=== PATIENT | male | born 1940 | race Caucasian/White ===

== ENCOUNTER 2018-02-05 08:20 | Day surgery (SDC) | payer MEDICARE, OTHER ==
[~2018-02-05] VITALS: Ht 175.3 cm; Wt 84.8 kg
--- NOTE | 2018-02-05 11:35 | OR ---
[facility] [address] [place], [place] [address] Signed DATE OF OPERATION: 02/05/2018 SURGEON: Yasmin Guerra MD PREOPERATIVE DIAGNOSIS: Personal history of colonic polyps in 2004 and in 2013. POSTOPERATIVE DIAGNOSES: 1. 4 mm polyps x2 in proximal right colon. 2. 7 mm polyps x2 in proximal transverse colon. 3. 4 mm polyp in mid transverse colon. 4. Internal anal skin tags x2. PROCEDURE: Colonoscopy with hot biopsy. ESTIMATED BLOOD LOSS: None. INDICATIONS: Malachi is a 77-year-old gentleman, who has been through at least two previous colonoscopies and had polyps removed. He has been asked by his primary care provider to come and see me for followup colonoscopy. He said he has no lower GI complaints. There is no family history of colon cancer or polyps. In the office, I gave him a pamphlet on colonoscopy and we looked at that together along with the risks including, but not limited to gas bloating, crampy abdominal pain, bleeding, perforation, requiring surgery, and missed diagnosis. He also understands the need for IV conscious sedation. We discussed that at length and he was insistent that no sedation was used for his last colonoscopy and he was awake during his entire colonoscopy. He said if we needed to give him IV sedation during the procedure will be fine and we could just call his to pick him up. He had expressed understanding and wished to proceed as above. PROCEDURE NOTE: Malachi was taken into the endoscopy suite and placed in the left lateral decubitus position. We gave him no sedation for the entire procedure. A digital rectal exam was performed and he has some induration to his prostate, but no dominant nodules. The adult colonoscope was introduced and advanced all around into this cecum under direct visualization of the camera. It took a few minutes to get through the hepatic flexure and we had to rotate Malachi into the supine position and then back into the left lateral decubitus position. Fortunately, his prep was quite good. The scope was then slowly Electronically Signed By: YASMIN GUERRA MD 02/05/18 1135 PATIENT NAME: KASIE BROCK OPERATIVE REPORT DATE OF : 36 REPORT #: [id number] PHYSICIAN: YASMIN GUERRA MD PCP: JOCELYN COTA REPORT IS CONFIDENTIAL AND NOT TO BE RELEASED WITHOUT AUTHORIZATION [facility] [address] [place] [id number] Signed withdrawn. The above-mentioned polyps were easily removed with the help of hot biopsy forceps. No diverticulosis was seen. The rectum was unremarkable. We saw previous polypectomy scars. Once in the rectum, the scope was retroflexed and he has 2 tiny internal anal skin tags. After this, the gas was suctioned out and colonoscope removed. Malachi tolerated the procedure quite well. RECOMMENDATIONS: I will see Malachi back in my office in 7 to 14 days to review his results. MD ANTONIO Ramirez/LUIS ANGELL /[id number] cc: MD Nahid Ramirez MD Copies: YASMIN GUERRA MD, DELWYN MD ~ Electronically Signed By: YASMIN GUERRA MD 02/05/18 1135 PATIENT NAME: KASIE BROCK OPERATIVE REPORT DATE OF : 36 REPORT #: [id number] PHYSICIAN: YASMIN GUERRA MD PCP: JOCELYN COTA REPORT IS CONFIDENTIAL AND NOT TO BE RELEASED WITHOUT AUTHORIZATION
--- NOTE | 2018-02-05 11:36 | NUR ---
LE 1000: PT RETURNS TO DAY SURGERY FROM ENDOSCOPY SUITE DUE TO NO MEDICATION GIVEN FOR COLONOSCOPY PROCEDURE. DR. GUERRA VERBALIZES TO WATCH THE PATIENT AND CHECK VITAL SIGNS FOR 30 MINUTES PRIOR TO DISCHARGE. COFFEE GIVEN. CALL LIGHT W/IN REACH. PT DENIES ADD'L NEEDS. LE 1040: PATIENT DENIES PAIN AND REPORTS HE HAS BEEN "PASSING GAS". DC INSTRUCTIONS ARE GIVEN AND HE VERBALIZES UNDERSTANDING OF THOSE. PT THEN DRESSES SELF AND IS DC HOME AMBULATORY TO DRIVE HIMSELF.
== END 2018-02-05 10:45 | disposition home or self-care (01) ==
LOC: OPS 08:20 → DS 08:20 → OPS 09:45 → DS 09:45 → OPS 10:45
PROVIDERS: Colon & Rectal Surgery
PROC: 0DBL8ZZ Excision of Transverse Colon, Via Natural or Artificial Opening Endoscopic (ICD-10-PCS; 2018-02-05)
PROC: 0DBF8ZZ Excision of Right Large Intestine, Via Natural or Artificial Opening Endoscopic (ICD-10-PCS; principal; 2018-02-05 09:45)
DX: Z12.11 Encounter for screening for malignant neoplasm of colon (principal); K63.5 Polyp of colon; K64.4 Residual hemorrhoidal skin tags; F17.210 Nicotine dependence, cigarettes, uncomplicated; Z86.010 Personal history of colon polyps
CPT/HCPCS: 88305; J2250; J3010; J7120

== ENCOUNTER 2019-10-08 08:01 | Emergency (ER) | payer MEDICARE, OTHER ==
[~2019-10-08] VITALS: Ht 175.3 cm; Wt 84.8 kg
--- OUTSIDE RECORDS SUMMARY | ~2019-10-08 | XMS | Encounter Summary ---
Demographics + + + | Address | [address] | | | [place] [address] | + + + | Home Phone | | + + + | Preferred Language | Unknown | + + + | Marital Status | | + + + | Orthodoxy Affiliation | NON | + + + | Race | White | + + + | Ethnic Group | Not or | + + + Author + + + | Author | [facility] | + + + | Organization | [facility] | + + + | Address | Unknown | + + + | Phone | Unavailable | + + + Support + + + + + | Name | Relationship | Address | Phone | + + + + + | Silvia Loera | FARZANA | [place] | | + + + + + Care Team Providers + +------+ + | Care Electronics Warfare Technician Name | Role | Phone | + +------+ + PCP | Unavailable | + +------+ + Encounter Details +--------+ + + + + | Date | Type | Department | Care Team | Description | +--------+ + + + + | 12/30/ | Results | Health Promotion | Judit Booth MD | | | 2001 | Only | and Sports Medicine | [address] | | | | | [address] | [place] | | | | | [place] Mailcode: | [place] [address] | | | | | OP03 Outpatient | [phone] | | | | | [place] [address] | | | | | | [place], [place] | | | | | | [address] | | | | | | [phone] | | | +--------+ + + + + Social History + +-------+ +--------+------+ | Tobacco Use | Types | Packs/Day | Years | Date | | | | | Used | | + +-------+ +--------+------+ | Never Assessed | | | | | + +-------+ +--------+------+ + + + | Sex Assigned at | Date Recorded | | | | + + + | Not on file | | + + + + + + + | Job Start Date | Occupation | Industry | + + + + | Not on file | Not on file | Not on file | + + + + + + + + | Travel History | Travel Start | Travel End | + + + + + + | No recent travel history available. | + + documented as of this encounter Plan of Treatment Not on filedocumented as of this encounter Procedures + +--------+ + + + | Procedure Name | Priori | Date/Time | Associated Diagnosis | Comments | | | ty | | | | + +--------+ + + + | MRI SPINE LUMBAR WO | Routin | 12/30/2001 | | Results for this | | CONT | e | 1:30 PM | | procedure are in the | | | | PST | | results section. | + +--------+ + + + documented in this encounter Results MRI SPINE LUMBAR WO CONT (12/30/2001 1:30 PM PST) + + + + + + | Component | Value | Ref Range | Performed | Pathologist | | | | | At | Signature | + + + + + + | MR LUMBAR | Radiologist 1: LAIAL, | | | | | SPINE WO | VICKI Randall, | | | | | CONT | Miguel Ángel-Radiologist 2: AVERY | | | | | | TODD LUMBAR SPINE: | | | | | | 12/30/2001 Dictated | | | | | | 12/30/2001 COMPARISON: | | | | | | Outside lumbar spine | | | | | | 08/1993. HISTORY: Back | | | | | | pain. TECHNIQUE: | | | | | | Following the sequences | | | | | | were obtained: | | | | | | Sagittal T1 and | | | | | | T2,axial T1 and T2 with | | | | | | fat saturation. 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 | | | | | | The disc spaces at | | | | | | these levels are | | | | | | maintained, and | | | | | | thelumbar vertebrae | | | | | | bodies are normal in | | | | | | signal, height and | | | | | | alignment. At L4-5, | | | | | | there is a left | | | | | | paracentral focal disc | | | | | | protrusion extending | | | | | | afew mm below the | | | | | | inferior endplate of L4. | | | | | | Disc protrusion | | | | | | effaces theleft anterior | | | | | | part of the thecal sac | | | | | | and causes displacement | | | | | | andprobable compression | | | | | | of the left L5 nerve | | | | | | root. At L5-S1, there is | | | | | | degenerative disc | | | | | | disease with mild facet | | | | | | disease,resulting in | | | | | | moderate right neural | | | | | | foraminal stenosis. The | | | | | | L5 and S1 vertebral | | | | | | bodies are normal in | | | | | | signal, height, | | | | | | andalignment. No | | | | | | abnormal paraspinal | | | | | | masses are seen. | | | | | | IMPRESSION: 1. Left | | | | | | paracentral focal disc | | | | | | protrusion at L4-5, | | | | | | causingdisplacement and | | | | | | probable compression of | | | | | | the left L5 nerve root. | | | | | | 2. Degenerative change | | | | | | at L5-S1, resulting in | | | | | | moderate right | | | | | | neuralforamina stenosis. | | | | | | END OF IMPRESSION: | | | | + + + + + + + + | Specimen | + + | | + + + +---------+ + + | Performing | Address | City/State/Zipcode | Phone Number | | Organization | | | | + +---------+ + + | [facility] DEPARTMENT OF | | | | | RADIOLOGY | | | | + +---------+ + + documented in this encounter Visit Diagnoses Not on filedocumented in this encounter"
--- OUTSIDE RECORDS SUMMARY | ~2019-10-08 | XMS | Encounter Summary ---
Demographics + + + | Address | [address] | | | [place] [address] | + + + | Home Phone | | + + + | Preferred Language | Unknown | + + + | Marital Status | | + + + | Latter Day Affiliation | NON | + + + | Race | White | + + + | Ethnic Group | Not or | + + + Author + + + | Author | [facility] | + + + | Organization | [facility] | + + + | Address [...] Team Providers + +------+ + | Care State Director Name | Role | Phone | + +------+ + PCP | Unavailable | + +------+ + Encounter Details +--------+ + + + + | Date | Type | Department | Care Team | Description | +--------+ + + + + | 05/18/ | Results | Orthopaedics at | Dave Schwartz MD | | | 2001 | Only | [facility] [address] | [address] [place] | | | | | [address] | [address] [place], [place] | | | | | Mailcode: PV430 | [address] | | | | | Phys[facility] | | | | | | [place], [place] | | | | | | [address] | | | | | | [phone] | | | +--------+ + + + [...] | + +--------+ + + + | X-RAY SPINE | Routin | 05/18/2002 | | Results for this | | LUMBOSACRAL 3 VIEWS | e | 3:05 PM | | procedure are in the | | | | PDT | | results section. | + +--------+ + + + documented in this encounter Results SPINE LUMBOSACRAL 3 VIEWS (05/18/2002 3:05 PM PDT) + + + + + + | Component | Value | Ref Range | Performed | Pathologist | | | | | At | Signature | + + + + + + | SPINE | Radiologist 1: AARON | | | | | LUMBOSACRAL | Miguel Ángel EMERY-Radiologist | | | | | 3 VIEWS | 2: YULY WALKER | | | | | | Miguel ÁngelTHREE VIEWS OF | | | | | | LUMBOSACRAL SPINE: | | | | | | 05/18/2002 at 1505 | | | | | | Dictated 05/19/2002 | | | | | | HISTORY: 61-year-old | | | | | | male. COMPARISON: | | | | | | 02/23/02. FINDINGS: | | | | | | Since the previous exam, | | | | | | the patient has had a | | | | | | partiallaminectomy of L4 | | | | | | and a total laminectomy | | | | | | of L5. Facet sclerosis | | | | | | isnoted in the lower | | | | | | lumbar spine. Spurring | | | | | | is present on the | | | | | | L1-R1jybewxkgn bodies | | | | | | with loss of disc space | | | | | | between L5 and S1. | | | | | | IMPRESSION: 1. Partial | | | | | | laminectomy of L4 and | | | | | | total laminectomy of L5. | | | | | | 2. 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 | | | | | | 3. Degenerative disc | | | | | | disease between L1 and | | | | | | S1. 4. No evidence of | | | | | | instability in flexion | | | | | | or extension. END OF | | | | | | IMPRESSION: | | | | + + + + + + + + | Specimen | + + | | + + + +---------+ + + | Performing | Address | City/State/Zipcode | Phone Number | | Organization | | | | + +---------+ + + | [facility] DEPARTMENT OF | | | | | RADIOLOGY | | | | + +---------+ + + documented in this encounter Visit Diagnoses Not on filedocumented in this encounter"
--- OUTSIDE RECORDS SUMMARY | ~2019-10-08 | XMS | Encounter Summary ---
Demographics + + + | Address | [address] | | | [place] [address] | + + + | Home Phone | | + + + | Preferred Language | Unknown | + + + | Marital Status | | + + + | Yazidism Affiliation | NON | + + + | Race | White | + + + | Ethnic Group | Not or | + + + Author + + + | Author | [facility] | + + + | Organization | [facility] | + + + | Address | Unknown | + + + | Phone | Unavailable | + + + Support + + + + + | Name | Relationship | Address | Phone | + + + + + | Silvia Brock | FARZANA | [place] | | + + + + + Care Team Providers + +------+ + | Care Issue Clerk Name | Role | Phone | + +------+ + | Judit Booth MD | PCP | | + +------+ + Reason for Visit + + + | Reason | Comments | + + + | Medicare | | | Certification | | + + + Encounter Details +--------+---------+ + + + | Date | Type | Department | Care Team | Description | +--------+---------+ + + + | 09/26/ | Office | [facility] | George, Ge, PT | Right hip pain | | 2015 | Visit | Therapy Services at | [facility], [place] | (Primary Dx) | | | | [facility] | [address] | | | | | [address] | | | | | | Mailcode: CH3P | | | | | | [facility] | | | | | | and Healing, | | | | | | [address] | | | | | | Floor [place], [place] | | | | | | [address] | | | | | | [phone] | | | +--------+---------+ + + + Social History + +-------+ +--------+------+ | Tobacco Use | Types | Packs/Day | Years | Date | | | | | Used | | + +-------+ +--------+------+ | Never Smoker | | | | | + +-------+ +--------+------+ + +------+---+---+ | Smokeless Tobacco: | Chew | | | | Current User | | | | + +------+---+---+ + + | Comments: 1 can a every 2 weeks | + + + + +---------+ + | Alcohol Use | Drinks/Week | oz/Week | Comments | + + +---------+ + | Not Asked | 0 Standard drinks | 0.0 | | | | or equivalent | | | + + +---------+ + + + + | Sex Assigned at [...] + + documented as of this encounter Progress Notes Ge Vazquez, PT - 09/26/2015 7:52 AM PST [id number] KASIE BROCK Date of : 1940 Start of care: 09/26/2015 Date of onset: 09/08/2015 Referring/Attending Practitioner: Jacky Borjas MD . Primary/Referral Diagnosis/ICD-9: M25.551 Right hip pain Insurance: Payor: MEDICARE / Plan: MEDICARE A & B / Product Type: Medicare / Service period from: 09/26/2015 to: 10/26/2015 Number visits used/authorized: 11/12 PRE-OP TOTAL HIP ARTHROPLASTY SUBJECTIVE: History of Presenting Problem: Kasie Brock is a 75 y.o. male who is pre-op for p lanned R JALIL on 10/02/[address] Borjas. Prior/concurrent treatment: none. Discharge planning Return to home after discharge?: Yes, [place] Living situation: Single level home Stairs into home: 2 Help after surgery: yes Assistive devices: FWW owned, none used Return to work: Retired Precaution/special problems: 2002 back surgery Pain level (0-10): Patient reports a pain level of 6/10 today. Kasie's Goals: Learn precautions, learn post-op exercises, walk without pain. Med Hx: Kasie has no past medical history on file. Surgical Hx: Kasie has past surgical history that includes back surgery (2001); shoulder surgery (Right, 2005); hernia surgery; and mouth surgery. Meds: No current outpatient prescriptions on file. OBJECTIVE: Posture/alignment/observation: Seated comfortably in NAD, pronounced antalgic transfers and gait Gait: forward flexed antalgic gait pattern on R Hip ROM R/L 09/26/2015 Right 09/26/2015 Left Comments Seated IR 12 20 Seated ER 22 30 Single leg stance: R 0 seconds L 10 seconds Neuro Screen: Negative Special tests: Wesley: NT Patient Specific Functional Scale: (0=unable to perform; 10= no difficulty) Activity Score 09/26/2015 Interpretation Walking 9 Minimum detectable change for single activity score = 3 points Bending 9 Sleep 6 Total: 24/01 = 8 Minimum detectable change for average score = 2 points PSFS developed by: Bernice Griffin, José Mercado, Tonia Morris, & Kristal Wynn (1995). TREATMENT TODAY: PT: Brief Evaluation, Therapeutic Exercise x 20 minutes Education of post-op precautions: posterior approach precautions Do not bend your hip past 90 degrees Do not cross your legs (adduction) Do not turn your leg inward (IR) Education of post-op objectives: Control Swelling Normalize Gait Strengthen glutes Treatment consisted of teaching Kasie a home exercise program, written instruction was gi senthil: Post-op Exercises (1x10 reps 3x/day): Walking program Supine glute sets, x10 sec hold Long sitting quad sets Supine heel slides Supine ankle pumps Supine hip abduction Mini squat, holding onto back of chair or counter at 2 weeks Education on FWW for gait and stair training ASSESSMENT: Kasie is pre-op for R Total Hip Arthroplasty. He is receptive to pre-op education and pr ecautions. Kasie demonstrated proper form of all exercises, as well as proper gait and sta ir training with assistive device. Kasie Cruz requires services that can be safely and effect ively performed only by a qualified therapist to achieve the following goals: [id number] VA MOBILITY CURRENT STATUS Impairment 60-79 % G8979 PQRI MOBILITY GOAL STATUS Impairment 1-19 % Rehab Potential: Good . SHORT-TERM GOALS, discussed with patient, due upon completion of this treatment: Patient will be able to demonstrate and verbalize movement precautions Patient will be able to walk for 5 minutes without needing to stop due to pain Patient will demonstrate good technique with post op exercises PLAN: Per Protocol Follow up 2 weeks after surgery if not progressing well Review precautions Frequency/Duration: Follow up at 2 or 6 weeks after surgery, if not meeting goals independ ently Treatment began: 829 Treatment ended: 899 This note is to serve as the discharge summary if Kasie fails to attend further Physical Therapy appointments or contact the therapist regarding any change in their status. documented in this enco unter Plan of Treatment + + +--------+ + + | Name | Type | Priori | Associated Diagnoses | Order Schedule | | | | ty | | | + + +--------+ + + | VA MOBILITY CURRENT | Procedures | Routin | Right hip pain | Ordered: 09/26/2015 | | STATUS | | e | | | + + +--------+ + + | PQRI MOBILITY GOAL | Procedures | Routin | Right hip pain | Ordered: 09/26/2015 | | STATUS | | e | | | + + +--------+ + + | REHABILITATION | Procedures | Routin | Right hip pain | Ordered: 09/26/2015 | | MEDICARE | | e | | | | CERTIFICATION | | | | | + + +--------+ + + documented as of this encounter Procedures + +--------+ + + + | Procedure Name | Priori | Date/Time | Associated Diagnosis | Comments | | | ty | | | | + +--------+ + + + | VA THERAPEUTIC | Routin | 09/26/2015 | Right hip pain | | | EXERCISES | e | 1:41 PM | | | | | | PST | | | + +--------+ + + + | [facility] PHYS THERAPY | Routin | 09/26/2015 | Right hip pain | | | EVALUATION | e | 1:41 PM | | | | | | PST | | | + +--------+ + + + documented in this encounter Visit Diagnoses + + | Diagnosis | + + | Right hip pain - Primary Pain in joint, pelvic region and thigh | + + documented in this encounter"
--- OUTSIDE RECORDS SUMMARY | ~2019-10-08 | XMS | Encounter Summary ---
Demographics + + + | Address | [address] | | | [place] [address] | + + + | Home Phone | | + + + | Preferred Language | Unknown | + + + | Marital Status | | + + + | Congregation Affiliation | Unknown | + + + | Race | Unknown | + + + | Ethnic Group | Unknown | + + + Author + + + | Author | [facility] | | | and [place] | + + + | Organization | [facility] | | | and [place] | + + + | Address | Unknown | + + + | Phone | Unavailable | + + + Support + + + + + | Name | Relationship | Address | Phone | + + + + + | Silvia Baumann | ECON | [address] | | | | | [place] | | | | | [address] | | + + + + + Care Team Providers + +------+ + | Care Automatic Silk Screen Printer Name | Role | Phone | + +------+ + | Luis M Baptiste | PCP | | | MD | | | + +------+ + Reason for Visit + + + | Reason | Comments | + + + | Appointment | | + + + Encounter Details +--------+ + + + + | Date | Type | Department | Care Team | Description | +--------+ + + + + | 03/13/ | Telephone | [facility] | Rex Manley, | Appointment | | 2017 | | MEDICINE [address] | MD [address] [facility] | | | | | [address] | [place], [place] | | | | | [place] [address] | [address] | | | | | [phone] | | | +--------+ + + + [...] | + +------+---+---+ + + | Comments: chew tobacco | + + + + +---------+ + | Alcohol Use | Drinks/Week | oz/Week | Comments | + + +---------+ + | Yes | | | "a shot everyother | | | | | day with occasional | | | | | wine and beer" | + + +---------+ + + + [...] as of this encounter Plan of Treatment +--------+---------+ + + + | Date | Type | Specialty | Care Team | Description | +--------+---------+ + + + | 10/08/ | Office | Neurosurgery | Luis M Muir | | | 2019 | Visit | | MD Nancy [address] | | | | | | [address] [place] | | | | | | [place] [address] | | | | | | [phone] | | | | | | | | +--------+---------+ + + + documented as of this encounter Visit Diagnoses Not on filedocumented in this encounter
--- OUTSIDE RECORDS SUMMARY | ~2019-10-08 | XMS | Encounter Summary ---
Demographics + + + | Address | [address] | | | [place] [address] | + + + | Home Phone | | + + + | Preferred Language | Unknown | + + + | Marital Status | | + + + | Nondenominational Affiliation | NON | + + + | Race | White | + + + | Ethnic Group | Not or | + + + Author + + + | Author | [facility] | + + + | Organization | [facility] | + + + | Address | Unknown | + + + | Phone | Unavailable | + + + Support + + + + + | Name | Relationship | Address | Phone | + + + + + | Silvia Loera | [place] | [place] | | + + + + + Care Team Providers + +------+ + | Care Rehab Consultant Name | Role | Phone | + +------+ + | Judit Booth MD | PCP | | + +------+ + Encounter Details +--------+ + + + + | Date | Type | Department | Care Team | Description | +--------+ + + + + | 03/05/ | Office | [facility] | Note, Outpatient | Progress Note | | 2001 | Visit-Trans | MEDICINE | Clinic | | | | cribed | | | | +--------+ + + + [...] documented as of this encounter 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 Dave Schwartz. Mr. Loera presented today for preop evaluation. He has a diagnosis of lumbar stenosis and a herniated nucleus pulposus at L4-L5. He is scheduled for an L4-L5 laminectomy, partial facetectomy, foraminotomy, and possible removal of disk. This is scheduled for March 08, 2002, with Dr. Dave Schwartz. His history and physical were performed and recorded in the preop packet. Risks of the surgery were discussed and all questions answered. Risks of surgery including dural repair, nerve injury, bleeding, infection, instability, and footdrop were all discussed. The patient understands these risks, and consent for surgery was freely signed. ALLERGIES: CODEINE. CURRENT MEDICATIONS: He is on no current medications. The patient was also seen and evaluated by Dr. Dave Schwartz. Coty Mendez. ZARA / WAN [id number] / [id number] / [id number] / Tdocumented in this encounter Plan of Treatment Not on filedocumented as of this encounter Visit Diagnoses Not on filedocumented in this encounter"
--- OUTSIDE RECORDS SUMMARY | ~2019-10-08 | XMS | Encounter Summary ---
Demographics + + + | Address | [address] | | | [place] [address] | + + + | Home Phone | | + + + | Preferred Language | Unknown | + + + | Marital Status | | + + + | Nondenominational Affiliation | NON | + + + | Race | White | + + + | Ethnic Group | Not or | + + + Author + + + | Author | [facility] | + + + | Organization | [facility] | + + + | Address [...] Team Providers + +------+ + | Care Cordwood Cutter Helper Name | Role | Phone | + +------+ + | Judit Booth MD | PCP | | + +------+ + Reason for Visit AUTH/CERT +--------+--------+ + + + + | Status | Reason | Specialty | Diagnoses / | Referred By | Referred To | | | | | Procedures | Contact | Contact | +--------+--------+ + + + + | Closed | | | | | | +--------+--------+ + + + + Encounter Details +--------+ + + + + | Date | Type | Department | Care Team | Description | +--------+ + + + + | 10/02/ | Hospital | [facility] [address] | Jacky Borjas MD | | | 2015 - | Encounter | [address] | [address] [employer] [address] | | | | | [address] | [address] | | | 10/05/ | | [place], [place] | [place], [place] | | | 2014 | | [id number] | [address] | | | | | [phone] | [phone] | | | | | | | | +--------+ + + [...] + + documented as of this encounter Last Filed Vital Signs + + + + + | Vital Sign | Reading | Time Taken | Comments | + + + + + | Blood Pressure | 138/74 | 10/05/2015 7:36 AM | | | | | PST | | + + + + + | Pulse | 91 | 10/05/2015 7:36 AM | | | | | PST | | + + + + + | Temperature | 37.2 C (99 F) | 10/05/2015 7:36 AM | | | | | PST | | + + + + + | Respiratory Rate | 18 | 10/05/2015 7:36 AM | | | | | PST | | + + + + + | Oxygen Saturation | 92% | 10/05/2015 7:36 AM | | | | | PST | | + + + + + | Inhaled Oxygen | - | - | | | Concentration | | | | + + + + + | Weight | 86.2 kg (190 lb 0.6 | 10/02/2015 10:00 AM | | | | oz) | PST | | + + + + + | Height | 177.8 cm (5' 10") | 10/02/2015 10:00 AM | | | | | PST | | + + + + + | Body Mass Index | 27.27 | 10/02/2015 10:00 AM | | | | | PST | | + + + + + documented in this encounter Discharge Summaries Claribel Mary NP - 10/16/2015 10:53 AM PST [facility] DEPARTMENT OF ORTHOPAEDICS & REHABILITATION INPATIENT HOSPITAL DISCHARGE SUMMARY & INTERDISCIPLINARY INSTRUCTIONS Patient: Kobi Baumann CSN: [id number] Admission Date: 10/02/2015 Discharge Date: 10/05/2015 Attending Physician: Jacky Borjas MD PCP: Judit Booth MD Service: [facility] Orthopaedics & Rehabilitation Diagnoses Principal Final Diagnosis: Right hip osteoarthritis Procedures 10/02/15 Right total hip arthroplasty Implants: 1. [employer] R3 acetabular shell; sz 58mm with sz 36 highly cross-linked poly insert 2. [employer] Polarstem sz 9; std offset 3. [employer] Oxinium head; sz. 36/0 Brief Hospital Course Kobi Baumann admitted electively for the procedure(s) described above. The inpatie nt stay related to this procedure(s) took an uncomplicated perioperative course except for s ubluxation of the hip noticed on post-operative xray and treated with immediate closed reduc tion via gentle traction while in the post-operative care area. The patient was followed cl osely by the attending providers, resident providers, and medical/nursing staff. Post opera tively, the patient was admitted to the hospital for convalescent care. Pain control was ma naged with iv/po pain medication as needed. The Patient was given 24hrs of IV antibiotics p ost-operatively. For DVT prophylaxis the patient was started on Aspirin and SCDs and MIKA hos e were also used. The patient made appropriate gains toward activity and functional goals while an inpatient, working daily with physical therapy. While on the hospital floor, the p atient tolerated oral intake sufficient to maintain nutrition and hydration. The surgical wo und remained clean, dry, and intact without signs concerning for infection. The patient was felt appropriate for discharge to home, and the patient and/or family members agree with th is course of action. Diet Regular Regular diet- There are no restrictions to your diet. You may eat or drink whatever you pr efer, though healthy food choices are recommended. Wound Care Please continue wound care with Negative Pressure Incision Management System - Prevena shawn ce 1. The Prevena duration period is about 7 days 2. Do not remove the dressing or turn th e device off unless instructed by the treating physician until the end of the duration perio d.3. Patient may shower with Prevena but protect unit and dressing from direct shower spray and pat dry4. At the end of the Prevena duration period remove dressing and replace with a r egular dry dressing which should be changed daily or more often if it becomes soiled. No megan ssing is required if the site is no longer draining. 5. Call Orthopaedic Surgery [phone] for any signs of infection: increase in drainage, foul odor, increased swelling, pain or r edness around the wound, chills or fever 101.5 or greater. - If you have Steri-Strips (paper tape) over your incision, keep the incision covered until there is no discharge on bandage. Do not remove Steri-Strips, they will fall off on their own. Trim edges of the Steri-Strips if they start to peel up. Do not get your wound wet for 5-7 days after your operation.- Onc e wound is closed (no drainage), you may shower. Let water run over wound. Pat dry. Do not s crub or soak wound in water.- Avoid using lotions, powders, oils, or ointments on your incis ion.- DO NOT let anyone start you on antibiotics if they suspect your wound is infected. Juan Luis li [facility] Orthopedics first at [phone]. Activity Weight bear as tolerated on both lower extremities. Restrictions: Posterior hip precautions on operative side (no hip flexion >90 degrees, no c rossing your legs, no turning your foot towards the middle of the body (internal rotation). Condition on Discharge Stable Follow-Up Appointments ORTHOPEDICS OUTPATIENT CLINIC: Future Appointments Provider Department Dept Phone Center 10/16/2015 12:00 PM Michael Velazco Rehabilitation Services at [facility] 1st Floor [phone] Rehabilita 10/19/2015 11:20 AM Dave May Orthopaedics at [facility] [phone] Orthopedics Follow up in 2 weeks (or as previously scheduled). Call [phone] to confirm or schedule this appointment. PCP: As needed for any medical concerns not related to your surgery. Destination: Destination: Home Discharge Medication List as of 10/05/2015 2:18 PM START taking these medications Details acetaminophen 325 mg oral tablet Take 1-2 tablets by mouth every four hours as needed for m oderate pain. Indications: Pain, Disp-100 tablet, R-0, OTC aspirin EC 325 mg oral tablet,delayed release (DR/EC) Take 1 tablet by mouth two times mike y for 42 days., Disp-84 tablet, R-0, Print Prescription oxyCODONE, immediate release, 5 mg oral tablet Take 1 to 3 tablets by mouth every three sydney rs as needed for moderate pain. WEAN OFF YOUR PAIN MEDICATION. Take the smallest amount of p ain medication to control pain. As soon as possible decrease daily intake of this medication and continue to wean unti l you are able to discontinue it., Disp-120 tablet, R-0, Print Pr escription polyethylene glycol 17 gram/dose oral powder Take 17 g by mouth two times daily. Indication s: CONSTIPATION, Disp-119 g, R-0, OTC senna-docusate 8.6-50 mg oral tablet Take 2 tablets by mouth two times daily for 30 days. I ndications: CONSTIPATION, Disp-120 tablet, R-0, OTC [facility] Orthopaedic Service Pain Policy At the 6-week post-operative job, pain management will be reassessed and pain management r ecommendations may be modified by the discretion of the Provider. At the 3-month post-operative job, the patient will be referred to pain management for joy oing pain of poly-trauma, referred to PCP, or transitioned to Tylenol. All refills must be requested through a pharmacy. The pharmacy may then either call the o ffice with a request or fax the request to clinic. Patients must give the Outpatient Clinic a minimum of 72 hours to refill or deny narcotic p rescription from the time that they receive request from pharmacy. Requests received after 3pm will not be processed until the following business day. Prescriptions will not be available through our office after-hours, weekends, and holidays. NO EXCEPTIONS. Deep Vein Thrombosis (Leg Blood Clot) Prevention DVT prophylaxis: You are at increased risk of forming a blood clot following your joint replacement. - We have recommended that you take Aspirin for 6 weeks following your surgery to decrease this risk. - See discharge prescriptions for administration instructions. - Call Orthopedic Clinic at [phone] if any persistent, localized swelling that does no t improve with time or elevation or if you have any persistent calf pain, shortness of breat h or chest pain. Contact Your Physician When to Call: 1. Difficulty breathing, chest pain or unusual shortness of breath; 2. Excessive bleeding, drainage, redness, swelling at the operative site (if the wound appe ars to be worse instead of better each day); 3. Fevers, chills, increased pain that is not relieved by pain medications; 4. Persistent nausea or vomiting; 5. Other specific concerns; Please call: - during business hours (8:00am - 4:30pm); - if after hours and ask for the orthopaedic surgery resident contract negotiation specialist. Additional Post-Op Instructions / What to Expect To prevent constipation you have been provided with medications which will help you have a bowel movement. These medications include senna and miralax. You can start with one medicati on then add another until you've returned to your normal bowel movement schedule. Each medic ation may take a day or two to be effective. Once you reach your goal, you can reduce or sto p taking one or both medications. If you have loose or excessive stools stop taking the medi cation. Also keep in mind that eating a well balanced diet with plenty of fruits and vegetab les; proper hydration; and walking can also help encourage bowel movements. -Apply ice over the surgical site for 20 minutes at a time as needed for pain. -Avoid alcohol and smoking during the healing process. -You may experience numbness that is usually temporary. -There will be bruising and swelling that should improve in the first 2 weeks. -To reduce likelihood of falling at home, remove throw rugs, loose wires or other objects f rom floor and leave some lights on at night. - Elevate your extremity whenever possible to improve pain and swelling. Pain Management - You are advised to not drive, operate heavy equipment, or consume alcohol while on prescr iption narcotic pain medication. - Take a stool softener while taking narcotic pain medication in order to prevent constipat ion. - If you are running out of pain medication and feel that you will need more, call during business hours in order to get a new prescription. Please allow 48 hours for ref ills to be processed. - Schedule II narcotics can NOT be called in to a pharmacy. Please arrange for someone to p ick up your prescription or allow additional time for our clinic to mail you requested filomenail l. - On-call (after hours) MDs are not permitted to prescribe narcotic pain medications. - Prescriptions will not be available through our office on weekends or holidays. - Don't take Non-steroidal anti-inflammatory drugs (for example: Ibuprofen/Advil/Aleve) unt il approved by your orthopedic provider. Vital Signs on Discharge: Ht 1.778 m (5' 10"), Wt 86.2 kg (190 lb 0.6 oz), BP 138/74, Pulse 91, Temperature 37.2 C (99 F), RR 18, SpO2 92%, BMI 27.27 kg/(m^2). Condition on Discharge: Improved Discharging Patient To: Home Date and Time of Discharge Summary Completion: 10/16/2015, 10:53 AM Discharging Provider: Claribel Mary NP Discharging Attending: Jacky Borjas MD Thank you for the opportunity to take care of Kobi Cruz Austin Treviñozeina during this inpatient stay, it has been our pleasure. Claribel Mary NP [facility] [place] Department of Orthopaedics & Rehabilitation [address] [place] [address] Mail Code: OP31 [facility] [phone] documented in this enc ounter Medications at Time of Discharge + + + +---------+ + + | Medication | Sig | Dispensed | Refills | Start | End Date | | | | | | Date | | + + + +---------+ + + | senna-docusate | Take 2 tablets by | 120 | 0 | 10/04/20 | | | 8.6-50 mg oral | mouth two times | tablet | | 15 | 6 | | tabletIndications: | daily for 30 days. | | | | | | constipation | Indications: | | | | | | | CONSTIPATION | | | | | + + + +---------+ + + documented as of this encounter Progress Notes Jacky Borjas MD - 10/05/2015 7:31 AM PST [facility] DEPARTMENT OF ORTHOPAEDICS & REHABILITATION Adult Reconstruction / Joint Replacement Surgery PROGRESS NOTE Patient: Kobi Baumann Encounter Date: 10/03/2015 Admitted: 10/02/2015 Attending Physician: Jacky Borjas MD HD# 3 POD# 3 s/p R JALIL Subjective: Interval Hx: - Doing well - Up with PT yesterday - No acute events overnight. Denies CP, SOB, F/C/Nt sweats BM?: YES -- Tolerating Diet?: YES -- Pain Well Controlled?: YES -- Progressing with PT?: YES -- SCDs? YES -- Objective: Last Vitals: Ht 1.778 m (5' 10"), Wt 86.2 kg (190 lb 0.6 oz), BP 141/74, Pulse 100, Tempera ture 37.5 C (99.5 F), RR 16, SpO2 91%, BMI 27.27 kg/(m^2). 24 Hour Vital Min/Max: Pulse Av.8 Min: 91 Max: 100 Systolic (24hrs), Av mmHg, Min:128 mmHg, Max:141 m mHg Temp Av.3 C (99.2 F) Min: 36.7 C (98 F) Max: 37.7 C (99.8 F) Diastolic (24hrs), Av mmHg, Min:69 mmHg, Max:78 mmHg Resp Av Min: 16 Max: 16 SpO2 Av.2 % Min: 91 % Max: 93 % Intake/Output Summary (Last 24 hours) at 10/05/15 0731 Last data filed at 10/05/15 0600 Gross per 24 hour Intake 1106 ml Output 950 ml Net 156 ml Recent Laboratory Data: Lab Results Component Value Date WBC 8.19 10/03/2015 HCT 32.9 10/03/2015 CR 1.14 10/03/2015 No Data Recorded Exam: General: Well appearing, NAD CV/Resp: Breathing comfortably, regular pulse by palpation wrist Neurologic: A+O x3, face grossly symmetric MSK: HEENA dressing CDI; Mild ecchymosis and swelling surrounding the operative site Sensory intact to light touch in the SP/DP/Tib/Jason/Saph nerve distributions. Motor intact to GSC / TA / EHL / PL with 5/5 strength. 2+ DP / PT pulses; Toes are pink, warm, well perfused with <2s capillary refill. A/P: Kobi Baumann is a 75 y.o. male POD# 3 s/p the above procedure(s) - Immobility due to injury/illness: PT/OT ordered. - WBAT - Posterior hip precuations; Otherwise ROM as tolerated. - Pain: Maintain adequate analgesia; Oxycodone, IV Dilaudid for breakthrough pain. - Wound Care: Routine daily dressing changes starting POD#2. - Figueroa: Removed - ID: - Ancef, for 24 hours perioperatively - Status of antibiotic course: Complete - Radiology: Reviewed - Labs: Reviewed; Stable - Diet: Regular - DVT prophylaxis (High risk) - SCD(s) while in bed - Early ambulation - ASA 325 BID x 6 weeks - Dispo: - Targeted discharge date: Today vs tmrw - Discharge needs: Transportation may be needed - Orthopaedic Follow-up: The patient should call to schedule/confirm a follo w up appointment with Sina May PA-C, in approximately 2 weeks. KIM RAWLS MD 10/05/2015, 7:31 AM I performed a history and physical examination of the patient and discussed his management with the resident. I reviewed the resident s note and agree with the documented findings and plan of care. Jacky Borjas MD [facility] [address] [place], [place] [id number] Jacky Vigil MD - 1 12/05/2014 7:01 AM PST [facility] DEPARTMENT OF ORTHOPAEDICS & REHABILITATION Adult Reconstruction / Joint Replacement Surgery PROGRESS NOTE Patient: Kobi Baumann Encounter Date: 10/03/2015 Admitted: 10/02/2015 Attending Physician: Jacky Borjas MD HD# 2 POD# 2 s/p R JALIL Subjective: Interval Hx: - Doing well - Up with PT yesterday - No acute events overnight. Denies CP, SOB, F/C/Nt sweats BM?: NO -- Tolerating Diet?: YES -- Pain Well Controlled?: YES -- Progressing with PT?: YES -- SCDs? YES -- Objective: Last Vitals: Ht 1.778 m (5' 10"), Wt 86.2 kg (190 lb 0.6 oz), BP 122/77, Pulse 99, Temperat ure 37.3 C (99.1 F), RR 16, SpO2 90%, BMI 27.27 kg/(m^2). 24 Hour Vital Min/Max: Pulse Av.8 Min: 91 Max: 100 Systolic (24hrs), Av mmHg, Min:115 mmHg, Max:142 m mHg Temp Av.3 C (99.1 F) Min: 36.6 C (97.9 F) Max: 37.9 C (100.3 F) Diastol ic (24hrs), Av mmHg, Min:60 mmHg, Max:77 mmHg Resp Av Min: 16 Max: 16 SpO2 Av.6 % Min: 90 % Max: 94 % Intake/Output Summary (Last 24 hours) at 10/04/15 0701 Last data filed at 10/04/15 0300 Gross per 24 hour Intake 260 ml Output 1595 ml Net -1335 ml Recent Laboratory Data: Lab Results Component Value Date WBC 8. 10/03/2015 HCT 32.9 10/03/2015 CR 1.14 10/03/2015 No Data Recorded Exam: General: Well appearing, NAD CV/Resp: Breathing comfortably, regular pulse by palpation wrist Neurologic: A+O x3, face grossly symmetric MSK: HEENA dressing CDI; Mild ecchymosis and swelling surrounding the operative site Sensory intact to light touch in the SP/DP/Tib/Jason/Saph nerve distributions. Motor intact to GSC / TA / EHL / PL with 5/5 strength. 2+ DP / PT pulses; Toes are pink, warm, well perfused with <2s capillary refill. A/P: Kobi Baumann is a 75 y.o. male POD# 2 s/p the above procedure(s) - Immobility due to injury/illness: PT/OT ordered. - WBAT - Posterior hip precuations; Otherwise ROM as tolerated. - Pain: Maintain adequate analgesia; Oxycodone, IV Dilaudid for breakthrough pain. - Wound Care: Routine daily dressing changes starting POD#2. - Figueroa: Removed - ID: - [id number], for 24 hours perioperatively - Status of antibiotic course: Complete - Radiology: Reviewed - Labs: Hct 32.9 - asymptomatic - Diet: Advance diet as tolerated - DVT prophylaxis (High risk) - SCD(s) while in bed - Early ambulation - ASA 325 BID x 6 weeks - Dispo: - Targeted discharge date: Anticipate discharge home with family tomorrow - Discharge needs: FWW - Orthopaedic Follow-up: The patient should call to schedule/confirm a follo w up appointment with Sian May PA-C, in approximately 2 weeks. KIM RAWLS MD 10/04/2015, 7:02 AM I performed a history and physical examination of the patient and discussed his management with the resident. I reviewed the resident s note and agree with the documented findings and plan of care. Jacky Borjas MD [facility] [address] [facility] [address] [facility] [place], [place] [id number] Jacky Vigil MD - 1 12/04/2014 1:03 PM PST [facility] DEPARTMENT OF ORTHOPAEDICS & REHABILITATION Adult Reconstruction / Joint Replacement Surgery PROGRESS NOTE Patient: Kobi Baumann Encounter Date: 10/03/2015 Admitted: 10/02/2015 Attending Physician: Jacky Borjas MD HD# 1 POD# 1 s/p R JALIL Subjective: Interval Hx: - Doing well - Figueroa remains in place Denies CP, SOB, F/C/Nt sweats BM?: NO -- Tolerating Diet?: YES -- Pain Well Controlled?: YES -- Progressing with PT?: YES -- SCDs? YES -- Objective: Last Vitals: Ht 1.778 m (5' 10"), Wt 86.2 kg (190 lb 0.6 oz), BP 117/60, Pulse 92, Temperat ure 36.6 C (97.9 F), RR 16, SpO2 93%, BMI 27.27 kg/(m^2). 24 Hour Vital Min/Max: Pulse Av.5 Min: 60 Max: 98 Systolic (24hrs), Av mmHg, Min:101 mmHg, Max:134 mm Hg Temp Av.9 C (98.4 F) Min: 36.4 C (97.5 F) Max: 37.6 C (99.7 F) Diastoli c (24hrs), Av mmHg, Min:60 mmHg, Max:75 mmHg Resp Av.3 Min: 8 Max: 20 SpO2 Av.8 % Min: 93 % Max: 100 % Intake/Output Summary (Last 24 hours) at 10/03/15 1305 Last data filed at 10/03/15 0920 Gross per 24 hour Intake 3383.33 ml Output 1185 ml Net 2198.33 ml Recent Laboratory Data: Lab Results Component Value Date WBC 8.19 10/03/2015 HCT 32.9 10/03/2015 CR 1.14 10/03/2015 No Data Recorded Exam: General: Well appearing, NAD CV/Resp: Breathing comfortably, regular pulse by palpation wrist Neurologic: A+O x3, face grossly symmetric MSK: HEENA dressing CDI; Mild ecchymosis and swelling surrounding the operative site Sensory intact to light touch in the SP/DP/Tib/Jason/Saph nerve distributions. Motor intact to GSC / TA / EHL / PL with 5/5 strength. 2+ DP / PT pulses; Toes are pink, warm, well perfused with <2s capillary refill. A/P: Kobi Baumann is a 75 y.o. male POD# 1 s/p the above procedure(s) - Immobility due to injury/illness: PT/OT ordered. - WBAT - Posterior hip precuations; Otherwise ROM as tolerated. - Pain: Maintain adequate analgesia; Oxycodone, IV Dilaudid for breakthrough pain. - Wound Care: Routine daily dressing changes starting POD#2. - Figueroa: Discontinue figueroa catheter - ID: - ceFAZolin, for 24 hours perioperatively - Status of antibiotic course: Pending - Radiology: Reviewed; Initial AP Pelvis demonstrated femoral head subluxation - Reduced in PACU - Thought to be pseudo-subluxation due to dense spinal. Repeat films demonstrate wel l positioned arthroplasty. - Labs: Hct 32.9 - asymptomatic - Diet: Advance diet as tolerated - DVT prophylaxis (High risk) - SCD(s) while in bed - Early ambulation - ASA 325 BID x 6 weeks - Dispo: - Targeted discharge date: Anticipate 1-2 day inpatient stay - Discharge needs: Pending hospital course - Orthopaedic Follow-up: The patient should call to schedule/confirm a follo w up appointment with Sina May PA-C, in approximately 2 weeks. KIM RAWLS MD 10/03/2015 I performed a history and physical examination of the patient and discussed his management with the resident. I reviewed the resident s note and agree with the documented findings and plan of care. Jacky Borjas MD [facility] [address] [facility] [place] [address] da, Steven Villarreal MD - 1 12/02/2014 2:42 PM PST [facility] DEPARTMENT OF ORTHOPAEDICS & REHABILITATION Adult Reconstruction / Joint Replacement Surgery POST-OPERATIVE CHECK Patient: Kobi Baumann Date: 10/02/2015 Admitted: 10/02/2015 Hospital Day: 0 Attending Physician: Jacky Borjas MD Diagnosis(es): 1. R hip OA Orthopaedic Procedure(s): 1. R JALIL Subjective: Kobi Baumann is a 75 y.o. male, POD#0 from the above procedure(s). Doing well. - Denies complaints Objective: Last Vitals: Pulse: 74 BP: 106/65 mmHg Temp: 36.3 C (97.3 F) SpO2: 95 % Resp: 1 5 Focused Exam: General: Appropriate, Oriented x3 CV/Respiratory: RRR, unlabored breathing, appropriate effort, not auscultated MSK: HEENA dressing CDI; Mild ecchymosis and swelling surrounding the operative site Sensory intact to light touch in the SP/DP/Tib/Jason/Saph nerve distributions. Motor intact to GSC / TA / EHL / PL with 5/5 strength. 2+ DP / PT pulses; Toes are pink, warm, well perfused with <2s capillary refill. IMAGING: Pseudo-subluxation in setting of dense spinal. Reduced in PACU. Repeat imaging pending Assessment & Plan: Kobi Baumann is a 75 y.o.M with the diagnoses/procedures listed above, experienci beau doyle(an) At Expected Level postoperative course. POSTOPERATIVE PLAN: - Please refer to brief operative note for complete details of the post-operative plan. KIM RAWLS MD 10/02/2015, 2:43 PM [facility] [place] Department of Orthopaedics & Rehabilitation [address] [place] [address] Mail Code: OP31 [facility] [email or web address] Pager: [phone] documented in this enc ounter Plan of Treatment Not on filedocumented as of this encounter Procedures + +--------+ + + + | Procedure Name | Priori | Date/Time | Associated Diagnosis | Comments | | | ty | | | | + +--------+ + + + | PROCEDURE NOTE | Routin | 12/07/2015 | | Results for this | | | e | 11:16 AM | | procedure are in the | | | | PST | | results section. | + +--------+ + + + | PROCEDURE NOTE | Routin | 12/07/2015 | | Results for this | | | e | 11:12 AM | | procedure are in the | | | | PST | | results section. | + +--------+ + + + | OPERATION RECORD | | 10/05/2015 | | Results for this | | | | 10:28 AM | | procedure are in the | | | | PST | | results section. | + +--------+ + + + | CBC (HEMOGRAM) ONLY | Routin | 10/03/2015 | | Results for this | | | e | 6:39 AM | | procedure are in the | | | | PST | | results section. | + +--------+ + + + | BASIC METABOLIC SET | Routin | 10/03/2015 | | Results for this | | (NA, K, CL, TCO2, | e | 6:39 AM | | procedure are in the | | BUN, CR, GLU, CA) | | PST | | results section. | + +--------+ + + + | CBC ONLY | Routin | 10/03/2015 | | Results for this | | | e | 6:39 AM | | procedure are in the | | | | PST | | results section. | + +--------+ + + + | X-RAY PELVIS 1 VIEW | Urgent | 10/02/2015 | | Results for this | | | | 5:21 PM | | procedure are in the | | | | PST | | results section. | + +--------+ + + + | X-RAY PORTABLE | Urgent | 10/02/2015 | | Results for this | | PELVIS 1 VIEW | | 3:30 PM | | procedure are in the | | | | PST | | results section. | + +--------+ + + + | TOTAL HIP | Electi | 10/02/2015 | RIGHT HIP | | | ARTHROPLASTY | ve | 12:07 PM | OSTEOARTHRITIS | | | | Surgic | PST | | | | | al | | | | + +--------+ + + + documented in this encounter Results PROCEDURE NOTE (12/07/2015 11:16 AM PST)PROCEDURE NOTE (12/07/2015 11:12 AM PST)OPERATION R ECORD (10/05/2015 10:28 AM PST) + + | Transcriptions | + + | Jacky Borjas MD - 10/04/2015 11:28 AM PST Date of Service: 10/02/2015 Attending | | Surgeon:Jacky Borjas MD It Desktop Support Technician(s):Steven Rawls MD. | | Preoperative Diagnosis: Right hip osteoarthritis.Postoperative | | Diagnosis: Right hip osteoarthritis.Procedures: 1.Right total hip | | arthroplasty.2.Incisional wound VAC dressing placement.Components: 1.Ash and Nephew | | R3 acetabular shell, size 58 mm outer diameter with a 36 mm inner diameter neutral | | cross-linked polyethylene liner.2.Ash and Nephew polar stem size #9 with standard | | offset and a 36, +0 Oxinium femoral head.Anesthesia: Spinal.Specimens: | | None.Complications: None appreciated.Description Of Procedure: The patient was | | identified in the preoperative holding area and the incision site marked. The patient | | was transferred to the operating room. Spinal anesthesia was administered. Cefazolin | | was given as antibiotic prophylaxis. The right hind quadrant and lower extremity were | | prepped and draped in a sterile and free fashion. A surgical pause was performed. | | Surface landmarks were identified. An incision was made for a posterior approach to the | | hip. The fascia was incised in line with the skin. The piriformis and conjoined | | tendons were released and tagged with Tycron suture for later repair. A broad | | trapezoidal capsulotomy was made and the corners tagged. The hip was dislocated. The | | neck was cut in accordance with templating and the head removed. Good retraction was | | obtained on the acetabulum. Remnants of the labrum were excised sharply. The floor of | | the cotyloid fossa was identified. Reaming was begun and carried sequentially up to a | | 58 mm reamer. This was in agreement with templating and there was hemispherical | | bleeding bone. We then press-fit the definitive cup into place in appropriate position. | | There was excellent press-fit. The definitive liner was placed. The periarticular | | soft tissues were injected with 0.25% Marcaine mixed with epinephrine and 30 mg of | | Toradol for hemostasis and postoperative pain control. Attention was returned to the | | femur. The femoral canal was entered with a box osteotome and canal finder. We then | | sequentially broached up to accept a size 9 polar stem. This was in agreement with | | templating. There was felt to be excellent press-fit. We settled on the above-listed | | head and neck combination. The hip was extremely stable with this construct. The | | definitive components were placed. The wound was copiously irrigated. The posterior | | soft tissue structures were repaired through drill holes in the greater trochanter. The | | remainder of the wound was closed in layers in a subcuticular fashion. An incisional | | wound VAC dressing was placed. The patient recovered uneventfully from his anesthetic | | and transferred stable to the PACU. No intraoperative complications were | | appreciated.GELACIO Cutler/LUIS ANGELLDD: 10/04/2015 10:43:25DT: 10/04/2015 11:28:11Job | | #: [id number] | |structures were repaired through drill holes in the greater trochanter. The remainder of t he wound was closed in layers in a subcuticular fashion. An incisional wound VAC dressing w as placed. The patient recovered | |uneventfully from his anesthetic and transferred stable to the PACU. No intraoperative com plications were appreciated. | | | | | | | |Jacky Borjas MD | |TWH/MODL | | | | | | /[id number] | + + CBC (HEMOGRAM) ONLY (10/03/2015 6:39 AM PST) + + + + + + | Component | Value | Ref Range | Performed | Pathologist | | | | | At | Signature | + + + + + + | WHITE CELL | 8.19 | 4.40 - 11.00 | [facility] | | | COUNT | | K/cu mm | LABORATORY | | | | | | SERVICES, | | | | | | CORE | | + + + + + + | RED CELL | 3.93 (L) | 4.50 - 6.00 | [facility] | | | COUNT | | M/cu mm | LABORATORY | | | | | | SERVICES, | | | | | | CORE | | + + + + + + | HEMOGLOBIN | 11.2 (L) | 13.5 - 17.5 | [facility] | | | | | g/dL | LABORATORY | | | | | | SERVICES, | | | | | | CORE | | + + + + + + | HEMATOCRIT | 32.9 (L) | 41.0 - 53.0 % | [facility] | | | | | | LABORATORY | | | | | | SERVICES, | | | | | | CORE | | + + + + + + | MCV | 83.7 | 80.0 - 96.0 fL | [facility] | | | | | | LABORATORY | | | | | | SERVICES, | | | | | | CORE | | + + + + + + | MCHC | 34.0 | 33.0 - 35.5 | [facility] | | | | | g/dL | LABORATORY | | | | | | SERVICES, | | | | | | CORE | | + + + + + + | RDW SD | 39.4 | 35.1 - 46.3 fL | [facility] | | | | | | LABORATORY | | | | | | SERVICES, | | | | | | CORE | | + + + + + + | PLATELET | 191 | 150 - 400 K/cu | [facility] | | | COUNT | | mm | LABORATORY | | | | | | SERVICES, | | | | | | CORE | | + + + + + + | MPV | 10.5 | 9.7 - 12.3 fL | [facility] | | | | | | LABORATORY | | | | | | SERVICES, | | | | | | CORE | | + + + + + + | NRBC% | 0.0 | 0.0 - 0.3 % | [facility] | | | | | | LABORATORY | | | | | | SERVICES, | | | | | | CORE | | + + + + + + | NRBC# | 0.00 | 0.00 - 0.02 | [facility] | | | | | K/cu mm | LABORATORY | | | | | | SERVICES, | | | | | | CORE | | + + + + + + + + | Specimen | + + | Blood | + + + + + + + | Performing | Address | City/State/Zipcode | Phone Number | | Organization | | | | + + + + + | [facility] | [address] | [place] [address] | | | SERVICES, CORE | [address] | | | + + + + + BASIC METABOLIC SET (NA, K, CL, TCO2, BUN, CR, GLU, CA) (10/03/2015 6:39 AM PST) + +---------+ + + + | Component | Value | Ref Range | Performed | Pathologist | | | | | At | Signature | + +---------+ + + + | GLUCOSE, | 119 (H) | 60 - 99 mg/dL | [facility] | | | PLASMA | | | LABORATORY | | | (LAB) | | | SERVICES, | | | | | | CORE | | + +---------+ + + + | BUN, PLASMA | 12 | 6 - 20 mg/dL | [facility] | | | (LAB) | | | LABORATORY | | | | | | SERVICES, | | | | | | CORE | | + +---------+ + + + | CREATININE | 1.14 | 0.70 - 1.30 | [facility] | | | PLASMA | | mg/dL | LABORATORY | | | (LAB) | | | SERVICES, | | | | | | CORE | | + +---------+ + + + | EGFR | >60 | >60 mL/min | [facility] | | | - | | | LABORATORY | | | [facility] | | | SERVICES, | | | | | | CORE | | + +---------+ + + + | EGFR NON | >60 | >60 mL/min | [facility] | | | -[facility] | | | LABORATORY | | | [facility] | | | SERVICES, | | | | | | CORE | | + +---------+ + + + | SODIUM, | 137 | 136 - 145 | [facility] | | | PLASMA | | mmol/L | LABORATORY | | | (LAB) | | | SERVICES, | | | | | | CORE | | + +---------+ + + + | POTASSIUM, | 4.2 | 3.4 - 5.0 | [facility] | | | PLASMA | | mmol/L | LABORATORY | | | (LAB) | | | SERVICES, | | | | | | CORE | | + +---------+ + + + | CHLORIDE, | 104 | 97 - 108 mmol/L | [facility] | | | PLASMA | | | LABORATORY | | | (LAB) | | | SERVICES, | | | | | | CORE | | + +---------+ + + + | TOTAL CO2, | 27 | 21 - 32 mmol/L | [facility] | | | PLASMA | | | LABORATORY | | | (LAB) | | | SERVICES, | | | | | | CORE | | + +---------+ + + + | CALCIUM, | 7.7 (L) | 8.6 - 10.2 | [facility] | | | PLASMA | | mg/dL | LABORATORY | | | (LAB) | | | SERVICES, | | | | | | CORE | | + +---------+ + + + | ANION GAP | 6 | mmol/L | [facility] | | | | | | LABORATORY | | | | | | SERVICES, | | | | | | CORE | | + +---------+ + + + | POTASSIUM | No Hemo | | [facility] | | | CMNT | | | LABORATORY | | | | | | SERVICES, | | | | | | CORE | | + +---------+ + + + + + | Specimen | + + | Blood | + + + + + | Narrative | Performed At | + + + | GFR is estimated using the MDRD equation recommended by the | [facility] | | National Kidney Disease Education Program. Estimated GFR | LABORATORY | | Interpretive Information: <60 mL/min/1.73 sq m | SERVICES, CORE | | Chronic Kidney Disease <15 mL/min/1.73 sq m | | | Kidney Failure Estimated GFR greater that 60 mL/min/1.73 sq m is of | | | limited clinical value. The MDRD equation is not valid in the | | | following situations: - Patients under 18 years of age - Severe | | | malnutrition or obesity - Vegetarian diet - Rapidly changing kidney | | | function | | + + + + + + + + | Performing | Address | City/State/Zipcode | Phone Number | | Organization | | | | + + + + + | [facility] | [address] | [place] [address] | | | SERVICES, CORE | [address] | | | + + + + + X-RAY PELVIS 1 VIEW (10/02/2015 5:21 PM PST) + + + + + + | Component | Value | Ref Range | Performed | Pathologist | | | | | At | Signature | + + + + + + | PELVIS 1 | STUDY: PELVIS 1 VIEW | | | | | VIEW | 10/02/15 17:21:00 | | | | | | HISTORY: JALIL COMPARISON: | | | | | | 12/02/14 FINDINGS:The | | | | | | right hip arthroplasty | | | | | | dislocation has been | | | | | | successfully reduced. | | | | | | Softtissue gas is | | | | | | presumably postsurgical. | | | | | | There is no fracture or | | | | | | focal | | | | | | osseousdestruction. No | | | | | | other complication is | | | | | | evident. Mild left hip | | | | | | degenerative | | | | | | jointdisease unchanged | | | | | | in There is no soft | | | | | | tissue abnormality. | | | | | | IMPRESSION: Successfully | | | | | | reduced right total hip | | | | | | arthroplasty | | | | | | dislocation. No | | | | | | fracture. Attending | | | | | | Radiologists: DURAN PALMA, | | | | | | MDAuthor: SHERLY ARCE MD | | | | | | I personally reviewed | | | | | | the images and, if | | | | | | necessary, edited the | | | | | | report. I agreewith the | | | | | | report as now presented. | | | | | | | | | | | | Final/Electronically | | | | | | signed / DURAN PALMA | | | | | | 10/03/2015 9:23 AM | | | | + + + + + + + + | Specimen | + + | | + + + +---------+ + + | Performing | Address | City/State/Zipcode | Phone Number | | Organization | | | | + +---------+ + + | [facility] | | | | | [facility] | | | | + +---------+ + + X-RAY PORTABLE PELVIS 1 VIEW (10/02/2015 3:30 PM PST) + + + + + + | Component | Value | Ref Range | Performed | Pathologist | | | | | At | Signature | + + + + + + | X-RAY | STUDY: CA PELVIS 1 VIEW | | | | | PORTABLE | 10/02/15 14:35:00 | | | | | PELVIS 1 | COMPARISON: 06/21/15 | | | | | VIEW | HISTORY: Right hip | | | | | | osteoarthritis. Right | | | | | | JALIL. FINDINGS: Single AP | | | | | | view of the pelvis | | | | | | demonstrates interval | | | | | | placement of a | | | | | | cementlessright JALIL. | | | | | | The femoral head is | | | | | | dislocated from the | | | | | | acetabular | | | | | | component.There is no | | | | | | hardware fracture. | | | | | | Vascular | | | | | | calcifications are | | | | | | noted. The leftfemoral | | | | | | head appears | | | | | | appropriately | | | | | | positioned. IMPRESSION: | | | | | | Interval placement of | | | | | | right JALIL which | | | | | | demonstrates | | | | | | dislocation. The | | | | | | findings were discussed | | | | | | by phone with the | | | | | | [place] the nurse in | | | | | | [facility] [place] | [facility] | [facility] [place], at 4 PM on | | | | | | 10/02/15. Attending | | | | | | Radiologists: MARGARET | | | | | | WES JOYCEuthor: MARGARET | | | | | | MD MARIA DEL CARMEN I personally | | | | | | reviewed the images and, | | | | | | if necessary, edited | | | | | | the report. I agreewith | | | | | | the report as now | | | | | | presented. | | | | | | Final/Electronically | | | | | | signed / VAZUL MARIA DEL CARMEN | | | | | | 10/02/2015 16:04 PM | | | | + + + + + + + + | Specimen | + + | | + + + +---------+ + + | Performing | Address | City/State/Zipcode | Phone Number | | Organization | | | | + +---------+ + + | [facility] | | | | [facility] | | | | + +---------+ + + documented in this encounter Visit Diagnoses + + | Diagnosis | + + | Primary osteoarthritis of one hip - Primary Primary localized osteoarthrosis, pelvic | | region and thigh | + + documented in this encounter Administered Medications + +--------+ +--------+------+------+ | Medication Order | MAR | Action | Dose | Rate | Site | | | Action | Date | | | | + +--------+ +--------+------+------+ | acetaminophen (TYLENOL) tablet | Given | 10/05/20 | 650 mg | | | | 325-650 mg 325-650 mg, oral, | | 15 1:42 | | | | | EVERY 4 HOURS NEEDED, Starting | | PM PST | | | | | 10/02/15 at 1756, Until Estrellita | | | | | | | 10/05/15 at 2315, mild pain | | | | | | + +--------+ +--------+------+------+ +-------+ +--------+---+---+ | Given | 10/05/20 | 650 mg | | | | | 15 7:51 | | | | | | AM PST | | | | +-------+ +--------+---+---+ | Given | 10/04/20 | 650 mg | | | | | 15 7:01 | | | | | | PM PST | | | | +-------+ +--------+---+---+ +---+---+ | | | +---+---+ + +-------+ +--------+---+---+ | aspirin EC tablet 325 mg 325 | Given | 10/05/20 | 325 mg | | | | mg, oral, TWICE DAILY, First dose | | 15 7:48 | | | | | on Fri10/03/15 at 0900, Until | | AM PST | | | | | Discontinued | | | | | | + +-------+ +--------+---+---+ +-------+ +--------+---+---+ | Given | 10/04/20 | 325 mg | | | | | 15 9:42 | | | | | | PM PST | | | | +-------+ +--------+---+---+ | Given | 10/04/20 | 325 mg | | | | | 15 10:32 | | | | | | AM PST | | | | +-------+ +--------+---+---+ +---+---+ | | | +---+---+ + +---------+ +-----+---+---+ | ceFAZolin (ANCEF) 2 g in NaCl | New Bag | 10/03/20 | 2 g | | | | 0.9 % IV 2 g, intravenous, EVERY | | 15 1:23 | | | | | 8 HOURS, 3 doses, First dose on | | PM PST | | | | | 10/02/15 at 2030, Last dose | | | | | | | on Fri10/03/15 at 1230 | | | | | | + +---------+ +-----+---+---+ +---------+ +-----+---+---+ | New Bag | 10/03/20 | 2 g | | | | | 15 4:53 | | | | | | AM PST | | | | +---------+ +-----+---+---+ | New Bag | 10/02/20 | 2 g | | | | | 15 8:23 | | | | | | PM PST | | | | +---------+ +-----+---+---+ +---+---+ | | | +---+---+ + +-------+ +-------+---+---+ | famotidine (PEPCID) tablet 20 | Given | 10/05/20 | 20 mg | | | | mg 20 mg, oral, TWICE DAILY, | | 15 7:48 | | | | | First dose on 10/02/15 at | | AM PST | | | | | 2100, Until Discontinued | | | | | | + +-------+ +-------+---+---+ +-------+ +-------+---+---+ | Given | 10/04/20 | 20 mg | | | | | 15 9:42 | | | | | | PM PST | | | | +-------+ +-------+---+---+ | Given | 10/04/20 | 20 mg | | | | | 15 10:32 | | | | | | AM PST | | | | +-------+ +-------+---+---+ +---+---+ | | | +---+---+ + +---------+ +---+---+---+ | lactated ringers IV 10 mL/hr, | New Bag | 10/02/20 | | | | | intravenous, PROCEDURE | | 15 11:39 | | | | | CONTINUOUS, Starting Fri10/02/15 | | AM PST | | | | | at 1000, Until Fri10/02/15 at | | | | | | | 1749 | | | | | | + +---------+ +---+---+---+ +---------+ + + + + | New Bag | 10/02/20 | 10 mL/hr | 10 mL/hr | Left Arm | | | 15 10:30 | | | | | | AM PST | | | | +---------+ + + + + +---+---+ | | | +---+---+ + +---------+ +-------+-------+---+ | lactated ringers IV 100 mL/hr, | New Bag | 10/02/20 | 100 | 100 | | | intravenous, CONTINUOUS, | | 15 4:55 | mL/hr | mL/hr | | | Starting Fri10/02/15 at 1445, | | PM PST | | | | | Until Estrellita 10/05/15 at 2315 | | | | | | + +---------+ +-------+-------+---+ +---+---+ | | | +---+---+ + +---------+ +--------+---+---+ | lactated ringers IV 500 mL, | New Bag | 10/02/20 | 500 mL | | | | intravenous, POSTPROCEDURE PRN, 1 | | 15 4:09 | | | | | dose, Starting Fri10/02/15 at | | PM PST | | | | | 1322, Until Fri10/02/15 at 1609, | | | | | | | nausea/vomiting due to | | | | | | | dehydration | | | | | | + +---------+ +--------+---+---+ +---+---+ | | | +---+---+ + +-------+ +-------+---+---+ | oxyCODONE (immediate release) | Given | 10/04/20 | 15 mg | | | | (ROXICODONE) tablet 5-15 mg 5-15 | | 15 3:47 | | | | | mg, oral, EVERY 3 HOURS | | AM PST | | | | | NEEDED, Starting 10/02/15 at | | | | | | | 1756, Until Estrellita 10/05/15 at 2315, | | | | | | | moderate pain | | | | | | + +-------+ +-------+---+---+ + + +-------+---+---+ | See OB TraceVue | 10/04/20 | 10 mg | | | | | 15 12:40 | | | | | | AM PST | | | | + + +-------+---+---+ | Given | 10/03/20 | 5 mg | | | | | 15 7:50 | | | | | | PM PST | | | | + + +-------+---+---+ +---+---+ | | | +---+---+ + +-------+ +------+---+---+ | polyethylene glycol (MIRALAX) | Given | 10/04/20 | 17 g | | | | powder 17 g 17 g, oral, TWICE | | 15 9:42 | | | | | DAILY, First dose on Fri10/02/15 | | PM PST | | | | | at 2100, Until Discontinued | | | | | | + +-------+ +------+---+---+ +-------+ +------+---+---+ | Given | 10/04/20 | 17 g | | | | | 15 10:36 | | | | | | AM PST | | | | +-------+ +------+---+---+ | Given | 10/03/20 | 17 g | | | | | 15 7:49 | | | | | | PM PST | | | | +-------+ +------+---+---+ +---+---+ | | | +---+---+ + +-------+ +---------+---+---+ | senna-docusate (SENOKOT S) | Given | 10/04/20 | 2 | | | | 8.6-50 mg 2 tablet 2 tablet, | | 15 9:42 | tablets | | | | oral, TWICE DAILY, First dose on | | PM PST | | | | | 10/02/15 at 2100, Until | | | | | | | Discontinued | | | | | | + +-------+ +---------+---+---+ +-------+ +---------+---+---+ | Given | 10/04/20 | 2 | | | | | 15 10:32 | tablets | | | | | AM PST | | | | +-------+ +---------+---+---+ | Given | 10/03/20 | 2 | | | | | 15 7:50 | tablets | | | | | PM PST | | | | +-------+ +---------+---+---+ +---+---+ | | | +---+---+ documented in this encounter
--- OUTSIDE RECORDS SUMMARY | ~2019-10-08 | XMS | Encounter Summary ---
Demographics + + + | Address | [address] | | | [place] [address] | + + + | Home Phone | | + + + | Preferred Language | Unknown | + + + | Marital Status | | + + + | Gnosticism Affiliation | Unknown | + + + | Race | Unknown | + + + | Ethnic Group | Unknown | + + + Author + + + | Author | [facility] | | | and [place] | + + + | Organization | [facility] | | | and [place] | + + + | Address | Unknown | + + + | Phone | Unavailable | + + + Support + + + + + | Name | Relationship | Address | Phone | + + + + + | Silvia Baumann | ECON | [address] | | | | | [place] | | | | | [address] | | + + + + + Care Team Providers + +------+ + | Care Dietary Clerk Name | Role | Phone | + +------+ + | Luis M Baptiste | PCP | | | MD | | | + +------+ + Reason for Visit +--------+ + | Reason | Comments | +--------+ + | Other | Urinary tract infection | +--------+ + | Other | Epidiymo-orchitis | +--------+ + Evaluate & Treat (Routine) +--------+--------+ + + + + | Status | Reason | Specialty | Diagnoses / | Referred By | Referred To | | | | | Procedures | Contact | Contact | +--------+--------+ + + + + | Closed | | Urology | Diagnoses | Frandy, | Ortega, | | | | | Acute | Danna | Marshall Barrett MD | | | | | cystitis | MD Shane | [address] [place] [address] | | | | | without | [address] [place] [address] | [place], | | | | | hematuria | [place] | [place] [address] | | | | | Urinary | [place], [place] | Phone: | | | | | tract | [address] | [phone] | | | | | infection, | Phone: | Fax: | | | | | site not | [phone] | [phone] | | | | | specified | Fax: | | | | | | Calculus of | [phone] | | | | | | kidney | | | | | | | Epididymitis | | | | | | | | | | | | | | NEW/HOSPITAL | | | | | | | FOLLOW UP | | | | | | | Procedures | | | | | | | NEW - OFFICE | | | | | | | VISIT | | | +--------+--------+ + + + + Encounter Details +--------+---------+ + + + | Date | Type | Department | Care Team | Description | +--------+---------+ + + + | 11/02/ | Office | [facility] | Marshall Vivas, | Epididymitis, left | | 2015 | Visit | [address] | MD [address] | (Primary Dx); Left | | | | [place], [place] | [place], [place] | inguinal hernia; | | | | [id number] | [id number] | Nephrolithiasis | | | | [phone] | | | +--------+---------+ + + + [...] + + + | Blood Pressure | 115/76 | 11/02/2015 11:11 AM | | | | | PST | | + + + + + | Pulse | 84 | 11/02/2015 11:11 AM | | | | | PST | | + + + + + | Temperature | - | - | | + + + + + | Respiratory Rate | 16 | 11/02/2015 11:11 AM | | | | | PST | | + + + + + | Oxygen Saturation | - | - | | + + + + + | Inhaled Oxygen | - | - | | | Concentration | | | | + + + + + | Weight | 83.1 kg (183 lb 4.8 | 11/02/2015 11:11 AM | | | | oz) | PST | | + + + + + | Height | 177.8 cm (5' 10") | 11/02/2015 11:11 AM | | | | | PST | | + + + + + | Body Mass Index | 26.3 | 11/02/2015 11:11 AM | | | | | PST | | + + + + + documented in this encounter Progress Notes Marshall Vivas MD - 11/02/2015 11:29 AM PSTFormatting of this note might be different fro m the original. Kobi is a 75 y.o. male patient of Luis M Baptiste MD being seen today for a ho spital follow up for epididymo-orchitis. Kobi underwent a right total hip arthroplasty procedure in [place], [place], approximate ly 10/02/2015. Shortly following his discharge home, he began noticing irritative voiding symptoms with dy suria and urinary urgency and frequency. He then began having left testicular swelling and pain, and he was admitted on 10/14/2015 with cystitis and left epididymoorchitis. He was initially started on IV Rocephin, but was switched to ertapenem after his urine cult ure grew [id number] ESBL e.coli. He just completed a nearly 3 week course of IV a ntibiotic therapy with ertapenem, and his PICC line was removed today at infusion services. He followed up with his urologist, Dr. Wise on approximately 10/17/2015. He states he feels much better. He still notes scrotal swelling, but is not having any gonzález ticular pain. He denies any difficulty with voiding. He denies any dysuria or hematuria or increased uri nary frequency. He denies any urinary incontinence. He does note occasional right groin pain, but denies any left groin pain. He wonders of hi s groin pain might be related to his hip replacement surgery. He denies any fever or chills or nausea or vomiting. He does have fatigue, and tells me th at he doesn't have as much energy as he used to. He denies any dizziness or lightheadedness . He denies any cough or chest pain or shortness of breath or hemoptysis. Over 25 minute encounter with Kobi today, over 50% this time spent counseling regarding his fatigue, anemia, and epididymoorchitis. 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 Past Surgical History He has past surgical history that includes hip joint replacement; joint replacement; should er surgery; Colonoscopy; Umbilical hernia repair (1999); and back surgery. Family History: His family history includes Cancer in his father; Heart failure in his father and mother. T here is no history of Prostate cancer. Social History: He reports that he has never smoked. His smokeless tobacco use includes Chew. He reports th at he drinks alcohol. He reports that he does not use illicit drugs. Allergies Allergen Reactions Oxybutynin Chloride Unknown Codeine Sensitivity Nausea and changed vision Medications: Outpatient Encounter Prescriptions as of 11/02/2015 Medication Sig Dispense Refill acetaminophen (TYLENOL) 325 mg tablet Take 650 mg by mouth every 4 hours as needed for Pain. ertapenem (INVanz) 1 g in sodium chloride 0.9% 50 mL IVPB Inject 1 g into the vein ever y 24 hours. 17 each 0 No facility-administered encounter medications on file as of 11/02/2015. REVIEW OF SYSTEMS: [] All Negative Constitutional Symptoms: []Fever []Chills []Headache []Change in appetite, weight, energy []Other: Neurological: []Tremors []Dizzy Spells []Numbness/Tingling []Seizures []Other: Endocrine: []Excessive thirst []Too hot/cold [x]Tired/Sluggish Gastrointestinal: []Abdominal pain []Nausea/vomiting []Indigestion/heartburn []Change in stool size or shape or color []Pain with swallowing []Other: Cardiovascular: []Chest Pain []Rapid heart rate []High blood pressure []Other: Integumentary: []Skin rash []Boils []Persistent itch []Other: Musculoskeletal: []Neck Pain []Joint swelling/pain []Back pain []Bone pain []Other: Respiratory: []Wheezing []Frequent cough []Shortness of breath []Other: Hematologic/Lymphatic: []Swollen glands []Blood clotting problems []Prior blood transfusions []Other: Psychologic: Are you generally satisfied with your life? yes Do you feel severely depressed? no Have you considered suicide? no Other: Habits: Do you smoke? no [x] Yes [] No Patient advised to follow up with PCP regarding positive review of syste ms. SERRANO BPH SYMPTOM SCORE Not at all Less than 1 times in 5 Less than half the time About half the time More than half the time Almost always INCOMPLETE EMPTYING Over the past month, how often have you had the sensation of not empty ing your bladder completely after you finished urinating? [x] 0 [] 1 [] 2 [] 3 [] 4 [] 5 FREQUENCY Over the past month, how often have you had to urinate again less than 2 hours a fter you finished urinating? [x] 0 [] 1 [] 2 [] 3 [] 4 [] 5 INTERMITTENCY Over the past month, how often have you found you stopped and started again several times when you urinated? [] 0 [x] 1 [] 2 [] 3 [] 4 [] 5 URGE TO URINATE Over the past month, how often have you found it difficult to postpone uri nation? [] 0 [x] 1 [] 2 [] 3 [] 4 [] 5 WEAK STREAM Over the past month, how often have you had a weak urinary stream? [] 0 [] 1 [] 2 [x] 3 [] 4 [] 5 STRAINING Over the past month, how often have you had to push or strain to begin urination ? [] 0 [x] 1 [] 2 [] 3 [] 4 [] 5 None 1 time 2 times 3 times 4 times 5 or more times URINATING AT NIGHT Over the past month, how many times did you most typically get up to ur inated from the time you went to bed at night until the time you got up in the morning? [] 0 [] 1 [x] 2 [] 3 [] 4 [] 5 Symptom Score: Mild 1-7, Moderate 8-19, Severe 20-35 TOTAL: 8 BOTHER SCORE DUE TO URINARY SYMPTOMS Delighted Pleased Mostly Satisfied Mixed Mostly dissatisfied Unhappy Terrible BOTHERSOMENESS OF URINARY SYMPTOMS How would you feel if you had to live with your urinary condition the way it is now, no better, no worse, for the rest of your life? [] 0 [] 1 [x] 2 [] 3 [] 4 [] 5 [] 6 PHYSICAL EXAM Vitals: BP 115/76 mmHg | Pulse 84 | Resp 16 | Ht 1.778 m (5' 10") | Wt 83.144 kg (183 lb 4. 8 oz) | BMI 26.30 kg/m2 General: Awake, alert, in no acute distress. Speech is fluent. Appears to be stated age. Neck: Supple; no lymphadenopathy. Lungs: Normal respiratory effort, no wheezing, no stridor, no tachypnea. Chest: No rib or bony tenderness. Back: No CVA tenderness. Abdomen: Soft, nontender, no hepatosplenomegaly. No masses. No guarding; benign. Bladder nondistended. No flank mass. No flank tenderness. Extremities: Non-edematous. Hips and long bones nontender to fist percussion. His hip inc ision right posterior appears to be well-healed and is nontender without erythema or purulen ce. Neuro: Awake, alert, oriented x3. Normal station and slow gait. Psychiatric: Mood and affect are normal. Normal judgment. Skin: Warm and dry, no erythematous rash. Groin: No lymphadenopathy. I cannot palpate a left inguinal hernia, despite known finding s on CT imaging. Genitalia: No visible lesion. Normal in appearance. Urethral meatus is normal in caliber. No penile drainage or discharge or bleeding Scrotum is supple and nonerythematous. No scr otal wall thickening or edema. Right testis and epididymis are normal to palpation without any mass or swelling or nodule or tenderness. The left testis has a normal orientation and lie, but is still swollen, but minimally tender. Left epididymis is likewise still swollen, but minimally tender. There appears to be a modest amount of hydrocele fluid present. DIAGNOSTIC DATA: AUA symptom score today is 8. PVR today is 20 cc. Lab Results Component Value Date COLORUA Yellow 10/14/2015 CLARITYUA Hazy* 10/14/2015 PHUR 5.0 10/14/2015 SPECIFICGRAV >=1.030 10/14/2015 PROTUA Negative 10/14/2015 BLOODU Trace* 10/14/2015 GLUCOSEU Negative 10/14/2015 KETONES Negative 10/14/2015 BILIRUBINUA Negative 10/14/2015 NITRITEUA Positive* 10/14/2015 LEUKOESTUA Trace* 10/14/2015 UROBILIUA 1.0 E.U./dL 10/14/2015 WBCUA 15-25* 10/14/2015 RBCUA 5-10* 10/14/2015 SQUAMEPIUA 10-15* 10/14/2015 BACTERIAUA 3+* 10/14/2015 Lab Results Component Value Date COLORPOC Yellow 11/02/2015 CLARITYU Clear 11/02/2015 GLUCOSEPOC Negative 11/02/2015 BILIPOC Negative 11/02/2015 SG 1.030 11/02/2015 RBCUR Negative 11/02/2015 PHUAPOC 5.0 11/02/2015 PROTEINPOC Negative 11/02/2015 UROBILINOGEN 0.2 mg/dL 11/02/2015 NITRITEPOC Negative 11/02/2015 LEUKOCYTESUR Negative 11/02/2015 Urine culture 10/14/2015: 10/16/2015 9:43 - Dick Sherman, DIRECT CARE PROFESSIONAL Culture >100,000 CFU/ml Escherichia coli *INFECTION PREVENTION ALERT - ESBL* ESBLs are enzymes that mediate resistance to exte nded-spectrum (third generation) cephalosporins (e.g.,ceftazidime, cefotaxime, (aztreonam) but do not affect cephamycins(cefoxitin and cefotetan) orcarbapenems (e.g.,meropenem or imip enem). Patients who are identified with these organisms should be placed into CONTACT PRECAU TIONS. Susceptibility Escherichia coli Not Specified Amikacin 4 Sensitive Ampicillin =32 ">>=32 Resistant Ampicillin + Sulbactam =32 ">>=32 Resistant Cefazolin =64 ">>=64 Resistant Cefoxitin <=4 Sensitive Ceftazidime Resistant Ceftriaxone =64 ">>=64 Resistant Ciprofloxacin =4 ">>=4 Resistant Ertapenem <=0.5 Sensitive Gentamicin =16 ">>=16 Resistant Meropenem <=0.25 Sensitive Nitrofurantoin <=16 Sensitive Piperacillin + Tazobactam 8 Sensitive Tobramycin 8 Intermediate Trimethoprim + Sulfamethoxazole =320 ">>=320 Resistant Lab Results Component Value Date CREA 1.22 10/17/2015 BUN 13 10/17/2015 NA 139 10/17/2015 K 4.1 10/17/2015 CL 108 10/17/2015 CO2 25 10/17/2015 Lab Results Component Value Date WBC 6.6 10/17/2015 HGB 9.9* 10/17/2015 HCT 30.0* 10/17/2015 MCV 84.9 10/17/2015 PLT 514* 10/17/[address] ABDOMEN AND PELVIS 10/14/2015 9:20 AM CLINICAL HISTORY: Left groin pain, elevated WBC COMPARISON: Preceding scrotal ultrasound TECHNIQUE: Axial images are performed through the abdomen and pelvis following the uneventful intravenous administration of 90 mL Omnipaque 350 contrast. Coronal and sagittal reformations are also performed. ABDOMEN FINDINGS: 3 mm left lower lobe lung nodule is present on image 3, and adjacent nodules measuring approximately 3 mm are present laterally in the left lower lobe on image 24. Few tiny nodules are present in the imaged right lung base as well, some of which appear decidedly calcified and consistent with granulomata. There is mild elevation of the right hemidiaphragm. The imaged mediastinum is unremarkable. The liver, spleen, pancreas, and adrenal glands are unremarkable. There are two adjacent 2 mm calculi centrally in the mid right kidney, without visible ureteral calculus or hydronephrosis. Small, low-attenuation parapelvic cysts are suspected inferiorly in the left kidney. No renal parenchymal abnormality is evident. There is mild bilateral perinephric stranding. The stomach, bowel and appendix are unremarkable. No free air or ascites is evident. There are tiny fat-containing periumbilical hernia. Mildly prominent para-aortic nodes are present in the infrarenal region, measuring up to 9 mm short axis on image 53. No overtly pathologic lymph node enlargement is visible on the basis of size criteria. There is scattered aortoiliac calcification. Abdominal vasculature is otherwise unremarkable. There is leftward lumbar curvature with changes of decompressive laminectomy at the lumbosacral junction and multilevel degenerative disc disease, spondylosis and variable stenosis. PELVIS FINDINGS: Evaluation of the pelvic contents is somewhat compromised by artifact arising from right total hip arthroplasty hardware. The bladder, prostate and seminal vesicles are grossly unremarkable. Rounded calcifications in the right pelvic cavity are consistent with phleboliths. No free air, ascites or pathologic lymph node enlargement is evident. There is a moderate sized fat containing left inguinal hernia extending toward the imaged scrotum, without visible inflammation. Tiny sclerotic foci in the lower bony pelvis and imaged proximal left femur are consistent with bone islands. IMPRESSION - 1. MODERATE SIZED FAT-CONTAINING LEFT INGUINAL HERNIA EXTENDING TOWARD THE SCROTUM AND CORRESPONDING WITH THAT SUSPECTED ON PRECEDING ULTRASOUND, WITHOUT VISIBLE INFLAMMATION IN THIS REGION. 2. SMALL RIGHT RENAL CALCULI WITHOUT VISIBLE URETERAL CALCULUS OR HYDRONEPHROSIS. 3. MILDLY PROMINENT PARA-AORTIC LYMPH NODES WITHOUT OVERTLY PATHOLOGIC LYMPH NODE ENLARGEMENT ON THE BASIS OF SIZE CRITERIA. 4. FEW TINY, NON-SPECIFIC NODULES IN THE IMAGED LUNG BASES. CONSIDER FOLLOW-UP DEDICATED CHEST CT IN 3-6 MONTHS. 5. ATHEROSCLEROSIS, SCOLIOSIS AND MULTILEVEL DEGENERATIVE DISC DISEASE AND SPONDYLOSIS. Images were provided for interpretation on October 14, 2015 at 0935 hours. Results were finalized at 1005 hours. Dictated and Signed by: Andres Ewing MD Electronically signed: 10/14/2015 SCROTAL ULTRASOUND 10/14/2015 8:00 AM CLINICAL HISTORY: LEFT GROIN SWELLING COMPARISON: None available FINDINGS: The right testicle measures 4.8 x 2.4 x 3.2 cm and the left testicle measures 4.5 x 3.0 x 3.8 cm. Testicular echotexture and vascularity is symmetric and homogeneous. Normal stromal waveforms are present in the testes on duplex interrogation. A 9 mm ovoid anechoic cyst is present in the right epididymal head. The right epididymis is otherwise unremarkable. There is a small anechoic to minimally echogenic right hydrocele. A 3.5 mm ovoid hyperechoic structure along the inferior, lateral margin of the left testicle favors a scrotal cyrus. A small to moderate sized left hydrocele is present, containing anechoic fluid and thin, echogenic septations with minimal vascularity on Doppler interrogation. Along the medial aspect of the left testicle, there is a 6 mm rounded, homogeneous, solid-appearing nodule with echotexture similar to the adjacent testis but no internal vascularity on Doppler interrogation. The left epididymis is asymmetrically enlarged and diffusely hyperemic. Along the lateral margin of the left testis, there is a heterogeneous collection of echogenic material and serpiginous internal vessels which extend superiorly toward the inguinal canal, consistent with a hernia most likely containing fat. IMPRESSION - 1. PROBABLE LEFT INGUINAL HERNIA. CONSIDER FOLLOW-UP CT IF FURTHER CHARACTERIZATION IS DESIRED. 2. ENLARGED, HYPEREMIC LEFT EPIDIDYMIS, FAVORING EPIDIDYMITIS. 3. SMALL, SOLID-APPEARING NODULE ALONG THE MEDIAL ASPECT OF THE LEFT TESTIS, POTENTIALLY REFLECTING AN APPENDIX TESTIS. 4. SMALL TO MODERATE SIZED LEFT HYDROCELE DEMONSTRATING THIN, ECHOGENIC INTERNAL SEPTATIONS. 5. SMALL RIGHT HYDROCELE AND A 9 MM RIGHT EPIDIDYMAL HEAD CYST. Results of this study were discussed with Dr. Campbell following the exam on October 14, 2015 at 0800 hours. Dictated and Signed by: Andres Ewing MD Electronically signed: 10/14/2015 IMPRESSION: 1. Left epididymoorchitis. Markedly improved. He appears to have had a good response to IV antibiotic therapy. He has just completed a nearly 3 week course of antibiotic therapy w ith ertapenem, for ESBL e.coli. 2. Status post right total hip arthroplasty [place] 10/02/2015. 3. Left inguinal hernia. 4. Anemia. 5. Fatigue. Possibly related to anemia. 6. Two adjacent 2 mm right midrenal stones. Asymptomatic. 7. Pulmonary nodules. Followed by Dr. Baptiste. 8. Peripelvic left renal cysts. 9. Peyronie's disease. 10. Erectile dysfunction. PLAN: Kobi is instructed to follow-up with his PCP regarding his left inguinal hernia and fati parul and anemia and pulmonary nodules. Kobi is instructed to continue to use a scrotal support (which he is not currently weari ng), as well as anti-inflammatories and an ice pack frequently. He has just completed a nearly 3 week course of therapy with intravenous antibiotics, to wh ich he appears to have responded well. He will follow-up in 3-4 weeks for reexamination. He is advised to avoid heavy lifting and strenuous exertion. He'll follow up sooner if he should notice recurrence of scrotal pain or persistence or worsening of scrotal swelling. I told him that it may take several more weeks for his testicular swelling to subside. We discussed his tiny renal stones. They do not require any therapy. We discussed his parapelvic renal cysts. They do not require any treatment or follow-up. Kobi is instructed to resume his usual and customary care with his primary care provider . I asked Kobi to notify me if there were any difficulties voiding, or UTI symptoms, or fl ank pain, or for any questions or concerns whatsoever. This document was generated in part using voice recognition software. Although I have atte mpted to edit the content, I have not thoroughly proofread this note, and university internship erro rs may occur. CC: Dr Baptiste documented in this en counter Plan of Treatment +--------+---------+ + + + | Date | Type | Specialty | Care Team | Description | +--------+---------+ + + + | 10/08/ | Office | Neurosurgery | Luis M Muir | | | 2019 | Visit | | MD Nancy [address] | | | | | | [address] [place] | | | | | | [place] [address] | | | | | | [phone] | | | | | | | | +--------+---------+ + + + documented as of this encounter Procedures + +--------+ + + + | Procedure Name | Priori | Date/Time | Associated Diagnosis | Comments | | | ty | | | | + +--------+ + + + | POCT URINALYSIS, | Routin | 11/02/2015 | Epididymitis, left | Results for this | | AUTO WITH CONF | e | 11:07 AM | | procedure are in the | | | | PST | | results section. | + +--------+ + + + | IMAGING REPORT - | | 11/02/2015 | | Results for this | | EXTERNAL SCAN | | 12:00 AM | | procedure are in the | | | | PST | | results section. | + +--------+ + + + documented in this encounter Results POCT Urinalysis Dipstick Automated (11/02/2015 11:07 AM PST) + + + + + + | Component | Value | Ref Range | Performed | Pathologist | | | | | At | Signature | + + + + + + | Color, UA, | Yellow | Yellow, Light | | | | POC | | Yellow | | | + + + + + + | Clarity, | Clear | | | | | UA, POC | | | | | + + + + + + | Glucose, | Negative | Negative | | | | UA, POC | | | | | + + + + + + | Bilirubin, | Negative | Negative | | | | UA, POC | | | | | + + + + + + | Ketones, | Negative | Negative, 100 | | | | UA, POC | | mg/dL | | | + + + + + + | Specific | 1.030 | 1.001 - 1.030 | | | | [place], | | | | | | UA, POC | | | | | + + + + + + | Blood, UA, | Negative | Negative | | | | POC | | | | | + + + + + + | pH, UA, POC | 5.0 | 5.0, 6.0, 7.0, | | | | | | 8.0, 5.5, 6.5, | | | | | | 7.5 | | | + + + + + + | Protein, | Negative | Negative | | | | UA, POC | | | | | + + + + + + | Urobilinoge | 0.2 mg/dL | 0.2, Negative, | | | | n, UA, POC | | Normal, < 0.2 | | | | | | mg/dL, 1 mg/dL, | | | | | | < 0.2 E.U./dl, | | | | | | 1.0 E.U./dL, | | | | | | 0.2 mg/dL | | | + + + + + + | Nitrite, | Negative | | | | | UA, POC | | | | | + + + + + + | Leukocyte | Negative | Negative | | | | Esterase, | | | | | | UA, POC | | | | | + + + + + + | Reducing | | | | | | Substances, | | | | | | Urine | | | | | + + + + + + | Ictotest | | Negative | | | + + + + + + | Remark | | | | | + + + + + + + + | Specimen | + + | Urine specimen | | (specimen) | + + IMAGING REPORT - EXTERNAL SCAN (11/02/2015 12:00 AM PST) + + + | Narrative | Performed At | + + + | Ordered by an | | | unspecified provider. | | + + + documented in this encounter Visit Diagnoses + + | Diagnosis | + + | Epididymitis, left - Primary Orchitis and epididymitis, unspecified | + + | Left inguinal hernia Inguinal hernia without mention of obstruction or gangrene, | | unilateral or unspecified, (not specified as recurrent) | + + | Nephrolithiasis Calculus of kidney | + + documented in this encounter
--- OUTSIDE RECORDS SUMMARY | ~2019-10-08 | XMS | Clinical Summary ---
Demographics + + + | Address | [address] | | | [place] [address] | + + + | Home Phone | | + + + | Preferred Language | Unknown | + + + | Marital Status | | + + + | Oriental Orthodox Affiliation | NON | + + + | Race | White | + + + | Ethnic Group | Not or | + + + Author + + + | Author | [facility] | + + + | Organization | [facility] | + + + | Address | Unknown | + + + | Phone | Unavailable | + + + Support + + + + + | Name | Relationship | Address | Phone | + + + + + | Silvia Loera | ECON | [place] | | + + + + + Care Team Providers + +------+ + | Care Production Tool Engineer Name | Role | Phone | + +------+ + PCP | Unavailable | + +------+ + Source Comments MIR is fully live on both [facility] Amb[facility] and [facility] InPatient.[facility] Allergies + + + + + + | Active Allergy | Reactions | Severity | Noted | Comments | | | | | Date | | + + + + + + | Codeine | | | 12/29/19 | | | | | | 02 | | + + + + + + Medications No known medications Active Problems + + + | Problem | Noted Date | + + + | Personal history of skin cancer | 04/30/2012 | + + + | Skin exam for malignant neoplasm | 04/30/2012 | + + + Social History + +-------+ [...] recent travel history available. | + + Last Filed Vital Signs + + + [...] + + + + | Weight | 86.6 kg (191 lb) | 11/14/2015 11:05 AM | | | | | PST | | + + + + + | Height | 177.8 cm (5' 10") | 11/14/2015 11:05 AM | | | | | PST | | + + + + + | Body Mass Index | 27.41 | 11/14/2015 11:05 AM | | | | | PST | | + + + + + Plan of Treatment + + + + + | Health Maintenance | Due Date | Last Done | Comments | + + + + + | Pneumococcal | | | | | vaccination (1 of 2 | 3 | | | | - PCV13) | | | | + + + + + | Influenza (Flu) | | | | | vaccination (#1) | 9 | | | + + + + + Implants + +------+--------+ +--------+--------+--------+ | Implanted | Type | Area | Manufacture | Device | Shelf | Model | | | | | r | | Expira | / | | | | | | Identi | tion | Serial | | | | | | fier | Date | / Lot | + +------+--------+ +--------+--------+--------+ | Acetabular LinerImplanted: | | Right: | VALERIA & | | 07/24/ | [id number] | | Qty: 1 on 10/02/2015 by Suad | | Ulysses | FRENCH | | 2024 | 58 / | | Jacky Valencia MD at [facility] | | | | | | /[id number] | | INPATIENT REV LOC | | | | | | 7274 | + +------+--------+ +--------+--------+--------+ | 58mm ShellImplanted: Qty: 1 | | Right: | VALERIA & | | 05/03/ | [id number] | | on 10/02/2015 by Jacky Borjas | | Hip | NEPHEW | | 2024 | 58 / | | MD Annie at [facility] INPATIENT REV | | | | | | /15 | | LOC | | | | | | 2327 | + +------+--------+ +--------+--------+--------+ | StemImplanted: Qty: 1 on | | Right: | VALERIA & | | 06/02/ | [id number] | | 10/02/2015 by Jacky Borjas, | | Hip | NEPHEW | | 2020 | 70 / | | at [facility] INPATIENT REV LOC | | | | | | /[id number] | | | | | | | | 723 | + +------+--------+ +--------+--------+--------+ + + | Description:Size 9 | + + + +---+--------+ +---+--------+--------+ | Femoral HeadImplanted: Qty: 1 | | Right: | VALERIA & | | 05/28/ | [id number] | | on 10/02/2015 by Suad | | Ulysses | NEPHSTANLEY | | 2024 | 00 / | | Jacky Valencia MD at [facility] | | | | | | /[id number] | | INPATIENT REV LOC | | | | | | 0136 | + +---+--------+ +---+--------+--------+ + + | Description:36mm | + + Results Not on filefrom Last 3 Months Insurance + +--------+ +--------+ + +--------+ | Payer | Benefi | Subscriber | Effect | Phone | Address | Type | | | t Plan | ID | jose | | | | | | / | | Dates | | | | | | Group | | | | | | + +--------+ +--------+ + +--------+ | MEDICARE | MEDICA | xxxxxxxxxx | 06/03/20 | [phone] | [address] | Medica | | | RE A & | | 03-Pre | 1 | [id number] | [address] | | | B | | sent | | [place] | | | | | | | | [phone] | | + +--------+ +--------+ + +--------+ | MODA MEDICARE | MODA | xxxxxxxxx | 10/23/ | [phone] | [address] | POS | | SUPPLEMENT | MEDICA | | 2015-P | 4 | [id number] | | | | RE | | resent | | [place], | | | | [place]PP[place] | | | | [place] [address] | | | | MENT | | | | | | + +--------+ +--------+ + +--------+ + +--------+ +--------+ + + | Guarantor Name | Accoun | Relation to | Date | Phone | Billing Address | | | t Type | Patient | of | | | | | | | | | | + +--------+ +--------+ + + | Kobi Baumann | Person | Self | [birth year] | [address] | | J | al/Fam | | 1940 | [phone] | [address] [place] | | | [place] | | | [address] (Home) | [phone] | + +--------+ +--------+ + + Advance Directives + + + + + | Code Status | Date | Date | Comments | | | Activated | Inactivated | | + + + + + | Full Code | 10/02/2015 | 10/05/2015 | | | | 5:56 PM | 11:15 PM | | + + + + +
--- OUTSIDE RECORDS SUMMARY | ~2019-10-08 | XMS | Encounter Summary ---
Demographics + + + | Address | [address] | | | [place] [address] | + + + | Home Phone | | + + + | Preferred Language | Unknown | + + + | Marital Status | | + + + | Alevism Affiliation | Unknown | + + + | Race | Unknown | + + + | Ethnic Group | Unknown | + + + Author + + + | Author | [facility] | | | and [place] | + + + | Organization | [facility] | | | and [place] | + + + | Address | Unknown | + + + | Phone | Unavailable | + + + Support + + + + + | Name | Relationship | Address | Phone | + + + + + | Silvia Baumann | ECON | [address] | | | | | [place] | | | | | [address] | | + + + + + Care Team Providers + +------+ + | Care Field Handyman Name | Role | Phone | + +------+ + | Luis M Baptiste | PCP | | | MD | | | + +------+ + Encounter Details +--------+ + + + + | Date | Type | Department | Care Team | Description | +--------+ + + + + | 10/17/ | Documentati | [facility] | Marshall Vivas, | | | 2014 | on | [address] | MD [address] [facility] | | | | | [place] | [place], [place] | | | | | [address] | [address] | | | | | [phone] | | | +--------+ + + + [...] + documented as of this encounter Progress Brianna Duval - 10/17/2015 4:43 PM PSTCHECKED WITH DYLAN AT AUTHORIZATION FOR VERIFICA TION OF ODS AND MODA. SHE SAID TO CHOOSE THE MODA SUPPLEMENT documented in this encounter Plan of Treatment +--------+---------+ + + + | Date | Type | Specialty | Care Team | Description | +--------+---------+ + + + | 10/08/ | Office | Neurosurgery | Luis M Muir | | | 2019 | Visit | | MD Nancy [address] | | | | | | [place] | | | | | | [place] [address] | | | | | | [phone] | | | | | | | | +--------+---------+ + + + documented as of this encounter Visit Diagnoses Not on filedocumented in this encounter
--- OUTSIDE RECORDS SUMMARY | ~2019-10-08 | XMS | Encounter Summary ---
Demographics + + + | Address | [address] | | | [place] [address] | + + + | Home Phone | | + + + | Preferred Language | Unknown | + + + | Marital Status | | + + + | Sikh Affiliation | Unknown | + + + | Race | Unknown | + + + | Ethnic Group | Unknown | + + + Author + + + | Author | [facility] | | | and [place] | + + + | Organization | [facility] | | | and [place] | + + + | Address | Unknown | + + + | Phone | Unavailable | + + + Support + + + + + | Name | Relationship | Address | Phone | + + + + + | Silvia Baumann | ECON | [address] | | | | | [place] | | | | | [address] | | + + + + + Care Team Providers + +------+ + | Care Military Education Coordinator Name | Role | Phone | + +------+ + | Luis M Baptiste | PCP | | | MD | | | + +------+ + Encounter Details +--------+ + + + + | Date | Type | Department | Care Team | Description | +--------+ + + + + | 01/26/ | Abstract | [facility] | Marshall Vivas, | | | 2015 | | [address] | MD [address] | | | | | [place] | [place] | | | | | [address] | [address] | | | | | [phone] | | | +--------+ + + + [...] [place] | | | | | | [place] [address] | | | | | | [phone] | | | | | | | | +--------+---------+ + + + documented as of this encounter Procedures + +--------+ + + + | Procedure Name | Priori | Date/Time | Associated Diagnosis | Comments | | | ty | | | | + +--------+ + + + | EXTERNAL LAB: CBC | Routin | 11/27/2015 | | Results for this | | | e | | | procedure are in the | | | | | | results section. | + +--------+ + + + | CBC WITH | Routin | 11/27/2015 | | Results for this | | DIFFERENTIAL | e | | | procedure are in the | | | | | | results section. | + +--------+ + + + | C-REACTIVE PROTEIN | Routin | 11/27/2015 | | Results for this | | | e | | | procedure are in the | | | | | | results section. | + +--------+ + + + documented in this encounter Results C-Reactive Protein (11/27/2015) + +---------+ + + + | Component | Value | Ref Range | Performed | Pathologist | | | | | At | Signature | + +---------+ + + + | CRP | 6.5 (A) | 0 - 5 mg/L | [facility] | | | | | | [facility] | | | | | | [facility] | | | | | | [facility] - | | | | | | LABORATORY | | + +---------+ + + + + + | Specimen | + + | Blood specimen | | (specimen) | + + + + + + + | Performing | Address | City/State/Zipcode | Phone Number | | Organization | | | | + + + + + | [facility] | [address] | [place], [place] | [phone] | | [facility] | | [address] | | | - LABORATORY | | | | + + + + + CBC with Differential (11/27/2015) + + + + + + | Component | Value | Ref Range | Performed | Pathologist | | | | | At | Signature | + + + + + + | [facility] | 26.0 (A) | 27.0 - 33.0 pg | | | + + + + + + | MCH[facility] | 32.0 | 31.0 - 37.0 % | | | + + + + + + | % Basophils | 1.0 | 1.0 % | | | + + + + + + | ESR | 38 (A) | 0 - 15 mm/hr | | | + + + + + + + + | Specimen | + + | Blood specimen | | (specimen) | + + External Lab: CBC (11/27/2015) + + + + + + | Component | Value | Ref Range | Performed | Pathologist | | | | | At | Signature | + + + + + + | WBC, | 6.7 | 4.5 - 11 | EXTERNAL | | | External | | | LAB | | + + + + + + | HGB, | 12.9 (A) | 13.5 - 18 | EXTERNAL | | | External | | | LAB | | + + + + + + | HCT, | 40.5 (A) | 41 - 50 | EXTERNAL | | | External | | | LAB | | + + + + + + | PLT, | 376 | 140 - 440 | EXTERNAL | | | External | | | LAB | | + + + + + + | Neutrophils | 46.7 | 39 - 80 | EXTERNAL | | | %, | | | LAB | | | External | | | | | + + + + + + | Lymphocytes | 36.3 | 24 - 44 | EXTERNAL | | | %, | | | LAB | | | External | | | | | + + + + + + | Monocytes | 9.9 | 0 - 12 | EXTERNAL | | | %, External | | | LAB | | + + + + + + | Eosinophils | 6.1 (A) | 0 - 6 | EXTERNAL | | | %, | | | LAB | | | External | | | | | + + + + + + | RBC, | 4.92 | 4.3 - 5.7 | EXTERNAL | | | External | | | LAB | | + + + + + + | MCV, | 82 | 81 - 99 | EXTERNAL | | | External | | | LAB | | + + + + + + | RDW, | 15.1 (A) | 10.5 - 15 | EXTERNAL | | | External | | | LAB | | + + + + + + + + | Resulting Agency Comment | + + | [facility] | + + + +---------+ + + | Performing | Address | City/State/Zipcode | Phone Number | | Organization | | | | + +---------+ + + | EXTERNAL LAB | | | | + +---------+ + + documented in this encounter Visit Diagnoses Not on filedocumented in this encounter
--- OUTSIDE RECORDS SUMMARY | ~2019-10-08 | XMS | Encounter Summary ---
Demographics + + + | Address | [address] | | | [place] [address] | + + + | Home Phone | | + + + | Preferred Language | Unknown | + + + | Marital Status | | + + + | Lutheran Affiliation | NON | + + + | Race | White | + + + | Ethnic Group | Not or | + + + Author + + + | Author | [facility] | + + + | Organization | [facility] | + + + | Address [...] Team Providers + +------+ + | Care Engraver Pantograph Name | Role | Phone | + +------+ + | Judit Booth MD | PCP | | + +------+ + Encounter Details +--------+ + + + + | Date | Type | Department | Care Team | Description | +--------+ + + + + | 06/29/ | Pharmacy | Outpatient Retail | | | | 2012 | Visit | [facility] | | | | | | [address] | | | | | | [place], | | | | | | [place] [address] | | | | | | [phone] | | | +--------+ + + + [...] + + | Comments: 1 can a week | + + + + +---------+ + | Alcohol Use | Drinks/Week | oz/Week | Comments | + + +---------+ + | Not Asked | | | | + + +---------+ + [...]
--- OUTSIDE RECORDS SUMMARY | ~2019-10-08 | XMS | Encounter Summary ---
Demographics + + + | Address | [address] | | | [place] [address] | + + + | Home Phone | | + + + | Preferred Language | Unknown | + + + | Marital Status | | + + + | Sabianism Affiliation | Unknown | + + + | Race | Unknown | + + + | Ethnic Group | Unknown | + + + Author + + + | Author | [facility] | | | and [place] | + + + | Organization | [facility] | | | and [place] | + + + | Address | Unknown | + + + | Phone | Unavailable | + + + Support + + + + + | Name | Relationship | Address | Phone | + + + + + | Silvia Baumann | ECON | [address] | | | | | [place] | | | | | [address] | | + + + + + Care Team Providers + +------+ + | Care Affirmative Action Specialist Name | Role | Phone | + [...] | | cystitis | MD Shane | [address] [place] [address] | | | | | without | [address] [place] [address] | [place], | | | | | hematuria | [place] | [place] [address] | | | | | Urinary | [place], [place] | Phone: | | | | | tract | [address] | [phone] | | | | | infection, | Phone: | Fax: | | | | | site not | [phone] | [phone] | | | | | specified | Fax: | | | | | | Calculus of | [phone] | | | | | | kidney [...] + + | 11/02/ | Office | [facility] | Marshall Vivas, | Epididymitis, left | | 2015 | Visit | [address] | MD [address] | (Primary Dx); Left | | | | [place], [place] | [place], [place] | inguinal hernia; | | | | [address] | [id number] | Nephrolithiasis | | | | [phone] | | | +--------+---------+ + + + [...] a right total hip arthroplasty procedure in [place], [place], approximate ly 10/02/2015. Shortly following his discharge home, he began noticing irritative voiding symptoms with dy suria and urinary urgency and frequency. He then began having left testicular swelling and pain, and he was admitted on 10/14/2015 with cystitis and left epididymoorchitis. He was initially started on IV Rocephin, but was switched to ertapenem after his urine cult ure grew ufirz-ymcn-voxmbbksh ESBL e.coli. 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 Status post right total hip arthroplasty [place], [place] 10/02/2015. 3. Left inguinal hernia. 4. [...] have not thoroughly proofread this note, and piano case maker erro rs may occur. CC: Dr Baptiste [...] | | | | | | [place] [address] | | | | | | [phone] | | | | | | | [...] 1.001 - 1.030 | | | | [place], | | | | | | UA, [...]
--- OUTSIDE RECORDS SUMMARY | ~2019-10-08 | XMS | Encounter Summary ---
Demographics + + + | Address | [address] | | | [place] [address] | + + + | Home Phone | | + + + | Preferred Language | Unknown | + + + | Marital Status | | + + + | Yazdanism Affiliation | Unknown | + + + | Race | Unknown | + + + | Ethnic Group | Unknown | + + + Author + + + | Author | [facility] | | | and [place] | + + + | Organization | [facility] | | | and [place] | + + + | Address | Unknown | + + + | Phone | Unavailable | + + + Support + + + + + | Name | Relationship | Address | Phone | + + + + + | Silvia Baumann | ECON | [address] | | | | | [place] | | | | | [address] | | + + + + + Care Team Providers + +------+ + | Care Wire Bound Box Machine Operator Name | Role | Phone | + +------+ + | Luis M Baptiste | PCP | | | MD | | | + +------+ + Reason for Visit +--------+ + | Reason | Comments | +--------+ + | Other | Remove PICC line | +--------+ + Encounter Details +--------+---------+ + + + | Date | Type | Department | Care Team | Description | +--------+---------+ + + + | 01/14/ | Office | [facility] | Marshall Vivas, | Epididymitis, left | | 2015 | Visit | [address] | MD [address] | (Primary Dx) | | | | [place] | [place] | | | | | [address] | [address] | | | | | [phone] | | | +--------+---------+ + + + [...] + + + | Blood Pressure | 123/82 | 01/15/2016 3:28 PM | | | | | PDT | | + + + + + | Pulse | 84 | 01/15/2016 3:28 PM | | | | | PDT | | + + + + + | Temperature | - | - | | + + + + + | Respiratory Rate | 16 | 01/15/2016 3:28 PM | | | | | PDT | | + + + + + | Oxygen Saturation | - | - | | + + + + + | Inhaled Oxygen | - | - | | | Concentration | | | | + + + + + | Weight | 88.7 kg (195 lb 9.6 | 01/15/2016 3:28 PM | | | | oz) | PDT | | + + + + + | Height | 177.8 cm (5' 10") | 01/15/2016 3:28 PM | | | | | PDT | | + + + + + | Body Mass Index | 28.07 | 01/15/2016 3:28 PM | | | | | PDT | | + + + + + documented in this encounter Progress Notes Marshall Vivas MD - 01/15/2016 3:40 PM PDTFormatting of this note might be different fro m the original. Kobi is a 75 y.o. male patient of Luis M Baptiste MD being seen today for PICC line removal. Kobi underwent a right total hip arthroplasty procedure in [place], [place], on approxim ately 10/02/2015. He was readmitted on 10/14/2015 with cystitis and left epididymoorchitis. He was initially started on IV Rocephin, but was switched to ertapenem after his urine cult ure grew qwsvm-sycm-bmshsivbh ESBL e.coli. He completed a nearly 3 week course of IV antibi otic therapy with ertapenem, on 11/02/2015. A follow-up scrotal ultrasound on 11/29/2015 demonstrated persistent hyperemia, and the reac tive hydrocele, so he underwent additional treatment with IV Invanz 1 g IV once daily, for a pproximately 3 weeks. He drove to my office today without an appointment to see if his PICC line can be removed. He states that he is "not getting any answers" from his PCP regarding his PICC line. He tells me that he is no longer having any scrotal swelling or pain. He denies any diffic ulties with voiding. He denies any fever or chills or nausea or vomiting. He is having no scrotal swelling. He denies any perineal or testicular pain. He denies any difficulty with voiding. He denies any dysuria or hematuria or increased uri nary frequency. He denies any urinary incontinence. He reports that his hip is feeling well, but he is still weak. He denies any fever or chills or nausea or vomiting. He denies any dizziness or lightheade dness. He denies any cough or chest pain or shortness of breath or hemoptysis. Over 15 minute encounter with Kobi today, over 50% this time spent counseling regarding his scrotal swelling and epididymoorchitis and discussion regarding his PICC line. 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 Past Surgical History He has past surgical history that includes hip joint replacement (09/01/15); joint replacem ent; shoulder surgery; Colonoscopy; Umbilical hernia repair (1999); and [...] vision Medications: Outpatient Encounter Prescriptions as of 01/15/2016 Medication Sig Dispense Refill acetaminophen (TYLENOL) 325 mg tablet Take 650 mg by mouth every 4 hours as needed for Pain. ertapenem (INVanz) 1 g in sodium chloride 0.9% 50 mL IVPB Inject 1 g into the vein ever y 24 hours. 17 each 0 No facility-administered encounter medications on file as of 01/15/2016. PHYSICAL EXAM Vitals: BP 123/82 mmHg | Pulse 84 | Resp 16 | Ht 1.778 m (5' 10") | Wt 88.724 kg (195 lb 9. 6 oz) | BMI 28.07 kg/m2 General: Awake, alert, in no acute distress. Speech is fluent. Appears to be stated age. Does not appear ill or toxic. Neck: Supple; no lymphadenopathy. Lungs: Normal respiratory effort, no wheezing, no stridor, no tachypnea. Abdomen: Soft, nontender, no hepatosplenomegaly. No masses. No guarding; benign. Bladder nondistended. No flank mass. No flank tenderness. Neuro: Awake, alert, oriented x3. Normal station and slow gait. Psychiatric: Mood and affect are normal. Normal judgment. Skin: Warm and dry, no erythematous rash. Groin: No lymphadenopathy. Genitalia: No testicular or epididymal mass or nodule or lesion or swelling or tenderness. No scrotal wall erythema. No penile lesion. Exam appears to have returned to normal once again, with trace hydrocele fluid bilaterally. Extremities: Warm and dry. PICC line site in left arm is clean and nonerythematous and wit hout purulence. DIAGNOSTIC DATA: US SCROTUM AND TESTICLES 11/29/2015 1:58 PM HISTORY: Left scrotal swelling, evaluate for persistent epididymoorchitis. COMPARISON: Scrotal ultrasound 10/14/2015. PROTOCOL: Rojas scale and Doppler images of the scrotum. FINDINGS: Right testicle: The parenchyma is normal with normal color flow. The testicle measures 4.4 x 2.1 x 3.0 cm. A 9 mm cyst is in the head of the epididymis. There is no hydrocele or varicocele. Left testicle: The parenchyma is hyperemic and is concerning for orchitis. The testicle measures 4.7 x 2.8 x 3.2 cm. The left epididymis is normal with normal color flow. A large fluid collection with multiple septations is observed primarily involving the medial aspect of the scrotum. The size of this collection is 5.3 x 3.6 x 5.2 cm. This has the appearance of a multiseptated cyst rather than a hydrocele. IMPRESSION - Left-sided orchitis. Large multiseptated cyst involving medial aspect of left scrotum. Small cyst of right epididymal head. This report was called to the office of Dr. Marshall Vivas. Dictated and Signed by: Michele Barba MD Electronically signed: 11/29/2015 2:56 Lab Results Component Value Date COLORPOC Yellow 11/27/2015 CLARITYU Clear 11/27/2015 GLUCOSEPOC Negative 11/27/2015 BILIPOC Negative 11/27/2015 SG 1.020 11/27/2015 RBCUR Negative 11/27/2015 PHUAPOC 5.0 11/27/2015 PROTEINPOC Negative 11/27/2015 UROBILINOGEN 0.2 mg/dL 11/27/2015 NITRITEPOC Negative 11/27/2015 LEUKOCYTESUR Negative 11/27/2015 IMPRESSION: 1. Left epididymoorchitis. Resolved. He has no pain, and no swelling. 2. Status post right total hip arthroplasty [place], [place] 10/02/2015. 3. Left inguinal hernia. 4. Two adjacent 2 mm right midrenal stones. Asymptomatic. 5. Pulmonary nodules. Followed by Dr. Baptiste. 6. Peripelvic left renal cysts. 7. Peyronie's disease. 8. Erectile dysfunction. PLAN: Kobi's PICC line is removed intact today without difficulty. The tip is confirmed to be intact. Compression of the PICC insertion site was sterile gauze dressing was performed fo r 60 seconds. A gauze and Coban dressing were then applied to the wound. Kobi is instructed to continue his follow-up with his PCP. He'll follow-up here on a prn basis if he has any questions or concerns or any problems. I asked him to notify me if he expresses any testicular pain or scrotal swelling or fever or difficulties voiding, or for any difficulties whatsoever. Kobi is instructed to resume his usual and customary care with his primary care provider . This document was generated in part using voice recognition software. Although I have atte mpted to edit the content, I have not thoroughly proofread this note, and semiconductor packages sealer erro rs may occur. CC: Dr Baptiste [...] | | | | | | [place] [address] | | | | | | [phone] | | | | | | | | +--------+---------+ + + + documented as of this encounter Visit Diagnoses + + | Diagnosis | + + | Epididymitis, left - Primary Orchitis and epididymitis, unspecified | + + documented in this encounter
--- OUTSIDE RECORDS SUMMARY | ~2019-10-08 | XMS | Encounter Summary ---
Demographics + + + | Address | [address] | | | [place] [address] | + + + | Home Phone | | + + + | Preferred Language | Unknown | + + + | Marital Status | | + + + | Taoism Affiliation | NON | + + + | Race | White | + + + | Ethnic Group | Not or | + + + Author + + + | Author | [facility] | + + + | Organization | [facility] | + + + | Address [...] Team Providers + +------+ + | Care Funding Specialist Name | Role | Phone | + +------+ + | Judit Booth MD | PCP | | + +------+ + Reason for Referral PROC - Inpatient Surgery (Routine) +--------+--------+ + + + + | Status | Reason | Specialty | Diagnoses / | Referred By | Referred To | | | | | Procedures | Contact | Contact | +--------+--------+ + + + + | Closed | | Orthopedics | Diagnoses | Borjas, | Suad, | | | | | Primary | Jacky Valencia MD | Jacky Valencia MD | | | | | osteoarthrit | [address] | [address] | | | | | is of right | [address] | Richard Sky | | | | | hip | [place] | [place], | | | | | Procedures | [place], [place] | [place] | | | | | REQUEST TO | [address] | [address] | | | | | SURGERY | Phone: | Phone: | | | | | [employer] | [phone] | [phone] | | | | | CT TOTAL HIP | Fax: | Fax: | | | | | | [phone] | [phone] | | | | | ARTHROPLASTY | | | +--------+--------+ + + + + Reason for Visit + + + | Reason | Comments | + + + | Return Patient | RIGHT HIP | + + + Consultation (Routine) +--------+--------+ + + + + | Status | Reason | Specialty | Diagnoses / | Referred By | Referred To | | | | | Procedures | Contact | Contact | +--------+--------+ + + + + | Closed | | Orthopedics | Diagnoses | No | Suad, | | | | | R hip pain | Referring | Jacky Valencia MD | | | | | | Provider Per | [address] | | | | | | Patient NO | [address] | | | | | | REFERRING | [address] [place], | | | | | | PROVIDER PER | [place] | | | | | | [place] | [address] | | | | | | | Phone: | | | | | | | [phone] | | | | | | | Fax: | | | | | | | [phone] | +--------+--------+ + + + + Encounter Details +--------+---------+ + + + | Date | Type | Department | Care Team | Description | +--------+---------+ + + + | 09/05/ | Office | Orthopaedics at | Jacky Borjas MD | Primary | | 2015 | Visit | [facility] [address] | [address] [facility] | osteoarthritis of | | | | Ave Mailcode: [address] | [address] | right hip (Primary | | | | [place] [facility] | [place], [place] | Dx) | | | | and Healing, | [address] | | | | | | [phone] | | | | | Floor [place], [place] | | | | | | [address] | | | | | | [phone] | | | +--------+---------+ + + + [...] encounter Progress Notes Jacky Borjas MD - 09/08/2015 10:28 AM PSTI performed a history and physical examination of the patient and discussed his management with the resident. I reviewed the resident s note and agree with the documented findings and plan of care. Jacky Borjas MD ORTHOPAEDICS AT [facility] [address] Mailcode: [address] [place] [id number] Meir Rojo MD - 01/2015 12:01 PM PST Orthopaedic Follow-Up Note Kobi Loera is a 75 y.o. male who follows up for progressive R hip pain. Mono Felix referred for PT 3 months ago. Symptoms have progressed despite this. Previous treatments and their efficacy or reason treatment was not attempted: Medications: Patient has tried taking a few OTC analgesics, but does not want to take me dication for this problem Weight loss: Patient has maintained a healthy body weight, weight loss not indicated. Physical therapy: symptomatic progression despite PT Injections: Contra-indicated due to short-term efficacy in severe hip degeneration. Braces, orthotics and/or assistive devices: No appropriate hip bracing of hip degenerati on. Symptoms are progressing in spite of cane use. Limitations of activities of daily living from hip degeneration include severe limitation i n ability to walk, climb stairs, shop. Filed Vitals: 09/05/2015 11:47 AM PainSc: 09 - Very Severe to Worst Possible Pain PainLoc: Hip (Right) PE: Well-appearing, NAD Lower extremity exam: Gait: Antalgic Right: Hip: Moderate tenderness over trochanteric bursa. Moderate pain with hip rotation: IR > ER Forward flexion Internal Rotation External Rotation Adduction Abduction ROM 80 5 30 30 30 Examination of the remainder of the right lower extremity reveals full pain-free motion wit hout tenderness, swelling, or crepitus of the knee and ankle. Left: Hip: No tenderness over trochanteric bursa. No pain with hip rotation Forward flexion Internal Rotation External Rotation Adduction Abduction ROM 100 10 40 30 30 Examination of the remainder of the left lower extremity reveals full pain-free motion with out tenderness, swelling, or crepitus of the knee and ankle. Neurologic: Motor: Bilateral Hip flexion Bilateral Knee Extension Bilateral Ankle Plantarflexion Bilateral EHL Bilateral Ankle Dorsiflexion 5 5 5 5 5 Sensory: Sensation intact to light touch in deep peroneal, superficial peroneal and tibial nerve distributions of foot and grossly in all distributions of leg. Reflexes: Patella and Achilles equal Vascular: Palpable dorsalis pedis and posterior tibial pulses. Capillary refill <2 sec.abse nt pedal edema. XR: Joint space narrowing with subchondral sclerosis and osteophyte formation. A: R hip pain with radiographic evidence of severe OA Previous treatments and their efficacy or reason treatment was not attempted: Medications: Patient has tried taking a few OTC analgesics, but does not want to take me dication for this problem Weight loss: Patient has maintained a healthy body weight, weight loss not indicated. Physical therapy: symptomatic progression despite PT Injections: Contra-indicated due to short-term efficacy in severe hip degeneration. Braces, orthotics and/or assistive devices: No appropriate hip bracing of hip degenerati on. Symptoms are progressing in spite of cane use. Limitations of activities of daily living from hip degeneration include severe limitation i n ability to walk, climb stairs, shop. Plan: Hip replacement surgery is indicated because this patient has failed thorough trials of conservative management. Given the severity of the patient's condition and debilitating p ain, continued nonsurgical management will not result in meaningful pain relief and will onl y serve increase the risk of falls, deconditioning, and severely limit the patient's daily a ctivities. Patient is a good candidate for total hip arthroplasty. VTE risk stratification: Thromboembolic risk stratification: Kobi Loera is at a verage orthopaedic risk for venous thrombo-embolism after joint replacement, having no addit ional risk factors. I have described our multimodal VTE prophylaxis approach and emphasized the importance of compliance. Post op discharge plan: home. No orders of the defined types were placed in this encounter. Meir Hyman MD Orthopaedic Resident do cumented in this encounter Plan of Treatment Not on filedocumented as of this encounter Visit Diagnoses + + | Diagnosis | + + | Primary osteoarthritis of right hip - Primary Primary localized osteoarthrosis, | | pelvic region and thigh | + + documented in this encounter"
--- OUTSIDE RECORDS SUMMARY | ~2019-10-08 | XMS | Encounter Summary ---
Demographics + + + | Address | [address] | | | [place] [address] | + + + | Home Phone | | + + + | Preferred Language | Unknown | + + + | Marital Status | | + + + | Amish Affiliation | NON | + + + | Race | White | + + + | Ethnic Group | Not or | + + + Author + + + | Author | [facility] | + + + | Organization | [facility] | + + + | Address | Unknown | + + + | Phone | Unavailable | + + + Support + + + + + | Name | Relationship | Address | Phone | + + + + + | Silvia Loera | FARZANA | [place] | | + + + + + Care Team Providers + +------+ + | Care Mat Tester Name | Role | Phone | + +------+ + | Judit Booth MD | PCP | | + +------+ + Encounter Details +--------+ + + + + | Date | Type | Department | Care Team | Description | +--------+ + + + + | 10/05/ | Pharmacy | Outpatient Retail | | | | 2014 | Visit | [facility] | | | | | | [address] | | | | | | [place], | | | | | | [place] [address] | | | | | | [phone] | | | +--------+ + + + [...]
--- OUTSIDE RECORDS SUMMARY | ~2019-10-08 | XMS | Encounter Summary ---
Demographics + + + | Address | [address] | | | [place] [address] | + + + | Home Phone | | + + + | Preferred Language | Unknown | + + + | Marital Status | | + + + | Roman Catholic Affiliation | NON | + + + | Race | White | + + + | Ethnic Group | Not or | + + + Author + + + | Author | [facility] | + + + | Organization | [facility] | + + + | [...] Team Providers + +------+ + | Care Door Fitter Name | Role | Phone | + +------+ + PCP | Unavailable | + +------+ + Encounter Details +--------+ + + + + | Date | Type | Department | Care Team | Description | +--------+ + + + + | 02/09/ | Results | Health Promotion | Judit Booth MD | | | 2000 | Only | and Sports Medicine | [address] | | | | | [address] | [place] [address] | | | | | [place] Mailcode: | [place] [address] | | | | | [facility] Outpatient | [phone] | | | | | [place] [address] | | | | | | [place], [place] | | | | | | [address] | | | | | | [phone] | | | +--------+ + + + [...] | + +--------+ + + + | US ABDOMEN LIMITED | Routin | 02/09/2001 | | Results for this | | | e | 8:21 AM | | procedure are in the | | | | PDT | | results section. | + +--------+ + + + documented in this encounter Results US ABDOMEN LIMITED (02/09/2001 8:21 AM PDT) + + + + + + | Component | Value | Ref Range | Performed | Pathologist | | | | | At | Signature | + + + + + + | US ABDOMEN | Radiologist 1: | | | | | LIMITED | ARANA, | | | | | | ARNAUD-Radiologist 2: | | | | | | ARANA, | | | | | | BARBARALIMITED ABDOMINAL | | | | | | ULTRASOUND: | | | | | | 02/09/2001 Dictated | | | | | | 02/09/2001 COMPARISON: | | | | | | None. HISTORY: This is a | | | | | | 60-year-old male with | | | | | | small palpable | | | | | | anteriorabdominal mass. | | | | | | This study is requested | | | | | | to rule out ventral | | | | | | hernia. FINDINGS: There | | | | | | is a small 1.8 x 1.5 cm | | | | | | ventral hernia | | | | | | immediatelysuperior to | | | | | | the umbilicus. The | | | | | | hernia does not enlarge | | | | | | with Valsalva.No | | | | | | definite peristalsing | | | | | | bowel is identified | | | | | | within the hernia sac. | | | | | | IMPRESSION: 1.8 x 1.5 cm | | | | | | ventral hernia exists | | | | | | immediately superior to | | | | | | theumbilicus. No | | | | | | peristalsing bowel was | | | | | | visualized in the hernia | | | | | | sac. END OF | | | | | [...]
--- OUTSIDE RECORDS SUMMARY | ~2019-10-08 | XMS | Encounter Summary ---
Demographics + + + | Address | [address] | | | [place] [address] | + + + | Home Phone | | + + + | Preferred Language | Unknown | + + + | Marital Status | | + + + | Amish Affiliation | NON | + + + | Race | White | + + + | Ethnic Group | Not or | + + + Author + + + | Author | [facility] | + + + | Organization | [facility] | + + + | Address [...] Team Providers + +------+ + | Care Copyist Name | Role | Phone | + +------+ + | Judit Booth MD | PCP | | + +------+ + Reason for Referral Physical Therapy (Routine) + +--------+ + + + + | Status | Reason | Specialty | Diagnoses / | Referred By | Referred To | | | | | Procedures | Contact | Contact | + +--------+ + + + + | Canceled | | Physical | Diagnoses | Isidro, | | | | | Therapy | Right hip | René Davis, | | | | | | pain | PA-C | | | | | | Procedures | [facility] | | | | | | PHYSICAL | Health | | | | | | THERAPY | [place] | | | | | | REFERRAL | Surgery | | | | | | | [address] | | | | | | [address] | | | | | | | [place], [place] | | | | | | | [address] | | | | | | | Phone: | | | | | | | [phone] | | | | | | | Fax: | | | | | | | [phone] | | + +--------+ + + + + Reason for Visit + + + | Reason | Comments | + + + | Hip pain | new visit | + + + Consultation (Routine) +--------+--------+ [...] | | | Patient NO | [address] Sky | | | | | | REFERRING | [address] | | | | | | PROVIDER PER | [place] | | | | | | [place] | [address] | | | | | | | Phone: | | | | | | | [phone] | | | | | | | Fax: | | | | | | | [phone] | +--------+--------+ + + + + Encounter Details +--------+---------+ + + + | Date | Type | Department | Care Team | Description | +--------+---------+ + + + | 06/21/ | Office | Orthopaedics at | René Toth | Right hip pain | | 2015 | Visit | [facility] [address] | SYL [address] | (Primary Dx); | | | | [address] | [facility] | Primary | | | | [address] | Surgery [address] | osteoarthritis of | | | | [place], [place] | [place], [place] | right hip | | | | [address] | [id number] | | | | | [phone] | | | +--------+---------+ + + + [...] + + + | Blood Pressure | 128/71 | 06/21/2015 10:11 AM | | | | | PDT | | + + + + + | Pulse | 75 | 06/21/2015 10:11 AM | | | | | PDT | | + + + + + | Temperature | - | - | | + + + + + | Respiratory Rate | - | - | | + + + + + | Oxygen Saturation | - | - | | + + + + + | Inhaled Oxygen | - | - | | | Concentration | | | | + + + + + | Weight | 81.6 kg (180 lb) | 06/21/2015 10:11 AM | | | | | PDT | | + + + + + | Height | 177.8 cm (5' 10") | 06/21/2015 10:11 AM | | | | | PDT | | + + + + + | Body Mass Index | 25.83 | 06/21/2015 10:11 AM | | | | | PDT | | + + + + + documented in this encounter Progress Notes René Toth PA-C - 06/22/2015 7:40 AM PDTFormatting of this note might be differ ent from the original. [facility] Department of Orthopaedics and Rehabilitation Division of Adult Reconstruction Reason for Consult: right hip pain Referring Provider: No Referring Provider Per Patient NO REFERRING PROVIDER PER PT Decision for Hip Surgery HISTORY AND PHYSICAL History of Present Illness: Mr. Loera is a 75 year old pleasant man with right hip pain for about 1 years. The p ain is located in the deep groin crease . The patient describes the pain as constant, achy a nd limits his function daily. Radiation of the pain is negative. The patient denies pain a t night. Additional details include: Deep groin pain, sometimes lateral hip pain affecting daily act ivities. Patient likes to walk and ride a bike. If he is on his feet for extended periods th e hip becomes very sore and requires rest. He can only walk a block or two without the pain becoming an issue. At first it would resolve, now the pain is essentially constantly 3/10. Lida waldrop has seen a chiropractor, which was no help, and told him he should see an orthopedist. History of mechanical symptoms is negative. History of neurological symptoms is negative. History of constitutional symptoms such as fever, chills, and sweats is negative. History of trauma/previous surgery to the affected extremity is negative History of inflammatory disease is negative. History of other painful conditions is negative. Previous treatments and their efficacy or reason treatment was not attempted: ? Medications: Patient has tried taking a few OTC analgesics, but does not want to take med ication for this problem ? Weight loss: Patient has maintained a healthy body weight, weight loss not indicated. ? Physical therapy: Patient has not had prior physical therapy ? Injections: Contra-indicated due to short-term efficacy in severe hip degeneration. ? Braces, orthotics and/or assistive devices: No appropriate hip bracing of hip degeneratio n. Symptoms are progressing in spite of cane use. Limitations of activities of daily living from hip degeneration include severe limitation i n ability to walk, climb stairs, shop. Past Medical History: No past medical history on file. Patient denies history of DVT/PE, DM, CAD or other significant cardiopulmonary disease. Past Surgical History: Past Surgical History Procedure Laterality Date Back surgery 2002 Shoulder surgery Right 2005 Hernia surgery Mouth surgery Medications: No current outpatient prescriptions on file. No current facility-administered medications for this visit. Patient denies anticoagulation, immunosuppressants, hormone therapy with the following exce ptions: Allergies: Allergies Allergen Reactions Codeine Review of systems: Patient denies fevers, chills, chest pain, shortness of breath, chest pain, leg swelling or recent infection The review is otherwise negative except as noted in HPI. Family History: Family history is non-contributory Patient denies family history of coagulopathies or problems with anesthesia. Social History: Smoking/tobacco products: Smokeless tobacco x 40 years Alcohol: Denies Illicit drugs: none Occupation: He is retired. The pt's medical history, medications, allergies, surgical history, family history, social history, and a complete review of systems are also included on today's patient questionnaire (see Scanned Documents/Media section). This was reviewed and signed by us both today. EXAM: Last Vitals: BP 128/71 | Pulse 75 | Ht 1.778 m (5' 10") | Wt 81.647 kg (180 lb) | BMI 25.8 3 kg/(m^2) BMI: Body mass index is 25.83 kg/(m^2). General: NAD, alert, affect appropriate. Well-nourished adult. Neck: Supple. Normal motion and strength. No cervical/axillary lymphadenopathy. Spine: Normal gross alignment with no obvious coronal or sagittal plane deformity. Normal motion and strength. CV: Regular rate Chest: Breathing non-labored, no signs of respiratory distress. Abd: Soft, ND/NT Pelvis: Level. Leg lengths clinically equal Skin: No lesions noted on bilateral lower extremities. No pedal edema Lower extremity exam: Gait: Antalgic Right: Hip: Moderate tenderness over trochanteric bursa. Moderate pain with hip rotation: IR > E R Forward flexion Internal Rotation External Rotation Adduction [...] and posterior tibial pulses. Capillary refill <2 sec.abs ent pedal edema. Imaging: Kristopher-posterior pelvis with kristopher-posterior & lateral views of the right hip show: Right hip: No fracture or acute process. Moderate hip joint space degeneration and narrowin g with femoral head spurring. Mild left hip joint space degeneration. Impression: 1. Right hip moderate osteoarthritis Plan: Patient has moderate right hip osteoarthritis that has become progressively more painful in the past 6 months. I advised this condition tends to worsen in pain over time. He does not like taking pain medication and feels his quality of life is diminishing due to hip pain. He is interested in total hip replacement. We had a lengthy discussion about JALIL Preop, posto p, intraop courses. He is familiar with this as his had JALIL by Dr. Borjas and has done we ll. I think he is close to needing a hip replacement. He is going to try physical therapy to see if he can get any improvement. We discussed injection, I do not think this would give h im any correction improvement. Referral given, he can do PT in [place] where he lives. He w ill return in 6-8 weeks if no improvement to further discuss hip replacement. RENÉ TOTH PA-C Orthopedics and Rehabilitation [facility] [phone] Orders Placed This Encounter X-RAY HIP 2 VIEWS RIGHT W/ PELVIS 1 VIEW CONSULT TO REHABILITATION PHYSICAL THERAPY OUTSIDE [facility] documented in this encounter Plan of Treatment Not on filedocumented as of this encounter Results X-RAY HIP 2 VIEWS RIGHT W/ PELVIS 1 VIEW (06/21/2015 9:55 AM PDT) + + + + + + | Component | Value | Ref Range | Performed | Pathologist | | | | | At | Signature | + + + + + + | X-RAY HIP 2 | EXAM: HIP 2 VIEWS RIGHT | | | | | VIEWS | W/ PELVIS 1 VIEW | | | | | RIGHT W/ | 06/21/15 09:55:00 | | | | | PELVIS 1 | HISTORY: Pain. | | | | | VIEW | COMPARISON: None. | | | | | | FINDINGS:The bones are | | | | | | intact with no acute | | | | | | fracture or focal | | | | | | osseous | | | | | | destruction.Alignment is | | | | | | normal. There is | | | | | | moderate right and mild | | | | | | left hip joint | | | | | | spacenarrowing, with | | | | | | mild right femoral head | | | | | | spurring. The pubic | | | | | | symphysis andvisualized | | | | | | portions of the | | | | | | sacroiliac joints are | | | | | | maintained. There are | | | | | | vascularcalcifications. | | | | | | The soft tissues are | | | | | | otherwise unremarkable. | | | | | | IMPRESSION: Moderate | | | | | | right and mild left hip | | | | | | degenerative joint | | | | | | disease. Attending | | | | | | Radiologists: DURAN PALMA, | | | | | | MDAuthor: GAGE | | | | | | MD LAURY I have | | | | | | personally viewed this | | | | | | procedure/exam, reviewed | | | | | | this report, and | | | | | | madechanges to it where | | | | | | appropriate. | | | | | | Final/Electronically | | | | | | signed / DURAN PALMA | | | | | | 06/21/2015 11:12 AM | | | | + + + + + + + + | Specimen | + + | | + + + +---------+ + + | Performing | Address | City/State/Zipcode | Phone Number | | Organization | | | | + +---------+ + + | [facility] DEPARTMENT OF | | | | | RADIOLOGY | | | | + +---------+ + + documented in this encounter Visit Diagnoses + + | Diagnosis | + + | Right hip pain - Primary Pain in joint, pelvic region and thigh | + + | Primary osteoarthritis of right hip Primary localized osteoarthrosis, pelvic region | | and thigh | + + documented in this encounter
--- OUTSIDE RECORDS SUMMARY | ~2019-10-08 | XMS | Clinical Summary ---
Demographics + + + | Address | [address] | | | [place] [address] | + + + | Home Phone | | + + + | Preferred Language | Unknown | + + + | Marital Status | | + + + | Uatsdin Affiliation | Unknown | + + + | Race | Unknown | + + + | Ethnic Group | Unknown | + + + Author + + + | Author | [facility] | | | and [place] | + + + | Organization | [facility] | | | and [place] | + + + | Address | Unknown | + + + | Phone | Unavailable | + + + Support + + + + + | Name | Relationship | Address | Phone | + + + + + | Silvia Baumann | ECON | [address] | | | | | [place] | | | | | [address] | | + + + + + Care Team Providers + +------+ + | Care Blade Boner Name | Role | Phone | + +------+ + | Nahid Medeiros MD | PCP | | + +------+ + Allergies + + + + + + | Active Allergy | Reactions | Severity | Noted | Comments | | | | | Date | | + + + + + + | Codeine | Sensitivity | | 10/14/20 | Nausea and changed | | | | | 15 | vision | + + + + + + | Doxycycline | Other (See Comments) | | 09/12/20 | Possibly cause of | | | | | 19 | foot pain and foot | | | | | | rash see [facility] note | | | | | | 09-12-2019 | + + + + + + | Oxybutynin Chloride | | High | 10/14/20 | Unknown | | | | | 15 | | + + + + + + Medications + + + +---------+------+------+-------+ | Medication | Sig | Dispensed | Refills | Star | End | Statu | | | | | | t | Date | s | | | | | | Date | | | + + + +---------+------+------+-------+ | albuterol 90 | Inhale 2 puffs into | 1 | 0 | 11/0 | | Activ | | mcg/puff inhaler | the lungs every 4 | Inhaler | | 5/20 | | e | | | hours as needed for | | | 19 | | | | | Wheezing or | | | | | | | | Shortness of Breath. | | | | | | | | Use with spacer | | | | | | | | device. | | | | | | + + + +---------+------+------+-------+ | benzonatate | Take 1 capsule by | 30 | 0 | 11/0 | | Activ | | (TESSALON) 100 mg | mouth 3 times daily | capsule | | 5/20 | | e | | capsule | as needed for Cough. | | | 19 | | | + + + +---------+------+------+-------+ | lidocaine | Apply up to 3 | 30 | 0 | 11/1 | | Activ | | (LIDODERM) 5% patch | patches at once in a | patch | | 2/20 | | e | | | 12 hour period to | | | 19 | | | | | affected area; | | | | | | | | remove after 12 | | | | | | | | hours | | | | | | + + + +---------+------+------+-------+ | acetaminophen | Take 1-2 tablets by | 60 | 0 | 11/1 | | Activ | | (TYLENOL) 500 mg | mouth every 6 hours | tablet | | 2/20 | | e | | tablet | as needed for Pain. | | | 19 | | | + + + +---------+------+------+-------+ | doxycycline | Take 1 capsule by | 14 | 0 | 11/0 | 11/0 | Disco | | (MONODOX) 100 mg | mouth 2 times daily | capsule | | 5/20 | 7/20 | ntinu | | capsule | for 7 days. | | | 19 | 19 | ed | | | | | | | | (Mauricio | | | | | | | | rgic | | | | | | | | respo | | | | | | | | nse) | + + + +---------+------+------+-------+ | azithromycin | Take 1 tablet by | 4 | 0 | 11/0 | 09/03 | Disco | | (ZITHROMAX Z-SARIKA) | mouth Daily for 4 | tablet | | 7/20 | 2/20 | ntinu | | 250 mg tablet | days. | | | 19 | 19 | ed | + + + +---------+------+------+-------+ | azithromycin | Take 1 tablet by | 2 | 0 | 09/03 | 09/03 | Expir | | (ZITHROMAX) 500 MG | mouth Daily for 2 | tablet | | 3/ | 520 | ed | | tablet | days. | | | 19 | 19 | | + + + +---------+------+------+-------+ | cefdinir (OMNICEF) | Take 1 capsule by | 14 | 0 | 09/03 | 2 | Expir | | 300 mg capsule | mouth 2 times daily | capsule | | 3/20 | 0/20 | ed | | | for 7 days. | | | 19 | 19 | | + + + +---------+------+------+-------+ Active Problems + + + | Problem | Noted Date | + + + | Pneumonia | 09/12/2019 | + + + | Cervical spinal stenosis | 09/12/2019 | + + + | Preventative health care | 11/02/2015 | + + + + + | Overview: CT Abd/Pelvis w/o 10/14/15 [facility] | + + + + + | UTI due to ESBL-producing Escherichia coli | 10/14/2015 | + + + | Epididymitis, left | 10/14/2015 | + + + | Leukocytosis, unspecified elevated WBC count | 10/14/2015 | + + + + + | Overview: Problem list [employer] utility | + + + + + | Tobacco user | 10/14/2015 | + + + | Status post hip replacement, right | 10/14/2015 | + + + + + | Overview: Had surgery at [facility] on 10/02/15 | + + + + + | Dehydration, mild | 10/14/2015 | + + + | Nephrolithiasis | 10/14/2015 | + + + | Peyronie's disease | 10/14/2015 | + + + | Left inguinal hernia | 10/14/2015 | + + + Encounters +--------+ + + + + | Date | Type | Specialty | Care Team | Description | +--------+ + + + + | 09/11/ | Hospital | | Marshall Dickinson, | Pneumonia of right | | 2018 - | Encounter | | Bartolo Molina, | middle lobe due to | | | | | MD | infectious organism | | 09/14/ | | | | ([facility]) (Primary Dx); | | 2019 | | | | Shortness of breath; | | | | | | Acute respiratory | | | | | | failure with hypoxia | | | | | | ([facility]); Weakness of | | | | | | right hand; Right | | | | | | leg weakness; | | | | | | Cervical spinal cord | | | | | | compression ([facility]); | | | | | | Cervical spinal | | | | | | stenosis; Pneumonia | | | | | | of right lung due to | | | | | | infectious | | | | | | organism, | | | | | | unspecified part of | | | | | | lung; Abnormal gait | +--------+ + + + + | 09/09/ | Emergency | Emergency Medicine | [facility] | [id number]-wdjrxac | | 2018 | | | Dave Barrett MD | adverse reaction to | | | | | | medication, initial | | | | | | encounter (Primary | | | | | | Dx) | +--------+ + + + + | 09/07/ | Emergency | Emergency Medicine | Fuad Campbell MD | Respiratory | | 2018 | | | | infection (Primary | | | | | | Dx); Pneumonia of | | | | | | right lung due to | | | | | | infectious organism, | | | | | | unspecified part of | | | | | | lung | +--------+ + + + + from Last 3 Months Immunizations + + + + | Name | Administration Dates | Next Due | + + + + | PNEUMOCOCCAL | 08/07/2017 | | | CONJUGATE 13-VALENT | | | | (PCV13) | | | + + + + | PNEUMOCOCCAL | 09/17/2018, 01/03/2004 | | | POLYSACCHARIDE | | | | 23-VALENT (PPSV23) | | | + + + + | TD, UNSPECIFIED | 01/03/2004 | | | FORMULATION | | | + + + + | TDAP, (ADOL/ADULT) | 09/17/2018 | | + + + + Family History + + +------+ + | Medical History | Relation | Name | Comments | + + +------+ + | Cancer | Father | | Stomach cancer | + + +------+ + | Heart failure | Father | | | + + +------+ + | Heart failure | Mother | | | + + +------+ + | Prostate cancer | Neg Hx | | | + + +------+ + + +------+ + + | Relation | Name | Status | Comments | + +------+ + + | Father | | | | + +------+ + + | Mother | | | | + +------+ + + Social History + +-------+ +--------+------+ [...] + + + | Blood Pressure | 113/78 | 09/14/2019 3:20 PM | | | | | PST | | + + + + + | Pulse | 79 | 09/14/2019 3:20 PM | | | | | PST | | + + + + + | Temperature | 35.9 C (96.6 F) | 09/14/2019 3:20 PM | | | | | PST | | + + + + + | Respiratory Rate | 18 | 09/14/2019 3:20 PM | | | | | PST | | + + + + + | Oxygen Saturation | 96% | 09/14/2019 3:20 PM | | | | | PST | | + + + + + | Inhaled Oxygen | - | - | | | Concentration | | | | + + + + + | Weight | 77.8 kg (171 lb 8.3 | 09/14/2019 2:00 AM | | | | oz) | PST | | + + + + + | Height | 175.3 cm (5' 9") | 09/11/2019 8:58 AM | | | | | PST | | + + + + + | Body Mass Index | 25.33 | 09/11/2019 8:58 AM | | | | | PST | | + + + + + Plan of Treatment +--------+---------+ + + + | Date | Type | Specialty | Care Team | Description | +--------+---------+ + + + | 10/08/ | Office | Neurosurgery | Luis M Muir | | | 2019 | Visit | | MD Nancy [address] | | | | | | [place] | | | | | | [place] [address] | | | | | | [phone] | | | | | | | | +--------+---------+ + + + + + + + + | Health Maintenance | Due Date | Last Done | Comments | + + + + + | Vaccine: Zoster (1 | | | | | of 2) | 8 | | | + + + + + | Adult Annual | | | | | Wellness Visit | 5 | | | + + + + + | Vaccine: Influenza | | | | | (#1) | 9 | | | + + + + + | Vaccine: | | 09/17/2018, 01/03/2004 | | | Dtap/Tdap/Td (2 - | 8 | | | | Td) | | | | + + + + + | Vaccine: | Completed | 09/17/2018, 08/07/2017, | | | Pneumococcal 65+ | | 01/03/2004 | | + + + + + Procedures + +--------+ + + + | Procedure Name | Priori | Date/Time | Associated Diagnosis | Comments | | | ty | | | | + +--------+ + + + | BASIC METABOLIC | Routin | 09/14/2019 | | Results for this | | PANEL | e | 4:30 AM | | procedure are in the | | | | PST | | results section. | + +--------+ + + + | CBC NO DIFFERENTIAL | Routin | 09/14/2019 | | Results for this | | | e | 4:30 AM | | procedure are in the | | | | PST | | results section. | + +--------+ + + + | BASIC METABOLIC | Routin | 09/13/2019 | | Results for this | | PANEL | e | 4:53 AM | | procedure are in the | | | | PST | | results section. | + +--------+ + + + | CBC NO DIFFERENTIAL | Routin | 09/13/2019 | | Results for this | | | e | 4:53 AM | | procedure are in the | | | | PST | | results section. | + +--------+ + + + | PROTIME INR | Routin | 09/12/2019 | | Results for this | | | e | 4:37 AM | | procedure are in the | | | | PST | | results section. | + +--------+ + + + | MAGNESIUM | Routin | 09/12/2019 | | Results for this | | | e | 4:37 AM | | procedure are in the | | | | PST | | results section. | + +--------+ + + + | COMPREHENSIVE | Routin | 09/12/2019 | | Results for this | | METABOLIC PANEL | e | 4:37 AM | | procedure are in the | | | | PST | | results section. | + +--------+ + + + | CBC WITH | Routin | 09/12/2019 | | Results for this | | DIFFERENTIAL | e | 4:37 AM | | procedure are in the | | | | PST | | results section. | + +--------+ + + + | CULTURE, | STAT | 09/11/2019 | | Results for this | | RESPIRATORY, LOWER, | | 5:47 PM | | procedure are in the | | SMEAR | | PST | | results section. | + +--------+ + + + | LEGIONELLA AG, EIA, | Routin | 09/11/2019 | | Results for this | | QUAL, URINE | e | 5:42 PM | | procedure are in the | | | | PST | | results section. | + +--------+ + + + | STREPTOCOCCUS | Routin | 09/11/2019 | | Results for this | | PNEUMONIAE AG, URINE | e | 5:40 PM | | procedure are in the | | | | PST | | results section. | + +--------+ + + + | MRI CERVICAL SPINE | STAT | 09/11/2019 | | Results for this | | WO CONTRAST | | 1:41 PM | | procedure are in the | | | | PST | | results section. | + +--------+ + + + | MRI BRAIN WO | STAT | 09/11/2019 | | Results for this | | CONTRAST | | 1:22 PM | | procedure are in the | | | | PST | | results section. | + +--------+ + + + | CT CHEST WO CONTRAST | STAT | 09/11/2019 | | Results for this | | | | 10:37 AM | | procedure are in the | | | | PST | | results section. | + +--------+ + + + | CT CERVICAL SPINE WO | STAT | 09/11/2019 | | Results for this | | CONTRAST | | 10:37 AM | | procedure are in the | | | | PST | | results section. | + +--------+ + + + | CT HEAD WO CONTRAST | STAT | 09/11/2019 | | Results for this | | | | 10:37 AM | | procedure are in the | | | | PST | | results section. | + +--------+ + + + | CULTURE, BLOOD | STAT | 09/11/2019 | | Results for this | | | | 10:24 AM | | procedure are in the | | | | PST | | results section. | + +--------+ + + + | CK TOTAL | STAT | 09/11/2019 | | Results for this | | | | 10:01 AM | | procedure are in the | | | | PST | | results section. | + +--------+ + + + | TROPONIN I | STAT | 09/11/2019 | | Results for this | | | | 10:01 AM | | procedure are in the | | | | PST | | results section. | + +--------+ + + + | PHOSPHORUS | STAT | 09/11/2019 | | Results for this | | | | 10:01 AM | | procedure are in the | | | | PST | | results section. | + +--------+ + + + | MAGNESIUM | STAT | 09/11/2019 | | Results for this | | | | 10:01 AM | | procedure are in the | | | | PST | | results section. | + +--------+ + + + | PROCALCITONIN, SERUM | STAT | 09/11/2019 | | Results for this | | | | 10:01 AM | | procedure are in the | | | | PST | | results section. | + +--------+ + + + | LACTIC ACID | STAT | 09/11/2019 | | Results for this | | | | 10:01 AM | | procedure are in the | | | | PST | | results section. | + +--------+ + + + | PROTIME INR | STAT | 09/11/2019 | | Results for this | | | | 10:01 AM | | procedure are in the | | | | PST | | results section. | + +--------+ + + + | COMPREHENSIVE | STAT | 09/11/2019 | | Results for this | | METABOLIC PANEL | | 10:01 AM | | procedure are in the | | | | PST | | results section. | + +--------+ + + + | CBC WITH | STAT | 09/11/2019 | | Results for this | | DIFFERENTIAL | | 10:01 AM | | procedure are in the | | | | PST | | results section. | + +--------+ + + + | CULTURE, BLOOD | STAT | 09/11/2019 | | Results for this | | | | 10:01 AM | | procedure are in the | | | | PST | | results section. | + +--------+ + + + | RT PEAK FLOW | Routin | 09/07/2019 | | | | | e | 10:47 AM | | | | | | PST | | | + +--------+ + + + | XR CHEST PA AND | STAT | 09/07/2019 | | Results for this | | LATERAL | | 9:56 AM | | procedure are in the | | | | PST | | results section. | + +--------+ + + + | EXTRA GOLD TOP TUBE | Routin | 09/07/2019 | | Results for this | | | e | 9:36 AM | | procedure are in the | | | | PST | | results section. | + +--------+ + + + | EXTRA GREEN TOP TUBE | Routin | 09/07/2019 | | Results for this | | | e | 9:36 AM | | procedure are in the | | | | PST | | results section. | + +--------+ + + + | EXTRA BLUE TOP TUBE | Routin | 09/07/2019 | | Results for this | | | e | 9:36 AM | | procedure are in the | | | | PST | | results section. | + +--------+ + + + | EXTRA ROJAS TOP TUBE | Routin | 09/07/2019 | | Results for this | | | e | 9:36 AM | | procedure are in the | | | | PST | | results section. | + +--------+ + + + | EXTRA LAVENDER TOP | Routin | 09/07/2019 | | Results for this | | TUBE | e | 9:36 AM | | procedure are in the | | | | PST | | results section. | + +--------+ + + + | COMPREHENSIVE | STAT | 09/07/2019 | | Results for this | | METABOLIC PANEL | | 9:35 AM | | procedure are in the | | | | PST | | results section. | + +--------+ + + + | CBC W/AUTO | STAT | 09/07/2019 | | Results for this | | DIFFERENTIAL | | 9:35 AM | | procedure are in the | | | | PST | | results section. | + +--------+ + + + from Last 3 Months Results CBC no Differential (09/14/2019 4:30 AM PST)Only the most recent of 2 results within the period is included. + + + + + + | Component | Value | Ref Range | Performed | Pathologist | | | | | At | Signature | + + + + + + | WBC | 6.5 | 4.0 - 11.0 K/uL | [facility] | | | | | [facility] | | | | | | [facility] | | | | [facility] - | | | | | | LABORATORY | | + + + + + + | RBC | 4.68 | 4.30 - 5.70 | [facility] | | | | | M/uL | [facility] | | | | | | [facility] | | | | | | [facility] - | | | | | | LABORATORY | | + + + + + + | Hemoglobin | 13.3 (L) | 13.5 - 18.0 | [facility] | | | | | g/dL | [facility] | | | | | | [facility] | | | | | | C[facility] - | | | | | | LABORATORY | | + + + + + + | Hematocrit | 39.1 (L) | 40.0 - 51.0 % | [facility] | | | | | | [facility] | | | | | | [facility] | | | | | | [facility] - | | | | | | LABORATORY | | + + + + + + | MCV | 83.5 | 83.0 - 101.0 fL | [facility] | | | | | | [facility] | | | | | | [facility] | | | | | | [facility] - | | | | | | LABORATORY | | + + + + + + | MCH | 28.4 | 28.0 - 35.0 pg | [facility] | | | | | | [facility] | | | | | | [facility] | | | | | | [facility] - | | | | | | LABORATORY | | + + + + + + | MCHC | 34.0 | 32.0 - 36.0 | [facility] | | | | | g/dL | [facility] | | | | | | [facility] | | | | | | [facility] - | | | | | | LABORATORY | | + + + + + + | RDW-CV | 12.7 | <15.0 % | [facility] | | | | | | [facility] | | | [facility] | | [facility] | | | | | | [facility] - | | | | | | LABORATORY | | + + + + + + | RDW-SD | 38.6 | 35.1 - 46.3 fL | [facility] | | | | | | [facility] | | | | | | [facility] | | | | | | [facility] - | | | | | | LABORATORY | | + + + + + + | Platelet | 387 | 140 - 440 K/uL | [facility] | | | Count | | | [facility] | | | | | | [facility] | | | | | | [facility] - | | | | | | LAB[facility]ATORY | | + + + + + + | MPV | 9.3 | 6.5 - 12.4 fL | [facility] | | | | | | [facility] | | | | | | [facility] | | | | | | [facility] - | | | | | | LABORATORY | | + + + + + + | % nRBC | 0 | 0 - 2 per 100 | [facility] | | | | | WBCs | [facility] | | | | | | [facility] | | | | | | [facility] - | | | | | | LABORATORY | | + + + + + + | Absolute | 0.00 | 0.00 - 0.01 | [facility] | | | nRBC | | K/uL | [facility] | | | | | | [facility] | | | | | | CENTER - | | | | | | LABORATORY | | + + + + + + + + | Specimen | + + | Blood | + + + + + + + | Performing | Address | City/State/Zipcode | Phone Number | | Organization | | | | + + + + + | [facility] | [address] | [place] | [phone] | | [facility] | | [address] | | | - LABORATORY | | | | + + + + + Basic Metabolic Panel (09/14/2019 4:30 AM PST)Only the most recent of 2 results within the time period is included. + + + + + + | Component | Value | Ref Range | Performed | Pathologist | | | | | At | Signature | + + + + + + | Na | 138 | 136 - 145 | [facility] | | | | | mmol/L | [facility] | | | | | | [facility] | | | | | | [facility] - | | | | | | LABORATORY | | + + + + + + | K | 4.0 | 3.4 - 5.1 | [facility] | | | | | mmol/L | [facility] | | | | | | [facility] | | | | | | CENTER - | | | | | | LABORATORY | | + + + + + + | Cl | 104 | 98 - 107 mmol/L | [facility] | | | | | | [facility] | | | | | | [facility] | | | | | | CENTER - | | | | | | LABORATORY | | + + + + + + | CO2 | 26 | 20 - 31 mmol/L | [facility] | | | | | | [facility] | | | | | | [facility] | | | | | | [facility] - | | | | | | LABORATORY | | + + + + + + | Anion Gap | 8 | 3 - 16 mmol/L | [facility] | | | | | | [facility] | | | | | | [facility] | | | | | | [facility] - | | | | | | LABORATORY | | + + + + + + | Glucose | 111 (H) | 60 - 106 mg/dL | [facility] | | | | | | [facility] | | | | | | [facility] | | | | | | [facility] - | | | | | | LABORATORY | | + + + + + + | BUN | 17 | 9 - 23 mg/dL | [facility] | | | | | | [facility] | | | | | | [facility] | | | | | | [facility] - | | | | | | LABORATORY | | + + + + + + | Creatinine | 0.90 | 0.70 - 1.30 | [facility] | | | | | mg/dL | [facility] | | | | | | [facility] | | | | | | [facility] - | | | | | | LABORATORY | | + + + + + + | eGFR if not | >60Comment: GLOMERULAR | >=60 | [facility] | | | | FILTRATION | mL/min/1.73m2 | [facility] | | | [place] | RATE,ESTIMATED | | MEDICAL | | | | mL/min/1.66w2Mkuq than | | CENTER - | | | | 60 Chronic kidney | | LABORATORY | | | | disease,if found over a | | | | | | 3-month period.Less than | | | | | | 15 Kidney failureFor | | | | | | | | | | | | Americans,multiply the | | | | | | calculated GFR by 1.21. | | | | | | | | | | + + + + + + | Calcium | 9.2 | 8.7 - 10.4 | [facility] | | | | | mg/dL | [facility] | | | | | | MEDICAL | | | | | | CENTER - | | | | | | LABORATORY | | + + + + + + | BUN/Creatin | 18.9 | | [facility] | | | ine Ratio | | | [facility] | | | | | | [facility] | | | | | | CENTER - | | | | | | LABORATORY | | + + + + + + + + | Specimen | + + | Blood | + + + + + + + | Performing | Address | City/State/Zipcode | Phone Number | | Organization | | | | + + + + + | [facility] | [address] | [place] | [phone] | | [facility] | | [address] | | | - LABORATORY | | | | + + + + + Protime INR (09/12/2019 4:37 AM PST)Only the most recent of 2 results within the time jessie od is included. + + + + + + | Component | Value | Ref Range | Performed | Pathologist | | | | | At | Signature | + + + + + + | Prothrombin | 15.6 (H) | 11.3 - 13.9 | [facility] | | | Time | | seconds | [facility] | | | | | | MEDICAL | | | | | | CENTER - | | | | | | LABORATORY | | + + + + + + | INR | 1.2 (H)Comment: Usual | 0.9 - 1.1 | [facility] | | | | Oral Anticoagulation | | [facility] | | | | Range: 2.0 - | | MEDICAL | | | | 3.0High Level Oral | | CENTER - | | | | Anticoagulation Range: | | LABORATORY | | | | 2.5 - 3.5 | | | | + + + + + + + + | Specimen | + + | Blood | + + + + + + + | Performing | Address | City/State/Zipcode | Phone Number | | Organization | | | | + + + + + | [facility] | [address] | [place], [place] | [phone] | | [facility] | | [address] | | | - LABORATORY | | | | + + + + + CBC with Differential (09/12/2019 4:37 AM PST)Only the most recent of 2 results within the time period is included. + + + + + + | Component | Value | Ref Range | Performed | Pathologist | | | | | At | Signature | + + + + + + | WBC | 8.9 | 4.0 - 11.0 K/uL | [facility] | | | | | | [facility] | | | | | | MEDICAL | | | | | | CENTER - | | | | | | LABORATORY | | + + + + + + | RBC | 4.82 | 4.30 - 5.70 | [facility] | | | | | M/uL | [facility] | | | | | | MEDICAL | | | | | | CENTER - | | | | | | LABORATORY | | + + + + + + | Hemoglobin | 13.7 | 13.5 - 18.0 | [facility] | | | | | g/dL | [facility] | | | | | | MEDICAL | | | | | | CENTER - | | | | | | LABORATORY | | + + + + + + | Hematocrit | 40.4 | 40.0 - 51.0 % | [facility] | | | | | | [facility] | | | | | | [facility] | | | | | | CENTER - | | | | | | LABORATORY | | + + + + + + | MCV | 83.8 | 83.0 - 101.0 fL | [facility] | | | | | | [facility] | | | | | | [facility] | | | | | | CENTER - | | | | | | LABORATORY | | + + + + + + | MCH | 28.4 | 28.0 - 35.0 pg | [facility] | | | | | | [facility] | | | | | | [facility] | | | | | | CENTER - | | | | | | LABORATORY | | + + + + + + | MCHC | 33.9 | 32.0 - 36.0 | [facility] | | | | | g/dL | [facility] | | | | | | MEDICAL | | | | | | CENTER - | | | | | | LABORATORY | | + + + + + + | RDW-CV | 12.7 | <15.0 % | [facility] | | | | | | [facility] | | | | | | [facility] | | | | | | CENTER - | | | | | | LABORATORY | | + + + + + + | RDW-SD | 38.9 | 35.1 - 46.3 fL | [facility] | | | | | | [facility] | | | | | | [facility] | | | | | | CENTER - | | | | | | LABORATORY | | + + + + + + | Platelet | 340 | 140 - 440 K/uL | [facility] | | | Count | | | [facility] | | | | | | [facility] | | | | | | CENTER - | | | | | | LABORATORY | | + + + + + + | MPV | 9.2 | 6.5 - 12.4 fL | [facility] | | | | | | [facility] | | | | | | [facility] | | | | | | [facility]ENTER - | | | | | | LABORATORY | | + + + + + + | % | 59.3 | 45.0 - 82.0 % | [facility] | | | Neutrophils | | | [facility] | | | | | | MEDICAL | | | | | | CENTER - | | | | | | LABORATORY | | + + + + + + | % | 21.7 | 20.0 - 45.0 % | [facility] | | | Lymphocytes | | | [facility] | | | | | | MEDICAL | | | | | | CENTER - | | | | | | LABORATORY | | + + + + + + | % Monocytes | 17.5 (H) | 4.0 - 12.0 % | [facility] | | | | | | [facility] | | | | | | [facility] | | | | | | CENTER - | | | | | | LABORATORY | | + + + + + + | % | 0.8 | 0.0 - 5.0 % | [facility] | | | Eosinophils | | | [facility] | | | | | | [facility]ICAL | | | | | | CENTER - | | | | | | LABORATORY | | + + + + + + | % Basophils | 0.3 | 0.0 - 1.0 % | [facility] | | | | | | [facility] | | | | | | [facility] | | | | | | CENTER - | | | | | | LABORATORY | | + + + + + + | % Immature | 0.4 | 0.0 - 0.4 % | [facility] | | | Granulocyte | | | [facility] | | | s | | | MEDICAL | | | | | | CENTER - | | | | | | LABORATORY | | + + + + + + | Absolute | 5.28 | 1.80 - 8.50 | [facility] | | | Neutrophils | | K/uL | [facility] | | | | | | [facility] | | | | | | CENTER - | | | | | | LABORATORY | | + + + + + + | Absolute | 1.94 | 0.60 - 3.20 | [facility] | | | Lymphocytes | | K/uL | [facility] | | | | | | [facility] | | | | | | CENTER - | | | | | | LABORATORY | | + + + + + + | Absolute | 1.56 (H) | 0.00 - 1.00 | [facility] | | | Monocytes | | K/uL | [facility] | | | | | | [facility] | | | | | | CENTER - | | | | | | LABORATORY | | + + + + + + | Absolute | 0.07 | 0.00 - 0.40 | [facility] | | | Eosinophils | | K/uL | [facility] | | | | | | [facility]ICAL | | | | | | CENTER - | | | | | | LABORATORY | | + + + + + + | Absolute | 0.03 | 0.00 - 0.10 | [facility] | | | Basophils | | K/uL | [facility] | | | | | | [facility] | | | | | | CENTER - | | | | | | LABORATORY | | + + + + + + | Absolute | 0.04 (H) | 0.00 - 0.03 | [facility] | | | Immature | | K/uL | [facility] | | | Granulocyte | | | MEDICAL | | | s | | | CENTER - | | | | | | LABORATORY | | + + + + + + | % nRBC | 0 | 0 - 2 per 100 | [facility] | | | | | WBCs | [facility] | | | | | | MEDICAL | | | | | | CENTER - | | | | | | LABORATORY | | + + + + + + | Absolute | 0.00 | 0.00 - 0.01 | [facility] | | | nRBC | | K/uL | [facility] | | | | | | [facility]ICAL | | | | | | CENTER - | | | | | | LABORATORY | | + + + + + + + + | Specimen | + + | Blood | + + + + + + + | Performing | Address | City/State/Zipcode | Phone Number | | Organization | | | | + + + + + | [facility] | [address] | [place] | [phone] | | [facility] | | [address] | | | - LABORATORY | | | | + + + + + Magnesium (09/12/2019 4:37 AM [facility])Only the most recent of 2 results within the time period is included. + +-------+ + + + | Component | Value | Ref Range | Performed | Pathologist | | | | | At | Signature | + +-------+ + + + | Magnesium | 1.9 | 1.6 - 2.6 mg/dL | [facility] | [facility] | [facility] | | | | [facility] - | | | | | | LABORATORY | | + +-------+ + + + + + | Specimen | + + | Blood | + + + + + + + | Performing | Address | City/State/Zipcode | Phone Number | | Organization | | | | + + + + + | [facility] | [address] | [place] | [phone] | | [facility] | | [address] | | | - LABORATORY | | | | + + + + + Comprehensive Metabolic Panel (09/12/2019 4:37 AM PST)Only the most recent of 3 results wi thin the time period is included. + + + + + + | Component | Value | Ref Range | Performed | Pathologist | | | | | At | Signature | + + + + + + | Na | 134 (L) | 136 - 145 | [facility] | | | | | mmol/L | [facility] | | | | | | [facility] | | | | | | CENTER - | | | | | | LABORATORY | | + + + + + + | K | 3.9 | 3.4 - 5.1 | [facility] | | | | | mmol/L | [facility] | | | | | | [facility] | | | | | | [facility] - | | | | | | LABORATORY | | + + + + + + | Cl | 101 | 98 - 107 mmol/L | [facility] | | | | | | [facility] | | | | | | [facility] | | | | | | CENTER - | | | | | | LABORATORY | | + + + + + + | CO2 | 24 | 20 - 31 mmol/L | [facility] | | | | | | [facility] | | | | | | [facility] | | | | | | CENTER - | | | | | | LABORATORY | | + + + + + + | Anion Gap | 9 | 3 - 16 mmol/L | [facility] | | | | | | [facility] | | | | | | [facility] | | | | | | CENTER - | | | | | | LABORATORY | | + + + + + + | Glucose | 112 (H) | 60 - 106 mg/dL | [facility] | | | | | | [facility] | | | | | | [facility] | | | | | | CENTER - | | | | | | LABORATORY | | + + + + + + | BUN | 20 | 9 - 23 mg/dL | [facility] | | | | | | [facility] | | | | | | MEDICAL | | | | | | CENTER - | | | | | | LABORATORY | | + + + + + + | Creatinine | 0.91 | 0.70 - 1.30 | [facility] | | | | | mg/dL | [facility] | | | | | | MEDICAL | | | | | | CENTER - | | | | | | LABORATORY | | + + + + + + | eGFR if not | >60Comment: GLOMERULAR | >=60 | [facility] | | | | FILTRATION | mL/min/1.73m2 | [facility] | | | [place] | RATE,ESTIMATED | | MEDICAL | | | | mL/min/1.33p6Wsyc than | | CENTER - | | | | 60 Chronic kidney | | LABORATORY | | | | disease,if found over a | | | | | | 3-month period.Less than | | | | | | 15 Kidney failureFor | | | | | | | | | | | | Americans,multiply the | | | | | | calculated GFR by 1.21. | | | | | | | | | | + + + + + + | Calcium | 9.2 | 8.7 - 10.4 | [facility] | | | | | mg/dL | [facility] | | | | | | [facility]ICAL | | | | | | CENTER - | | | | | | LABORATORY | | + + + + + + | Albumin | 4.0 | 3.2 - 4.8 g/dL | [facility] | | | | | | [facility] | | | | | | [facility] | | | | | | CENTER - | | | | | | LABORATORY | | + + + + + + | Bilirubin | 1.5 (H) | 0.3 - 1.2 mg/dL | [facility] | | | Total | | | [facility] | | | | | | [facility] | | | | | | CENTER - | | | | | | LABORATORY | | + + + + + + | Total | 6.6 | 5.7 - 8.2 g/dL | [facility] | | | Protein | | | [facility] | | | | | | [facility]ICAL | | | | | | CENTER - | | | | | | LABORATORY | | + + + + + + | AST | 12 | 0 - 34 U/L | [facility] | | | | | | [facility] | | | | | | [facility] | | | | | | CENTER - | | | | | | LABORATORY | | + + + + + + | ALT | 8 (L) | 10 - 49 U/L | [facility] | | | | | | [facility] | | | | | | [facility] | | | | | | CENTER - | | | | | | LABORATORY | | + + + + + + | Alkaline | 57 | 46 - 116 U/L | [facility] | | | Phosphatase | | | [facility] | | | | | | [facility] | | | | | | CENTER - | | | | | | LABORATORY | | + + + + + + | Globulin | 2.6 | 2.1 - 3.8 g/dL | [facility] | | | | | | [facility] | | | | | | [facility] | | | | | | CENTER - | | | | | | LABORATORY | | + + + + + + | Albumin/Rosie | 1.5 | 0.8 - 1.9 | [facility] | | | bulin Ratio | | | [facility] | | | | | | [facility] | | | | | | CENTER - | | | | | | LABORATORY | | + + + + + + | BUN/Creatin | 22.0 | | [facility] | | | ine Ratio | | | [facility] | | | | | | [facility] | | | | | | CENTER - | | | | | | LABORATORY | | + + + + + + + + | Specimen | + + | Blood | + + + + + + + | Performing | Address | City/State/Zipcode | Phone Number | | Organization | | | | + + + + + | [facility] | [address] | [place], [place] | [phone] | | [facility] | | [address] | | | - LABORATORY | | | | + + + + + Culture, Respiratory, Lower, Smear (09/11/2019 5:47 PM PST) + + + + + + | Component | Value | Ref Range | Performed | Pathologist | | | | | At | Signature | + + + + + + | Culture | No pathogens isolated | | [facility] | | | | | | [facility] | | | | | | [facility] | | | | | | CENTER - | | | | | | LABORATORY | | + + + + + + | Culture | 4+ Usual Respiratory | | [facility] | | | | Mary | | [facility] | | | | | | [facility] | [facility] | | | | CENTER - | | | | | | LABORATORY | | + + + + + + | Gram Stain | 3+ White Blood Cells | | [facility] | | | Result | | | [facility] | | | | | | [facility] | | | | | | [facility]ENTER - | | | | | | LABORATORY | | + + + + + + | Gram Stain | 2+ Epithelial cells | | [facility] | | | Result | | | [facility] | | | | | | [facility] | | | | | | CENTER - | | | | | | LABORATORY | | + + + + + + | Gram Stain | 4+ Gram positive cocci | | [facility] | | | Result | | | [facility] | | | | | | [facility] | | | | | | CENTER - | | | | | | LABORATORY | | + + + + + + | Gram Stain | 2+ Gram positive bacilli | | [facility] | | | Result | | | [facility] | | | | | | [facility] | | | | | | CENTER - | | | | | | LABORATORY | | + + + + + + | Gram Stain | 1+ Gram negative rods | | [facility] | | | Result | | | [facility] | | | | | | [facility] | | | | | | CENTER - | | | | | | LABORATORY | | + + + + + + + + | Specimen | + + | Body Fluid - Coughed | | sputum specimen | | (specimen) | + + + + + + + | Performing | Address | City/State/Zipcode | Phone Number | | Organization | | | | + + + + + | [facility] | [address] | [place] | [phone] | | [facility] | | [address] | | | - LABORATORY | | | | + + + + + Legionella, Ag, EIA, Qual, Urine (09/11/2019 5:42 PM PST) + + + + + + | Component | Value | Ref Range | Performed | Pathologist | | | | | At | Signature | + + + + + + | L. | NegativeComment: | Negative | REFERENCE | | | pneumophila | Presumptive negative for | | LAB [facility] | | | Serogp 1 | L. pneumophila | | - [facility] | | | Ur Ag | serogroup 1 antigen in | | | | | | urine,suggesting no | | | | | | recent or current | | | | | | infection. Legionnaires' | | | | | | diseasecannot be ruled | | | | | | out since other | | | | | | serogroups and species | | | | | | may also causedisease. | | | | + + + + + + + + | Specimen | + + | Urine - Urine | | specimen obtained by | | clean catch | | procedure (specimen) | + + + + + | Narrative | Performed At | + + + | Performed at: [address] [facility] [id number], | REFERENCE LAB | | [place], [place] [id number] [employer] Consultant: Nelson Mehta MD, Phone: | [facility] | | [phone] | | + + + + + + + + | Performing | Address | City/State/Zipcode | Phone Number | | Organization | | | | + + + + + | REFERENCE LAB | [address] | [place] [address] | [phone] | | [facility] | [address] | | | + + + + + Streptococcus Pneumoniae Ag, Urine (09/11/2019 5:40 PM PST) + + + + + + | Component | Value | Ref Range | Performed | Pathologist | | | | | At | Signature | + + + + + + | Specimen | Urine | | REFERENCE | | | Source | | | [facility] | | | | | | - [facility] | | + + + + + + | Streptococc | Negative | Negative | REFERENCE | | | us | | | [facility] | | | pneumoniae | | | - [facility] | | + + + + + + | Body Fluid | Not Indicated | | REFERENCE | | | Culture, | | | [facility] | | | Sterile | | | - [facility] | | + + + + + + | Organism ID | Not indicated. | | REFERENCE | | | | | | LAB [facility] | | | | | | - [facility] | | + + + + + + | Please note | CommentComment: [facility] | | REFERENCE | | | | of [facility] | | [facility] | | | | standards require a | | - [facility] | | | | culture to beperformed | | | | | | on CSF specimens | | | | | | submitted for bacterial | | | | | | antigen testing.(CAP | | | | | | [id number]) Urine | | | | | | specimens will not be | | | | | | cultured. | | | | + + + + + + + + | Specimen | + + | Urine - Urine | | specimen obtained by | | clean catch | | procedure (specimen) | + + + + + | Narrative | Performed At | + + + | Performed at: 01 - [facility] [address], | REFERENCE LAB | | [place], [place] [id number] [employer] Consultant: Marli Fortune MD, Phone: | [facility] | | [phone] | | + + + + + + + + | Performing | Address | City/State/Zipcode | Phone Number | | Organization | | | | + + + + + | REFERENCE LAB | [address] | [place] [address] | [phone] | | [facility] | [facility] | | | + + + + + MRI Cervical Spine wo Contrast (09/11/2019 1:41 PM PST) + + | Specimen | + + | | + + + + + | Impressions | Performed At | + + + | No evidence for an acute soft tissue or ligamentous injury. | [facility] | | There is multilevel cervical spondylosis and spondylolisthesis. | | | Central spinal canal narrowing most significantly affects C2-C3. | | | This is secondary to disc disease and both anterior and posterior | | | ligamentous hypertrophy. There is cord contouring that appears to | | | be associated with a small amount of cord signal alteration. | | | There is multilevel neural foraminal narrowing. This most | | | significantly affects the left side at C3-C4 and the right side at | | | C5-C6 where the narrowing is moderate to severe. Additional | | | spondylosis, as above. Dictated and Signed by: Burton Pascal MD | | | Electronically signed: 09/11/2019 2:10 PM | | + + + + + + | Narrative | Performed At | + + + | EXAM: MRI CERVICAL SPINE WO CONTRAST dated 09/11/2019 8:52 AM. | [facility] | | HISTORY: Neck trauma, focal neuro deficit or paresthesia (Age < 62y) | | | COMPARISON: CT dated 09/11/2019. TECHNIQUE: Multiplanar | | | multisequence MR imaging of the cervical spine without contrast. | | | This is performed on a 3 Adore magnet. FINDINGS: There is | | | motion degradation. There is diffuse heterogeneity throughout the | | | marrow. This is likely age-related. There is a hemangioma in T4. | | | There is fusion at the C4-C5 disc level and probably the facets. | | | There is diffuse disc desiccation and disc space narrowing. There | | | are Modic type I endplate changes at C2-C3, C3-C4, and probably | | | C6-C7. No compression deformities. The cord has normal size | | | throughout its visible course. Limited evaluation of the posterior | | | fossa contents is unremarkable. No precervical soft tissue | | | thickening. The following levels are evaluated in the axial plane: | | | C2-C3: There is retrolisthesis. There is posterior disc | | | protrusion. There is anterior and posterior ligamentous | | | hypertrophy. This results in narrowing of the central spinal canal | | | with contouring of the cord and some questionable cord signal | | | alteration. There are facet and uncinate degenerative changes. | | | Mild neural foraminal narrowing bilaterally. C3-C4: | | | Retrolisthesis. Posterior disc and osteophyte. Posterior | | | ligamentous hypertrophy. There is narrowing of the central spinal | | | canal without cord contouring. Facet and uncinate degenerative | | | changes bilaterally. Moderate to severe left and moderate right | | | neural foraminal narrowing. C4-C5: Posterior osteophytes. Mild | | | narrowing of the central spinal canal. Facet and uncinate | | | degenerative changes. Mild to moderate left and mild right neural | | | foraminal narrowing. C5-C6: Posterior disc osteophyte. Mild | | | posterior ligament hypertrophy. Mild contouring of the cord. No | | | cord signal alteration. Facet and uncinate degenerative changes | | | bilaterally. Moderate to severe right and vztx-cv-aepkland left | | | neural foraminal narrowing. C6-C7: Posterior disc and osteophyte. | | | Facet and uncinate degenerative changes bilaterally. Mild to | | | moderate bilateral neural foraminal narrowing. C7-T1: No | | | significant spinal canal stenosis or neural foraminal narrowing. | | | Small posterior disc protrusion at T1-T2. No significant compromise | | | of the central spinal canal. Bilateral neural foraminal narrowing. | | | | | + + + + + | Procedure Note | + + | Bob, Rad Results In - 09/11/2019 2:13 PM PST EXAM: MRI CERVICAL SPINE WO CONTRAST | | dated 09/11/2019 8:52 AM.HISTORY: Neck trauma, focal neuro deficit or paresthesia (Age < | | 62y)COMPARISON: CT dated 09/11/2019.TECHNIQUE: Multiplanar multisequence MR imaging of | | the cervical spine withoutcontrast. This is performed on a 3 Adore magnet. FINDINGS: | | There is motion degradation.There is diffuse heterogeneity throughout the marrow. This | | is likelyage-related. There is a hemangioma in T4. There is fusion at the C4-C5 | | disclevel and probably the facets. There is diffuse disc desiccation and disc | | spacenarrowing. There are Modic type I endplate changes at C2-C3, C3-C4, andprobably | | C6-C7. No compression deformities. The cord has normal sizethroughout its visible | | course. Limited evaluation of the posterior fossacontents is unremarkable. No | | precervical soft tissue thickening.The following levels are evaluated in the axial | | plane:C2-C3: There is retrolisthesis. There is posterior disc protrusion. There | | isanterior and posterior ligamentous hypertrophy. This results in narrowing ofthe | | central spinal canal with contouring of the cord and some questionable cordsignal | | alteration. There are facet and uncinate degenerative changes. Mildneural foraminal | | narrowing bilaterally.C3-C4: Retrolisthesis. Posterior disc and osteophyte. Posterior | | ligamentoushypertrophy. There is narrowing of the central spinal canal without | | cordcontouring. Facet and uncinate degenerative changes bilaterally. Moderate tosevere | | left and moderate right neural foraminal narrowing.C4-C5: Posterior osteophytes. Mild | | narrowing of the central spinal canal. Facet and uncinate degenerative changes. Mild to | | moderate left and mild rightneural foraminal narrowing.C5-C6: Posterior disc | | osteophyte. Mild posterior ligament hypertrophy. Mildcontouring of the cord. No cord | | signal alteration. Facet and uncinatedegenerative changes bilaterally. Moderate to | | severe right and qbqu-vi-gpsjponsfemm neural foraminal narrowing.C6-C7: Posterior disc | | and osteophyte. Facet and uncinate degenerative changesbilaterally. Mild to moderate | | bilateral neural foraminal narrowing.C7-T1: No significant spinal canal stenosis or | | neural foraminal narrowing. Small posterior disc protrusion at T1-T2. No significant | | compromise of thecentral spinal canal. Bilateral neural foraminal narrowing.IMPRESSION: | | No evidence for an acute soft tissue or ligamentous injury.There is multilevel cervical | | spondylosis and spondylolisthesis.Central spinal canal narrowing most significantly | | affects C2-C3. This issecondary to disc disease and both anterior and posterior | | ligamentoushypertrophy. There is cord contouring that appears to be associated with | | asmall amount of cord signal alteration.There is multilevel neural foraminal narrowing. | | This most significantly affectsthe left side at C3-C4 and the right side at C5-C6 where | | the narrowing ismoderate to severe.Additional spondylosis, as above.Dictated and Signed | | by: Burton Pascal MD Electronically signed: 09/11/2019 2:10 PM | |C5-C6: Posterior disc osteophyte. Mild posterior ligament hypertrophy. Mild | |contouring of the cord. No cord signal alteration. Facet and uncinate | |degenerative changes bilaterally. Moderate to severe right and lpmg-ak-ytgtioud | |left neural foraminal narrowing. | | | |C6-C7: Posterior disc and osteophyte. Facet and uncinate degenerative changes | |bilaterally. Mild to moderate bilateral neural foraminal narrowing. | | | |C7-T1: No significant spinal canal stenosis or neural foraminal narrowing. | | | |Small posterior disc protrusion at T1-T2. No significant compromise of the | |central spinal canal. Bilateral neural foraminal narrowing. | | | |IMPRESSION: | | | |No evidence for an acute soft tissue or ligamentous injury. | | | |There is multilevel cervical spondylosis and spondylolisthesis. | | | |Central spinal canal narrowing most significantly affects C2-C3. This is | |secondary to disc disease and both anterior and posterior ligamentous | |hypertrophy. There is cord contouring that appears to be associated with a | |small amount of cord signal alteration. | | | |There is multilevel neural foraminal narrowing. This most significantly affects | |the left side at C3-C4 and the right side at C5-C6 where the narrowing is | |moderate to severe. | | | |Additional spondylosis, as above. | | | |Dictated and Signed by: Burton Pascal MD | | Electronically signed: 09/11/2019 2:10 PM | + + + +---------+ + + | Performing | Address | City/State/Zipcode | Phone Number | | Organization | | | | + +---------+ + + | [facility] | | | | + +---------+ + + MRI Brain wo Contrast (09/11/2019 1:22 PM PST) + + | Specimen | + + | | + + + + + | Impressions | Performed At | + + + | No evidence for acute or subacute ischemia. Mild white matter | [facility] | | disease which is typically chronic microvascular ischemic change in | | | this age group. Dictated and Signed by: Burton Pascal MD | | | Electronically signed: 09/11/2019 2:31 PM | | + + + + + + | Narrative | Performed At | + + + | EXAM: MRI BRAIN WO CONTRAST dated 09/11/2019 8:52 AM HISTORY: | [facility] | | Neuro deficit, acute, persistent or progressing COMPARISON: CT | | | dated 09/11/2019. TECHNIQUE: Multiplanar, multisequence imaging of | | | the brain was performed in the 3 T MR scanner without contrast. | | | FINDINGS: There are no areas of susceptibility weighted | | | artifact to suggest abnormal hemosiderin deposition or | | | mineralization. No areas of restricted diffusion to suggest acute | | | or subacute ischemia. There is mild bilateral white matter | | | disease. There is no mass, mass effect, or midline shift. There are | | | no abnormal extra-axial fluid collections. The ventricles are | | | appropriate in size and configuration. The major intracranial flow | | | voids are visualized. The mastoid air cells are clear. Small | | | amount of mucosal thickening is present in the right maxillary sinus | | | and a few ethmoid air cells. The globes and retroconal contents are | | | intact and are unremarkable. The posterior nasopharyngeal and | | | oropharyngeal soft tissues are unremarkable. The scalp and skull | | | are intact and are unremarkable. | | + + + + + | Procedure Note | + + | Bob, Rad Results In - 09/11/2019 2:34 PM PST EXAM: MRI BRAIN WO CONTRAST dated | | 09/11/2019 8:52 AMHISTORY: Neuro deficit, acute, persistent or progressingCOMPARISON: CT | | dated 09/11/2019.TECHNIQUE: Multiplanar, multisequence imaging of the brain was performed | | in the3 T MR scanner without contrast. FINDINGS: There are no areas of susceptibility | | weighted artifact to suggest abnormalhemosiderin deposition or mineralization. No areas | | of restricted diffusion tosuggest acute or subacute ischemia. There is mild bilateral | | white matter disease. There is no mass, mass effect, ormidline shift. There are no | | abnormal extra-axial fluid collections. Theventricles are appropriate in size and | | configuration. The major intracranialflow voids are visualized. The mastoid air cells | | are clear. Small amount of mucosal thickening is presentin the right maxillary sinus | | and a few ethmoid air cells. The globes andretroconal contents are intact and are | | unremarkable. The posteriornasopharyngeal and oropharyngeal soft tissues are | | unremarkable. The scalp andskull are intact and are unremarkable. IMPRESSION: No | | evidence for acute or subacute ischemia.Mild white matter disease which is typically | | chronic microvascular ischemicchange in this age group.Dictated and Signed by: Burton Jain | | MD Naida Electronically signed: 09/11/2019 2:31 PM | |midline shift. There are no abnormal extra-axial fluid collections. The | |ventricles are appropriate in size and configuration. The major intracranial | |flow voids are visualized. | | | |The mastoid air cells are clear. Small amount of mucosal thickening is present | |in the right maxillary sinus and a few ethmoid air cells. The globes and | |retroconal contents are intact and are unremarkable. The posterior | |nasopharyngeal and oropharyngeal soft tissues are unremarkable. The scalp and | |skull are intact and are unremarkable. | | | |IMPRESSION: | | | |No evidence for acute or subacute ischemia. | | | |Mild white matter disease which is typically chronic microvascular ischemic | |change in this age group. | | | |Dictated and Signed by: Burton Pascal MD | | Electronically signed: 09/11/2019 2:31 PM | + + + +---------+ + + | Performing | Address | City/State/Zipcode | Phone Number | | Organization | | | | + +---------+ + + | [facility] | | | | + +---------+ + + CT Cervical Spine wo Contrast (09/11/2019 10:37 AM PST) + + | Specimen | + + | | + + + + + | Impressions | Performed At | + + + | No CT evidence for an acute intracranial process. Focal | [facility] | | hypodensity at the superior margin of the left insula. This could be | | | subacute ischemia or focal white matter disease. No CT evidence | | | for an acute cervical spine fracture or traumatic malalignment. | | | There is diffuse cervical spondylosis that is not significantly | | | changed compared to December 2018. Dictated and Signed by: Burton | | | Susy Pascal MD Electronically signed: 09/11/2019 10:47 AM | | + + + + + + | Narrative | Performed At | + + + | EXAM: CT CERVICAL SPINE WO CONTRAST, CT HEAD WO CONTRAST dated | [facility] | | 09/11/2019 10:14 AM HISTORY: Cervical radiculopathy | | | Comparison: CT cervical spine 12/04/2018 TECHNIQUE: Noncontrast CT | | | is performed from the top of calvarium through the skull base. | | | Coronal and sagittal reformats are performed. Noncontrast imaging | | | is performed from the skull base through the cervicothoracic | | | junction. DOSE: DLP 734.46 mGy-cm FINDINGS: HEAD: | | | BRAIN: Ventricles, sulci and cisterns are unremarkable for age No | | | areas of increased attenuation to suggest intracranial hemorrhage. | | | There is no mass, mass effect, or midline shift. There are no | | | abnormal extra-axial fluid or air collections. There is | | | preservation of the rojas-white differentiation at this time. There | | | are mild scattered regions of periventricular and subcortical white | | | matter low density. Hypodensity deep to the left insula and in the | | | left periventricular white matter of the frontal lobe. SCALP/ | | | CALVARIUM: The scalp and skull are intact and unremarkable. | | | SINUSES / ORBITS/ MASTOIDS: The mastoid air cells are clear. There | | | is mild to moderate mucosal thickening. The ethmoid air cells and | | | mild thickening in the sphenoid sinuses. The globes and retrobulbar | | | structures are symmetric and unremarkable. CERVICAL SPINE: | | | There is acceptable alignment from the craniocervical junction through | | | the cervicothoracic junction. There is no widening of the disc | | | spaces. There is no widening of the facets. No precervical soft | | | tissue thickening. No acute fractures. There is diffuse cervical | | | spondylosis. This includes central spinal canal and neural | | | foraminal narrowing at multiple levels. This does not appear | | | significantly changed compared to December 2018. The visible lung | | | apices are clear. | | + + + + + | Procedure Note | + + | Bob, Rad Results In - 09/11/2019 10:51 AM PST EXAM: CT CERVICAL SPINE WO CONTRAST, CT | | HEAD WO CONTRAST dated 09/11/2019 10:14AMHISTORY: Cervical radiculopathyComparison: CT | | cervical spine 12/04/2018TECHNIQUE: Noncontrast CT is performed from the top of calvarium | | through theskull base. Coronal and sagittal reformats are performed. Noncontrast | | imagingis performed from the skull base through the cervicothoracic junction.DOSE: DLP | | 734.46 mGy-cmFINDINGS: HEAD:BRAIN: Ventricles, sulci and cisterns are unremarkable for | | age No areas ofincreased attenuation to suggest intracranial hemorrhage. There is no | | mass,mass effect, or midline shift. There are no abnormal extra-axial fluid or | | aircollections. There is preservation of the rojas-white differentiation at thistime. | | There are mild scattered regions of periventricular and subcortical whitematter low | | density. Hypodensity deep to the left insula and in the leftperiventricular white | | matter of the frontal lobe.SCALP/ CALVARIUM: The scalp and skull are intact and | | unremarkable.SINUSES / ORBITS/ MASTOIDS: The mastoid air cells are clear. There is mild | | tomoderate mucosal thickening. The ethmoid air cells and mild thickening in | | thesphenoid sinuses. The globes and retrobulbar structures are symmetric | | andunremarkable.CERVICAL SPINE:There is acceptable alignment from the craniocervical | | junction through thecervicothoracic junction. There is no widening of the disc spaces. | | There is nowidening of the facets. No precervical soft tissue thickening. No | | acutefractures. There is diffuse cervical spondylosis. This includes central | | spinalcanal and neural foraminal narrowing at multiple levels. This does not | | appearsignificantly changed compared to December 2018. The visible lung apices | | areclear.IMPRESSION: No CT evidence for an acute intracranial process.Focal hypodensity | | at the superior margin of the left insula. This could besubacute ischemia or focal | | white matter disease.No CT evidence for an acute cervical spine fracture or traumatic | | malalignment. There is diffuse cervical spondylosis that is not significantly changed | | comparedto December 2018.Dictated and Signed by: Burton Pascal MD Electronically | | signed: 09/11/2019 10:47 AM | |SINUSES / ORBITS/ MASTOIDS: The mastoid air cells are clear. There is mild to | |moderate mucosal thickening. The ethmoid air cells and mild thickening in the | |sphenoid sinuses. The globes and retrobulbar structures are symmetric and | |unremarkable. | | | |CERVICAL SPINE: | | | |There is acceptable alignment from the craniocervical junction through the | |cervicothoracic junction. There is no widening of the disc spaces. There is no | |widening of the facets. No precervical soft tissue thickening. No acute | |fractures. There is diffuse cervical spondylosis. This includes central spinal | |canal and neural foraminal narrowing at multiple levels. This does not appear | |significantly changed compared to December 2018. The visible lung apices are | |clear. | | | |IMPRESSION: | | | |No CT evidence for an acute intracranial process. | | | |Focal hypodensity at the superior margin of the left insula. This could be | |subacute ischemia or focal white matter disease. | | | |No CT evidence for an acute cervical spine fracture or traumatic malalignment. | | | |There is diffuse cervical spondylosis that is not significantly changed compared | |to December 2018. | | | |Dictated and Signed by: Burton Pascal MD | | Electronically signed: 09/11/2019 10:47 AM | + + + +---------+ + + | Performing | Address | City/State/Zipcode | Phone Number | | Organization | | | | + +---------+ + + | [facility] | | | | + +---------+ + + CT Chest wo Contrast (09/11/2019 10:37 AM PST) + + | Specimen | + + | | + + + + + | Impressions | Performed At | + + + | Findings are most consistent with diffuse bronchial inflammation | [facility] | | more focal involving the right lower lobe and middle lobe with | | | peribronchial vascular opacities in the right lower lobe most | | | consistent with a pneumonia. Mild aneurysmal dilatation of the | | | thoracic aorta measuring 4.3 cm. Dictated and Signed by: Burton Jain | | | MD Naida Electronically signed: 09/11/2019 10:57 AM | | + + + + + + | Narrative | Performed At | + + + | EXAM: CT CHEST WITHOUT CONTRAST:09/11/2019 8:52 AM HISTORY: Lung | [facility] | | nodule, >= 1cm. Recent diagnosis of pneumonia. Concern for a post | | | obstructive process. COMPARISON: Chest x-ray performed 09/07/2019 | | | TECHNIQUE: Axial images are obtained from thoracic inlet to upper | | | abdomen without intravenous contrast. DOSE: DLP 229.37 mGy-cm | | | FINDINGS: Lungs: There is diffuse central bronchial wall | | | thickening. This is more significant disease in the right lower | | | lobe and right middle lobe. There is atelectasis in the right | | | middle lobe. There are patchy peribronchial vascular opacities in | | | the right lower lobe. There is no dense consolidation. There are | | | no pleural effusions. There are calcified granulomas. There are no | | | significant noncalcified pulmonary nodules. There is a 4 mm | | | noncalcified nodule in the left upper lobe on image 38. There is a | | | 3 mm noncalcified nodule in the lateral left upper lobe on image 59 | | | and another one on image 64. Heart and mediastinum: There is | | | mild aneurysmal dilatation of the thoracic aorta. The mid ascending | | | aorta measures 4.3 centimeters. No significant cardiac chamber | | | enlargement. No pericardial thickening. No mediastinal or hilar | | | lymphadenopathy. Chest wall: No axillary or visible | | | supraclavicular lymphadenopathy. Upper abdomen: No visible free | | | air or free fluid in the upper abdomen. No visible gastrointestinal | | | tract obstruction. No calcified gallstones. Bones: There are no | | | suspicious lytic or blastic bone lesions. No significant | | | compression deformities. Scattered marginal osteophytes. There is | | | a bone island in the right seventh rib. | | + + + + + | Procedure Note | + + | Bob, Rad Results In - 09/11/2019 11:00 AM PST EXAM: CT CHEST WITHOUT | | CONTRAST:09/11/2019 8:52 AMHISTORY: Lung nodule, >= 1cm. Recent diagnosis of pneumonia. | | Concern for apost obstructive process.COMPARISON: Chest x-ray performed | | 09/07/2019TECHNIQUE: Axial images are obtained from thoracic inlet to upper | | abdomenwithout intravenous contrast.DOSE: DLP 229.37 mGy-cm FINDINGS:Lungs: There is | | diffuse central bronchial wall thickening. This is moresignificant disease in the right | | lower lobe and right middle lobe. There isatelectasis in the right middle lobe. There | | are patchy peribronchial vascularopacities in the right lower lobe. There is no dense | | consolidation. There areno pleural effusions. There are calcified granulomas. There | | are no significantnoncalcified pulmonary nodules. There is a 4 mm noncalcified nodule | | in the leftupper lobe on image 38. There is a 3 mm noncalcified nodule in the lateral | | leftupper lobe on image 59 and another one on image 64.Heart and mediastinum: There is | | mild aneurysmal dilatation of the thoracicaorta. The mid ascending aorta measures 4.3 | | centimeters. No significantcardiac chamber enlargement. No pericardial thickening. No | | mediastinal orhilar lymphadenopathy.Chest wall: No axillary or visible supraclavicular | | lymphadenopathy.Upper abdomen: No visible free air or free fluid in the upper abdomen. | | Novisible gastrointestinal tract obstruction. No calcified gallstones.Bones: There | | are no suspicious lytic or blastic bone lesions. No significantcompression deformities. | | Scattered marginal osteophytes. There is a boneisland in the right seventh | | rib.IMPRESSION: Findings are most consistent with diffuse bronchial inflammation more | | focalinvolving the right lower lobe and middle lobe with peribronchial vascularopacities | | in the right lower lobe most consistent with a pneumonia.Mild aneurysmal dilatation of | | the thoracic aorta measuring 4.3 cm.Dictated and Signed by: Burton Pascal MD | | Electronically signed: 09/11/2019 10:57 AM | |aorta. The mid ascending aorta measures 4.3 centimeters. No significant | |cardiac chamber enlargement. No pericardial thickening. No mediastinal or | |hilar lymphadenopathy. | | | |Chest wall: No axillary or visible supraclavicular lymphadenopathy. | | | |Upper abdomen: No visible free air or free fluid in the upper abdomen. No | |visible gastrointestinal tract obstruction. No calcified gallstones. | | | |Bones: There are no suspicious lytic or blastic bone lesions. No significant | |compression deformities. Scattered marginal osteophytes. There is a bone | |island in the right seventh rib. | | | |IMPRESSION: | | | |Findings are most consistent with diffuse bronchial inflammation more focal | |involving the right lower lobe and middle lobe with peribronchial vascular | |opacities in the right lower lobe most consistent with a pneumonia. | | | |Mild aneurysmal dilatation of the thoracic aorta measuring 4.3 cm. | | | |Dictated and Signed by: Burton Pascal MD | | Electronically signed: 09/11/2019 10:57 AM | + + + +---------+ + + | Performing | Address | City/State/Zipcode | Phone Number | | Organization | | | | + +---------+ + + | [facility] | | | | + +---------+ + + CT Head wo Contrast (09/11/2019 10:37 AM PST) + + | Specimen | + + | | + + + + + | Impressions | Performed At | + + + | No CT evidence for an acute intracranial process. Focal | [facility] | | hypodensity at the superior margin of the left insula. This could be | | | subacute ischemia or focal white matter disease. No CT evidence | | | for an acute cervical spine fracture or traumatic malalignment. | | | There is diffuse cervical spondylosis that is not significantly | | | changed compared to December 2018. Dictated and Signed by: Burton Yu | | Susy Pascal MD Electronically signed: 09/11/2019 10:47 AM | | + + + + + + | Narrative | Performed At | + + + | EXAM: CT CERVICAL SPINE WO CONTRAST, CT HEAD WO CONTRAST dated | [facility] | | 09/11/2019 10:14 AM HISTORY: Cervical radiculopathy | | | Comparison: CT cervical spine 12/04/2018 TECHNIQUE: Noncontrast CT | | | is performed from the top of calvarium through the skull base. | | | Coronal and sagittal reformats are performed. Noncontrast imaging | | | is performed from the skull base through the cervicothoracic | | | junction. DOSE: DLP 734.46 mGy-cm FINDINGS: HEAD: | | | BRAIN: Ventricles, sulci and cisterns are unremarkable for age No | | | areas of increased attenuation to suggest intracranial hemorrhage. | | | There is no mass, mass effect, or midline shift. There are no | | | abnormal extra-axial fluid or air collections. There is | | | preservation of the rojas-white differentiation at this time. There | | | are mild scattered regions of periventricular and subcortical white | | | matter low density. Hypodensity deep to the left insula and in the | | | left periventricular white matter of the frontal lobe. SCALP/ | | | CALVARIUM: The scalp and skull are intact and unremarkable. | | | SINUSES / ORBITS/ MASTOIDS: The mastoid air cells are clear. There | | | is mild to moderate mucosal thickening. The ethmoid air cells and | | | mild thickening in the sphenoid sinuses. The globes and retrobulbar | | | structures are symmetric and unremarkable. CERVICAL SPINE: | | | There is acceptable alignment from the craniocervical junction through | | | the cervicothoracic junction. There is no widening of the disc | | | spaces. There is no widening of the facets. No precervical soft | | | tissue thickening. No acute fractures. There is diffuse cervical | | | spondylosis. This includes central spinal canal and neural | | | foraminal narrowing at multiple levels. This does not appear | | | significantly changed compared to December 2018. The visible lung | | | apices are clear. | | + + + + + | Procedure Note | + + | Bob, Rad Results In - 09/11/2019 10:51 AM PST EXAM: CT CERVICAL SPINE WO CONTRAST, CT | | HEAD WO CONTRAST dated 09/11/2019 10:14AMHISTORY: Cervical radiculopathyComparison: CT | | cervical spine 12/04/2018TECHNIQUE: Noncontrast CT is performed from the top of calvarium | | through theskull base. Coronal and sagittal reformats are performed. Noncontrast | | imagingis performed from the skull base through the cervicothoracic junction.DOSE: DLP | | 734.46 mGy-cmFINDINGS: HEAD:BRAIN: Ventricles, sulci and cisterns are unremarkable for | | age No areas ofincreased attenuation to suggest intracranial hemorrhage. There is no | | mass,mass effect, or midline shift. There are no abnormal extra-axial fluid or | | aircollections. There is preservation of the rojas-white differentiation at thistime. | | There are mild scattered regions of periventricular and subcortical whitematter low | | density. Hypodensity deep to the left insula and in the leftperiventricular white | | matter of the frontal lobe.SCALP/ CALVARIUM: The scalp and skull are intact and | | unremarkable.SINUSES / ORBITS/ MASTOIDS: The mastoid air cells are clear. There is mild | | tomoderate mucosal thickening. The ethmoid air cells and mild thickening in | | thesphenoid sinuses. The globes and retrobulbar structures are symmetric | | andunremarkable.CERVICAL SPINE:There is acceptable alignment from the craniocervical | | junction through thecervicothoracic junction. There is no widening of the disc spaces. | | There is nowidening of the facets. No precervical soft tissue thickening. No | | acutefractures. There is diffuse cervical spondylosis. This includes central | | spinalcanal and neural foraminal narrowing at multiple levels. This does not | | appearsignificantly changed compared to December 2018. The visible lung apices | | areclear.IMPRESSION: No CT evidence for an acute intracranial process.Focal hypodensity | | at the superior margin of the left insula. This could besubacute ischemia or focal | | white matter disease.No CT evidence for an acute cervical spine fracture or traumatic | | malalignment. There is diffuse cervical spondylosis that is not significantly changed | | comparedto December 2018.Dictated and Signed by: Burton Pascal MD Electronically | | signed: 09/11/2019 10:47 AM | |SINUSES / ORBITS/ MASTOIDS: The mastoid air cells are clear. There is mild to | |moderate mucosal thickening. The ethmoid air cells and mild thickening in the | |sphenoid sinuses. The globes and retrobulbar structures are symmetric and | |unremarkable. | | | |CERVICAL SPINE: | | | |There is acceptable alignment from the craniocervical junction through the | |cervicothoracic junction. There is no widening of the disc spaces. There is no | |widening of the facets. No precervical soft tissue thickening. No acute | |fractures. There is diffuse cervical spondylosis. This includes central spinal | |canal and neural foraminal narrowing at multiple levels. This does not appear | |significantly changed compared to December 2018. The visible lung apices are | |clear. | | | |IMPRESSION: | | | |No CT evidence for an acute intracranial process. | | | |Focal hypodensity at the superior margin of the left insula. This could be | |subacute ischemia or focal white matter disease. | | | |No CT evidence for an acute cervical spine fracture or traumatic malalignment. | | | |There is diffuse cervical spondylosis that is not significantly changed compared | |to December 2018. | | | |Dictated and Signed by: Burton Pascal MD | | Electronically signed: 09/11/2019 10:47 AM | + + + +---------+ + + | Performing | Address | City/State/Zipcode | Phone Number | | Organization | | | | + +---------+ + + | [facility] | | | | + +---------+ + + Culture, Blood (09/11/2019 10:24 AM PST)Only the most recent of 2 results within the time tessa pritchett is included. + + + + + + | Component | Value | Ref Range | Performed | Pathologist | | | | | At | Signature | + + + + + + | Culture | No growth after 5 days | | [facility] | | | | incubation. | | [facility] | | | | | | [facility] | | | | | | C[facility] - | | | | | | LABORATORY | | + + + + + + + + | Specimen | + + | Blood - Peripheral | | blood specimen | | (specimen) | + + + + + + + | Performing | Address | City/State/Zipcode | Phone Number | | Organization | | | | + + + + + | [facility] | [address] | [place] | [phone] | | [facility] | | [id number] | | | - LABORATORY | | | | + + + + + Procalcitonin (09/11/2019 10:01 AM PST) + + + + + + | Component | Value | Ref Range | Performed | Pathologist | | | | | At | Signature | + + + + + + | Procalciton | 0.05 | <=0.50 ng/mL | [facility] | | | in | | | [facility] | | | | | | MEDICAL | | | | | | CENTER - | | | | | | LABORATORY | | + + + + + + | Comment | Comment: < 0.50 | | [facility] | | | | ng/mL:Procalcitonin | | [facility] | | | | levels below 0.50 ng/mL | | MEDICAL | | | | on the first day of | | CENTER - | | | | admission represents a | | LABORATORY | | | | low risk for progression | | | | | | to severe sepsis and/or | | | | | | septic shock, however | | | | | | these do not exclude an | | | | | | infection, because | | | | | | localized infections | | | | | | (without systemic signs) | | | | | | may also be associated | | | | | | with such low levels. | | | | | | > 2.00 | | | | | | ng/mL:Procalcitonin | | | | | | levels above 2.00 ng/mL | | | | | | on the first day of | | | | | | admission represents a | | | | | | high risk for | | | | | | progression to severe | | | | | | sepsis and/or septic | | | | | | shock. If the | | | | | | procalcitonin | | | | | | measurement is performed | | | | | | shortly after the | | | | | | systemic infection | | | | | | process has started | | | | | | (usually less than 6 | | | | | | hours), these values may | | | | | | still be low. As | | | | | | various non-infectious | | | | | | conditions are known to | | | | | | induce procalcitonin as | | | | | | well, procalcitonin | | | | | | levels between 0.50 | | | | | | ng/mL and 2.00 ng/mL | | | | | | should be reviewed | | | | | | carefully to take into | | | | | | account the specific | | | | | | clinical background and | | | | | | condition(s) of the | | | | | | individual patient. | | | | + + + + + + + + | Specimen | + + | Blood | + + + + + + + | Performing | Address | City/State/Zipcode | Phone Number | | Organization | | | | + + + + + | [facility] | [address] | [place], [place] | [phone] | | [facility] | | [id number] | | | - LABORATORY | | | | + + + + + Troponin I (09/11/2019 10:01 AM PST) + + + + + + | Component | Value | Ref Range | Performed | Pathologist | | | | | At | Signature | + + + + + + | Troponin I | <0.01Comment: | <0.06 ng/mL | [facility] | | | | Comment:Reference | | [facility] | | | | Ranges: 0.00-0.06 = | | MEDICAL | | | | NORMAL >0.06 = | | CENTER - | | | | SUSPICIOUS FOR | | LABORATORY | | | | MYOCARDIAL DAMAGE NOTE: | | | | | | Values greater than | | | | | | 0.78 ng/mL have been | | | | | | shown to be strongly | | | | | | associated with acute | | | | | | myocardial infarction. | | | | | | The [employer] | | | | | | [employer]iology ([employer]) | | | | | | recommends a decision | | | | | | limit of 0.06 ng/mL for | | | | | | this assay. Results | | | | | | greater than 0.06 can | | | | | | reflect a pre-infarct | | | | | | acute coronary syndrome, | | | | | | but can also reflect | | | | | | myocardial necrosis or | | | | | | injury that is not due | | | | | | to coronary artery | | | | | | disease. Some of these | | | | | | causes are sepsis, | | | | | | hypocolemia, atrial | | | | | | fibrillation, heart | | | | | | failure, pulmonary | | | | | | embolism, myocarditis, | | | | | | myocardial contusion, | | | | | | and renal failure. The | | | | | | diagnosis of myocardial | | | | | | infarction should be | | | | | | based on a combination | | | | | | of the patient's | | | | | | clinical presentation | | | | | | and the clinical | | | | | | laboratory test results | | | | | | (especially serial | | | | | | troponin levels). | | | | + + + + + + + + | Specimen | + + | Blood | + + + + + + + | Performing | Address | City/State/Zipcode | Phone Number | | Organization | | | | + + + + + | [facility] | [address] | [place] | [phone] | | [facility] | | [address] | | | - LABORATORY | | | | + + + + + Phosphorus (09/11/2019 10:01 AM PST) + +-------+ + + + | Component | Value | Ref Range | Performed | Pathologist | | | | | At | Signature | + +-------+ + + + | Phosphorus | 3.7 | 2.4 - 5.1 mg/dL | [facility] | | | | | | [facility] | | | | | | MEDICAL | | | | | | CENTER - | | | | | | LABORATORY | | + +-------+ + + + + + | Specimen | + + | Blood | + + + + + + + | Performing | Address | City/State/Zipcode | Phone Number | | Organization | | | | + + + + + | [facility] | [address] | [place] | [phone] | | [facility] | | [address] | | | - LABORATORY | | | | + + + + + Lactic Acid (09/11/2019 10:01 AM PST) + +-------+ + + + | Component | Value | Ref Range | Performed | Pathologist | | | | | At | Signature | + +-------+ + + + | Lactate | 1.2 | 0.5 - 2.2 | [facility] | | | | | mmol/L | [facility] | | | | | | MEDICAL | | | | | | CENTER - | | | | | | LABORATORY | | + +-------+ + + + + + | Specimen | + + | Blood | + + + + + + + | Performing | Address | City/State/Zipcode | Phone Number | | Organization | | | | + + + + + | [facility] | [address] | [place] | [phone] | | [facility] | | [address] | | | - LABORATORY | | | | + + + + + CK Total (09/11/2019 10:01 AM PST) + +--------+ + + + | Component | Value | Ref Range | Performed | Pathologist | | | | | At | Signature | + +--------+ + + + | CK TOTAL | 34 (L) | 46 - 171 U/L | [facility] | | | | | | [facility] | | | | | | MEDICAL | | | | | | CENTER - | | | | | | LABORATORY | | + +--------+ + + + + + | Specimen | + + | Blood | + + + + + + + | Performing | Address | City/State/Zipcode | Phone Number | | Organization | | | | + + + + + | [facility] | [address] | [place] | [phone] | | [facility] | | [address] | | | - LABORATORY | | | | + + + + + XR Chest PA and Lateral (09/07/2019 9:56 AM PST) + + | Specimen | + + | | + + + + + | Impressions | Performed At | + + + | Collapse/consolidation of the right middle lobe, likely representing | [facility] | | atelectasis or pneumonia. Dictated and Signed by: Matt | | | MD Sheri Electronically signed: 09/07/2019 10:22 AM | | + + + + + + | Narrative | Performed At | + + + | XR CHEST PA AND LATERAL 09/07/2019 9:56 AM HISTORY: COUGH | [facility] | | DIAPHORESIS. COMPARISON: 10/16/2015 Findings: Mild left | | | basilar airspace disease. Question a calcified granuloma in the right | | | lung. Collapse/consolidation of the right middle lobe. Heart size is | | | within normal limits. Pulmonary vasculature is within normal limits. | | | Aortic calcifications are seen. Mediastinum is unremarkable. No acute | | | osseous or soft tissue abnormality identified. | | + + + + + | Procedure Note | + + | Bob, Rad Results In - 09/07/2019 10:25 AM PST XR CHEST PA AND LATERAL 09/07/2019 9:56 | | AMHISTORY: COUGHDIAPHORESIS.COMPARISON: 10/16/2015Findings:Mild left basilar airspace | | disease. Question a calcified granuloma in the rightlung. Collapse/consolidation of the | | right middle lobe. Heart size is withinnormal limits. Pulmonary vasculature is within | | normal limits. Aorticcalcifications are seen. Mediastinum is unremarkable. No acute | | osseous or softtissue abnormality identified. IMPRESSION: Collapse/consolidation of the | | right middle lobe, likely representing atelectasisor pneumonia. Dictated and Signed by: | | Matt Wade MD Electronically signed: 09/07/2019 10:22 AM | |Mild left basilar airspace disease. Question a calcified granuloma in the right | |lung. Collapse/consolidation of the right middle lobe. Heart size is within | |normal limits. Pulmonary vasculature is within normal limits. Aortic | |calcifications are seen. Mediastinum is unremarkable. No acute osseous or soft | |tissue abnormality identified. | | | |IMPRESSION: | |Collapse/consolidation of the right middle lobe, likely representing atelectasis | |or pneumonia. | | | |Dictated and Signed by: Matt Wade MD | | Electronically signed: 09/07/2019 10:22 AM | + + + +---------+ + + | Performing | Address | City/State/Zipcode | Phone Number | | Organization | | | | + +---------+ + + | [facility] | | | | + +---------+ + + Extra Rojas Top Tube (09/07/2019 9:36 AM PST) + +-------+ + + + | Component | Value | Ref Range | Performed | Pathologist | | | | | At | Signature | + +-------+ + + + | Extra Rojas | Done | | [facility] | | | Top Tube | | | [facility] | | | | | | [facility] | | | | | | [facility] - | | | | | | LABORATORY | | + +-------+ + + + + + | Specimen | + + | Blood | + + + + + + + | Performing | Address | City/State/Zipcode | Phone Number | | Organization | | | | + + + + + | [facility] | [address] | [place] | [phone] | | [facility] | | [address] | | | - LABORATORY | | | | + + + + + Extra Lavender Top Tube (09/07/2019 9:36 AM PST) + +-------+ + + + | Component | Value | Ref Range | Performed | Pathologist | | | | | At | Signature | + +-------+ + + + | Extra | Done | | [facility] | | | Lavender | | | [facility] | | | Top Tube | | | MEDICAL | | | | | | CENTER - | | | | | | LABORATORY | | + +-------+ + + + + + | Specimen | + + | Blood | + + + + + + + | Performing | Address | City/State/Zipcode | Phone Number | | Organization | | | | + + + + + | [facility] | [address] | [place] | [phone] | | [facility] | | [address] | | | - LABORATORY | | | | + + + + + Extra Green Top Tube (09/07/2019 9:36 AM PST) + +-------+ + + + | Component | Value | Ref Range | Performed | Pathologist | | | | | At | Signature | + +-------+ + + + | Extra Green | Done | | [facility] | | | Top Tube | | | [facility] | | | | | | [facility] | | | | | | CENTER - | | | | | | LABORATORY | | + +-------+ + + + + + | Specimen | + + | Blood | + + + + + + + | Performing | Address | City/State/Zipcode | Phone Number | | Organization | | | | + + + + + | [facility] | [address] | [place] | [phone] | | [facility] | | [address] | | | - LABORATORY | | | | + + + + + Extra Gold Top Tube (09/07/2019 9:36 AM PST) + +-------+ + + + | Component | Value | Ref Range | Performed | Pathologist | | | | | At | Signature | + +-------+ + + + | Extra Gold | Done | | [facility] | | | Top Tube | | | [facility] | | | | | | [facility] | | | | | | C[facility] - | | | | | | LABORATORY | | + +-------+ + + + + + | Specimen | + + | Blood | + + + + + + + | Performing | Address | City/State/Zipcode | Phone Number | | Organization | | | | + + + + + | [facility] | [address] | [place] | [phone] | | [facility] | | [address] | | | - LABORATORY | | | | + + + + + Extra Blue Top Tube (09/07/2019 9:36 AM PST) + +-------+ + + + | Component | Value | Ref Range | Performed | Pathologist | | | | | At | Signature | + +-------+ + + + | Extra Blue | Done | | [facility] | | | Top Tube | | | [facility] | | | | | | [facility] | | | | | | CENTER - | | | | | | LABORATORY | | + +-------+ + + + + + | Specimen | + + | Blood | + + + + + + + | Performing | Address | City/State/Zipcode | Phone Number | | Organization | | | | + + + + + | [facility] | [address] | [place] | [phone] | | [facility] | | [address] | | | - LABORATORY | | | | + + + + + CBC w/ Auto Differential (09/07/2019 9:35 AM PST) + + + + + + | Component | Value | Ref Range | Performed | Pathologist | | | | | At | Signature | + + + + + + | WBC | 8.4 | 4.0 - 11.0 K/uL | [facility] | | | | | | [facility] | | | | | | MEDICAL | | | | | | CENTER - | | | | | | LABORATORY | | + + + + + + | RBC | 5.05 | 4.30 - 5.70 | [facility] | | | | | M/uL | [facility] | | | | | | MEDICAL | | | | | | CENTER - | | | | | | LABORATORY | | + + + + + + | Hemoglobin | 14.1 | 13.5 - 18.0 | [facility] | | | | | g/dL | [facility] | | | | | | MEDICAL | | | | | | CENTER - | | | | | | LABORATORY | | + + + + + + | Hematocrit | 43.4 | 40.0 - 51.0 % | [facility] | | | | | | [facility] | | | | | | [facility] | | | | | | C[facility] - | | | | | | LABORATORY | | + + + + + + | MCV | 85.9 | 83.0 - 101.0 fL | [facility] | | | | | | [facility] | | | | | | [facility] | | | | | | CENTER - | | | | | | LABORATORY | | + + + + + + | MCH | 27.9 (L) | 28.0 - 35.0 pg | [facility] | | | | | | [facility] | | | | | | [facility] | | | | | | CENTER - | | | | | | LABORATORY | | + + + + + + | MCHC | 32.5 | 32.0 - 36.0 | [facility] | | | | | g/dL | [facility] | | | | | | [facility] | | | | | | CENTER - | | | | | | LABORATORY | | + + + + + + | RDW-CV | 13.6 | <15.0 % | [facility] | | | | | | [facility] | | [facility] | | | [facility] | | | | | | C[facility] - | | | | | | LABORATORY | | + + + + + + | RDW-SD | 42.7 | 35.1 - 46.3 fL | [facility] | | | | | | [facility] | | | | | | [facility] | | | | | | [facility] - | | | | | | LABORATORY | | + + + + + + | Platelet | 319 | 140 - 440 K/uL | [facility] | | | Count | | | [facility] | | | | | | [facility] | | | | | | CENTER - | | | | | | LABORATORY | | + + + + + + | MPV | 9.1 | 6.5 - 12.4 fL | [facility] | | | | | | [facility] | | | | | | [facility] | | | | | | C[facility] - | | | | | | LABORATORY | | + + + + + + | % | 56.0 | 45.0 - 82.0 % | [facility] | | | Neutrophils | | | [facility] | | | | | | [facility]ICAL | | | | | | CENTER - | | | | | | LABORATORY | | + + + + + + | % | 27.2 | 20.0 - 45.0 % | [facility] | | | Lymphocytes | | | [facility] | | | | | | MEDICAL | | | | | | CENTER - | | | | | | LABORATORY | | + + + + + + | % Monocytes | 12.7 (H) | 4.0 - 12.0 % | [facility] | | | | | | [facility] | | | | | | [facility] | | | | | | CENTER - | | | | | | LABORATORY | | + + + + + + | % | 3.2 | 0.0 - 5.0 % | [facility] | | | Eosinophils | | | [facility] | | | | | | MEDICAL | | | | | | CENTER - | | | | | | LABORATORY | | + + + + + + | % Basophils | 0.7 | 0.0 - 1.0 % | [facility] | | | | | | [facility] | | | | | | [facility] | | | | | | CENTER - | | | | | | LABORATORY | | + + + + + + | % Immature | 0.2 | 0.0 - 0.4 % | [facility] | | | Granulocyte | | | [facility] | | | s | | | MEDICAL | | | | | | CENTER - | | | | | | LABORATORY | | + + + + + + | Absolute | 4.68 | 1.80 - 8.50 | [facility] | | | Neutrophils | | K/uL | [facility] | | | | | | [facility] | | | | | | CENTER - | | | | | | LABORATORY | | + + + + + + | Absolute | 2.27 | 0.60 - 3.20 | [facility] | | | Lymphocytes | | K/uL | [facility] | | | | | | [facility] | | | | | | CENTER - | | | | | | LABORATORY | | + + + + + + | Absolute | 1.06 (H) | 0.00 - 1.00 | [facility] | | | Monocytes | | K/uL | [facility] | | | | | | [facility] | | | | | | CENTER - | | | | | | LABORATORY | | + + + + + + | Absolute | 0.27 | 0.00 - 0.40 | [facility] | | | Eosinophils | | K/uL | [facility] | | | | | | [facility]ICAL | | | | | | CENTER - | | | | | | LABORATORY | | + + + + + + | Absolute | 0.06 | 0.00 - 0.10 | [facility] | | | Basophils | | K/uL | [facility] | | | | | | [facility] | | | | | | CENTER - | | | | | | LABORATORY | | + + + + + + | Absolute | 0.02 | 0.00 - 0.03 | [facility] | | | Immature | | K/uL | [facility] | | | Granulocyte | | | MEDICAL | | | s | | | CENTER - | | | | | | LABORATORY | | + + + + + + | % nRBC | 0 | 0 - 2 per 100 | [facility] | | | | | WBCs | [facility] | | | | | | [facility] | | | | | | CENTER - | | | | | | LABORATORY | | + + + + + + | Absolute | 0.00 | 0.00 - 0.01 | [facility] | | | nRBC | | K/uL | [facility] | | | | | | MEDICAL | | | | | | CENTER - | | | | | | LABORATORY | | + + + + + + + + | Specimen | + + | Blood | + + + + + + + | Performing | Address | City/State/Zipcode | Phone Number | | Organization | | | | + + + + + | [facility] | [address] | [place] | [phone] | | [facility] | | [address] | | | - LABORATORY | | | | + + + + + from Last 3 Months Insurance + +--------+ +--------+ [...] + +--------+ | MEDICARE | MEDICA | [id number] | 06/03/20 | [phone] | | Medica | | | RE | | 03-Pre | 5 | | re | | | PART A | | sent | | | | | | AND B | | | | | | + +--------+ +--------+ + +--------+ | [employer] [place] | [id number] | 04/06/20 | | | Indemn | | | CHOICE | | 18-Pre | | | ity | | | PC3 | | sent | | | | + +--------+ +--------+ + +--------+ | MODA | MODA | [id number] | 11/03/19 | [phone] | [address] | Indemn | | | HEALTH | | 14-Pre | 9 | [id number] | ity | | | MDCR | | sent | | [facility] | | | | [place] | | | | [place] [phone] | | + +--------+ +--------+ + +--------+ + +--------+ +--------+ + + | Guarantor Name | Accoun | Relation to | Date | Phone | Billing Address | | | t Type | Patient | of | | | | | | | | | | + +--------+ +--------+ + + | Kobi Baumann | Person | Self | [birth year] | [address] | | [place] | al/Fam | | 1940 | [phone] | [place] | | | [place] | | | [address] (Home) | [address] | + +--------+ +--------+ + + Advance Directives + + + + + | Type | Date Recorded | Patient | Explanation | | | | 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
--- OUTSIDE RECORDS SUMMARY | ~2019-10-08 | XMS | Encounter Summary ---
Demographics + + + | Address | [address] | | | [place] [address] | + + + | Home Phone | | + + + | Preferred Language | Unknown | + + + | Marital Status | | + + + | Jewish Affiliation | Unknown | + + + | Race | Unknown | + + + | Ethnic Group | Unknown | + + + Author + + + | Author | [facility] | | | and [place] | + + + | Organization | [facility] | | | and [place] | + + + | Address | Unknown | + + + | Phone | Unavailable | + + + Support + + + + + | Name | Relationship | Address | Phone | + + + + + | Silvia Baumann | ECON | [address] | | | | | [place] | | | | | [address] | | + + + + + Care Team Providers + +------+ + | Care Jewel Bearing Broacher Name | Role | Phone | + +------+ + | Luis M Baptiste | PCP | | | MD | | | + +------+ + Reason for Visit +--------+ + | Reason | Comments | +--------+ + | Other | | +--------+ + Encounter Details +--------+ + + + + | Date | Type | Department | Care Team | Description | +--------+ + + + + | 01/11/ | Telephone | [facility] | Marshall Vivas, | Other | | 2015 | | [address] | MD [address] | | | | | [place] | [place] | | | | | [address] | [address] | | | | | [phone] | | | +--------+ + + + [...] + + | 10/08/ | Office | [facility] | Luis M Muir | | | 2019 | Visit | | MD Papo Cruz | | | | | | [address] | | | | | | [place] [address] | | | | | | [phone] | | | | | | | | +--------+---------+ + + + documented as of this encounter Visit Diagnoses Not on filedocumented in this encounter
--- OUTSIDE RECORDS SUMMARY | ~2019-10-08 | XMS | Encounter Summary ---
Demographics + + + | Address | [address] | | | [place] [address] | + + + | Home Phone | | + + + | Preferred Language | Unknown | + + + | Marital Status | | + + + | Scientologist Affiliation | Unknown | + + + | Race | Unknown | + + + | Ethnic Group | Unknown | + + + Author + + + | Author | [facility] | | | and [place] | + + + | Organization | [facility] | | | and [place] | + + + | Address | Unknown | + + + | Phone | Unavailable | + + + Support + + + + + | Name | Relationship | Address | Phone | + + + + + | Silvia Baumann | ECON | [address] | | | | | [place] | | | | | [address] | | + + + + + Care Team Providers + +------+ + | Care Technical Services Manager Name | Role | Phone | + +------+ + | Nahid Medeiros MD | PCP | | + +------+ + Reason for Referral Evaluate & Treat (Routine) + + + + + + + | Status | Reason | Specialty | Diagnoses / | Referred By | Referred To | | | | | Procedures | Contact | Contact | + + + + + + + | Authorized | Specialty | Neurosurgery | Diagnoses | Bret, | Schlitt, | | | Services | | Cervical | Jaleesa | Luis M Cruz MD | | | Required | | spinal | MD William | [address] | | | | | stenosis | [address] | | | | | | [address] [place] | [address] [place] | | | | | | [place], [place] | [place], [place] | | | | | | [address] | [address] Phone: | | | | | | Phone: | [phone] | | | | | | [phone] | Fax: | | | | | | Fax: | [phone] | | | | | | [phone] | | + + + + + + + Reason for Visit + + + | Reason | Comments | + + + | Weakness | | + + + | Foot Pain | | + + + | Hand Pain | | + + + Auth/Cert +--------+--------+ + + + + | Status | Reason | Specialty | Diagnoses / | Referred By | Referred To | | | | | Procedures | Contact | Contact | +--------+--------+ + + + + | | | | Diagnoses | | | | | | | Shortness | | | | | | | of breath | | | | | | | Cervical | | | | | | | spinal cord | | | | | | | compression | | | | | | | ([facility]) Right | | | | | | | leg | | | | | | | weakness | | | | | | | Weakness of | | | | | | | right hand | | | | | | | Acute | | | | | | | respiratory | | | | | | | failure with | | | | | | | hypoxia | | | | | | | (HCC) | | | | | | | Pneumonia of | | | | | | | right | | | | | | | middle lobe | | | | | | | due to | | | | | | | infectious | | | | | | | organism | | | | | | | ([facility]) | | | | | | | | | | +--------+--------+ + + + + Encounter Details +--------+ + + + + | Date | Type | Department | Care Team | Description | +--------+ + + + + | 09/11/ | Hospital | [facility] | Marshall Dickinson, | Pneumonia of right | | 2019 - | Encounter | [facility] | [address] | middle lobe due to | | | | [address] [place] | [place] | infectious organism | | 09/14/ | | [place] [address] | [id number] | (HCC) (Primary Dx); | | 2018 | | [phone] | | Shortness of breath; | | | | | Bartolo Warner MD | Acute respiratory | | | | | [address] | failure with hypoxia | | | | | [address] | ([facility]); Weakness of | | | | | [id number] | right hand; Right | | | | | | leg weakness; | | | | | | Cervical spinal cord | | | | | | compression ([facility]); | | | | | | Cervical [...] gait | +--------+ + + + + Social [...] + documented in this encounter Discharge Summaries Jaleesa Queen MD - 09/14/2019 4:22 PM PSTFormatting of this note might be differen t from the original. [place] HOSPITALIST DISCHARGE SUMMARY Pt. Name/Age/: Kobi Baumann 79 y.o. 1940 Date of Admission: 09/11/2019 Date of Discharge: 09/14/2019 Admitting Physician: Bartolo Warner MD Primary Care Provider: Javed Medeiros MD Discharging Physician: Jaleesa Queen MD DISCHARGE DIAGNOSES: Active Hospital Problems Diagnosis Pneumonia Cervical spinal stenosis Resolved Hospital Problems No resolved problems to display. DISCHARGE MEDICATIONS: Discharge Medications New Medications Details acetaminophen 500 mg tablet Take 1-2 tablets by mouth every 6 hours as needed for Pain. aka: TYLENOL cefdinir 300 mg capsule Notes to patient: For pneumonia Take 1 capsule by mouth 2 times daily for 7 days. aka: OMNICEF lidocaine 5% patch Notes to patient: For pain Apply up to 3 patches at once in a 12 hour period to affected area; remove after 12 hours aka: LIDODERM Unchanged Medications Details albuterol 90 mcg/puff inhaler Inhale 2 puffs into the lungs every 4 hours as needed for Wheezing or Shortness of Breath. Use with spacer device. benzonatate 100 mg capsule Take 1 capsule by mouth 3 times daily as needed for Cough. aka: TESSALON Discontinued Medications azithromycin 250 mg tablet aka: ZITHROMAX Z-SARIKA New Medication Details azithromycin 500 MG tablet Ask about: Should I take this medication? Take 1 tablet by mouth Daily for 2 days. aka: ZITHROMAX HOSPITAL COURSE: Please refer to the H&P for full details and the most recent rounding rounding (progress) n ote. CC admit with weakness bilat feet pain right hand pain. Also with cough SOB Started Doxy from EF on Sep 07, then ER on for bilat toot pain attributed to Doxy so c hanged to Zithromax and not able to bear weight on feet with foot pain at admit. Also neck p ain for a week with weakness numbness right hand. Has of of BPH, hyperlipidemia, umbilical h ernia repair, back sgy, colon adenoma Feet have just a little pain Can walk with walker (none at home) Not needing Oxygen Would like to get his neck fixed this admission but we discussed that Dr Muir will see h im outpatient and he needs to have recovered from his pneumonia Pneumonia failed outpatient Abxs) CT chest diffuse bronchial inflammation mor focal in the RLL RML RLL Doxy was started first (suspect it is unrelated to foot pain) then zithromax in ER Here is on Rocephin and Azithro (one dose Levaquin in ER) Bilat foot pain, dorsal foot rash aetiology? Could severe cervical SS cause foot pain? 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 Dickinson elicited a history of right arm and leg weakne ss. An MRI scan of his cervical spine demonstrated diffuse moderate to severe spondylosis but most significantly, cord compression at C1-2 and a question of intramedullary signal juan carlos nge on the T2-weighted images. I have introduced myself to the patient today and given him my card. I've suggested that once his pneumonia is thoroughly cleared up that we should visit in the office with a view t oward decompressive surgery. I don't think this is requiring of urgent surgical interventi on during this hospital stay. Sep 12 Consent for Photo The patient was advised that digital photos will be taken today of Kobi Daniels.The patient verbally consented to having these photos taken for purposes of documenting hi s/her condition.The patient understands that the images will be stored in their medical record. See Photographs in the Media tab which is located in Chart Review. The Document type is Clinical Image Haiku/Aamir. Some photographs may also appear in certain notes from this encounter. 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 Mid ascending aorta diamond ures 4.3 cm. Discussed with patient. This is beyond the root so would not be seen on an Echo . He has no murmur. called [facility] and we will push CT there and Dr Crandall to call back with when fo llowup is needed. Addendum (09/13/2019 7:31 PM) Dr Crandall says recheck Chest CT in one year for the ascending thoracic aneurysm and once i t gets to 4.5 vascular surgery should start to follow. Plan For going home: [facility] in [place] Zithromax 500 mg po daily X 2 days Cefdinir 300 mg po bid X 7 days DME for walker submitted Epic referral to Neurosurgery clinic made Dr Pascal says the lung nodules small not need followup Need to see N/S in clinic after discharge Most recent weight: Input and output for last 24hrs: Wt Readings from Last 1 Encounters: 09/14/19 77.8 kg (171 lb 8.3 oz) No intake/output data recorded. Vitals Ranges: Vitals: Temp: 35.9 C (96.6 F) BP: 113/78 Pulse: 79 Resp: 18 SpO2: 96 % SpO2 96 % on room air at flow rate L/min PHYSICAL EXAM: Patient seen and examined by me on discharge day PROCEDURES AND CONSULTS: Procedures none Consults YENY/Dr. Muir PENDING RESULTS: none DISPOSITION AND DISCHARGE INSTRUCTIONS: Follow-up Information Schedule an appointment as soon as possible for a visit with Javed Medeiros MD. Specialty: Internal Medicine Why: See in one week followup your pneumonia Contact information: [address] [facility] [address] Luis M Muir MD. Specialty: Neurosurgery Why: His office should call you with appt, if they don't within a couple of days then call them Contact information: [address] [facility] [address] Condition: Patient being discharged with condition improved Diet: Regular Greater than 30 minutes were spent on discharge and coordination of post-hospital care. Electronically signed by: Jaleesa Queen MD, 09/18/2019 6:22 AM [facility] Portions of this chart may have been created with [employer] voice recognition software. Occasi onal wrong-word or sound-alike substitutions may have occurred due to the inherent bateman itations of voice recognition software. Please read the chart carefully and recognize, using context, where these substitutions have occurred documented in this encounter Discharge Instructions Instructions Tristen Natarajan MD - 09/13/2019Pick up Meds at [facility] in [place] You have an ascending aortic aneurysm at 4.3 centimeters and your family doctor should orde r a followup CT to be done in one year and once it gets to 4.5 cm or higher then you should follow with a cardiovascular surgeon. Does NOT need operation at this time. See Dr Muir in Neurosurgery office regarding your cervical spinal stenosis that will nee d surgery in the future. Electronic referral was made. AttachmentsThe following attachments cannot be sent through Care Everywhere.Adult, Pneumoni a (Chinese)documented in this encounter Medications at Time of Discharge + + + +---------+ + + | Medication | Sig | Dispensed | Refills | Start | End Date | | | | | | Date | | + + + +---------+ + + | acetaminophen | Take 1-2 tablets by | 60 | 0 | 09/14/20 | | | (TYLENOL) 500 mg | mouth every 6 hours | tablet | | 19 | | | tablet | as needed for Pain. | | | | | + + + +---------+ + + | albuterol 90 | Inhale 2 puffs into | 1 | 0 | 09/07/20 | | | mcg/puff inhaler | the lungs every 4 | Inhaler | | 19 | | | | hours as needed for | | | | | | | Wheezing or | | | | | | | Shortness of Breath. | | | | | | | Use with spacer | | | | | | | device. | | | | | + + + +---------+ + + | benzonatate | Take 1 capsule by | 30 | 0 | 09/07/20 | | | (TESSALON) 100 mg | mouth 3 times daily | capsule | | 19 | | | capsule | as needed for Cough. | | | | | + + + +---------+ + + | lidocaine | Apply up to 3 | 30 | 0 | 09/14/20 | | | (LIDODERM) 5% patch | patches at once in a | patch | | 19 | | | | 12 hour period to | | | | | | | affected area; | | | | | | | remove after 12 | | | | | | | hours | | | | | + + + +---------+ + + | azithromycin | Take 1 tablet by | 2 | 0 | 09/15/20 | | | (ZITHROMAX) 500 MG | mouth Daily for 2 | tablet | | 19 | 9 | | tablet | days. | | | | | + + + +---------+ + + | cefdinir (OMNICEF) | Take 1 capsule by | 14 | 0 | 09/15/20 | | | 300 mg capsule | mouth 2 times daily | capsule | | 19 | 9 | | | for 7 days. | | | | | + + + +---------+ + + documented as of this encounter Progress Notes Tristen Natarajan MD - 09/13/2019 3:20 PM PSTFormatting of this note might be different fro m the original. [facility]PITAL[facility] PROGRESS NOTE Patient: Kobi Baumann : 1940: Age: 79 y.o. MedRec: [id number] PCP: Javed Medeiros MD Admission date: 09/11/2019 Hospital day # : 2 Physician author: Tristen Natarajan MD Today: 09/13/2019 Subjective Location, Severity, Quality, Context, Timing, Duration, Modifying factors, Associated signs & symptoms CC admit with weakness bilat feet pain right hand pain. Also with cough SOB Started Doxy from EF on Sep 07, then ER on for bilat toot pain attributed to Doxy so c hanged to Zithromax and not able to bear weight on feet with foot pain at admit. Also neck p ain for a week with weakness numbness right hand. Has of of BPH, hyperlipidemia, umbilical h ernia repair, back sgy, colon adenoma Feet have just a little pain Can walk with walker (none at home) Not needing Oxygen Would like to get his neck fixed this admission but we discussed that Dr Muir will see h im outpatient and he needs to have recovered from his pneumonia ROS See above Objective Exam General Alert NAD Cardiac RRR Extremities his bilat dorsal foot rash is more faint Lung BBIR crackles right base not labored not on O2 Abdominal + BS soft NT Neuro No change on LE motor exam today 10th DTR Left arm bicep tricep are 2 and on the right both are about 1+ Patella 2+ bilat no ankle clonus Motor Strong biceps and triceps and 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 (dot meyexam) (dot meyvent) Assessment and Hospital Course Document 1+: monitor, evaluate, assess or treat (dot meyprob vs meyprobap) Active Hospital Problems Diagnosis Pneumonia Cervical spinal stenosis Resolved Hospital Problems No resolved problems to display. Pneumonia failed outpatient Abxs) CT chest diffuse bronchial inflammation mor focal in the RLL RML RLL Doxy was started first (suspect it is unrelated to foot pain) then zithromax in ER Here is on Rocephin and Azithro (one dose Levaquin in ER) Bilat foot pain, dorsal foot rash aetiology? Could severe cervical SS cause foot pain? 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 Could the Doxycycline caused this (as others thought) [place] [facility] [place]ei[place] Says NOT [place] Rx meds [place] ([place] E5 [place]- [place]) ETOH 15 drinks whiskey a month Cigar on occaison Beer sometimes not daily Neck pain hand weakness MRI brain mild white matter disease MRI spine DDD DJD spinal stenosis with cord signal C2C3 Dr Muir was consulted from the ER 10th Dr Muir has brief note in chart Chief complaint: Right arm and leg weakness Summary: The patient was admitted yesterday through the emergency room for pneumonia, but w shareee he was in the emergency room Dr. Dickinson elicited a history of right arm and leg weakne ss. An MRI scan of his cervical spine demonstrated diffuse moderate to severe spondylosis b ut most significantly, cord compression at C1-2 and a question of intramedullary signal cobos ge on the T2-weighted images. I have introduced myself to the patient today and given him my card. I've suggested that o nce his pneumonia is thoroughly cleared up that we should visit in the office with a view to friend decompressive surgery. I don't think this is requiring of urgent surgical intervention during this hospital stay. Sep 12 Consent for Photo The patient was advised that digital photos will be taken today of Kobi Daniels.The patient verbally consented to having these photos taken for purposes of documenting hi s/her condition. The patient understands that the images will be stored in their medical re cord. See Photographs in the Media tab which is located in Chart Review. The Document type is Clinical Image Maximeu/Aamir. Some photographs may also appear in certain notes from this encounter. 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 Mid ascending aorta diamond ures 4.3 cm. Discussed with patient. This is beyond the root so would not be seen on an Echo . He has no murmur. [facility] called [facility] and we will push CT there and Dr Crandall to call back with when fo llowup is needed. Addendum (09/13/2019 7:31 PM) Dr Crandall says recheck Chest CT in one year for the ascending thoracic aneurysm and once i t gets to 4.5 vascular surgery should start to follow. (dot meyaddendum tdnorefesh nownorefresh) (dot malnutattest is attestation for malnutrition) Plan Continue Abxs Rocephin Azithro He is much better Probably home on Friday after morning dose of Zithromax and Rocephin For going home: [facility] in [place] Zithromax 500 mg po daily X 2 days Cefdinir 300 mg po bid X 7 days DME for walker submitted Epic referral to Neurosurgery clinic made Med rec for going home done (he confirmed [facility]) Dr Pascal says the lung nodules small not need followup Need to see N/S in clinic after discharge He has had MRI C spine MRI Brain CT head CT C spine CT Chest Urine Legionella negative Tristen Natarajan MD 09/13/2019 3:20 PM [facility] (dot meyaddendum tdnorefesh nownorefresh) (dot meytime meycritical meysign) Objective Data Serial weights: Filed Weights: 09/11/19 0858 09/12/19 0335 09/13/19 0450 Weight: 79.4 kg (175 lb) 76.8 kg (169 lb 5 oz) 75.6 kg (166 lb 10.7 oz) Most recent weight: Input and output 2 shifts and 3 shifts: Wt Readings from Last 1 Encounters: 09/13/19 75.6 kg (166 lb 10.7 oz) I/O last 24 Hours: In: 1585 [P.O.:1500; I.V.:35; IV Piggyback:50] Out: 850 [Urine:850] I/O last 3 completed shifts: In: 1585 [P.O.:1500; I.V.:35; IV Piggyback:50] Out: 1050 [Urine:1050] Vitals Ranges: Temp: [36.3 C (97.3 F)-36.6 C (97.8 F)] 36.4 C (97.5 F) Pulse: [71-89] 74 Resp: [18-20] 20 BP: (119-134)/(74-83) 119/83 Vitals: Temp: 36.4 C (97.5 F) BP: 119/83 Pulse: 74 Resp: 20 SpO2: 94 % SpO2 94 % on room air at flow rate L/min Diet and Supplements Diet Diet general; Effective Now Number of Occurrences: Until Specified Order Questions: Type Diet general Allergies: Allergies Allergen Reactions Oxybutynin Chloride Unknown Codeine Sensitivity Nausea and changed vision Doxycycline Other (See Comments) Possibly cause of foot pain and foot rash see [facility] note 09-12-2019 Current Medications: Current Facility-Administered Medications Medication Dose Route Frequency Provider Last Rate Last Dose acetaminophen (TYLENOL) tablet 650 mg 650 mg Oral Q4H PRN Bartolo Warner MD albuterol 2.5 mg/3 mL nebulizer solution 2.5 mg 2.5 mg Nebulization RT Q4H PRN Bartolo Warner MD azithromycin (ZITHROMAX) tablet 500 mg 500 mg Oral Daily Bartolo Warner MD 500 mg a t 09/13/19 1005 benzonatate (TESSALON) capsule 100 mg 100 mg Oral TID PRN Bartolo Warner MD bisacodyl (DULCOLAX) suppository 10 mg 10 mg Rectal Daily PRN Bartolo Warner MD cefTRIAXone (ROCEPHIN) 1 g in sodium chloride 0.9% 50 mL IVPB 1 g Intravenous Daily imani Warner MD 100 mL/hr at 09/13/19 1003 1 g at 09/13/19 1003 docusate sodium (COLACE) capsule 100 mg 100 mg Oral BID PRN Bartolo Warner MD enoxaparin (LOVENOX) 40 mg/0.4 mL injection 40 mg 40 mg Subcutaneous Daily Tristen hicks MD 40 mg at 09/13/19 1005 guaiFENesin (ROBITUSSIN) 100 mg/5 mL liquid 200 mg 200 mg Oral Q4H PRN Bartolo Warner MD melatonin tablet 3 mg 3 mg Oral Nightly PRN Bartolo Warner MD 3 mg at 09/12/19 0325 morphine injection 2 mg 2 mg Intravenous Q2H PRN Bartolo Warner MD ondansetron (ZOFRAN ODT) disintegrating tablet 4 mg 4 mg Oral Q6H PRN Bartolo Warner MD ondansetron (ZOFRAN) injection 4 mg 4 mg Intravenous Q6H PRN Bartolo Warner MD polyethylene glycol (MIRALAX) powder 17 g 17 g Oral Daily PRN Bartolo Warner MD Current Infusions: Hematology and anemia Recent Labs Lab 09/13/1945209/12/1943609/11/19 1001 09/07/19 0935 WBC 7.0 8.9 10.6 8.4 HGB 13.4* 13.7 14.7 14.1 HCT 39.3* 40.4 44.2 43.4 PLT 359 340 335 319 NEUPCT -- 59.3 70.7 56.0 Recent Labs Lab 09/12/1943609/11/19 1001 PROTIME 15.6* 14.9* INR 1.2* 1.2* No results for input(s): IRON, TIBC, PCTSAT, FERRITIN, TSH, [id number], FOLATE in the last 168 hours. Inflammatory markers Recent Labs Lab 09/11/19 1001 LACTATE 1.2 PROCALCITONI 0.05 Chemistry Recent Labs Lab 09/13/1945209/12/1943609/11/19 1001 09/07/19 0935 GLU 104 112* 119* 107* NA 134* 134* 136 139 K 3.8 3.9 4.1 4.3 CL 102 101 100 105 CO2 24 24 26 27 ANIONGAP 8 9 10 7 BUN 20 20 15 12 CREA 0.92 0.91 1.03 0.99 GFRNONAA >60 >60 >60 >60 CALCIUM 9.2 9.2 9.5 9.4 ALBUMIN -- 4.0 4.6 4.3 TOTALPROTEIN -- 6.6 7.3 6.9 BILITOT -- 1.5* 2.2* 1.0 ALKPHOS -- 57 62 75 ALT -- 8* 10 13 AST -- 12 13 15 Recent Labs Lab 09/12/1943609/11/19 1001 MG 1.9 2.0 PHOS -- 3.7 No results for input(s): AMYLASE, LIPASE in the last 168 hours. No results for input(s): TRIG, CHOL, HDL, LDL in the last 168 hours. No results for input(s): AMMONIA in the last 168 hours. Cardiology & Digoxin Recent Labs Lab 09/11/19 1001 TROPONIN <0.01 CK 34* ABG No results for input(s): PHART, PO2ART, FLE8QWK, HKK2KOC, BEART, H2EJEFUT in the last 168 h ours. No results for input(s): SPECSOURCE, PHPOCB, PCO2, PO2, HCO3, TCO2, BEART, [id number] in the last 168 hours. Drug of overdose and abuse No results for input(s): ALCOHOL, ACTMN, SALICYLATE in the last 168 hours. No results for input(s): AMPHEQUAL, BARBITURATE, BENZSCR, CANNIBSCR, AMPHETAMINE, METHADSCR , OPIATESCR in the last 168 hours. Urinalysis No results for input(s): GLUCOSEU, WBCUA, RBCUA, SQUAMEPIUA, BACTERIAUA, CULTIF in the last 168 hours. Point of care glucose No results for input(s): POCGLU in the last 168 hours. Micro results (more choices using dot micro (below is last 7 days)) Microbiology Results (Last 7) Date with Culture/Sensitivity) Procedure Component Value Units Date/Time Culture, Respiratory, Lower, Smear [[id number]] Collected: 09/11/191746 Order Status: Completed Lab Status: Final result Updated: 09/13/19 1145 Specimen: Body Fluid from Sputum, Expectorated Culture No pathogens isolated 4+ Usual Respiratory Mary Gram Stain Result 3+ White Blood Cells 2+ Epithelial cells 4+ Gram positive cocci 2+ Gram positive bacilli 1+ Gram negative rods Legionella, Ag, EIA, Qual, Urine [[id number]] Collected: 09/11/19 174 Order Status: Completed Lab Status: Final result Updated: 09/13/19 1407 Specimen: Urine, Clean Catch L. pneumophila Serogp 1 Ur Ag Negative Comment: Presumptive negative for L. pneumophila serogroup 1 antigen in urine, suggesting no recent or current infection. Legionnaires' disease cannot be ruled out since other serogroups and species may also cause disease. Narrative: Performed at: 01 - [facility] [id number] [place] Driver: Nelson Mehta MD, Phone: [phone] Culture, Blood [[id number]] Collected: 09/11/19 1024 Order Status: Completed Lab Status: Preliminary result Updated: 09/11/19 2231 Specimen: Peripheral Blood Culture No growth: Monitored continually by instrument for 5 days Culture, Blood [[id number]] Collected: 09/11/19 1001 Order Status: Completed Lab Status: Preliminary result Updated: 09/11/19 2351 Specimen: Blood from Line Culture No growth: Monitored continually by instrument for 5 days Radiology results (more choices using dot risresults) No results found. Reference. This is NOT part of the patient's formal assessment section. In the assessment or plan section of notes the author may date some of the subsections with a number such as "" or "" to indicate the date of that entry or event. In the example below the 1st line is the original entry and the subsequent lines indicate flowing updates to the subsection: Example assessment subsection (such as CHF or CP or Pneumonia) Patient is improved today with resolution of symptom Worse with recurrence of symptoms requiring further testing Portions of this chart may have been created with [employer] voice recognition software. Occasi onal wrong-word or sound-alike substitutions may have occurred due to the inherent bateman itations of voice recognition software. Please read the chart carefully and recognize, using context, where these substitutions have occurred. eyer, Tristen Leonardo MD - 09/12/2019 6:05 AM PST [place], [place] HOSPITALIST PROGRESS NOTE Patient: Kobi Baumann : 1940: Age: 79 y.o. MedRec: [id number] PCP: Javed Medeiros MD Admission date: 09/11/2019 Hospital day # : 1 Physician author: Tristen Natarajan MD Today: 09/12/2019 Subjective Location, Severity, Quality, Context, Timing, Duration, Modifying factors, Associated signs & symptoms CC admit with weakness bilat feet pain right hand pain. Also with cough SOB Started Doxy from [facility] on Sep 07, then ER on for bilat toot pain attributed to Doxy so c hanged to Zithromax and not able to bear weight on feet with foot pain at admit. Also neck p ain for a week with weakness numbness right hand. 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 (dot meyexam) (dot meyvent) Assessment and Hospital Course Document 1+: monitor, evaluate, assess or treat (dot meyprob vs meyprobap) Active Hospital Problems Diagnosis Pneumonia Cervical spinal stenosis Resolved Hospital Problems No resolved problems to display. Pneumonia failed outpatient Abxs) CT chest diffuse bronchial inflammation mor focal in the RLL RML RLL Doxy was started first (suspect it is unrelated to foot pain) then zithromax in ER Here is on Rocephin and Azithro (one dose Levaquin in ER) Bilat foot pain, dorsal foot rash aetiology? Could severe cervical SS cause foot pain? 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 Could the Doxycycline caused this (as others thought) [facility] Says NOT on Rx meds [place] ([place] [address] [place]) ETOH 15 drinks whiskey a month Cigar on occaison Beer sometimes not daily Neck pain hand weakness MRI brain mild white matter disease MRI spine DDD DJD spinal stenosis with cord signal C2C3 Dr Muir was consulted from the ER 10th Dr Muir has brief note in chart Chief complaint: Right arm and leg weakness Summary: The patient was admitted yesterday through the emergency room for pneumonia, but w hile he was in the emergency room Dr. Dickinson elicited a history of right arm and leg weakne ss. An MRI scan of his cervical spine demonstrated diffuse moderate to severe spondylosis b ut most significantly, cord compression at C1-2 and a question of intramedullary signal cobos ge on the T2-weighted images. I have introduced myself to the patient today and given him my card. I've suggested that o nce his pneumonia is thoroughly cleared up that we should visit in the office with a view to friend decompressive surgery. I don't think this is requiring of urgent surgical intervention during this hospital stay. Sep 12 Consent for Photo The patient was advised that digital photos will be taken today of Kobi Daniels.The patient verbally consented to having these photos taken for purposes of documenting hi s/her condition. The patient understands that the images will be stored in their medical re cord. See Photographs in the Media tab which is located in Chart Review. The Document type is Clinical Image Haiku/Aamir. Some photographs may also appear in certain notes from this encounter. 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 (dot meyaddendum tdnorefesh nownorefresh) (dot malnutattest is attestation for malnutrition) Plan Continue Abxs Sarah Robbins Need to see N/S in clinic after discharge not need urgent surgery He has had MRI C spine MRI Brain CT head CT C spine CT Chest Tristen Natarajan MD 09/12/2019 4:37 PM [facility] (dot meyaddendum tdnorefesh nownorefresh) (dot meytime meycritical meysign) Objective Data Serial weights: Filed Weights: 09/11/19 0858 09/12/19 0335 Weight: 79.4 kg (175 lb) 76.8 kg (169 lb 5 oz) Most recent weight: Input and output 2 shifts and 3 shifts: Wt Readings from Last 1 Encounters: 09/12/19 76.8 kg (169 lb 5 oz) I/O last 24 Hours: In: - Out: 375 [Urine:375] I/O last 3 completed shifts: In: - Out: 375 [Urine:375] Vitals Ranges: Temp: [36.3 C (97.3 F)-37.4 C (99.3 F)] 36.3 C (97.3 F) Pulse: [74-90] 79 Resp: [18-22] 18 BP: (117-146)/(72-85) 123/77 Vitals: Temp: 36.3 C (97.3 F) BP: 123/77 Pulse: 79 Resp: 18 SpO2: 96 % SpO2 96 % on room air at flow rate L/min Diet and Supplements Diet Diet general; Effective Now Number of Occurrences: Until Specified Order Questions: Type Diet general Allergies: Allergies Allergen Reactions Oxybutynin Chloride Unknown Codeine Sensitivity Nausea and changed vision Doxycycline Other (See Comments) Possibly cause of foot pain and foot rash see [facility] note 09-12-2019 Current Medications: Current Facility-Administered Medications Medication Dose Route Frequency Provider Last Rate Last Dose acetaminophen (TYLENOL) tablet 650 mg 650 mg Oral Q4H PRN Bartolo Warner MD albuterol 2.5 mg/3 mL nebulizer solution 2.5 mg 2.5 mg Nebulization RT Q4H PRN Bartolo Warner MD azithromycin (ZITHROMAX) tablet 500 mg 500 mg Oral Daily Bartolo Warner MD 500 mg a t 09/12/19 09 benzonatate (TESSALON) capsule 100 mg 100 mg Oral TID PRN Bartolo Warner MD bisacodyl (DULCOLAX) suppository 10 mg 10 mg Rectal Daily PRN Bartolo Warner MD cefTRIAXone (ROCEPHIN) 1 g in sodium chloride 0.9% 50 mL IVPB 1 g Intravenous Daily imani Warner MD 100 mL/hr at 09/12/19 0929 1 g at 09/12/19 0929 docusate sodium (COLACE) capsule 100 mg 100 mg Oral BID PRN Bartolo Warner MD guaiFENesin (ROBITUSSIN) 100 mg/5 mL liquid 200 mg 200 mg Oral Q4H PRN Bartolo Warner MD heparin 5,000 units/mL injection 5,000 Units 5,000 Units Subcutaneous 2 times per day Bartolo Warner MD 5,000 Units at 09/12/19 0930 melatonin tablet 3 mg 3 mg Oral Nightly PRN Bartolo Warner MD 3 mg at 09/12/19 0325 morphine injection 2 mg 2 mg Intravenous Q2H PRN Bartolo Warner MD ondansetron (ZOFRAN ODT) disintegrating tablet 4 mg 4 mg Oral Q6H PRN Bartolo Warner MD ondansetron (ZOFRAN) injection 4 mg 4 mg Intravenous Q6H PRN Bartolo Warner MD polyethylene glycol (MIRALAX) powder 17 g 17 g Oral Daily PRN Bartolo Warner MD Current Infusions: Hematology and anemia Recent Labs Lab 09/12/1943609/11/19 1001 09/07/19 0935 WBC 8.9 10.6 8.4 HGB 13.7 14.7 14.1 HCT 40.4 44.2 43.4 PLT 340 335 319 NEUPCT 59.3 70.7 56.0 Recent Labs Lab 09/12/1943609/11/19 1001 PROTIME 15.6* 14.9* INR 1.2* 1.2* No results for input(s): IRON, TIBC, PCTSAT, FERRITIN, TSH, [id number], FOLATE in the last 168 hours. Inflammatory markers Recent Labs Lab 09/11/19 1001 LACTATE 1.2 PROCALCITONI 0.05 Chemistry Recent Labs Lab 09/12/1943609/11/19 1001 09/07/19 0935 GLU 112* 119* 107* NA 134* 136 139 K 3.9 4.1 4.3 CL 101 100 105 CO2 24 26 27 ANIONGAP 9 10 7 BUN 20 15 12 CREA 0.91 1.03 0.99 GFRNONAA >60 >60 >60 CALCIUM 9.2 9.5 9.4 ALBUMIN 4.0 4.6 4.3 TOTALPROTEIN 6.6 7.3 6.9 BILITOT 1.5* 2.2* 1.0 ALKPHOS 57 62 75 ALT 8* 10 13 AST 12 13 15 Recent Labs Lab 09/12/1943609/11/19 1001 MG 1.9 2.0 PHOS -- 3.7 No results for input(s): AMYLASE, LIPASE in the last 168 hours. No results for input(s): TRIG, CHOL, HDL, LDL in the last 168 hours. No results for input(s): AMMONIA in the last 168 hours. Cardiology & Digoxin Recent Labs Lab 09/11/19 1001 TROPONIN <0.01 CK 34* ABG No results for input(s): PHART, PO2ART, EEA4JMO, AKM2VFN, BEART, X4PPUOGU in the last 168 h ours. No results for input(s): SPECSOURCE, PHPOCB, PCO2, PO2, HCO3, TCO2, BEART, MBOS3YNJ in the last 168 hours. Drug of overdose and abuse No results for input(s): ALCOHOL, ACTMN, SALICYLATE in the last 168 hours. No results for input(s): AMPHEQUAL, BARBITURATE, BENZSCR, CANNIBSCR, AMPHETAMINE, METHADSCR , OPIATESCR in the last 168 hours. Urinalysis No results for input(s): GLUCOSEU, WBCUA, RBCUA, SQUAMEPIUA, BACTERIAUA, CULTIF in the last 168 hours. Point of care glucose No results for input(s): POCGLU in the last 168 hours. Micro results (more choices using dot micro (below is last 7 days)) Microbiology Results (Last 7) Date with Culture/Sensitivity) Procedure Component Value Units Date/Time Culture, Respiratory, Lower, Smear [[id number]] Collected: 09/11/19 174 Order Status: Completed Lab Status: Preliminary result Updated: 09/12/19 1118 Specimen: Body Fluid from Sputum, Expectorated Culture Culture in progress... 4+ Usual Respiratory Mary Gram Stain Result 3+ White Blood Cells 2+ Epithelial cells 4+ Gram positive cocci 2+ Gram positive bacilli 1+ Gram negative rods Legionella, Ag, EIA, Qual, Urine [[id number]] Collected: 09/11/19 1742 Order Status: Sent Lab Status: In process Updated: 09/11/19 175 Specimen: Urine, Clean Catch Culture, Blood [[id number]] Collected: 09/11/19 1024 Order Status: Completed Lab Status: Preliminary result Updated: 09/11/19 2231 Specimen: Peripheral Blood Culture No growth: Monitored continually by instrument for 5 days Culture, Blood [[id number]] Collected: 09/11/19 1001 Order Status: Completed Lab Status: Preliminary result Updated: 09/11/19 2351 Specimen: Blood from Line Culture No growth: Monitored continually by instrument for 5 days Radiology results (more choices using dot risresults) Ct Head Wo Contrast Result Date: 09/11/2019 EXAM: CT CERVICAL SPINE WO CONTRAST, CT HEAD WO CONTRAST dated 09/11/2019 10:14 AM HISTORY: Cervical radiculopathy Comparison: CT cervical spine 12/04/2018 TECHNIQUE: Noncontrast CT is performed from the top of calvarium through the skull base. Coronal and sagittal reformats are performed. Noncontrast imaging is performed from the skull base through the cervicothor acic junction. DOSE: DLP 734.46 mGy-cm FINDINGS: HEAD: BRAIN: Ventricles, sulci and cistern s are unremarkable for age No areas of increased attenuation to suggest intracranial hemorr jazmine. There is no mass, mass effect, or midline shift. There are no abnormal extra-axial f luid or air collections. There is preservation of the pichardo-white differentiation at this ti me. There are mild scattered regions of periventricular and subcortical white matter low de nsity. Hypodensity deep to the left insula and in the left periventricular white matter of the frontal lobe. SCALP/ CALVARIUM: The scalp and skull are intact and unremarkable. SINUSES / ORBITS/ MASTOIDS: The mastoid air cells are clear. There is mild to moderate mucosal thi ckening. The ethmoid air cells and mild thickening in the sphenoid sinuses. The globes and retrobulbar structures are symmetric and unremarkable. CERVICAL SPINE: There is acceptable alignment from the craniocervical junction through the cervicothoracic junction. There is n o widening of the disc spaces. There is no widening of the facets. No precervical soft tis gilles thickening. No acute fractures. There is diffuse cervical spondylosis. This includes central spinal canal and neural foraminal narrowing at multiple levels. This does not appea r significantly changed compared to December 2018. The visible lung apices are clear. No CT evidence for an acute intracranial process. Focal hypodensity at the superior margin of the left insula. This could be subacute ischemia or focal white matter disease. No CT ev idence for an acute cervical spine fracture or traumatic malalignment. There is diffuse cer vical spondylosis that is not significantly changed compared to December 2018. Dictated and Signed by: Burton Pascal MD Electronically signed: 09/11/2019 10:[address] Chest Wo Contrast Result Date: 09/11/2019 EXAM: CT CHEST WITHOUT CONTRAST:09/11/2019 8:52 AM HISTORY: Lung nodule, >= 1cm. Recent alix gnosis of pneumonia. Concern for a post obstructive process. COMPARISON: Chest x-ray [facility] 09/07/2019 TECHNIQUE: Axial images are obtained from thoracic inlet to upper abdomen with out intravenous contrast. DOSE: DLP 229.37 mGy-cm FINDINGS: Lungs: There is diffuse central bronchial wall thickening. This is more significant disease in the right lower lobe and rig ht middle lobe. There is atelectasis in the right middle lobe. There are patchy peribronch ial vascular opacities in the right lower lobe. There is no dense consolidation. There are no pleural effusions. There are calcified granulomas. There are no significant noncalcifi ed pulmonary nodules. There is a 4 mm noncalcified nodule in the left upper lobe on image 3 8. There is a 3 mm noncalcified nodule in the lateral left upper lobe on image 59 and anoth er one on image 64. Heart and mediastinum: There is mild aneurysmal dilatation of the thora cic aorta. The mid ascending aorta measures 4.3 centimeters. No significant cardiac chambe r enlargement. No pericardial thickening. No mediastinal or hilar lymphadenopathy. Chest w all: No axillary or visible supraclavicular lymphadenopathy. Upper abdomen: No visible leonarda e air or free fluid in the upper abdomen. No visible gastrointestinal tract obstruction. N o calcified gallstones. Bones: There are no suspicious lytic or blastic bone lesions. No si gnificant compression deformities. Scattered marginal osteophytes. There is a bone island in the right seventh rib. Findings are most consistent with diffuse bronchial inflammation more focal involving the r ight lower lobe and middle lobe with peribronchial vascular opacities in the right lower lob e most consistent with a pneumonia. Mild aneurysmal dilatation of the thoracic aorta measuri ng 4.3 cm. Dictated and Signed by: Burton Pascal MD Electronically signed: 09/11/2019 10: [address] Cervical Spine Wo Contrast Result Date: 09/11/2019 EXAM: CT CERVICAL SPINE WO CONTRAST, CT HEAD WO CONTRAST dated 09/11/2019 10:14 AM HISTORY: Cervical radiculopathy Comparison: CT cervical spine 12/04/2018 TECHNIQUE: Noncontrast CT is performed from the top of calvarium through the skull base. Coronal and sagittal reformats are performed. Noncontrast imaging is performed from the skull base through the cervicothor acic junction. DOSE: DLP 734.46 mGy-cm FINDINGS: HEAD: BRAIN: Ventricles, sulci and cistern s are unremarkable for age No areas of increased attenuation to suggest intracranial hemorr jazmine. There is no mass, mass effect, or midline shift. There are no abnormal extra-axial f luid or air collections. There is preservation of the pichardo-white differentiation at this ti me. There are mild scattered regions of periventricular and subcortical white matter low de nsity. Hypodensity deep to the left insula and in the left periventricular white matter of the frontal lobe. SCALP/ CALVARIUM: The scalp and skull are intact and unremarkable. SINUSES / ORBITS/ MASTOIDS: The mastoid air cells are clear. There is mild to moderate mucosal thi ckening. The ethmoid air cells and mild thickening in the sphenoid sinuses. The globes and retrobulbar structures are symmetric and unremarkable. CERVICAL SPINE: There is acceptable alignment from the craniocervical junction through the cervicothoracic junction. There is n o widening of the disc spaces. There is no widening of the facets. No precervical soft tis gilles thickening. No acute fractures. There is diffuse cervical spondylosis. This includes central spinal canal and neural foraminal narrowing at multiple levels. This does not appea r significantly changed compared to December 2018. The visible lung apices are clear. No CT evidence for an acute intracranial process. Focal hypodensity at the superior margin of the left insula. This could be subacute ischemia or focal white matter disease. No CT ev idence for an acute cervical spine fracture or traumatic malalignment. There is diffuse cer vical spondylosis that is not significantly changed compared to December 2018. Dictated and Signed by: Burton Pascal MD Electronically signed: 09/11/2019 10:47 AM Mri Brain Wo Contrast Result Date: 09/11/2019 EXAM: MRI BRAIN WO CONTRAST dated 09/11/2019 8:52 AM HISTORY: Neuro deficit, acute, persist ent or progressing COMPARISON: CT dated 09/11/2019. TECHNIQUE: Multiplanar, multisequence sivan ging of the brain was performed in the 3 T MR scanner without contrast. FINDINGS: There are no areas of susceptibility weighted artifact to suggest abnormal hemosiderin deposition or mineralization. No areas of restricted diffusion to suggest acute or subacute ischemia. Th ere is mild bilateral white matter disease. There is no mass, mass effect, or midline shift. There are no abnormal extra-axial fluid collections. The ventricles are appropriate in si ze and configuration. The major intracranial flow voids are visualized. The mastoid air ce lls are clear. Small amount of mucosal thickening is present in the right maxillary sinus a nd a few ethmoid air cells. The globes and retroconal contents are intact and are unremarka ble. The posterior nasopharyngeal and oropharyngeal soft tissues are unremarkable. The sca lp and skull are intact and are unremarkable. No evidence for acute or subacute ischemia. Mild white matter disease which is typically ch ronic microvascular ischemic change in this age group. Dictated and Signed by: Burton sargent MD Electronically signed: 09/11/2019 2:31 PM Mri Cervical Spine Wo Contrast Result Date: 09/11/2019 EXAM: MRI CERVICAL SPINE WO CONTRAST dated 09/11/2019 8:52 AM. HISTORY: Neck trauma, focal n euro deficit or paresthesia (Age < 64y) COMPARISON: CT dated 09/11/2019. TECHNIQUE: Multipla chela multisequence MR imaging of the cervical spine without contrast. This is performed on a 3 Adore magnet. FINDINGS: There is motion degradation. There is diffuse heterogeneity thro ughout the marrow. This is likely age-related. There is a hemangioma in T4. There is fusi on at the C4-C5 disc level and probably the facets. There is diffuse disc desiccation and d isc space narrowing. There are Modic type I endplate changes at C2-C3, C3-C4, and probably C6-C7. No compression deformities. The cord has normal size throughout its visible course. Limited evaluation of the posterior fossa contents is unremarkable. No precervical soft t issue thickening. The following levels are evaluated in the axial plane: C2-C3: There is ret rolisthesis. There is posterior disc protrusion. There is anterior and posterior ligamento us hypertrophy. This results in narrowing of the central spinal canal with contouring of th e cord and some questionable cord signal alteration. There are facet and uncinate degenerat jose changes. Mild neural foraminal narrowing bilaterally. C3-C4: Retrolisthesis. Posterior disc and osteophyte. Posterior ligamentous hypertrophy. There is narrowing of the central spinal canal without cord contouring. Facet and uncinate degenerative changes bilaterally. Moderate to severe left and moderate right neural foraminal narrowing. C4-C5: Posterior os teophytes. Mild narrowing of the central spinal canal. Facet and uncinate degenerative cobos ges. Mild to moderate left and mild right neural foraminal narrowing. C5-C6: Posterior disc osteophyte. Mild posterior ligament hypertrophy. Mild contouring of the cord. No cord si gnal alteration. Facet and uncinate degenerative changes bilaterally. Moderate to severe r ight and [id number]-[id number] left neural foraminal narrowing. C6-C7: Posterior disc and osteoph yte. Facet and uncinate degenerative changes bilaterally. Mild to moderate bilateral neura l foraminal narrowing. C7-T1: No significant spinal canal stenosis or neural foraminal narro wing. Small posterior disc protrusion at T1-T2. No significant compromise of the central sp inal canal. Bilateral neural foraminal narrowing. No evidence for an acute soft tissue or ligamentous injury. There is multilevel cervical sp ondylosis and spondylolisthesis. Central spinal canal narrowing most significantly affects C 2-C3. This is secondary to disc disease and both anterior and posterior ligamentous hypertr ophy. There is cord contouring that appears to be associated with a small amount of cord si gnal alteration. There is multilevel neural foraminal narrowing. This most significantly af fects the left side at C3-C4 and the right side at C5-C6 where the narrowing is moderate to severe. Additional spondylosis, as above. Dictated and Signed by: Burton Pascal MD Elect ronically signed: 09/11/2019 2:10 PM Reference. This is NOT part of the patient's formal assessment section. In the assessment or plan section of notes the author may date some of the subsections with a number such as "23" or "23" to indicate the date of that entry or event. In the example below the 1st line is the original entry and the subsequent lines indicate flowing updates to the subsection: Example assessment subsection (such as CHF or CP or Pneumonia) 23 Patient is improved today with resolution of symptom 24th Worse with recurrence of symptoms requiring further testing Portions of this chart may have been created with [employer] voice recognition software. Occasi onal wrong-word or sound-alike substitutions may have occurred due to the inherent bateman itations of voice recognition software. Please read the chart carefully and recognize, using context, where these substitutions have occurred. documented in this en counter Plan of Treatment +--------+---------+ + + + | Date | Type | Specialty | Care Team | Description | +--------+---------+ + + + | 10/08/ | Office | Neurosurgery | Luis M Muir | | | 2019 | Visit | | MD Nancy [address] | | | | | | [address] [place] | | | | | | [place] [address] | | | | | | [phone] | | | | | | | | +--------+---------+ + + + + +------+--------+ + + | Name | Type | Priori | Associated Diagnoses | Order Schedule | | | | ty | | | + +------+--------+ + + | DME: Walker | DME | Routin | Cervical spinal | DME 1 Time for 1 | | | | e | cord compression | Occurrences starting | | | | | ([facility]) Cervical | 09/13/2019 until | | | | | spinal stenosis | 09/13/2019 | | | | | Abnormal gait | | + +------+--------+ + + + + +--------+ + + | Name | Type | Priori | Associated Diagnoses | Order Schedule | | | | ty | | | + + +--------+ + + | AMB REFERRAL TO [facility] | Outpatient | Routin | Cervical spinal | Ordered: 09/14/2019 | | [facility] | Referral | e | stenosis | | + + +--------+ + + [...] + + documented in this encounter Results Basic Metabolic Panel (09/14/2019 4:30 AM PST) + + + + + [...] [facility] | | | | | | [facility] [...] 17 | 9 - 23 mg/dL | [facility] | | [facility] | | | | | [facility] - | | | | | | LABORATORY | | + + + + + + | Creatinine | 0.90 | 0.70 - 1.30 | [facility] | | | | | [...] | mL/min/1.73m2 | [facility] | | | [facility] | RATE,ESTIMATED | | MEDICAL | | | | mL/min/[id number] than | | CENTER - | | [...] | | ine Ratio | | | [facility] | | [...] [address] | [place] | [phone] | | [facility] | | [id number] | | | - LABORATORY | | | | + + + + + CBC no Differential (09/14/2019 4:30 AM PST) + + + + + [...] | | | | | M/uL | [facility] | | | | [...] | | | | WBCs | [facility] | | | | | | [facility]ICAL | | | | | | C[facility] - | | | | | | LABORATORY | | + + + + + + | Absolute | 0.00 | 0.00 - 0.01 | [facility] | | | nRBC | | K/uL | [facility] | | | | [...] + | [facility] | [address] | [place] | [phone] | | [facility] | | [id number] | | | - LABORATORY | | | | + + + + + Basic Metabolic Panel (09/13/2019 4:53 AM PST) + + + + + [...] + + + + | K | 3.8 | 3.4 - 5.1 | [facility] | | | | | mmol/L | [facility] | | | | | [facility] | | | | | | [facility] - | | | | | | LABORATORY | | + + + + + + | Cl | 102 | 98 - 107 mmol/L | [facility] | | | | | [facility] | | | | | | [facility] | | | | | | [facility] - | | | | | | LABORATORY | | + + + + + + | Glucose | 104 | 60 - 106 mg/dL | [facility] | | | | | | [facility] | | | | [facility] | [facility] - | | | | | | LABORATORY | | + + + + + + | BUN | 20 | 9 - 23 mg/dL | [facility] | | | | | | [facility] | | [facility] | [facility] | [facility] | [facility] - | | | | | | LABORATORY | | + + + + + + | Creatinine | 0.92 | 0.70 - 1.30 | [facility] | | | | | mg/dL | [facility] | | | | | | [facility] | | | | | | C[facility] - | | | | | | LABORATORY | | + + + + + + | eGFR if not | >60Comment: GLOMERULAR | >=60 | [facility] | | | | FILTRATION | mL/min/1.73m2 | [facility] | | | BHUT[place]ESE | RATE,ESTIMATED | | MEDICAL | | | | mL/min/1.57j1Dpwn than | | CENTER - | | [...] + + + + | BUN/Creatin | 21.7 | | [facility] | | | ine Ratio | | | [facility] | | [...] ST. | [address] | [place], [place] | [phone] | | [facility] | | [address] | | | - LABORATORY | | | | + + + + + CBC no Differential (09/13/2019 4:53 AM PST) + + + + + + | Component | Value | Ref Range | Performed | Pathologist | | | | | At | Signature | + + + + + + | WBC | 7.0 | 4.0 - 11.0 K/uL | [facility] | | | | | | [facility] | [facility] | | | | | | [facility] - | | | | | | LABORATORY | | + + + + + + | RBC | 4.64 | 4.30 - 5.70 | [facility] | | | | | M/uL | [facility] | | | [facility] | | [facility] | | | | | | [facility] - | | | | | | LABORATORY | | + + + + + + | Hemoglobin | 13.4 (L) | 13.5 - 18.0 | [facility] | | | | | g/dL | [facility] | | | | | | [facility] | | | | | | CENTER - | | | | | | LABORATORY | | + + + + + + | Hematocrit | 39.3 (L) | 40.0 - 51.0 % | [facility] | | | | | | [facility] | | | | | | [facility] | | | | | | [facility] - | | | | | | LABORATORY | | + + + + + + | MCV | 84.7 | 83.0 - 101.0 fL | [facility] | | | | | | [facility] | [facility] | [facility] | | | | | | [facility] - | | | | | | LABORATORY | | + + + + + + | MCH | 28.9 | 28.0 - 35.0 pg | [facility] | | | | | | [facility] | | [facility] | [facility] | | | | | | [facility] - | | | | | | LABORATORY | | + + + + + + | MCHC | 34.1 | 32.0 - 36.0 | [facility] | | | | | g/dL | [facility] | | | | | | [facility] | | | | | | CENTER - | | | | | | LABORATORY | | + + + + + + | RDW-CV | 12.8 | <15.0 % | [facility] | | | | | | [facility] | | [facility] | [facility] | | | | | | [facility] - | | | | | | LABORATORY | | + + + + + + | RDW-SD | 39.2 | 35.1 - 46.3 fL | [facility] | | | | | | [facility] | | [facility] | | [facility] | | | | | | [facility]ENTER - | | | | | | LABORATORY | | + + + + + + | Platelet | 359 | 140 - 440 K/uL | [facility] | | | Count | | | [facility] | | | | | | [facility] | | | | | | CENTER - | | | | | | LABORATORY | | + + + + + + | MPV | 9.4 | 6.5 - 12.4 fL | [facility] [...] | nRBC | | K/uL | [facility] | | | | [...] | + + + + + | [facility] | [address] | [place] | [phone] | | [facility] | | [address] | | | - LABORATORY | | | | + + + + + Protime INR (09/12/2019 4:37 AM PST) + + + + + + | Component | Value | Ref Range | Performed | Pathologist | | | | | At | Signature | + + + + + + | Prothrombin | 15.6 (H) | 11.3 - 13.9 | [facility] | | | Time | | seconds | [facility] | | | | | | [facility]ICAL | | | | | | CENTER - | | | | | | LABORATORY | | + + + + + + | INR | 1.2 (H)Comment: Usual | 0.9 - 1.1 | [facility] | | | | Oral Anticoagulation | | [facility] | | | | Range: 2.0 [address] | [place] | [phone] | | [facility] | | [address] | | | - LABORATORY | | | | + + + + + Magnesium (09/12/2019 4:37 AM PST) + +-------+ + + + | Component | Value | Ref Range | Performed | Pathologist | | | | | At | Signature | + +-------+ + + + | Magnesium | 1.9 | 1.6 - 2.6 mg/dL | [facility] | | | | [...] + | [facility] | [address] | [place] | [phone] | | [facility] | | [address] | | | - LABORATORY | | | | + + + + + Comprehensive Metabolic Panel (09/12/2019 4:37 AM PST) + + + + + + | Component | Value | Ref Range | Performed | Pathologist | | | | | At | Signature | + + + + + + | Na | 134 (L) | 136 - 145 | [facility] | | | | | mmol/L | [facility] | [facility] | | | | [facility] | [facility] - | | | | | | LABORATORY | | + + + + + + | K | 3.9 | 3.4 - 5.1 | [facility] | | | | | mmol/L | [facility] | | | | [...] 20 | 9 - 23 mg/dL | [facility] | | | | | [facility] | | [facility] | | | | | | [facility] - | | | | | | LABORATORY | | + + + + + + | Creatinine | 0.91 | 0.70 - 1.30 | [facility] | | | | | mg/dL | [facility] | | | | | | MEDICAL | | | | | | CENTER - | | | | | | LABORATORY | | + + + + + + | eGFR if not | >60Comment: GLOMERULAR | >=60 | [facility] | | | | FILTRATION | mL/min/1.73m2 | [facility] | | | [place] | RATE,ESTIMATED | | MEDICAL | | | | mL/min/1.01a0Kkjv than | | CENTER - | | [...] 4.0 | 3.2 - 4.8 g/dL | [facility] | | | | | | [facility] | | | | | | MEDICAL | | | | | | CENTER - | | | | | | LABORATORY | | + + + + + + | Bilirubin | 1.5 (H) | 0.3 - 1.2 mg/dL | [facility] | | | Total | | | [facility] | | [...] [address] | [place] | [phone] | | [facility] | | [address] | | | - LABORATORY | | | | + + + + + CBC with Differential (09/12/2019 4:37 AM PST) + + + + + + | Component | Value | Ref Range | Performed | Pathologist | | | | | At | Signature | + + + + + + | WBC | 8.9 | 4.0 - 11.0 K/uL | [facility] | | | | | | [facility] | | | | | | [facility] - | | | | | | LABORATORY | | + + + + + + | RBC | 4.82 | 4.30 - 5.70 | [facility] | | | | | M/uL | [facility] | | | | | | [facility] | | | | | | CENTER - | | | | | | LABORATORY | | + + + + + + | Hemoglobin | 13.7 | 13.5 - 18.0 | [facility] | | | | | g/dL | [facility] | | | | | | [...] | | Monocytes | | K/uL | [facility] | | | | | | MEDICAL | | | | | | CENTER - | | | | | | LABORATORY | | + + + + + + | Absolute | 0.07 | 0.00 - 0.40 | [facility] | | | Eosinophils | | K/uL | [facility] | | | | | | MEDICAL | | | | | | CENTER - | | | | | | LABORATORY | | + + + + + + | Absolute | 0.03 | 0.00 - 0.10 | [facility] | | | Basophils | | K/uL | [facility] | | | | | | MEDICAL | | | | | | CENTER - | | | | | | LABORATORY | | + + + + + + | Absolute | 0.04 (H) | 0.00 - 0.03 | [facility] | | | Immature | | K/uL | [facility] | | | Granulocyte | | | [...] + | [facility] | [address] | [place] | [phone] | | [facility] | | [address] | | | - LABORATORY | | [...] [facility] | | | | | | [facility] [...] | | | Result | | | [facility] | [facility] | | [facility] | | | | | | CENTER - | | | | | | LABORATORY | | + + + + + + | Gram Stain | 2+ Epithelial cells | | [facility] | | | Result | | | [facility] | | | | | [facility] | | | | | | CENTER - | | | | | | LABORATORY | | + + + + + + | Gram Stain | 4+ Gram positive cocci | | [facility] | | | Result | | | [facility] | | [...] | [address] | [place] | [phone] | | [facility] | | [address] | | | - LABORATORY | | [...] + + | Performed at: 01 - [facility] [address], | REFERENCE LAB | | [place], [place] [id number] Jinrikisha Driver: Nelson Mehta MD, Phone: | [facility] | | [phone] | | + + + + + + + + | Performing | Address | City/State/Zipcode | Phone Number | | Organization | | | | + + + + + | REFERENCE LAB | [address] | [place] [address] | [phone] | | [facility] | Drive [...] + + | Please note | CommentComment: Marily | | REFERENCE | | | | of [place] [employer] | | LAB [facility] | | | | standards require a | | - [facility] | | | | culture to beperformed | | | | | | on CSF specimens | | | | | | submitted for bacterial | | | | | | antigen testing.(CAP | | | | | | [id number]) Urine | | | | | | [...] + + | Performed at: 01 - [facility] [address], | REFERENCE LAB | | [place], [place] [id number] Jinrikisha Driver: Marli Fortune MD, Phone: | [facility] | | [phone] | | + + + + + + + + | Performing | Address | City/State/Zipcode | Phone Number | | Organization | | | | + + + + + | REFERENCE LAB | [address] | [place] [address] | [phone] | | [facility] | Drive [facility] | | | + + + [...] | bilaterally. Moderate to severe right and pduq-di-hqylfajp left | | | neural foraminal narrowing. [...] Moderate to | | severe right and jgtg-xz-nnxrsbkxvwum neural foraminal narrowing.C6-C7: Posterior disc | | [...] changes bilaterally. Moderate to severe right and ufeb-kc-gzovautb | |left neural foraminal narrowing. | | [...] is | | | preservation of the pichardo-white differentiation at this time. There | | [...] | aircollections. There is preservation of the pichardo-white differentiation at thistime. | | There are [...] is | | | preservation of the pichardo-white differentiation at this time. There | | [...] | aircollections. There is preservation of the pichardo-white differentiation at thistime. | | There are [...] + + Culture, Blood (09/11/2019 10:24 AM PST) + + + + + + | Component | Value | Ref Range | Performed | Pathologist | | | | | At | Signature | + + + + + + | Culture | No growth after 5 days | | [facility] | | | | incubation. | | [facility] | | | [...] [address] | [place] | [phone] | | [facility] | | [address] | | | - LABORATORY | | [...] [facility] | | | | | | ST. [...] + | [facility] | [address] | [place] | [phone] | | [facility] | | [address] | | | - LABORATORY | | [...] | | | | | | [employer] | | | | | [...] + | [facility] | [address] | [place] | [phone] | | [facility] | | [address] | | | - LABORATORY | | | | + + + + + Phosphorus (09/11/2019 10:01 AM PST) + +-------+ + + + | Component | Value | Ref Range | Performed | Pathologist | | | | | At | Signature | + +-------+ + + + | Phosphorus | 3.7 | 2.4 - 5.1 mg/dL | [facility] | | | | | | [facility] [...] [address] | [place] | [phone] | | [facility] | | [address] | | | - LABORATORY | | | | + + + + + Magnesium (09/11/2019 10:01 AM PST) + +-------+ + + + | Component | Value | Ref Range | Performed | Pathologist | | | | | At | Signature | + +-------+ + + + | Magnesium | 2.0 | 1.6 - 2.6 mg/dL | [facility] | | | | | | [facility] | [address] | [place], [place] | [phone] | | [facility] | | [address] | | | - LABORATORY | | [...] | | | | ng/mL:Procalcitonin | | [facility] | | | | levels below [...] + | [facility] | [address] | [place] | [phone] | | [facility] | | [address] | | | - LABORATORY | | | | + + + + + Culture, Blood (09/11/2019 10:01 AM PST) + + + + + + | Component | Value | Ref Range | Performed | Pathologist | | | | | At | Signature | + + + + + + | Culture | No growth after 5 days | | [facility] | | | | incubation. | | [facility] | | | | | | [facility] | | | | | | CENTER - | | | | | | LABORATORY | | + + + + + + + + | Specimen | + + | Blood - Swab of line | | insertion site | | (specimen) | + + + + + + + | Performing | Address | City/State/Zipcode | Phone Number | | Organization | | | | + + + + + | [facility] | [address] | [place], [place] | [phone] | | [facility] | | [address] | | | - LABORATORY | | [...] + | [facility] | [address] | [place] | [phone] | | [facility] | | [address] | | | - LABORATORY | | | | + + + + + Protime INR (09/11/2019 10:01 AM PST) + + + + + + | Component | Value | Ref Range | Performed | Pathologist | | | | | At | Signature | + + + + + + | Prothrombin | 14.9 (H) | 11.3 - 13.9 | [facility] | | | Time | | seconds | [facility] | | | | | | MEDICAL | | | | | | CENTER - | | | | | | LABORATORY | | + + + + + + | INR | 1.2 (H)Comment: Usual | 0.9 - 1.1 | [facility] | | | | Oral Anticoagulation | | [facility] | | | | Range: 2.0 - [...] [address] | [place] | [phone] | | [facility] | | [address] | | | - LABORATORY | | | | + + + + + Comprehensive Metabolic Panel (09/11/2019 10:01 AM PST) + + + + + + | Component | Value | Ref Range | Performed | Pathologist | | | | | At | Signature | + + + + + + | Na | 136 | 136 - 145 | [facility] | | | | | mmol/L | [facility] | | | | | | MEDICAL | | | | | | CENTER - | | | | | | LABORATORY | | + + + + + + | K | 4.1 | 3.4 - 5.1 | [facility] | | | | | mmol/L | [facility] | | | | | | MEDICAL | | | | | | CENTER - | | | | | | LABORATORY | | + + + + + + | Cl | 100 | 98 - 107 mmol/L | [facility] [...] + + + | Anion Gap | 10 | 3 - 16 mmol/L | [facility] | | | | | | [facility] | | | | | | [facility]ICAL | | | | | | CENTER - | | | | | | LABORATORY | | + + + + + + | Glucose | 119 (H) | 60 - 106 mg/dL | [facility] | | | | | | [facility] | | | | | | [facility]ICAL | | | | | | CENTER - | | | | | | LABORATORY | | + + + + + + | BUN | 15 | 9 - 23 mg/dL | [facility] | | | | | | [facility] | | | | | | [facility] | | | | | | CENTER - | | | | | | LABORATORY | | + + + + + + | Creatinine | 1.03 | 0.70 - 1.30 | [facility] | | | | | mg/dL | [facility] | | | | | | MEDICAL | | | | | | CENTER - | | | | | | LABORATORY | | + + + + + + | eGFR if not | >60Comment: GLOMERULAR | >=60 | [facility] | | | | FILTRATION | mL/min/1.73m2 | [facility] | | | BHUT[place]ESE | RATE,ESTIMATED | | MEDICAL | | | | mL/min/1.86h4Lojq than | | CENTER - | | [...] + + + + | Calcium | 9.5 | 8.7 - 10.4 | [facility] | | | | | mg/dL | [facility] | | | | | | MEDICAL | | | | | | CENTER - | | | | | | LABORATORY | | + + + + + + | Albumin | 4.6 | 3.2 - 4.8 g/dL | [facility] | | | | | | [facility] | | | | | | MEDICAL | | | | | | CENTER - | | | | | | LABORATORY | | + + + + + + | Bilirubin | 2.2 (H) | 0.3 - 1.2 mg/dL | [facility] | | | Total | | | [facility] | | | | | | MEDICAL | | | | | | CENTER - | | | | | | LABORATORY | | + + + + + + | Total | 7.3 | 5.7 - 8.2 g/dL | [facility] | | | Protein | | | [facility] | | | | | | MEDICAL | | | | | | CENTER - | | | | | | LABORATORY | | + + + + + + | AST | 13 | 0 - 34 U/L | [facility] | | | | | | [facility] | | | | | | [facility]ICAL | | | | | | CENTER - | | | | | | LABORATORY | | + + + + + + | ALT | 10 | 10 - 49 U/L | [facility] | | | | | | [facility] | | | | | | MEDICAL | | | | | | CENTER - | | | | | | LABORATORY | | + + + + + + | Alkaline | 62 | 46 - 116 U/L | [facility] | | | Phosphatase | | | [facility] | | | | | | MEDICAL | | | | | | CENTER - | | | | | | LABORATORY | | + + + + + + | Globulin | 2.7 | 2.1 - 3.8 g/dL | [facility] | | | | | | [facility] | | | | | | MEDICAL | | | | | | CENTER - | | | | | | LABORATORY | | + + + + + + | Albumin/Rosie | 1.7 | 0.8 - 1.9 | [facility] | | | bulin Ratio | | | [facility] | | | | | | [facility]ICAL | | | | | | CENTER - | | | | | | LABORATORY | | + + + + + + | BUN/Creatin | 14.6 | | [facility] | | | ine [...] [address] | [place] | [phone] | | [facility] | | [address] | | | - LABORATORY | | | | + + + + + CBC with Differential (09/11/2019 10:01 AM PST) + + + + + + | Component | Value | Ref Range | Performed | Pathologist | | | | | At | Signature | + + + + + + | WBC | 10.6 | 4.0 - 11.0 K/uL | [facility] | | | | | [facility] | | [facility] | | | | | | [facility] - | | | | | | LABORATORY | | + + + + + + | RBC | 5.21 | 4.30 - 5.70 | [facility] | | | | | M/uL | [facility] | | | | | | MEDICAL | | | | | | CENTER - | | | | | | LABORATORY | | + + + + + + | Hemoglobin | 14.7 | 13.5 - 18.0 | [facility] | | | | | g/dL | [facility] | | | | | | MEDICAL | | | | | | CENTER - | | | | | | LABORATORY | | + + + + + + | Hematocrit | 44.2 | 40.0 - 51.0 % | [facility] | | | | | | [facility] | | | | | | MEDICAL | | | | | | CENTER - | | | | | | LABORATORY | | + + + + + + | MCV | 84.8 | 83.0 - 101.0 fL | [facility] | | | | | | [facility] | | | | | | [facility] | | | | | | CENTER - | | | | | | LABORATORY | | + + + + + + | MCH | 28.2 | 28.0 - 35.0 pg | [facility] | | | | | | [facility] | | | | | | [facility]ICAL | | | | | | CENTER - | | | | | | LABORATORY | | + + + + + + | MCHC | 33.3 | 32.0 - 36.0 | [facility] | | | | | g/dL | [facility] | | | | | | MEDICAL | | | | | | CENTER - | | | | | | LABORATORY | | + + + + + + | RDW-CV | 13.0 | <15.0 % | [facility] | | | | | | [facility] | | | | | | MEDICAL | | | | | | CENTER - | | | | | | LABORATORY | | + + + + + + | RDW-SD | 40.1 | 35.1 - 46.3 fL | [facility] | | | | | | [facility] | [facility] | [facility] | | | | | | [facility] - | | | | | | LABORATORY | | + + + + + + | Platelet | 335 | 140 - 440 K/uL | [facility] [...] + + + + | % | 70.7 | 45.0 - 82.0 % | [facility] | | | Neutrophils | | | [facility] | | | | | | MEDICAL | | | | | | CENTER - | | | | | | LABORATORY | | + + + + + + | % | 12.7 (L) | 20.0 - 45.0 % | [facility] | | | Lymphocytes | | | [facility] | | | | | | MEDICAL | | | | | | CENTER - | | | | | | LABORATORY | | + + + + + + | % Monocytes | 15.6 (H) | 4.0 - 12.0 % | [facility] | | | | | | [facility] | | | | | | MEDICAL | | | | | | CENTER - | | | | | | LABORATORY | | + + + + + + | % | 0.2 | 0.0 - 5.0 % | [facility] | | | Eosinophils | | | [facility] | | | | | | MEDICAL | | | | | | CENTER - | | | | | | LABORATORY | | + + + + + + | % Basophils | 0.5 | 0.0 - 1.0 % | [facility] | | | | | | [facility] | | | | | | MEDICAL | | | | | | CENTER - | | | | | | LABORATORY | | + + + + + + | % Immature | 0.3 | 0.0 - 0.4 % | [facility] | | | Granulocyte | | | [facility] | | | s | | | MEDICAL | | | | | | CENTER - | | | | | | LABORATORY | | + + + + + + | Absolute | 7.51 | 1.80 - 8.50 | [facility] | | | Neutrophils | | K/uL | [facility] | | | | | | MEDICAL | | | | | | CENTER - | | | | | | LABORATORY | | + + + + + + | Absolute | 1.35 | 0.60 - 3.20 | [facility] | | | Lymphocytes | | K/uL | [facility] | | | | | | MEDICAL | | | | | | CENTER - | | | | | | LABORATORY | | + + + + + + | Absolute | 1.66 (H) | 0.00 - 1.00 | [facility] | | | Monocytes | | K/uL | [facility] | | | | | | MEDICAL | | | | | | CENTER - | | | | | | LABORATORY | | + + + + + + | Absolute | 0.02 | 0.00 - 0.40 | [facility] | | | Eosinophils | | K/uL | [facility] | | | | | | MEDICAL | | | | | | CENTER - | | | | | | LABORATORY | | + + + + + + | Absolute | 0.05 | 0.00 - 0.10 | [facility] | | | Basophils | | K/uL | [facility] | | | | | | MEDICAL | | | | | | CENTER - | | | | | | LABORATORY | | + + + + + + | Absolute | 0.03 | 0.00 - 0.03 | [facility] | | | Immature | | K/uL | [facility] | | | Granulocyte | | | MEDICAL | | | s | | | CENTER - | | | | | | LABORATORY | | + + + + + + | % nRBC | 0 | 0 - 2 per 100 | [facility] | | | | | WBCs | [facility] | | | | | | MEDICAL | | | | | | CENTER - | | | | | | LABORATORY | | + + + + + + | Absolute | 0.00 | 0.00 - 0.01 | [facility] | | | nRBC | | K/uL | [facility] | | | | [...] ST. | [address] | [place] | [phone] | | [facility] | | [address] | | | - LABORATORY | | | | + + + + + documented in this encounter Visit Diagnoses + + | Diagnosis | + + | Pneumonia - Primary Pneumonia, organism unspecified | + + | Pneumonia of right lung due to infectious organism, unspecified part of lung | + + | Shortness of breath | + + | Acute respiratory failure with hypoxia (HCC) Acute respiratory failure | + + | Weakness of right hand Muscle weakness (generalized) | + + | Right leg weakness Other musculoskeletal symptoms referable to limbs | + + | Cervical spinal cord compression (HCC) Unspecified disease of spinal cord | + + | Cervical spinal stenosis Spinal stenosis in cervical region | + + | Abnormal gait Abnormality of gait | + + documented in this encounter Administered Medications + +--------+ +--------+------+------+ | Medication Order | MAR | Action | Dose | Rate | Site | | | Action | Date | | | | + +--------+ +--------+------+------+ | acetaminophen (TYLENOL) tablet | Given | 09/14/20 | 650 mg | | | | 650 mg 650 mg, Oral, EVERY 4 | | 19 10:00 | | | | | HOURS PRN, Pain, or fever >= 38.6 | | AM PST | | | | | C (101.5 F), Starting Sat | | | | | | | 09/11/19 at 1728 | | | | | | + +--------+ +--------+------+------+ +---+---+ | | | +---+---+ + +-------+ +--------+---+---+ | azithromycin (ZITHROMAX) tablet | Given | 09/14/20 | 500 mg | | | | 500 mg 500 mg, Oral, DAILY, | | 19 8:10 | | | | | First dose on 09/12/19 at | | AM PST | | | | | 0900, Indications: Community | | | | | | | Acquired Pneumonia | | | | | | + +-------+ +--------+---+---+ +-------+ +--------+---+---+ | Given | 09/13/20 | 500 mg | | | | | 19 10:05 | | | | | | AM PST | | | | +-------+ +--------+---+---+ | Given | 09/12/20 | 500 mg | | | | | 19 9:30 | | | | | | AM PST | | | | +-------+ +--------+---+---+ +---+---+ | | | +---+---+ + +---------+ +-----+-------+---+ | cefTRIAXone (ROCEPHIN) 1 g in | New Bag | 09/14/20 | 1 g | 100 | | | sodium chloride 0.9% 50 mL IVPB | | 19 8:10 | | mL/hr | | | 1 g, Intravenous, Administer over | | AM PST | | | | | 30 Minutes, EVERY 24 HOURS | | | | | | | (Daily), First dose on Sun | | | | | | | 09/12/19 at 0900, Activate system | | | | | | | and mix before use., | | | | | | | Indications: Community Acquired | | | | | | | Pneumonia | | | | | | + +---------+ +-----+-------+---+ +---------+ +-----+-------+---+ | New Bag | 09/13/20 | 1 g | 100 | | | | 19 10:03 | | mL/hr | | | | AM PST | | | | +---------+ +-----+-------+---+ | New Bag | 09/12/20 | 1 g | 100 | | | | 19 9:29 | | mL/hr | | | | AM PST | | | | +---------+ +-----+-------+---+ +---+---+ | | | +---+---+ + +-------+ +-------+---+ + | enoxaparin (LOVENOX) 40 mg/0.4 | Given | 09/14/20 | 40 mg | | Abdomen- | | mL injection 40 mg 40 mg, | | 19 8:10 | | | RUQ | | Subcutaneous, EVERY 24 HOURS | | AM PST | | | | | (Daily), First dose on Mon | | | | | | | 09/13/19 at 0900 | | | | | | + +-------+ +-------+---+ + +-------+ +-------+---+ + | Given | 09/13/20 | 40 mg | | Abdomen- | | | 19 10:05 | | | RLQ | | | AM PST | | | | +-------+ +-------+---+ + +---+---+ | | | +---+---+ + +-------+ +--------+---+ + | heparin 5,000 units/mL | Given | 09/12/20 | 5,000 | | Abdomen- | | injection 5,000 Units 5,000 | | 19 9:24 | Units | | LLQ | | Units, Subcutaneous, EVERY 12 | | PM PST | | | | | HOURS (2 times per day), First | | | | | | | dose on 09/11/19 at 2100, For | | | | | | | 4 doses | | | | | | + +-------+ +--------+---+ + +-------+ +--------+---+ + | Given | 09/12/20 | 5,000 | | Abdomen- | | | 19 9:30 | Units | | RLQ | | | AM PST | | | | +-------+ +--------+---+ + | Given | 09/11/20 | 5,000 | | Abdomen- | | | 19 8:04 | Units | | LLQ | | | PM PST | | | | +-------+ +--------+---+ + +---+---+ | | | +---+---+ + +---------+ +--------+-------+---+ | levoFLOXacin in dextrose | New Bag | 09/11/20 | 750 mg | 100 | | | (LEVAQUIN) IVPB 750 mg 750 mg, | | 19 3:30 | | mL/hr | | | Intravenous, Administer over 90 | | PM PST | | | | | Minutes, ONCE, 09/11/19 at | | | | | | | 1420, For 1 dose, Indications: | | | | | | | Pneumonia | | | | | | + +---------+ +--------+-------+---+ +---+---+ | | | +---+---+ + +-------+ +------+---+---+ | melatonin tablet 3 mg 3 mg, | Given | 09/12/20 | 3 mg | | | | Oral, NIGHTLY PRN, Insomnia, | | 19 3:25 | | | | | Starting 09/11/19 at 1728 | | AM PST | | | | + +-------+ +------+---+---+ +---+---+ | | | +---+---+ documented in this encounter
--- OUTSIDE RECORDS SUMMARY | ~2019-10-08 | XMS | Encounter Summary ---
Demographics + + + | Address | [address] | | | [place] [address] | + + + | Home Phone | | + + + | Preferred Language | Unknown | + + + | Marital Status | | + + + | Religion Affiliation | NON | + + + | Race | White | + + + | Ethnic Group | Not or | + + + Author + + + | Author | [facility] | + + + | Organization | [facility] | + + + | [...] Team Providers + +------+ + | Care Mapper Name | Role | Phone | + +------+ + | Judit Booth MD | PCP | | + +------+ + Reason for Visit +---------+ + | Reason | Comments | +---------+ + | Post Op | | +---------+ + PROC - Inpatient Surgery (Routine) +--------+--------+ + [...] | | | | | hip | [address] | [address] [place], | | | | | Procedures | [place], [place] | [place] | | | | | REQUEST TO | [address] | [address] | | | | | SURGERY | Phone: | Phone: | | | | | COMBINATION MACHINE TENDER | [phone] | [phone] | | | | | CT TOTAL HIP | Fax: | Fax: | | | | | | [phone] | [phone] | | | | | ARTHROPLASTY | | | +--------+--------+ + + + + Encounter Details +--------+---------+ + + + | Date | Type | Department | Care Team | Description | +--------+---------+ + + + | 11/14/ | Office | Orthopaedics at | Sina May, | Right hip pain | | 2016 | Visit | [facility] [address] | PA-C [address] | (Primary Dx); S/P | | | | Ave Mailcode: CH12A | Ave [address] | total hip | | | | [facility] | [place], [place] | arthroplasty | | | | and Healing, | [address] | | | | | [facility] | [phone] | | | | | Floor [place], [place] | | | | | | [address] | | | | | | [phone] | | | +--------+---------+ + + + [...] + + + | Blood Pressure | - | - | | + + + + + | Pulse | - | - | | + [...] + documented in this encounter Progress Notes Dave May PA-C - 11/14/2015 11:30 AM PST 1. OPERATION RECORD [[id number]] ordered by Jacky Borjas MD at 10/02/15 1200 Expand All Collapse All Date of Service: 10/02/2015 Attending Surgeon: Jacky Borjas MD Thoracic Surgeon(s): Steven Rawls MD. Preoperative Diagnosis: Right hip osteoarthritis. Postoperative Diagnosis: Right hip osteoarthritis. Procedures: 1. Right total hip arthroplasty. 2. Incisional wound VAC dressing placement. Kobi Baumann is a 75 y.o. male who is 6 weeks s/p R JALIL. He is doing well and wor davidson on exercises and ambulation. No fevers or chills. Patient is icing and elevating. He was unable to make his 2wk follow up visit due to being hospitalized for a UTI presumed to be caused by his catheterization during the hospital stay for his JALIL surgery. He lives in [place], [place] and due to the distance and hospitalization was unable to make it here. He pr esents for his first postop visit today with xrays of his hip and states he is doing well wi th ambulation and exercising on his own. He did not have PT arranged following discharge fr om the hospital. His pain is minimal, he feels he is getting stronger and has no specific c oncerns about the surgery outcome. PE: Well-appearing. Ambulates with slight antalgia without assistive device Scar is well healed Minimal tenderness Active knee extension, DF, PF intact Sensation intact No distal leg edema or calf tenderness Distal CMS intact XR: AP pelvis and lateral hip demonstrate R JALIL components in good position and alignment w ith no evidence of component subsidence or loosening A: Doing well 6 week s/p JALIL P: Continue walking increasing distance as tolerated I reviewed use of antibiotics x 2 yrs postop for dental and other invasive procedures His recent UTI was also a discussion point; if he has another UTI or other infection he ne eds to be treated FERNY and should notify his doctor. We can provide ABX prophyaxis for proc edures AP pelvis and 2v hip at next visit at 1 yr surgery anniversary All questions were answered and the patient was advised to contact our office with any further concerns. documented in thi s encounter Plan of Treatment Not on filedocumented as of this encounter Results X-RAY HIP 2 VIEWS RIGHT W/ PELVIS 1 VIEW (11/14/2015 10:38 AM PST) + + + + + + | Component | Value | Ref Range | Performed | Pathologist | | | | | At | Signature | + + + + + + | X-RAY HIP 2 | STUDY: HIP 2 VIEWS RIGHT | | | | | VIEWS | W/ PELVIS 1 VIEW | | | | | RIGHT W/ | 11/14/15 10:38:00 | | | | | PELVIS 1 | COMPARISON: 10/02/15 | | | | | VIEW | HISTORY: Right hip pain. | | | | | | FINDINGS: AP pelvis and | | | | | | AP and frog-leg lateral | | | | | | views of the right hip | | | | | | demonstrate acementless | | | | | | right JALIL. Hardware | | | | | | appears appropriately | | | | | | positioned | | | | | | withoutevidence of | | | | | | hardware fracture or | | | | | | periprosthetic lucency | | | | | | to suggest loosening.The | | | | | | femoral head is | | | | | | concentrically located | | | | | | within the acetabular | | | | | | component.There is | | | | | | amorphous dystrophic | | | | | | calcification noted | | | | | | along the medial aspect | | | | | | ofthe intertrochanteric | | | | | | region, new since the | | | | | | previous study and is | | | | | | suggestive ofdeveloping | | | | | | heterotopic new bone | | | | | | formation. Amorphous | | | | | | calcification is | | | | | | alsosuggested along the | | | | | | superior trochanter. | | | | | | There is no symphysis | | | | | | pubis or SI joint | | | | | | diastasis. IMPRESSION: | | | | | | 1. Status post | | | | | | cementless right JALIL | | | | | | without findings of | | | | | | hardware competition.2. 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 Attending | | | | | | [...] Final/Electronically | | | | | | sarahy / MARGARET MARIA DEL CARMEN | | | | | | 11/14/2015 10:55 AM | | | | + + + + + + + + | Specimen | + + | | + + + +---------+ + + | Performing | Address | City/State/Zipcode | Phone Number | | Organization | | | | + +---------+ + + | [facility] DEPARTMENT OF | | | | | RADIOLOGY | | | | + +---------+ + + documented in this encounter Visit Diagnoses + + | Diagnosis | + + | Right hip pain - Primary Pain in joint, pelvic region and thigh | + + | S/P total hip arthroplasty Hip joint replacement by other means | + + documented in this encounter
--- OUTSIDE RECORDS SUMMARY | ~2019-10-08 | XMS | Encounter Summary ---
Demographics + + + | Address | [address] | | | [place] [address] | + + + | Home Phone | | + + + | Preferred Language | Unknown | + + + | Marital Status | | + + + | Yazidism Affiliation | NON | + + + | Race | White | + + + | Ethnic Group | Not or | + + + Author + + + | Author | [facility] | + + + | Organization | [facility] | + + + | [...] Team Providers + +------+ + | Care Label Cutter Name | Role | Phone | + +------+ + PCP | Unavailable | + +------+ + Encounter Details +--------+ + + + + | Date | Type | Department | Care Team | Description | +--------+ + + + + | 04/03/ | Results | Health Promotion | Judit Booth MD | | | 1999 | Only | and Sports Medicine | [address] | | | | | [address] | [place], | | | | | [place] Mailcode: | [place] [address] | | | | | OP03 Outpatient | [phone] | | | | | [place] [address] | | | | | | [place], [place] | | | | | | [address] | | | | | | [phone] | | | +--------+ + + + [...] + +--------+ + + + | US AORTA | Routin | 04/03/2000 | | Results for this | | | e | 10:06 AM | | procedure are in the | | | | PDT | | results section. | + +--------+ + + + documented in this encounter Results [facility] AORTA (04/03/2000 10:06 AM PDT) + + + + + + | Component | Value | Ref Range | Performed | Pathologist | | | | | At | Signature | + + + + + + | [facility] | Radiologist 1: KAMRON, | | | | | | BRADEN Willson, | | | | | | M.DLedy-Radiologist 2: | | | | | | PAGE NOE | | | | | | M.NaliniULTRASOUND AORTA: | | | | | | 04/03/00 Dictated: | | | | | | 04/03/00 COMPARISON: | | | | | | None. FINDINGS: The | | | | | | proximal abdominal aorta | | | | | | measures 2.2 x 2.8 cm. | | | | | | In themid portion the | | | | | | aorta measures 1.8 x 1.6 | | | | | | cm, and 1.4 x 1.9 | | | | | | cmdistally. The right | | | | | | iliac artery measures | | | | | | 1.0 x 0.95 cm. The | | | | | | leftiliac measures 0.9 x | | | | | | 1.0 cm. No areas of | | | | | | focal or fusiform | | | | | | dilationare noted. | | | | | | IMPRESSION: Normal | | | | | | appearing aorta without | | | | | | evidence of ectasia or | | | | | | aneurysmaldilation. END | | | | | | OF IMPRESSION: | | | | | | | [...]
--- OUTSIDE RECORDS SUMMARY | ~2019-10-08 | XMS | Encounter Summary ---
Demographics + + + | Address | [address] | | | [place] [address] | + + + | Home Phone | | + + + | Preferred Language | Unknown | + + + | Marital Status | | + + + | Pentecostal Affiliation | NON | + + + | Race | White | + + + | Ethnic Group | Not or | + + + Author + + + | Author | [facility] | + + + | Organization | [facility] | + + + | [...] Team Providers + +------+ + | Care Lab Assistant Name | Role | Phone | + [...] + + | 10/02/ | Hospital | [facility] [address] | Jacky Borjas MD | | | 2015 - | Encounter | [address] | [address] [facility] | | | | | Annamarie Swain | [address] | | | 10/05/ | | [place], [place] | [place], [place] | | | 2014 | | [address] | [address] | | | | | [phone] | [phone] | | | | | | | [...] Mary NP - 10/16/2015 10:53 AM PST [facility] DEPARTMENT OF ORTHOPAEDICS & REHABILITATION INPATIENT HOSPITAL DISCHARGE SUMMARY & INTERDISCIPLINARY INSTRUCTIONS Patient: Kobi Baumann CSN: [id number] Admission Date: 10/02/2015 Discharge Date: 10/05/2015 Attending Physician: Jacky Borjas MD PCP: Judit Booth MD Service: [facility] Orthopaedics & Rehabilitation Diagnoses Principal Final Diagnosis: [...] no longer draining. 5. Call Orthopaedic Surgery [phone] for any signs of infection: increase in [...] your wound is infected. Juan Luis li [facility] Orthopedics first at [phone]. Activity Weight bear as tolerated on both lower extremities. Restrictions: Posterior hip precautions on operative side (no hip flexion >90 degrees, no c rossing your legs, no turning your foot towards the middle of the body (internal rotation). Condition on Discharge Stable Follow-Up Appointments ORTHOPEDICS OUTPATIENT CLINIC: Future Appointments Provider Department Dept Phone Center 10/16/2015 12:00 PM Michael Velazco Rehabilitation Services at [facility] 1st Floor [phone] Rehabilita 10/19/2015 11:20 AM Dave May Orthopaedics at [facility] [phone] Orthopedics Follow up in 2 weeks (or as previously scheduled). Call [phone] to confirm or schedule this appointment. PCP: [...] I ndications: CONSTIPATION, Disp-120 tablet, R-0, OTC [facility] Orthopaedic Service Pain Policy At the 6-week [...] administration instructions. - Call Orthopedic Clinic at [phone] if any persistent, localized swelling that does [...] and ask for the orthopaedic surgery resident academy education director. Additional Post-Op Instructions / What to Expect [...] feel that you will need more, call [phone] during business hours in order to get [...] has been our pleasure. Claribel Mary NP [facility] [place] Department of Orthopaedics & Rehabilitation [address] [place] [address] Mail Code: OP31 [facility] [phone] documented in this enc ounter Medications at [...] Borjas MD - 10/05/2015 7:31 AM PST [facility] DEPARTMENT OF ORTHOPAEDICS & REHABILITATION Adult Reconstruction [...] and plan of care. Jacky Borjas MD [facility] [address] [place], [place] [id number] Jacky Vigil MD - 1 12/05/2014 7:01 AM PST [facility] DEPARTMENT OF ORTHOPAEDICS & REHABILITATION Adult Reconstruction [...] and plan of care. Jacky Borjas MD [facility] [address] [facility] [address] [facility] [place], [place] [phone] Jacky Vigil MD - 1 12/04/2014 1:03 PM PST [facility] DEPARTMENT OF ORTHOPAEDICS & REHABILITATION Adult Reconstruction [...] and plan of care. Jacky Borjas MD [facility] [address] [facility] [place] [address] da, Steven Villarreal MD - 1 12/02/2014 2:42 PM PST [facility] DEPARTMENT OF ORTHOPAEDICS & REHABILITATION Adult Reconstruction [...] plan. KIM RAWLS MD 10/02/2015, 2:43 PM [facility] [place] Department of Orthopaedics & Rehabilitation [address] [place] [address] Mail Code: OP31 [facility] [id number] [email or web address] Pager: [phone] documented in this enc ounter Plan of [...] 10/02/2015 Attending | | Surgeon:Jacky Borjas MD Pharmacist Helper(s):Steven Rawls MD. | | Preoperative Diagnosis: Right [...] 10/04/2015 10:43:25DT: 10/04/2015 11:28:11Job | | #: [id number] | |structures were repaired through drill holes [...] |TWH/MODL | | | | | | /[id number] | + + CBC (HEMOGRAM) ONLY (10/03/2015 [...] [facility] | [address] | [place] [address] | | | SERVICES, CORE | PARK [...] | | | LABORATORY | | | CUBAN | | | SERVICES, | | | [...] | + + + + + | [facility] | [address] [facility] | [place] [address] | | | SERVICES, CORE | HAYDEE [...] + + + | X-RAY | STUDY: [place] PELVIS 1 VIEW | | | | [...]
--- OUTSIDE RECORDS SUMMARY | ~2019-10-08 | XMS | Encounter Summary ---
Demographics + + + | Address | [address] | | | [place] [address] | + + + | Home Phone | | + + + | Preferred Language | Unknown | + + + | Marital Status | | + + + | Evangelical Affiliation | NON | + + + | Race | White | + + + | Ethnic Group | Not or | + + + Author + + + | Author | [facility] | + + + | Organization | [facility] | + + + | Address [...] Team Providers + +------+ + | Care Supervisor Poultry Processing Name | Role | Phone | + [...] | | | | | | | [place], [place] | | | | | | | [address] | | | | | | | Phone: | | | | | | | [phone] | | | | | | | Fax: | | | | | | | [phone] | | + +--------+ + + + [...] | | | | | [place] | [address] | | | | | | | Phone: | | | | | | | [phone] | | | | | | | Fax: | | | | | | | [phone] | +--------+--------+ + + + + Encounter Details +--------+---------+ + + + | Date | Type | Department | Care Team | Description | +--------+---------+ + + + | 06/21/ | Office | Orthopaedics at | René Toth | Right hip pain | | 2015 | Visit | [facility] [address] | (Primary Dx); | | | | [address] | Health [facility] | Primary | | | | [address] | Surgery [address] | osteoarthritis of | | | | [place], [place] | [place], [place] | right hip | | | | [address] | [id number] | | | | | [phone] | | | +--------+---------+ + + + [...] might be differ ent from the original. [facility] [place] Department of Orthopaedics and Rehabilitation Division of Adult Reconstruction Reason for Consult: right hip pain Referring Provider: No Referring Provider Per Patient NO REFERRING PROVIDER PER PT Decision for Hip Surgery HISTORY AND PHYSICAL History of Present Illness: Mr. Loear is a 75 year old pleasant man [...] think this would give h im any residential improvement. Referral given, he can do PT in [place] where he lives. He w ill return in 6-8 weeks if no improvement to further discuss hip replacement. RENÉ TOTH PA-C Orthopedics and Rehabilitation [facility] [phone] Orders Placed This Encounter X-RAY HIP 2 VIEWS RIGHT W/ PELVIS 1 VIEW CONSULT TO REHABILITATION PHYSICAL THERAPY OUTSIDE [facility] documented in this encounter Plan of Treatment [...] | | + +---------+ + + | [facility] DEPARTMENT OF | | | | | [...]
--- OUTSIDE RECORDS SUMMARY | ~2019-10-08 | XMS | Encounter Summary ---
Demographics + + + | Address | [address] | | | [place] [address] | + + + | Home Phone | | + + + | Preferred Language | Unknown | + + + | Marital Status | | + + + | Uatsdin Affiliation | NON | + + + | Race | White | + + + | Ethnic Group | Not or | + + + Author + + + | Author | [facility] | + + + | Organization | [facility] | + + + | Address | Unknown | + + + | Phone | Unavailable | + + + Support + + + + + | Name | Relationship | Address | Phone | + + + + + | Silvia Loera | FAR[place] | [place] | | + + + + + Care Team Providers + +------+ + | Care Tight Rope Walker Name | Role | Phone | + +------+ + | Judit Booth MD | PCP | | + +------+ + Encounter Details +--------+ + + + + | Date | Type | Department | Care Team | Description | +--------+ + + + + | 02/23/ | Office | [facility] | Note, [...] as of this encounter Progress Notes Interface, Used Car Renovator In - 07/05/2006 1:07 AM PDTCLINIC DATE: 02/23/2002 SUBJECTIVE: Mr. Loera returns. He states his symptoms are actually worse than at his last visit approximately one month ago. He is having mostly left lower extremity pain. There are no other complaints of note. OBJECTIVE: PHYSICAL EXAMINATION: He is unchanged. X-RAYS: Review of his CT myelogram demonstrates very tight spinal stenosis at L5-S1 with a large herniated disc at the L4-5 level. ASSESSMENT: Mr. Loera is a candidate for a lumbar laminectomy at L4 and L5 with an exploration of the L4-5 disc and possibly discectomy at that level. I think that this will improve his leg pain significantly on the left side. He understands the nature of the operation and does desire to proceed. We will obtain insurance approval and schedule this as soon as possible. He will be undergoing an L4 and L5 laminectomy and partial facetectomy and foraminotomies and an exploration at L4-5 disc with possible discectomy. Dave Schwartz M.D. Chidi P C: 03/05/2002 [facility] [id number] signed by Interface, Used Car [employer]ov[employer] In at 07/05/2006 1:07 AM PDTdoc umented in this encounter Plan of Treatment Not on filedocumented as of this encounter Visit Diagnoses Not on filedocumented in this encounter"
--- OUTSIDE RECORDS SUMMARY | ~2019-10-08 | XMS | Encounter Summary ---
Demographics + + + | Address | [address] | | | [place] [address] | + + + | Home Phone | | + + + | Preferred Language | Unknown | + + + | Marital Status | | + + + | Jewish Affiliation | NON | + + + | Race | White | + + + | Ethnic Group | Not or | + + + Author + + + | Author | [facility] | + + + | Organization | [facility] | + + + | Address | Unknown | + + + | Phone | Unavailable | + + + Support + + + + + | Name | Relationship | Address | Phone | + + + + + | Silvia Loera | FARZANA | [place] | | + + + + + Care Team Providers + +------+ + | Care Job Interviewer Name | Role | Phone | + +------+ + | Judit Booth MD | PCP | | + +------+ + Reason for Visit + + + | Reason | Comments | + + + | Pre-operative | | | evaluation | | + + + Encounter Details +--------+---------+ + + + | Date | Type | Department | Care Team | Description | +--------+---------+ + + + | 11/24/ | Office | Preoperative | [place], | Primary | | 2015 | Visit | [facility] at | MD | osteoarthritis of | | | | MPV | | right hip (Primary | | | | Stay [address] | | Dx); Preop | | | | [address] | | examination | | | | Mailcode: [id number] | | | | | | [place] | | | | | | [address] [place], [place] | | | | | | [address] | | | | | | [phone] | | | +--------+---------+ + + + Anesthesia Record + + + + + | Procedure Name | Responsible | Anesthesia Start | Anesthesia Stop Time | | | Anesthesiologist | Time | | + + + + + | RIGHT TOTAL HIP | Daksha Galarza MD | 10/02/15 1204 | 10/02/15 1403 | | ARTHROPLASTY (Right | | | | | ) | | | | + + + + + +----+---+ + + | Da | T | Event | Comment | | te | i | | | | | m | | | | | e | | | +----+---+ + + | 11 | 1 | | | | /3 | 1 | | | | 0/ | 5 | | | | 20 | 6 | | | | 15 | | | | +----+---+ + + | | 1 | Pt. Check | Prior to anesthesia start, pt. Identified, examined, chart | | | 1 | | reviewed, TOR held, anesthetic plan made or approved by | | | 5 | | attending anesthesiologist. NPO status confirmed as appropriate | | | 6 | | for procedure Preoperative evaluation: unchanged | +----+---+ + + | | 1 | An Start | | | | 2 | | | | | 0 | | | | | 4 | | | +----+---+ + + | | 1 | An Start | | | | 2 | Data | | | | 0 | | | | | 7 | | | +----+---+ + + | | 1 | Vitals | Monitors applied Vital signs checked Patient ready for anesthesia | | | 2 | Checked | | | | 0 | | | | | 9 | | | +----+---+ + + | | 1 | Start | | | | 2 | Spinal | | | | 2 | | | | | 2 | | | +----+---+ + + | | 1 | Quick Note | spinal | | | 2 | | | | | 2 | | | | | 4 | | | +----+---+ + + | | 1 | Ready | | | | 2 | | | | | 2 | | | | | 4 | | | +----+---+ + + | | 1 | Abx | | | | 2 | Administere | | | | 3 | d | | | | 1 | | | +----+---+ + + | | 1 | Incision | | | | 2 | | | | | 5 | | | | | 1 | | | +----+---+ + + | | 1 | Surgery end | | | | 3 | | | | | 5 | | | | | 0 | | | +----+---+ + + | | 1 | an stop | | | | 3 | data | | | | 5 | | | | | 3 | | | +----+---+ + + | | 1 | Anesthesia | | | | 4 | End | | | | 0 | | | | | 3 | | | +----+---+ + + +------+ | Meds | +------+ + + + No medications | on file. | + + + + + | No agents on file. | + + + + | No blood administrations on file. | + + +--------+ + + + | Type | Details | Placement | Removal | +--------+ + + + | Periph | 10/02/15; 1030; jw; Left; Wrist; | 10/02/15 1030 by | 10/05/15 0906 by | | eral | 20 g; Topical; Positive; | Malachi Rubio, | Mirian Montenegro RN | | IV | 10/05/15; 0906; Discharge | RN | | +--------+ + + + | Urethr | 10/02/15; 1235; Noemy Mahan RN; | 10/02/15 1235 by | 10/03/15 0500 by | | mert Han; 16 Fr.; 10 mL; 10/03/15; | Katelyn Jones RN | Robina Washburn RN | | Harmeet | 0500; Per order | | | | er | | | | +--------+ + + + | Non-Wild | 10/02/15; 1248; Michell STEPHEN; | 10/02/15 1248 by | 10/02/15 1400 by | | rgical | Nasopharyngeal airway (28 in L | Fredy Leyva MD | Daksha Galarza MD | | | nare) | | | | Airway | | | | +--------+ + + + | Incisi | 10/02/15; 1251; Right; hip; | 10/02/15 1251 by | 10/05/15 1723 by | | on | 10/05/15; 1723 | Katelyn Jones RN | Mirian Montenegro RN | +--------+ + + + documented in this encounter Social History + +-------+ +--------+------+ | Tobacco [...] + + + | Blood Pressure | 131/84 | 09/26/2015 1:41 PM | | | | | PST | | + + + + + | Pulse | 69 | 09/26/2015 1:41 PM | | | | | PST | | + + + + + | Temperature | 36.7 C (98.1 F) | 09/26/2015 1:41 PM | | | | | PST | | + + + + + | Respiratory Rate | 20 | 09/26/2015 1:41 PM | | | | | PST | | + + + + + | Oxygen Saturation | 96% | 09/26/2015 1:41 PM | | | | | PST | | + + + + + | Inhaled Oxygen | - | - | | | Concentration | | | | + + + + + | Weight | 86.6 kg (191 lb) | 09/26/2015 1:41 PM | | | | | PST | | + + + + + | Height | 177.8 cm (5' 10") | 09/26/2015 1:41 PM | neck 36cm | | | | PST | | + + + + + | Body Mass Index | 27.41 | 09/26/2015 1:41 PM | | | | | PST | | + + + + + documented in this encounter Patient Instructions Patient Instructions Pauline Theresa Leonardo, PICTURE COPYIST - 09/26/2015 2:24 PM PST PREOPERATIVE INSTRUCTIONS Empty stomach before surgery On the day BEFORE your surgery, drink plenty of fluids and stay well hydrated NOTHING to eat or drink after midnight the night before surgery. This includes water, coffee, candy, mints, gum. Medications Instructions Unless otherwise directed by your surgeon, do not take any Aspirin, vitamin E or non-lukas roidal anti-inflammatory (NSAIDs i.e. Advil, Aleve, Ibuprofen) or herbal supplements 7days p rior to your surgery. These drugs may interfere with normal blood clotting and may cause exc essive bleeding and bruising during or after the surgery. If you need a pain medication for general purposes, use Tylenol as directed. OK to take it even on the morning of surgery, if needed. If you are in doubt about any medications that you are taking, please contact our office . Special Reminders for Spine Surgery Patients and Orthopedic Patients Having Joint Replaceme nt Surgery Nasal swab to screen for staph bacteria. If the swab obtained during your visit shows e vidence of staph bacteria, you will be contacted by us with additional instructions on how t o prepare for surgery. If the test is negative, then no call! [facility] wipe packet and instructions on proper skin cleaning Please be sure to follow the [facility] instructions regarding proper skin preparation before surgery. Other Important Guidelines ? Do not shave the surgical area Do not smoke, drink alcohol or use recreational drugs for 24 hours before your surgery Watch for any change in your health condition. Let your surgeon know right away if you do not feel well. ? Do not wear makeup, perfume, lotions, deodorant, powder or hairspray. Do not wear any jewelry to the hospital. Wear loose, comfortable clothing. Leave all your valuables at home. Allow enough travel time so you re not late for your check in for surgery. ? Take a bath or shower and remember to shampoo your hair using your usual hair product bef ore your arrival at the hospital. Please remember to brush your teeth the night before and the morning of your procedure. Preventing post op complications while you are in the hospital Use an incentive spirometer or peep breathe to keep your lungs working properly an d to help prevent respiratory complications. It helps you take long, deep breaths. Use it at least once every hour while you are awake. Leg and feet exercises will maintain good circulation and help prevent blood clots in yo ur legs. Sometimes your doctor will order air compression stockings. Compressed air helps the circulation in your legs. Walking and moving will help stimulate normal circulation and deep breathing. After you r surgery, your nurse may ask you to sit, stand or walk. Surgery check-in location: Admitting - [facility] Surgery Check in Time: The Preoperative Medicine Clinic is not in the position to give you accurate information regarding surgical check in time. We refer you back to your surgical office regarding this important information. Going Home Your surgical team will decide when you are medically ready to go home. If you stayed in the hospital after surgery, please arrange for your ride to come for yo u around 9AM on the day your doctor says you can go home. If you have questions or concerns after you go home, call your doctor s office. If it is after office hours, call the [facility] para machine operator at [phone] and ask them to page him or h er. Preparing For Your Surgery Video - 7 minutes of instructions! Access this [facility] video site : [email or web address] -->Healthcare --> Patient and Visitor Guide --> Preparing for your Visit or Surgery --> Click on the "Preparing for Your Surgery" video shahzad k documented in this encounter Progress Notes Rina Grimaldo MA - 09/26/2015 4:08 PM PST Venipuncture performed in clinic, blood sample obtained from Right antecubital site Two patient identifiers performed. Nasal swab specimen obtained from both the left and righ t nares per nasal swab collection instructions. Swab placed in culture tube; tube labeled an d sent to the lab. Theresa Campos FNP - 09/26/2015 1:15 PM PST PREOPERATIVE CONSULT NOTE Author: KANDICE Gtz Referring Physician: Jacky Borjas MD Primary Care Provider: Judit Booth MD Reason for Consult: Preoperative evaluation and risk assessment Proposed Procedure/Date: 09/22/2015, Right TOTAL HIP ARTHROPLASTY HISTORY OF PRESENT ILLNESS: Kobi Loera is a pleasant 75 y.o. healthy appearing, male here for preoperative evaluation for above procedure. Pt has dx of Primary osteoarthri tis of right hip . Symptoms related to the diagnosis: Progressive, intermittent right hip pa in. The patient describes the pain as constant, achy and limits his function daily. Severe l imitation in ability to walk (though he refuses to use a cane), climb stairs, shop. He does not like taking pain medication and feels his quality of life is diminishing due to hip pain . Pertinent medical history: None, patient is in good health. Perioperative cardiac risks: None Functional Capacity: Moderate (4-10 mets) Prior complications of anesthesia: none ROS: Pulmonary: Recovering from the flu 3 weeks>. No cough now, resolved with otc tx. Within Def ined Limits except as noted below no cough rhinorrhea clear URI w/ prior 2 wks w/o fever no shortness of breath no wheezing Pt. Has no asthma COPD: never smoked, cigars occasionally. Dx of sleep apnea Risks factors for sleep apnea: Age>50 and Male gender Pt at low risk of CORRIE Cardiovascular: Only history of dizziness, but this was evaluated at the [facility] and the pt was Dx with vertigo 3 years ago X1 resolved without medication. Within Defined Limits except as noted below Functional Capacity: Moderate + dyspnea on exertion - palpitations, PVD, chest pressure and syncope no CAD no CHF Other CV: no congenital heart disease Vascular: no VASCULAR SYMPTOMS no pacemaker GI/Hepatic: Within Defined Limits except as noted below no GI Bleed no GERD No liver diseas e no hepatitis : Within Defined Limits except as noted below renal failure no dialysis Other : no Endo: Within Defined Limits except as noted below no Diabetes: Neurological: Within Defined limits except as noted below no seizures no HX CORTICOSTEROID no psychiatric problem no dementia pain (dull pain to the right hip, groin without radiculop thy. "nagging" ) No pre-existing neuropathy Chronic pain related to scheduled surgery Worst level of pain within past 24-hours: 4 In chronic pain: Yes Current Pain Level: MS: The pt is very active in his daily activity; including biking, walking, duck hunting. [facility]. arthritis (right hip pain for about 1 years. The pain is located in the deep groin crease . The patient describes the pain as constant, achy and limits his function daily. severe limitation in ability to walk, climb stairs, shop) Ty pe: osteoarthritis no Other MS, Heme/Onc: Within Defined Limits except as noted below Pt. has: no active bleeding no Bleedi ng diathesis / thrombotic bleeding Previous Transfusions: no transfusion hx Hx: no other hem e, Malignancy: cancer, Location: Basal Cell, Metastasis: No no HIV/AIDS, Skin: Comments: Hx of BCC right cheek, removed early 1999' per pt. Within Defined Limits e xcept as noted below No open wounds or sores No hx MRSA/VRE/Active skin infection Current medications reviewed / updated Currently not taking any medications. Allergies reviewed / updated Allergies Allergen Reactions Codeine Past medical history reviewed / updated Past Medical History Diagnosis Date Basal cell carcinoma 2009+/- right cheek Past surgery reviewed and updated Past Surgical History Procedure Date Back surgery 2001 Shoulder surgery 2004 Hernia surgery Mouth surgery Family history reviewed / updated Unable to obtain Social history reviewed / updated History Substance Use Topics Smoking status: Never Smoker Smokeless tobacco: Current User Types: Chew Comment: 1 can a every 2 weeks Alcohol Use: Not on file PHYSICAL EXAM: Last Vitals: BP 131/84 | Pulse 69 | Temp (Src) 36.7 C (98.1 F) (Oral) | RR 20 | Ht 1.77 8 m (5' 10") | Wt 86.637 kg (191 lb) | SpO2 96% | BMI 27.41 kg/(m^2) Body mass index is 27.4 1 kg/(m^2). General: Patients general appearance: Healthy, Alert, No distress, Cooperative and Age appr opriate Head & Neck/Airway: NC/AT; PERRL; EOMI; nl appearing ears and nose. Neck ROM: full TM Distance:Normal Dentition: dentition is normal dental implants, bridges or caps present and loose teeth Date of last Dental Exam: 2 weeks ago Dentition Comments: 4 dental implants with caps. Acevedo: No Mallampati: III Mouth Opening: > = 3 cm C-Spine: normal Neck Anatomy: N ormal Jaw Protrusion: Normal, lower incisors can protrude past upper incisors Lung Exam: No respiratory distress. Normal breathing pattern. breath sounds normal Cardiac: No murmurs, gallops or rubs. Rhythm: regular Rate: normal Abdominal: General Findings: no abdominal tenderness and Nondistended Bowel Sounds: bowel s ounds are normal Musculoskeletal: Findings: tone normal Neuro/Psych: No focal neuro deficits; Alert and appropriate; nl affect. alert Findings: Field Identification Specialist nial nerves 2-12 intact, Motor 5/5 strength globally with normal tone, Soft & sharp sensatio n normal, No tremor, Alert, oriented to person, place, time, Normal affect and Normal gait a nd station Integument: No open rashes or lesions noted. - lesion, rash and open wounds Color: pink Turgor: turgor normal Implants: None LABS & DATA REVIEWED/ORDERED Lab Results Component Value Date WBC 8.97 09/26/2015 HB 15.8 09/26/2015 HCT 48.0 09/26/2015 PLT 276 09/26/2015 MCV 86.0 09/26/2015 RDW 41.8 09/26/2015 No results found for: NA, K, CL, BICARB, BUN, CR, GLU, CA, AST, ALT, AP, TBILI, TP, ALB, DI RBILI Lab Results Component Value Date ABO O 03/05/2002 RH POS 03/05/2002 No results found for: A1C EKG: Personally reviewed. . Shows Sinus Rhythm, with an indeterminate Inferior infarct" MEDICAL DECISION MAKIN ACC/AHA Perioperative Cardiac Risk Stratification (assumes non-emergent, non-cardiac p rocedure) Are active cardiac conditions present? No Calculate the combined surgical and patient-specific risk: using the [facility] perioperative ca rdiac risk calculator, the risk of major adverse cardiac event (MACE) is: less than 1%. No further risk stratification for coronary disease is indicated. ASSESSMENT and RECOMMENDATIONS: Surgical/anesthesia risk assessment: Kobi Loera is a 75 y.o. male with diagn osis of Primary Osteoarthritis of right hip, scheduled for Right TOTAL HIP ARTHROPLASTY. No history of anesthesia problems with previous surgeries. According to ACC/AHA guidelines, the patient does not meet criteria for additional testing. Medication management recommendations: The patient denies taking any medications on a da [place] basis, and he denies taking pain medication for his right hip pain. Pre-procedure antibiotic recommendation: Cefazolin 2 gm IV (no PCN allergy; no hx MRSA) The patient is stable / optimized for surgery. Additional testing/optimization is not nee ded. Thank you for the opportunity to contribute to this patient's care. KANDICE Gtz FNP [facility] 4TH FLOOR DAY STAY [address] [facility] [id number] I spent time counseling the pt regarding perioperative risk (cardiac/bleeding/ DVT/ respir atory failure/ infection, etc) and methods to mitigate risk. I advised the patient regardin g NPO requirements, hydration before surgery, showering, general body hygiene. All pre-proc edure instructions given to the patient (after-visit summary). All of patient's questions w ere addressed. The patient verbalized understanding of the instructions given. documented in this en counter Plan of Treatment + +------+--------+ + + | Name | Type | Priori | Associated Diagnoses | Date/Time | | | | ty | | | + +------+--------+ + + | 12 LEAD ECG | ECG | Routin | Primary | 09/26/2015 1:46 PM | | | | e | osteoarthritis of | PST | | | | | right hip Preop | | | | | | examination | | + +------+--------+ + + + + +--------+ + + | Name | Type | Priori | Associated Diagnoses | Order Schedule | | | | ty | | | + + +--------+ + + | COMMUNICATION TO [facility] | Procedures | Routin | Primary | Ordered: 09/26/2015 | | LAB DRAW | | e | osteoarthritis of | | | | | | right hip Preop | | | | | | examination | | + + +--------+ + + documented as of this encounter Procedures + +--------+ + + + | Procedure Name | Priori | Date/Time | Associated Diagnosis | Comments | | | ty | | | | + +--------+ + + + | WA COLLECTION VENOUS | Routin | 09/26/2015 | Preop examination | | | BLOOD,VENIPUNCTURE | e | 4:08 PM | | | | | | PST | | | + +--------+ + + + | STAPH SCREEN, MRSA | Routin | 09/26/2015 | Primary | Results for this | | BY PCR, NASAL ONLY | e | 2:20 PM | osteoarthritis of | procedure are in the | | | | PST | right hip Preop | results section. | | | | | examination | | + +--------+ + + + | CBC AND AUTO DIFF | Routin | 09/26/2015 | Primary | Results for this | | | e | 2:20 PM | osteoarthritis of | procedure are in the | | | | PST | right hip Preop | results section. | | | | | examination | | + +--------+ + + + | CBC, WITH | Routin | 09/26/2015 | Primary | Results for this | | DIFFERENTIAL | e | 2:20 PM | osteoarthritis of | procedure are in the | | | | PST | right hip Preop | results section. | | | | | examination | | + +--------+ + + + | PREALBUMIN, SERUM | Routin | 09/26/2015 | Primary | Results for this | | | e | 2:20 PM | osteoarthritis of | procedure are in the | | | | PST | right hip Preop | results section. | | | | | examination | | + +--------+ + + + | COMPLETE METABOLIC | Routin | 09/26/2015 | Primary | Results for this | | SET | e | 2:20 PM | osteoarthritis of | procedure are in the | | (NA,K,CL,CO2,BUN,CRE | | PST | right hip Preop | results section. | | AT,GLUC,CA,AST,ALT,B | | | examination | | | CARLEEN TOTAL,ALK | | | | | | PHOS,ALB,PROT TOTAL) | | | | | + +--------+ + + + | ANTIBODY SCREEN | Routin | 09/26/2015 | Primary | Results for this | | | e | 2:20 PM | osteoarthritis of | procedure are in the | | | | PST | right hip Preop | results section. | | | | | examination | | + +--------+ + + + | TYPE AND SCREEN | Routin | 09/26/2015 | Primary | Results for this | | | e | 2:20 PM | osteoarthritis of | procedure are in the | | | | PST | right hip Preop | results section. | | | | | examination | | + +--------+ + + + | ABO & RH TYPE | Routin | 09/26/2015 | Primary | Results for this | | | e | 2:20 PM | osteoarthritis of | procedure are in the | | | | PST | right hip Preop | results section. | | | | | examination | | + +--------+ + + + | HEMOGLOBIN A1C, | Routin | 09/26/2015 | Primary | Results for this | | BLOOD | e | 2:20 PM | osteoarthritis of | procedure are in the | | | | PST | right hip Preop | results section. | | | | | examination | | + +--------+ + + + | 12 LEAD ECG | Routin | 09/26/2015 | Primary | | | | e | 1:46 PM | osteoarthritis of | | | | | PST | right hip Preop | | | | | | examination | | + +--------+ + + + documented in this encounter Results CBC AND AUTO DIFF (09/26/2015 2:20 PM PST) + + + + + + | Component | Value | Ref Range | Performed | Pathologist | | | | | At | Signature | + + + + + + | WHITE CELL | 8.97 | 4.40 - 11.00 | [facility] | | | COUNT | | K/cu mm | LABORATORY | | | | | | SERVICES, | | | | | | CORE | | + + + + + + | RED CELL | 5.58 | 4.50 - 6.00 | [facility] | | | COUNT | | M/cu mm | LABORATORY | | | | | | SERVICES, | | | | | | CORE | | + + + + + + | HEMOGLOBIN | 15.8 | 13.5 - 17.5 | [facility] | | | | | g/dL | LABORATORY | | | | | | SERVICES, | | | | | | CORE | | + + + + + + | HEMATOCRIT | 48.0 | 41.0 - 53.0 % | [facility] | | | | | | LABORATORY | | | | | | SERVICES, | | | | | | CORE | | + + + + + + | MCV | 86.0 | 80.0 - 96.0 fL | [facility] | | | | | | LABORATORY | | | | | | SERVICES, | | | | | | CORE | | + + + + + + | MCHC | 32.9 | 33.0 - 35.5 | [facility] | | | | | g/dL | LABORATORY | | | | | | SERVICES, | | | | | | CORE | | + + + + + + | RDW SD | 41.8 | 35.1 - 46.3 fL | [facility] | | | | | | LABORATORY | | | | | | SERVICES, | | | | | | CORE | | + + + + + + | PLATELET | 276 | 150 - 400 K/cu | [facility] | | | COUNT | | mm | LABORATORY | | | | | | SERVICES, | | | | | | CORE | | + + + + + + | MPV | 10.3 | 9.7 - 12.3 fL | [facility] [...] + + + + + + | NEUTROPHIL | 47.0 (L) | 50.0 - 70.0 % | [facility] | | | % | | | LABORATORY | | | | | | SERVICES, | | | | | | CORE | | + + + + + + | LYMPHOCYTE | 40.6 | 18.0 - 42.0 % | [facility] | | | % | | | LABORATORY | | | | | | SERVICES, | | | | | | CORE | | + + + + + + | MONOCYTE % | 9.9 (H) | 3.5 - 9.0 % | [facility] | | | | | | LABORATORY | | | | | | SERVICES, | | | | | | CORE | | + + + + + + | EOS % | 1.4 | 1.0 - 3.0 % | [facility] | | | | | | LABORATORY | | | | | | SERVICES, | | | | | | CORE | | + + + + + + | BASO % | 0.8 | 0.0 - 2.0 % | [facility] | | | | | | LABORATORY | | | | | | SERVICES, | | | | | | CORE | | + + + + + + | IG% | 0.3Comment: Immature | 0.0 - 0.6 % | [facility] | | | | Granulocytes (IG) | | LABORATORY | | | | include metamyelocytes, | | SERVICES, | | | | myelocytes and | | CORE | | | | promyelocytes. Bands | | | | | | are not included in the | | | | | | IG count. Bands are | | | | | | included in the | | | | | | neutrophil count. | | | | + + + + + + | NEUTROPHIL | 4.21 | 1.80 - 7.70 | [facility] | | | # | | K/cu mm | LABORATORY | | | | | | SERVICES, | | | | | | CORE | | + + + + + + | LYMPHOCYTE | 3.64 | 1.00 - 4.80 | [facility] | | | # | | K/cu mm | LABORATORY | | | | | | SERVICES, | | | | | | CORE | | + + + + + + | MONOCYTE # | 0.89 | 0.10 - 0.90 | [facility] | | | | | K/cu mm | LABORATORY | | | | | | SERVICES, | | | | | | CORE | | + + + + + + | EOS # | 0.13 | 0.00 - 0.50 | [facility] | | | | | K/cu mm | LABORATORY | | | | | | SERVICES, | | | | | | CORE | | + + + + + + | BASO # | 0.07 | 0.00 - 0.10 | [facility] | | | | | K/cu mm | LABORATORY | | | | | | SERVICES, | | | | | | CORE | | + + + + + + | IG# | 0.03 | 0.00 - 0.03 | [facility] | | | | | K/cu mm | LABORATORY | | | | | | SERVICES, | | | | | | CORE | | + + + + + + + + | Specimen | + + | Blood - Blood | | (substance) | + + + + + | Narrative | Performed At | + + + | Immature Granulocytes (IG) include metamyelocytes, myelocytes | [facility] | | and promyelocytes. Bands are not included in the IG count. Bands are | LABORATORY | | included in the neutrophil count. | SERVICES, CORE | + + + + + + + + | Performing | Address | City/State/Zipcode | Phone Number | | Organization | | | | + + + + + | [facility] | [address] | [place] [address] | | | SERVICES, CORE | [address] | | | + + + + + ANTIBODY SCREEN (09/26/2015 2:20 PM PST) + + + + + + | Component | Value | Ref Range | Performed | Pathologist | | | | | At | Signature | + + + + + + | Antibody | Negative | | [facility] | | | Screen | | | LABORATORY | | | | | | SERVICES, | | | | | | TRANSFUSION | | | | | | MEDICINE | | + + + + + + + + | Specimen | + + | Blood - Blood | + + + + + + + | Performing | Address | City/State/Zipcode | Phone Number | | Organization | | | | + + + + + | [facility] | [address] | [place] [address] | | | SERVICES, | [address] | | | | TRANSFUSION MEDICINE | | | | + + + + + ABO & RH TYPE (09/26/2015 2:20 PM PST) + + + + + + | Component | Value | Ref Range | Performed | Pathologist | | | | | At | Signature | + + + + + + | ABO Group | O | | [facility] | | | | | | LABORAT[facility] | | | | | | SERVICES, | | | | | | TRANSFUSION | | | | | | MEDICINE | | + + + + + + | Rh Type | Positive | | [facility] | | | | | | LAB[facility] | | | | | | SERVICES, | | | | | | TRANSFUSION | | | | | | MEDICINE | | + + + + + + + + | Specimen | + + | Blood - Blood | + + + + + + + | Performing | Address | City/State/Zipcode | Phone Number | | Organization | | | | + + + + + | [facility] | [address] | [place] [address] | | | RONNIE | HYADEE PETER | | | | TRANSFUSION MEDICINE | | | | + + + + + HEMOGLOBIN A1C, BLOOD (09/26/2015 2:20 PM PST) + + + + + + | Component | Value | Ref Range | Performed | Pathologist | | | | | At | Signature | + + + + + + | HEMOGLOBIN | 6.1 (H)Comment: Hbg A1c | <5.7 % | [facility] | | | A1C | Interpretive | | LABORATORY | | | | Information: | | SERVICES, | | | | <5.7% - Normal | | SPECIAL IMM | | | | 5.7-6.4% - Consistent | | + COAG | | | | with pre-diabetes | | | | | | >6.4% - Consistent with | | | | | | diabetes | | | | + + + + + + + + | Specimen | + + | Blood - Blood | | (substance) | + + + + + + + | Performing | Address | City/State/Zipcode | Phone Number | | Organization | | | | + + + + + | [facility] | [address] | [place] [address] | | | SERVICES, SPECIAL | [address] | | | | IMM + COAG | | | | + + + + + STAPH SCREEN, MRSA BY PCR, NASAL ONLY (09/26/2015 2:20 PM PST) + + + + + + | Component | Value | Ref Range | Performed | Pathologist | | | | | At | Signature | + + + + + + | MRSA/MSSA | Not Detected | Not Detected | [facility] | | | | | | LABORATORY | | | | | | SERVICES, | | | | | | CORE | | + + + + + + + + | Specimen | + + | Swab - Nasal | | (qualifier value) | + + + + + + + | Performing | Address | City/State/Zipcode | Phone Number | | Organization | | | | + + + + + | [facility] | [address] | [place] [address] | | | SERVICES, CORE | [address] | | | + + + + + PREALBUMIN, SERUM (09/26/2015 2:20 PM PST) + +-------+ + + + | Component | Value | Ref Range | Performed | Pathologist | | | | | At | Signature | + +-------+ + + + | PREALBUMIN | 31.0 | 17.0 - 42.0 | [facility] | | | | | mg/dL | [facility] | | | | | | [place] | | + +-------+ + + + + + | Specimen | + + | Blood - Blood | + + + + + + + | Performing | Address | City/State/Zipcode | Phone Number | | Organization | | | | + + + + + | [facility] | [address] | [place] [address] | | | [place] | | | | + + + + + COMPLETE METABOLIC SET (NA,K,CL,CO2,BUN,CREAT,GLUC,CA,AST,ALT,BILI TOTAL,ALK PHOS,ALB,PROT TOTAL) (09/26/2015 2:20 PM PST) + +---------+ + + + | Component | Value | Ref Range | Performed | Pathologist | | | | | At | Signature | + +---------+ + + + | GLUCOSE, | 91 | 60 - 99 mg/dL | [facility] | | | PLASMA | | | LABORATORY | | | (LAB) | | | SERVICES, | | | | | | CORE | | + +---------+ + + + | BUN, PLASMA | 17 | 6 - 20 mg/dL | [facility] | | | (LAB) | | | LABORATORY | | | | | | SERVICES, | | | | | | CORE | | + +---------+ + + + | CREATININE | 1.11 | 0.70 - 1.30 | [facility] | | | PLASMA | | mg/dL | LABORATORY | | | (LAB) | | | SERVICES, | | | | | | CORE | | + +---------+ + + + | EGFR | >60 | >60 mL/min | [facility] | | | - | | | LABORATORY | | | [place] | | | SERVICES, | | | | | | CORE | | + +---------+ + + + | EGFR NON | >60 | >60 mL/min | [facility] | | | -[facility] | | | LABORATORY | | | RICAN | | | SERVICES, | | | | | | CORE | | + +---------+ + + + | SODIUM, | 138 | 136 - 145 | [facility] | [...] + + + | TOTAL CO2, | 29 | 21 - 32 mmol/L | [facility] | | | PLASMA | | | LABORATORY | | | (LAB) | | | SERVICES, | | | | | | CORE | | + +---------+ + + + | CALCIUM, | 9.2 | 8.6 - 10.2 | [facility] | | | PLASMA | | mg/dL | LABORATORY | | | (LAB) | | | SERVICES, | | | | | | CORE | | + +---------+ + + + | BILIRUBIN | 1.1 | 0.3 - 1.2 mg/dL | [facility] | | | TOTAL | | | LABORATORY | | | | | | SERVICES, | | | | | | CORE | | + +---------+ + + + | TOTAL | 7.6 | 6.4 - 8.2 g/dL | [facility] | | | PROTEIN, | | | LABORATORY | | | PLASMA | | | SERVICES, | | | (LAB) | | | CORE | | + +---------+ + + + | ALBUMIN, | 3.8 | 3.5 - 4.7 g/dL | [facility] | | | PLASMA | | | LABORATORY | | | (LAB) | | | SERVICES, | | | | | | CORE | | + +---------+ + + + | ALK PHOS | 64 | 56 - 119 U/L | [facility] | | | | | | LABORATORY | | | | | | SERVICES, | | | | | | CORE | | + +---------+ + + + | AST(SGOT) | 18 | <=41 U/L | [facility] | | | | | | LABORATORY | | | | | | SERVICES, | | | | | | CORE | | + +---------+ + + + | ALT (SGPT) | 22 | <=60 U/L | [facility] | | | | | | LABORATORY | | | | | | SERVICES, | | | | | | CORE | | + +---------+ + + + | ANION | 5 | 4 - 11 mmol/L | [facility] | | | GAP(ALB | | | LABORATORY | | | CORRECTED) | | | SERVICES, | | | | | | CORE | | + +---------+ + + + | POTASSIUM | No Hemo | | [facility] | | | CMNT | | | LABORATORY | | | | | | SERVICES, | | | | | | CORE | | + +---------+ + + + | BILI T CMNT | No Hemo | | [facility] | | | | | | LABORATORY | | | | | | SERVICES, | | | | | | CORE | | + +---------+ + + + | AST CMNT | No Hemo | | [facility] | | | | | | LABORATORY | | | | | | SERVICES, | | | | | | CORE | | + +---------+ + + + | ANION GAP | 5 | mmol/L | [facility] | | | | | | LABORATORY | | | | | | SERVICES, | | | | | | CORE | | + +---------+ + + + + + | Specimen | + + | Blood - Blood | | (substance) | + + + + + | [...] | + + + + + | [facility] | [address] | [place] [address] | | | SERVICES, CORE | [address] | | | + + + + + documented in this encounter Visit Diagnoses + + | Diagnosis | + + | Primary osteoarthritis of right hip - Primary Primary localized osteoarthrosis, | | pelvic region and thigh | + + | Preop examination Preoperative examination, unspecified | + + documented in this encounter
--- OUTSIDE RECORDS SUMMARY | ~2019-10-08 | XMS | Encounter Summary ---
Demographics + + + | Address | [address] | | | [place] [address] | + + + | Home Phone | | + + + | Preferred Language | Unknown | + + + | Marital Status | | + + + | Jain Affiliation | NON | + + + | Race | White | + + + | Ethnic Group | Not or | + + + Author + + + | Author | [facility] | + + + | Organization | [facility] | + + + | Address [...] Team Providers + +------+ + | Care Complex Manager Name | Role | Phone | + +------+ + | Judit Booth MD | PCP | | + +------+ + Encounter Details +--------+ + + + + | Date | Type | Department | Care Team | Description | +--------+ + + + + | 03/18/ | Office | [facility] | Note, Outpatient | Progress Note | | 2000 | Visit-Trans | MEDICINE | Clinic | [...] as of this encounter Progress Notes Interface, Line Out Worker In - 08/27/2006 3:08 AM PDTCLINIC DATE: 03/18/2001 HISTORY: The patient returns today for postoperative visit. He underwent a primary repair of a small epigastric hernia approximately 1 week ago. He has no complaints following surgery. PHYSICAL EXAMINATION: His incision is well healed with no erythema or drainage. No evidence of recurrent hernia. IMPRESSION: The patient is feeling well following his epigastric hernia repair. He will return on a p.r.n. basis. Juanita Whitman M.D. MYNOR / WAN [id number] / [id number] / [id number] / [id number] signed by Interface, Line Out Worker In at 08/27/2006 3:08 AM PDTdocume nted in this encounter Plan of Treatment Not on filedocumented as of this encounter Visit Diagnoses Not on filedocumented in this encounter"
--- OUTSIDE RECORDS SUMMARY | ~2019-10-08 | XMS | Encounter Summary ---
Demographics + + + | Address | [address] | | | [place] [address] | + + + | Home Phone | | + + + | Preferred Language | Unknown | + + + | Marital Status | | + + + | Muslim Affiliation | NON | + + + | Race | White | + + + | Ethnic Group | Not or | + + + Author + + + | Author | [facility] | + + + | Organization | [facility] | + + + | [...] Team Providers + +------+ + | Care Director Airport Operations Name | Role | Phone | + +------+ + | Judit Booth MD | PCP | | + +------+ + Encounter Details +--------+ + + + + | Date | Type | Department | Care Team | Description | +--------+ + + + + | 03/09/ | Documentati | Anesthesiology | Unknown . | | | 2001 | on | [address] | | | | | | [place], | | | | | | [place] [address] | | | +--------+ + + + [...] | + +--------+ + + + | ANESTHESIA/SEDATION | | 03/09/2002 | | Results for this | | | | 10:55 AM | | procedure are in the | | | | PDT | | results section. | + +--------+ + + + documented in this encounter Results ANESTHESIA/SEDATION (03/09/2002 10:55 AM PDT) + + + | Narrative | Performed At | + + + | Ordered by an unspecified provider. | | + + + + + | Transcriptions | + + | 03/09/2002 10:55 AM PDT Anesthesia PostOp Report | | | | Patient: KASIE BROCK Med Rec: [id number] Sex M Bdate: 1940 | | Date/Time Data | | Entered Into [facility] | | Anesth PostOp | | Surgery Date [id number] 03/09/02 10:55 | | Anesthesiologist ENRIQUE ORTEGA 03/09/02 10:55 | | Resident Anesthesiolog DELIO GARCIA 03/09/02 10:55 | | | + + documented in this encounter Visit Diagnoses Not on filedocumented in this encounter"
--- OUTSIDE RECORDS SUMMARY | ~2019-10-08 | XMS | Encounter Summary ---
Demographics + + + | Address | [address] | | | [place] [address] | + + + | Home Phone | | + + + | Preferred Language | Unknown | + + + | Marital Status | | + + + | [employer] Affiliation | Unknown | + + + | Race | Unknown | + + + | Ethnic Group | Unknown | + + + Author + + + | Author | [facility] | | | and [place] | + + + | Organization | [facility] | | | and [place] | + + + | Address | Unknown | + + + | Phone | Unavailable | + + + Support + + + + + | Name | Relationship | Address | Phone | + + + + + | Silvia Baumann | ECON | [address] | | | | | [place] | | | | | [address] | | + + + + + Care Team Providers + +------+ + | Care Chief Fishery Division Name | Role | Phone | + +------+ + | Luis M Baptiste | PCP | | | MD | | | + +------+ + Reason for Visit + + + | Reason | Comments | + + + | Krupa Swelling | | + + + Auth/Cert +--------+--------+ + + + + | Status | Reason | Specialty | Diagnoses / | Referred By | Referred To | | | | | Procedures | Contact | Contact | +--------+--------+ + + + + | Closed | | | Diagnoses | | | | | | | | | | | | | | Epididymitis | | | | | | | | | | | | | | Dehydration, | | | | | | | mild | | | | | | | Epididymitis | | | | | | | , left | | | | | | | Tobacco user | | | | | | | Urinary | | | | | | | tract | | | | | | | infection, | | | | | | | site | | | | | | | unspecified | | | | | | | | | | | | | | Leukocytosis | | | | | | | , | | | | | | | unspecified | | | | | | | elevated WBC | | | | | | | count | | | | | | | Status post | | | | | | | hip | | | | | | | replacement, | | | | | | | right | | | | | | | | | | +--------+--------+ + + + + Encounter Details +--------+ + + + + | Date | Type | Department | Care Team | Description | +--------+ + + + + | 10/14/ | Hospital | [facility] | Fuad Campbell MD | Leukocytosis, | | 2015 - | Encounter | [facility] | [address] | unspecified elevated | | | | [address] | [place], [place] | WBC count (Primary | | 10/17/ | | [place] [address] | [id number] | Dx); Urinary tract | | 2014 | | [phone] | | infection, site | | | | | Adriano Pal, | unspecified; | | | | | DO [address] | Epididymitis; | | | | | [place] [address] [place], | Dehydration, mild; | | | | | [place] [address] | Epididymitis, left; | | | | | [phone] | Status post hip | | | | | | replacement, right; | | | | | | Tobacco user; Left | | | | | | inguinal hernia; | | | | | | Nephrolithiasis; | | | | | | Peyronie's disease; | | | | | | Acute cystitis | | | | | | without hematuria; | | | | | | Infection due to | | | | | | ESBL-producing | | | | | | Escherichia coli; | | | | | | UTI due to | | | | | | ESBL-producing | | | | | | Escherichia coli | +--------+ + + + + Social [...] + + + | Blood Pressure | 132/78 | 10/17/2015 7:00 AM | | | | | PST | | + + + + + | Pulse | 83 | 10/17/2015 7:00 AM | | | | | PST | | + + + + + | Temperature | 36.5 C (97.7 F) | 10/17/2015 7:00 AM | | | | | PST | | + + + + + | Respiratory Rate | 19 | 10/17/2015 7:00 AM | | | | | PST | | + + + + + | Oxygen Saturation | 94% | 10/17/2015 7:00 AM | | | | | PST | | + + + + + | Inhaled Oxygen | - | - | | | Concentration | | | | + + + + + | Weight | 86.4 kg (190 lb 7.6 | 10/17/2015 5:00 AM | | | | oz) | PST | | + + + + + | Height | 177.8 cm (5' 10") | 10/14/2015 6:41 AM | | | | | PST | | + + + + + | Body Mass Index | 27.33 | 10/14/2015 6:41 AM | | | | | PST | | + + + + + documented in this encounter Discharge Summaries Heidy Montano MD - 10/17/2015 11:34 AM PSTFormatting of this note might be different fr om the original. Physician Discharge Summary Patient ID: Kobi Baumann [id number] 75 y.o. 1940 Admit date: 10/14/2015 Discharge date and time: 10/17/2015 Admitting Physician: Adriano Pal DO Discharge Physician: Heidy Montano MD Admission Diagnoses: Epididymitis [N45.1] Dehydration, mild [E86.0] Epididymitis, left [N45.1] Tobacco user [Z72.0] Urinary tract infection, site unspecified [N39.0] Leukocytosis, unspecified elevated WBC count [D72.829] Status post hip replacement, right [Z96.641] Discharge Diagnoses: Principal Problem: UTI due to ESBL-producing Escherichia coli Active Problems: Epididymitis, left Leukocytosis, unspecified elevated WBC count Tobacco user Status post hip replacement, right Dehydration, mild Nephrolithiasis Left inguinal hernia Admission Condition: fair Discharged Condition: good Indication for Admission: Swelling, pain of left scrotum Hospital Course: 75 y.o. male with a history of BPH without urinary obstruction and recent right hip replacement surgery performed at [facility] on 10/02 presents to emergency room today wi th above complaint. Patient first noted some swelling and pain in his left groin/scrotum and then both the swelling and pain continued to get worse. The pain is constant, but it gets w orse with movement or touching the left scrotum. On Friday he noted development of erythema of his scrotum and started to develop chills, night sweats & feeling hot. He also noticed th at his urine became darker in color, but had minimal discomfort with urination, but not burn ing. Patient states that he only took aspirin and tylenol for pain and didn't take any of hi s prescribed opiate (s/p hip surgery). Patient was evaluated in the emergency room and was noted to have significant white count e levation & some platelet elevation as well as evidence of pyuria on his urine analysis. Revi ew of patient's previous work up that was obtained in ED showed a normal WBC count back in 2 013, but nothing more recent than that. Patient's vital signs remained stable however, with out any fever. US imaging of scrotum revealed evidence of epididymitis & CT abdomen showed left sided fat containing hernia. Dr. Campbell reviewed case with Dr. Vivas of urology and & Dr. Shahid of [facility]. Dr. Shahid didn't think that patient's pain had anything to do with found inguinal hernia. He was given IV antibiotics and has improved. He remains with some swelling of the left gonzález ticle. Remainder of exam is normal except for post op changes of left lower extremity. Consults: urology, Ortega Significant Diagnostic Studies: see cultures in other documentation, E coli sensitive to Er tapenem Treatments: arranging outpatient infusions Disposition: home Patient Instructions: Discharge Medications New Medications Details ertapenem (INVanz) 1 g in sodium chloride 0.9% 50 mL IVPB Inject 1 g into the vein every 24 hours. Unchanged Medications Details acetaminophen 325 mg tablet Take 650 mg by mouth every 4 hours as needed for Pain. aka: TYLENOL Activity: activity as tolerated Diet: regular diet Wound Care: none needed Follow-up with infusion in AM, Dr. Wise to see you today at 3:00 for initiation of care yossi kwong. Signed: Hediy Montano MD 10/17/2015 11:35 documented in this e ncounter Medications at Time of Discharge + + + +---------+ + + | Medication | Sig | Dispensed | Refills | Start | End Date | | | | | | Date | | + + + +---------+ + + | acetaminophen | Take 650 mg by mouth | | 0 | | | | (TYLENOL) 325 mg | every 4 hours as | | | | 9 | | tablet | needed for Pain. | | | | | + + + +---------+ + + | ertapenem (INVanz) | Inject 1 g into the | 17 each | 0 | 10/17/20 | | | 1 g in sodium | vein every 24 hours. | | | 15 | 9 | | chloride 0.9% 50 mL | | | | | | | IVPB | | | | | | + + + +---------+ + + documented as of this encounter Progress Notes Marshall Vivas MD - 10/16/2015 6:20 PM PSTFormatting of this note might be different fro m the original. Urology follow up S: Denies testicular pain. No nausea or vomiting. No abdominal or flank pain. No voidin g complaints. BP 152/88 mmHg | Pulse 90 | Temp(Src) 36.6 C (97.9 F) (Oral) | Resp 18 | Ht 1.778 m (5' 10") | Wt 84.5 kg (186 lb 4.6 oz) | BMI 26.73 kg/m2 | SpO2 96% General: Awake, alert, in no acute distress. Speech is fluent. Appears to be stated age. Lungs: Normal respiratory effort, no wheezing, no stridor, no tachypnea. Back: No CVA tenderness. Abdomen: Soft, nontender, no hepatosplenomegaly. No masses. No guarding; benign. Bladder nondistended. Extremities: Non-edematous. Warm, perfused. Neuro: Awake, alert, oriented x3. Psychiatric: Mood and affect are normal. Normal judgment. Skin: Warm and dry, no erythematous rash. Genitalia: Significant reduction in left scrotal erythema. Minimal scrotal wall thickenin g. Left testis and epididymis are still swollen and tender, essentially unchanged, certainl y not progressing. DIAGNOSTIC DATA: Lab Results Component Value Date CREA 0.99 10/16/2015 BUN 14 10/16/2015 NA 141 10/16/2015 K 3.8 10/16/2015 CL 112* 10/16/2015 CO2 24 10/16/2015 Lab Results Component Value Date WBC 9.7 10/16/2015 HGB 9.9* 10/16/2015 HCT 29.6* 10/16/2015 MCV 85.2 10/16/2015 PLT 513* 10/16/2015 Microbiology Results (72 hrs) Procedure Component Value Units Date/Time Culture, Blood [[id number]] Collected: 10/14/15953 Order Status: Completed Lab Status: Preliminary result Updated: 10/15/152300 Specimen Information: Blood / Peripheral Blood Culture Result: No growth: Monitored continually by instrument for 5 days Culture, Blood [[id number]] Collected: 10/14/15953 Order Status: Completed Lab Status: Preliminary result Updated: 12/12/15 2301 Specimen Information: Blood / Peripheral Blood Culture Result: No growth: Monitored continually by instrument for 5 days Culture, Urine [[id number]] (Susceptibility) Collected: 10/14/15 0758 Order Status: Completed Lab Status: Final result Updated: 10/16/15 0911 Specimen Information: Urine / Urine, clean catch Culture >100,000 CFU/ml Escherichia coli Comment: *INFECTION PREVENTION ALERT - ESBL* ESBLs are enzymes that mediate resistance to extended-spectrum (third generation) cephalosporins (e.g.,ceftazidime, cefotaxime, (az treonam) but do not affect cephamycins(cefoxitin and cefotetan) orcarbapenems (e.g.,meropenem or imipenem). Patients who are identified with these organisms should be pl aced into CONTACT PRECAUTIONS. Susceptibility Escherichia coli Not Specified Amikacin 4 Sensitive Ampicillin >=32 Resistant Ampicillin + Sulbactam >=32 Resistant Cefazolin >=64 Resistant Cefoxitin <=4 Sensitive Ceftazidime Resistant Ceftriaxone >=64 Resistant Ciprofloxacin >=4 Resistant Ertapenem <=0.5 Sensitive Gentamicin >=16 Resistant Meropenem <=0.25 Sensitive Nitrofurantoin <=16 Sensitive Piperacillin + Tazobactam 8 Sensitive Tobramycin 8 Intermediate Trimethoprim + Sulfamethoxazole >=320 Resistant Consecutive PVRs were 47, 123, and 51 cc. Impression: 1. E. coli ESBL UTI. 2. Left epididymo-orchitis. Clinically improving. Plan: Agree with change in antibiotics to ertapenem (to which the E. coli is demonstrated to be s ensitive) Since his E. coli UTI is resistant to oral antibiotics, he will need a prolonged course of intravenous antibiotics, which could be administered through a PICC line as an outpatient. 7 days of therapy would be adequate for cystitis, but since he has epididymitis as well, I would recommend a total of 21 days of therapy. He should follow-up in my office in one to 2 weeks for repeat examination. Continue scrotal elevation, ice pack, and NSAIDs. Thank you!! Scott Hamilton RN - 10/16/2015 5:22 PM PST4fr PICC inserted into L basilic vein per sterile protocol. PIC C trimmed at 54 cm, threaded to 2 cm job. Tip at CAJ per Dr. Barba. Pressure dressing of gau ze and coban placed on sterile dressing, RN instructed to remove pressure dressing tomorrow and change sterile dressing if biopatch saturated. Line released for use.Electronically sign ed by Scott Canales RN at 10/16/2015 5:23 PM Poly Kurtz RN - 10/16/2015 4:4 1 PM PSTInfection control RN asked to see patient/ re new ESBL diagnosis. PICC being chitra sher for long term care phlebotomist abx therapy Adriano Addison DO - 10/16/2015 3:17 PM PSTFormatting of this note might be differ ent from the original. [facility] PROGRESS NOTE Patient: Kobi Baumann : 1940: Age: 75 y.o. MedRec: [id number] PCP: Luis M Baptiste MD Admission date: 10/14/2015 Hospital day # : 2 Physician author: Adriano Pal DO Today: 10/16/2015 Allergies: Allergies Allergen Reactions Oxybutynin Chloride Unknown Codeine Sensitivity Nausea and changed vision Current Medications: Current Facility-Administered Medications Medication Dose Route Frequency Provider Last Rate Last Dose acetaminophen (TYLENOL) tablet 650 mg 650 mg Oral Q4H PRN Adriano Pal DO aluminum & magnesium hydroxide-simethicone (MAALOX REGULAR STRENGTH) 200-200-20 mg/5 mL suspension 30 mL 30 mL Oral Q4H PRN Adriano Yossi Pal DO artificial tears (CELLUVISC) ophthalmic solution 1 drop 1 drop Both Eyes Q1H PRN Dmitr y P Demarco DO 1 drop at 10/15/15 1405 bisacodyl (DULCOLAX) suppository 10 mg 10 mg Rectal Daily PRN Adrianooswaldo Pal DO 1 0 mg at 10/15/15 1528 enoxaparin (LOVENOX) 40 mg/0.4 mL injection 40 mg 40 mg Subcutaneous Daily Adrianooswaldo lewis DO 40 mg at 10/16/15 0841 ertapenem (INVanz) 1 g in sodium chloride 0.9% 50 mL IVPB 1 g Intravenous Daily Adriano P Pal, DO 100 mL/hr at 10/16/15 1455 1 g at 10/16/15 1455 famotidine (PEPCID) injection 20 mg 20 mg Intravenous 2 times per day Adriano P Pal , DO 20 mg at 10/16/15 0842 ibuprofen (ADVIL, MOTRIN) tablet 400 mg 400 mg Oral 3 times per day Marshall Vivas MD 400 mg at 10/16/15 1342 magnesium hydroxide (MILK OF MAGNESIA) 400 mg/5 mL suspension 30 mL 30 mL Oral Nightly PRN Adriano P Pal, DO ondansetron (ZOFRAN) injection 4 mg 4 mg Intravenous Q6H PRN Adriano P Pal, DO 4 mg at 10/14/15 1725 oxyCODONE (ROXICODONE) tablet 5-15 mg 5-15 mg Oral Q3H PRN Adriano P Pal, DO polyethylene glycol (MIRALAX) powder 17 g 17 g Oral Daily Adriano P Pal, DO 17 g at 10/15/15 0825 senna (SENOKOT) tablet 17.2 mg 17.2 mg Oral BID Adriano P Pal, DO 17.2 mg at 10/03 01/15 0825 sodium chloride 0.9% (NS) infusion Intravenous Continuous Adriano P Pal, DO 100 mL /hr at 10/16/15 1455 Current Infusions: sodium chloride 0.9% 100 mL/hr at 10/16/15 1455 Objective Data Labs Recent Labs Lab 10/16/15 0545 10/15/15 0603 10/14/15 0701 WBC 9.7 19.7* 37.6* HGB 9.9* 9.9* 11.3* HCT 29.6* 31.1* 34.7* PLT 513* 496* Increased* | 565* NEUPCT 78.9 80.0 90.4* MONPCT 9.3 7.9 6.0 No results for input(s): PROTIME, INR in the last 168 hours. No results for input(s): PTT in the last 168 hours. Recent Labs Lab 10/16/15 0545 10/15/15 0603 10/14/15 0701 GLU 98 102 163* NA 141 136 130* K 3.8 4.1 4.2 CL 112* 104 97* CO2 24 26 24 ANIONGAP 5 6 9 BUN 14 17 16 CREA 0.99 1.04 1.16 GFRNONAA >60 >60 >60 CALCIUM 8.2* 8.4 8.5 No results for input(s): BNP in the last 168 hours. Recent Labs Lab 10/15/15 0603 MG 2.1 No results for input(s): PHOS in the last 168 hours. No results for input(s): AMYLASE, LIPASE in the last 168 hours. No results for input(s): AMMONIA in the last 168 hours. No results for input(s): TROPONINI, CK, CKMB in the last 168 hours. Invalid input(s): CKTOTAL No results for input(s): PHART, PO2ART, RFV9NZB, GOB5NPR, BEART, K4WRFBUC in the last 168 h ours. No results for input(s): SPECSOURCE, PHPOCB, HCO3, TCO2, BEART, BE, WMAS1NDY in the last 16 8 hours. Invalid input(s): YBULD7LE, MAVA6XH Point of care glucose: No results for input(s): POCGLU in the last 168 hours. Serial weights: Filed Weights: 10/14/15 0641 10/14/15 1650 10/15/15 0600 10/16/15 0631 Weight: 85.276 kg (188 lb) 85.3 kg (188 lb 0.8 oz) 83.1 kg (183 lb 3.2 oz) 84.5 kg (186 lb 4.6 oz) Most recent weight: Input and output for last 24hrs: Wt Readings from Last 1 Encounters: 10/16/15 84.5 kg (186 lb 4.6 oz) I/O last 24 Hours: In: 3932 [P.O.:1460; I.V.:2462; IV Piggyback:10] Out: 1526 [Urine:1525; Stool:1] I/O last 3 completed shifts: In: 4879 [P.O.:1460; I.V.:3399; IV Piggyback:20] Out: 2401 [Urine:2400; Stool:1] Vitals Ranges: Temp: [36.6 C (97.9 F)-37.8 C (100 F)] 36.6 C (97.9 F) Pulse: [80-90] 90 Resp: [18] 18 BP: (118-152)/(77-88) 152/88 mmHg Vitals: Temp: 36.6 C (97.9 F) BP: 152/88 mmHg Pulse: 90 Resp: 18 SpO2: 96 % SpO2 96 % on room air at flow rate L/min Subjective Patient seen for follow-up this afternoon. No acute events overnight. Patient finally had a good bowel movement yesterday after receiving stool softeners and so far passing gas toda y. States that scrotum feels better, less tender and feels less swollen. He denies any com plaints at this time. ROS See above Exam General alert, NAD mood and affect normal speech fluent Cardiac RRR no MRG Extremities no significant edema Lung clear to auscultation effort not labored Abdominal + bowel sounds, soft, non tender There is less swelling and redness involving left testes, less tender to touch, testicl e feels firm. This a circumscribed male with penis without any drainage or signs of infectio n. Please see the Clinical image Nida/Aamir under the media files from both admit & 10/16. Skin Surgical site of the right hip has good wound healing with good edges approximation, w ithout any signs of infection. There is some bruising in that thigh also noted. Nontender to touch. Patient also has an area of excoriation on the right inguinal area just above and medial to the penis that has a brown scab without any significant surrounding erythema. Assessment and Hospital Course Active Hospital Problems Diagnosis UTI due to ESBL-producing Escherichia coli Epididymitis, left Leukocytosis, unspecified elevated WBC count Dehydration, mild Tobacco user Status post hip replacement, right Nephrolithiasis Left inguinal hernia Resolved Hospital Problems Diagnosis No resolved problems to display. Plan UTI due to ESBL-producing Escherichia coli - Patient presented with chills, sweats and subjective fevers at home with scrotal swelling on the left with erythema and evidence of pyuria on his UA. He also had dramatically elevat ed leukocytosis, which is now normalized. - Continue with IV fluid hydration. - it disaster recovery manager to IV Ertapenem (Day 1) from Rocephin as urine culture show ESBL Ecoli. Will need a total of 21 day course of Rx per Dr. Vivas 2/2 [address]idymitis. - place PICC line for long term care phlebotomist IV antibiotics. - Hydrate with NS @ 100 cc/hr. Epididymitis, left - will also c/w IV Ertapenem . - Appreciate Dr. Vivas's recommendations, I reviewed his progress notes from today. Shanika nt needs to follow up with Dr. Vivas in office in 2 weeks for repeat examination. - Continue with ibuprofen, scrotal elevation and ice pack to the scrotum. - will have nursing provide skin care. - c/w Oxycodone prn pain. Leukocytosis, unspecified elevated WBC count - Suspect it's simply related to severe bacterial infection in the setting of dehydration s econdary to poor oral intake as it dropped precipitously with initiation of treatment of the UTI and dehydration. Resolved. - will f/u BC obtained in ED so far negative. Patient's procalcitonin now normal. CRP (beatriz ding down). I will check CRP in am. Dehydration, mild - resolving. - c/w IVF hydration as noted above. Tobacco user - Counseled patient about smoking cigars and chewing tobacco. Status post hip replacement, right - Continue with normal hip precautions as needed. - Progress with PT/OT while patient in the hospital. DISPOSITION: Possible D/C Tue if stable, per Case Management patient would be able to do ou tpatient infusion in [place]. Time spent with the patient and (of which more than 50% was in counseling and/or coord ination the patient's care as outlined above) was 25 minutes. Adriano Pal DO 10/16/2015 15:17 [facility] Portions of this chart may have been created with [employer] voice recognition software. Occasi onal wrong-word or sound-alike substitutions may have occurred due to the inherent bateman itations of voice recognition software. Please read the chart carefully and recognize, using context, where these substitutions have occurred Poly Kurtz RN - 10/16/2015 10:45 AM PSTNew DX of ESBL. Patient placed on contact precautions, informationa l handout given to patient and , questions answered, demonstration of gowns and gloves mitul rubioen to . Adriano Addison DO - 10/15/2015 9:21 PM PSTFormatting of this note might be different from the o riginal. [facility] PROGRESS NOTE Patient: Kobi Baumann : 1940: Age: 75 y.o. MedRec: [id number] PCP: Luis M Baptiste MD Admission date: 10/14/2015 Hospital day # : 1 Physician author: Adriano Pal DO Today: 10/15/2015 Allergies: Allergies Allergen Reactions Oxybutynin Chloride Unknown Codeine Sensitivity Nausea and changed vision Current Medications: Current Facility-Administered Medications Medication Dose Route Frequency Provider Last Rate Last Dose acetaminophen (TYLENOL) tablet 650 mg 650 mg Oral Q4H PRN Adriano Pal DO aluminum & magnesium hydroxide-simethicone (MAALOX REGULAR STRENGTH) 200-200-20 mg/5 mL suspension 30 mL 30 mL Oral Q4H PRN Adriano Pal DO artificial tears (CELLUVISC) ophthalmic solution 1 drop 1 drop Both Eyes Q1H PRN Sydni y Yossi Pal DO 1 drop at 10/15/15 1405 bisacodyl (DULCOLAX) suppository 10 mg 10 mg Rectal Daily PRN Adriano Pal DO 1 0 mg at 10/15/15 1528 cefTRIAXone (ROCEPHIN) 1 g in sodium chloride 0.9% 50 mL IVPB 1 g Intravenous Daily Neil itroswaldo Pal DO 100 mL/hr at 10/15/15 0919 1 g at 10/15/15 0919 enoxaparin (LOVENOX) 40 mg/0.4 mL injection 40 mg 40 mg Subcutaneous Daily Adriano lewis DO 40 mg at 10/15/15 0824 famotidine (PEPCID) injection 20 mg 20 mg Intravenous 2 times per day Adriano Pal DO 20 mg at 10/15/152033 ibuprofen (ADVIL, MOTRIN) tablet 400 mg 400 mg Oral 3 times per day Marshall Vivas MD 400 mg at 10/15/152034 magnesium hydroxide (MILK OF MAGNESIA) 400 mg/5 mL suspension 30 mL 30 mL Oral Nightly PRN Adriano P Pal, DO ondansetron (ZOFRAN) injection 4 mg 4 mg Intravenous Q6H PRN Adriano P Pal, DO 4 mg at 10/14/15 1725 oxyCODONE (ROXICODONE) tablet 5-15 mg 5-15 mg Oral Q3H PRN Adriano P Pal, DO polyethylene glycol (MIRALAX) powder 17 g 17 g Oral Daily Adriano P Pal, DO 17 g at 10/15/15 0825 senna (SENOKOT) tablet 17.2 mg 17.2 mg Oral BID Adriano P Pal, DO 17.2 mg at 10/03 01/15 0825 sodium chloride 0.9% (NS) infusion Intravenous Continuous Adriano P Pal, DO 100 mL /hr at 10/15/15 0309 Current Infusions: sodium chloride 0.9% 100 mL/hr at 10/15/15 0309 Objective Data Labs Recent Labs Lab 10/15/15 0603 10/14/15 0701 WBC 19.7* 37.6* HGB 9.9* 11.3* HCT 31.1* 34.7* PLT 496* Increased* | 565* NEUPCT 80.0 90.4* MONPCT 7.9 6.0 No results for input(s): PROTIME, INR in the last 168 hours. No results for input(s): PTT in the last 168 hours. Recent Labs Lab 10/15/15 0603 10/14/15 0701 GLU 102 163* NA 136 130* K 4.1 4.2 CL 104 97* CO2 26 24 ANIONGAP 6 9 BUN 17 16 CREA 1.04 1.16 GFRNONAA >60 >60 CALCIUM 8.4 8.5 No results for input(s): BNP in the last 168 hours. Recent Labs Lab 10/15/15 0603 MG 2.1 No results for input(s): PHOS in the last 168 hours. No results for input(s): AMYLASE, LIPASE in the last 168 hours. No results for input(s): AMMONIA in the last 168 hours. No results for input(s): TROPONINI, CK, CKMB in the last 168 hours. Invalid input(s): CKTOTAL No results for input(s): PHART, PO2ART, MSG7CAQ, KGR2PJY, BEART, T9BBTRZW in the last 168 h ours. No results for input(s): SPECSOURCE, PHPOCB, HCO3, TCO2, BEART, BE, OYSF9FJM in the last 16 8 hours. Invalid input(s): WBPXI9FN, ZSDP4YY Point of care glucose: No results for input(s): POCGLU in the last 168 hours. Serial weights: Filed Weights: 10/14/15 0641 10/14/15 1650 10/15/15 0600 Weight: 85.276 kg (188 lb) 85.3 kg (188 lb 0.8 oz) 83.1 kg (183 lb 3.2 oz) Most recent weight: Input and output for last 24hrs: Wt Readings from Last 1 Encounters: 10/15/15 83.1 kg (183 lb 3.2 oz) I/O last 24 Hours: In: 3500 [P.O.:1360; I.V.:2130; IV Piggyback:10] Out: 1276 [Urine:1275; Stool:1] I/O last 3 completed shifts: In: 3700 [P.O.:1560; I.V.:2130; IV Piggyback:10] Out: 1576 [Urine:1575; Stool:1] Vitals Ranges: Temp: [35.7 C (96.3 F)-37.1 C (98.8 F)] 37.1 C (98.8 F) Pulse: [74-88] 80 Resp: [16-18] 18 BP: (100-118)/(66-77) 118/77 mmHg Vitals: Temp: 37.1 C (98.8 F) BP: 118/77 mmHg Pulse: 80 Resp: 18 SpO2: 94 % SpO2 94 % on room air at flow rate L/min Subjective Patient seen for follow-up this afternoon. No acute events overnight. Patient finally had a good bowel movement today after receiving stool softeners. States that scrotum feels bet ter, less tender and feels less swollen. He denies any complaints at this time. ROS See above Exam General alert, NAD mood and affect normal speech fluent Cardiac RRR no MRG Extremities no significant edema Lung clear to auscultation effort not labored Abdominal + bowel sounds, soft, non tender There is less swelling and redness is not as dark involving left testes, less tender to touch, testicle feels firm. This a circumscribed male with penis without any drainage or sig ns of infection. Skin Surgical site of the right hip has good wound healing with good edges approximation, w ithout any signs of infection. There is some bruising in that thigh also noted. Nontender to touch. Patient also has an area of excoriation on the right inguinal area just above and medial to the penis that has a brown scab without any more surrounding erythema. Assessment and Hospital Course Active Hospital Problems Diagnosis UTI (urinary tract infection) Epididymitis, left Leukocytosis, unspecified elevated WBC count Dehydration, mild Tobacco user Status post hip replacement, right Nephrolithiasis Left inguinal hernia Resolved Hospital Problems Diagnosis No resolved problems to display. Plan UTI (urinary tract infection) - Patient presents with chills, sweats and subjective fevers at home with scrotal swelling on the left with erythema and evidence of pyuria on his UA. He also had dramatically elevate d leukocytosis, which is now trending down nicely almost by half. - Continue with IV fluid hydration. - Continue with IV Rocephin while waiting for final urine culture results. - Hydrate with NS @ 100 cc/hr. Epididymitis, left - will also c/w IV Rocephin empirically. - Appreciate Dr. Vivas's recommendations, I reviewed his consult and progress notes from and today. - Continue with ibuprofen, scrotal elevation and ice pack to the scrotum. - will have nursing provide skin care. - c/w Oxycodone prn pain. Leukocytosis, unspecified elevated WBC count - Suspect it's simply related to severe bacterial infection in the setting of dehydration s econdary to poor oral intake as it dropped precipitously with initiation of appropriate romeo tment of the UTI and dehydration. - will f/u BC obtained in ED so far negative. Patient's procalcitonin (trending down ) and CRP are both elevated (trending up). I will check procalcitonin and CRP in am. Dehydration, mild - c/w IVF hydration as noted above. Tobacco user - Counseled patient about smoking cigars and chewing tobacco. Status post hip replacement, right - Continue with normal hip precautions as needed. - Progress with PT/OT while patient in the hospital. Time spent with the patient and (of which more than 50% was in counseling and/or coord ination the patient's care as outlined above) was 25 minutes. Adriano Pal DO 10/15/2015 21:21 [facility] Portions of this chart may have been created with [employer] voice recognition software. Occasi onal wrong-word or sound-alike substitutions may have occurred due to the inherent bateman itations of voice recognition software. Please read the chart carefully and recognize, using context, where these substitutions have occurred Marshall Wing MD - 10/15/2015 3:40 PM PST [facility] Progress Note Kobi Avila Osmanedwardo is now HD # 2 IMPRESSION: Left epididymoorchitis. Improving. UTI. Urine culture growing GNR's. Constipation. PLAN: Continue IV antibiotics. Scrotal elevation, ice, NSAID's Check PVR's SUBJECTIVE: Pain is better today. Patient is passing flatus, but has not yet had a BM. Patient does not complain of nausea. Currently tolerating diet well. No complaints of chest pain or SOB. No abdominal or flank pain. Denies dysuria or hematuria. Scheduled Meds: cefTRIAXone (ROCEPHIN) IV 1 g Intravenous Daily enoxaparin (LOVENOX) injection 40 mg Subcutaneous Daily famotidine 20 mg Intravenous 2 times per day ibuprofen 400 mg Oral 3 times per day polyethylene glycol 17 g Oral Daily senna 17.2 mg Oral BID OBJECTIVE: VS past 24 hours: Temp: [35.7 C (96.3 F)-36.8 C (98.2 F)] 35.7 C (96.3 F) Pulse: [74-94] 78 Resp: [16-20] 16 BP: (100-133)/(61-79) 100/66 mmHg Temp (24hrs), Av.2 C (97.2 F), Min:35.7 C (96.3 F), Max:36.8 C (98.2 F) I/O past 24 hours: I/O last 3 completed shifts: In: 1147 [P.O.:200; I.V.:937; IV Piggyback:10] Out: 1175 [Urine:1175] PHYSICAL EXAM: General: Awake, alert, in no acute distress. Speech is fluent. Lungs: Normal respiratory effort, no wheezing, no stridor, no tachypnea. Back: No CVA tenderness. Abdomen: Soft, nontender, no hepatosplenomegaly. No masses. No guarding; benign. Bladder nondistended. Extremities: Warm, perfused, still with right hip region ecchymosis. Psychiatric: Mood and affect are normal. Normal judgment. Skin: Warm and dry, no erythematous rash. Genitourinary: Less scrotal erythema, and somewhat less epididymal tenderness, but still s ignificantly swollen. Labs: Recent Labs Lab 10/15/15 0603 10/14/15 0701 HCT 31.1* 34.7* Recent Results (from the past 24 hour(s)) Procalcitonin Result Value Ref Range Procalcitonin 0.75 (H) 0.05-0.50 ng/mL Comment C-Reactive Protein Result Value Ref Range CRP 252.40 (H) <8.00 mg/L CBC with Differential Result Value Ref Range WBC 19.7 (H) 4.0-11.0 K/uL RBC 3.63 (L) 4.30-5.70 M/uL Hgb 9.9 (L) 13.5-18.0 g/dL Hct 31.1 (L) 40.0-51.0 % MCV 85.8 83.0-101.0 fL MCH 27.3 (L) 28.0-35.0 pg MCHC 31.9 (L) 32.0-36.0 g/dL RDW-CV 13.9 <15.0 % Platelet Count 496 (H) 140-440 K/uL MPV 6.7 fL % Neutrophils 80.0 45.0-82.0 % % Lymphocytes 11.2 (L) 20.0-45.0 % % Monocytes 7.9 4.0-12.0 % % Eosinophils 0.8 0.0-5.0 % % Basophils 0.1 0.0-1.0 % Absolute Neutrophils 15.80 (H) 1.80-8.50 K/uL Absolute Lymphocytes 2.20 0.60-3.20 K/uL Absolute Monocytes 1.60 (H) 0.00-1.00 K/uL Absolute Eosinophils 0.20 0.00-0.40 K/uL Absolute Basophils 0.00 0.00-0.10 K/uL Basic Metabolic Panel Result Value Ref Range NA 136 136-149 mmol/L K 4.1 3.5-5.1 mmol/L CL 104 98-109 mmol/L CO2 26 24-31 mmol/L ANION GAP 6 3-16 mmol/L GLUCOSE 102 70-109 mg/dL BUN 17 7-18 mg/dL Creatinine, Serum/Plasma 1.04 0.60-1.30 mg/dL eGFR if not >60 >=60 mL/min/1.73m2 CALCIUM 8.4 8.3-10.5 mg/dL BUN/CREA 16.3 Magnesium Result Value Ref Range MG 2.1 1.8-2.5 mg/dL Procalcitonin Result Value Ref Range Procalcitonin 0.51 (H) 0.05-0.50 ng/mL Comment Lab Results Component Value Date CREA 1.04 10/15/2015 BUN 17 10/15/2015 NA 136 10/15/2015 K 4.1 10/15/2015 CL 104 10/15/2015 CO2 26 10/15/2015 Microbiology Results (Last 14 Days by Collected Date with Culture/Sensitivity) Procedure Component Value Units Date/Time Culture, Blood [[id number]] Collected: 10/14/15953 Order Status: Completed Lab Status: Preliminary result Updated: 10/15/152300 Specimen Information: Blood / Peripheral Blood Culture Result: No growth: Monitored continually by instrument for 5 days Culture, Blood [[id number]] Collected: 10/14/15953 Order Status: Completed Lab Status: Preliminary result Updated: 10/14/152300 Specimen Information: Blood / Peripheral Blood Culture Result: No growth: Monitored continually by instrument for 5 days Culture, Urine [[id number]] Collected: 10/14/15 0758 Order Status: Completed Lab Status: Preliminary result Updated: 10/15/15819 Specimen Information: Urine / Urine, clean catch Culture >100,000 CFU/ml Gram Negative Rods Comment: Identification and susceptibility to follow. Electronically Signed by: Marshall Vivas M.D. DATE/TIME: 10/15/2015 15:40 documented in this en counter Plan of [...] [facility] | | | | | | [place] [address] | | | | | | [phone] | | | | | | | | +--------+---------+ + + + documented as of this encounter Procedures + +--------+ + + + | Procedure Name | Priori | Date/Time | Associated Diagnosis | Comments | | | ty | | | | + +--------+ + + + | CBC WITH | Routin | 10/17/2015 | | Results for this | | DIFFERENTIAL | e | 4:55 AM | | procedure are in the | | | | PST | | results section. | + +--------+ + + + | C-REACTIVE PROTEIN | Routin | 10/17/2015 | | Results for this | | | e | 4:55 AM | | procedure are in the | | | | PST | | results section. | + +--------+ + + + | BASIC METABOLIC | Routin | 10/17/2015 | | Results for this | | PANEL | e | 4:55 AM | | procedure are in the | | | | PST | | results section. | + +--------+ + + + | XR CHEST AP PORTABLE | Routin | 10/16/2015 | UTI due to | Results for this | | | e | 5:17 PM | ESBL-producing | procedure are in the | | | | PST | Escherichia coli | results section. | + +--------+ + + + | PROCALCITONIN, SERUM | Routin | 10/16/2015 | | Results for this | | | e | 5:45 AM | | procedure are in the | | | | PST | | results section. | + +--------+ + + + | CBC WITH | Routin | 10/16/2015 | | Results for this | | DIFFERENTIAL | e | 5:45 AM | | procedure are in the | | | | PST | | results section. | + +--------+ + + + | C-REACTIVE PROTEIN | Routin | 10/16/2015 | | Results for this | | | e | 5:45 AM | | procedure are in the | | | | PST | | results section. | + +--------+ + + + | BASIC METABOLIC | Routin | 10/16/2015 | | Results for this | | PANEL | e | 5:45 AM | | procedure are in the | | | | PST | | results section. | + +--------+ + + + | PROCALCITONIN, SERUM | STAT | 10/15/2015 | | Results for this | | | | 11:35 AM | | procedure are in the | | | | PST | | results section. | + +--------+ + + + | CBC WITH | Routin | 10/15/2015 | | Results for this | | DIFFERENTIAL | e | 6:03 AM | | procedure are in the | | | | PST | | results section. | + +--------+ + + + | C-REACTIVE PROTEIN | Routin | 10/15/2015 | | Results for this | | | e | 6:03 AM | | procedure are in the | | | | PST | | results section. | + +--------+ + + + | MAGNESIUM | Routin | 10/15/2015 | | Results for this | | | e | 6:03 AM | | procedure are in the | | | | PST | | results section. | + +--------+ + + + | BASIC METABOLIC | Routin | 10/15/2015 | | Results for this | | PANEL | e | 6:03 AM | | procedure are in the | | | | PST | | results section. | + +--------+ + + + | PROCALCITONIN, SERUM | STAT | 10/15/2015 | | Results for this | | | | 12:31 AM | | procedure are in the | | | | PST | | results section. | + +--------+ + + + | PROCALCITONIN, SERUM | STAT | 10/14/2015 | | Results for this | | | | 11:57 AM | | procedure are in the | | | | PST | | results section. | + +--------+ + + + | C-REACTIVE PROTEIN | Routin | 10/14/2015 | | Results for this | | | e | 11:57 AM | | procedure are in the | | | | PST | | results section. | + +--------+ + + + | CULTURE, BLOOD | STAT | 10/14/2015 | | Results for this | | | | 9:54 AM | | procedure are in the | | | | PST | | results section. | + +--------+ + + + | CULTURE, BLOOD | STAT | 10/14/2015 | | Results for this | | | | 9:54 AM | | procedure are in the | | | | PST | | results section. | + +--------+ + + + | CT ABDOMEN PELVIS W | STAT | 10/14/2015 | | Results for this | | CONTRAST | | 9:35 AM | | procedure are in the | | | | PST | | results section. | + +--------+ + + + | US SCROTUM AND | STAT | 10/14/2015 | | Results for this | | TESTICLES | | 8:00 AM | | procedure are in the | | | | PST | | results section. | + +--------+ + + + | URINALYSIS WITH | STAT | 10/14/2015 | | Results for this | | MICROSCOPIC WITH | | 7:58 AM | | procedure are in the | | CULTURE IF INDICATED | | PST | | results section. | + +--------+ + + + | CULTURE, URINE | Routin | 10/14/2015 | | Results for this | | | e | 7:58 AM | | procedure are in the | | | | PST | | results section. | + +--------+ + + + | SLIDE REVIEW, | Routin | 10/14/2015 | | Results for this | | PERIPHERAL SMEAR | e | 7:01 AM | | procedure are in the | | | | PST | | results section. | + +--------+ + + + | CBC W/AUTO | STAT | 10/14/2015 | | Results for this | | DIFFERENTIAL | | 7:01 AM | | procedure are in the | | | | PST | | results section. | + +--------+ + + + | BASIC METABOLIC | STAT | 10/14/2015 | | Results for this | | PANEL | | 7:01 AM | | procedure are in the | | | | PST | | results section. | + +--------+ + + + documented in this encounter Results C-Reactive Protein (10/17/2015 4:55 AM PST) + + + + + + | Component | Value | Ref Range | Performed | Pathologist | | | | | At | Signature | + + + + + + | CRP | 94.20 (H) | <8.00 mg/L | [facility] | | | | | [...] + | [facility] | [address] | [place] | [phone] | | [facility] | | [address] | | | - LABORATORY | | | | + + + + + Basic Metabolic Panel (10/17/2015 4:55 AM PST) + +---------+ + + + | Component | Value | Ref Range | Performed | Pathologist | | | | | At | Signature | + +---------+ + + + | Na | 139 | 136 - 149 | [facility] | | | | | mmol/L | [facility] | | [facility] - | | | | | | [facility] | | + +---------+ + + + | K | 4.1 | 3.5 - 5.1 | [facility] | | | | | mmol/L | [facility] | [facility] | [facility] - | | | | | | [facility]ATORY | | + +---------+ + + + | Cl | 108 | 98 - 109 mmol/L | [facility] | | | | | | [facility] | | | | | [facility] | | | | [facility] - | | | | | | LAB[facility]ATORY | | + +---------+ + + + | CO2 | 25 | 24 - 31 mmol/L | [facility] | | | | | | [facility] | | [facility] | | | [facility] - | | | | | | LAB[facility]ATORY | | + +---------+ + + + | Anion Gap | 6 | 3 - 16 mmol/L | [facility] | | | | | | [facility] | | [facility] | | | [facility] - | | | | | | LAB[facility]ATORY | | + +---------+ + + + | Glucose | 106 | 70 - 109 mg/dL | [facility] - | | | | | | [facility] | | + +---------+ + + + | BUN | 13 | 7 - 18 mg/dL | [facility] | | | [facility] - | | | | | | [facility] | | + +---------+ + + + | Creatinine | 1.22 | 0.60 - 1.30 | [facility] | | | | | mg/dL | [facility] | [facility] | [facility] - | | | | | | [facility]ATORY | | + +---------+ + + + | eGFR if not | 58 (L) | >=60 | [facility] | | | | | mL/min/1.73m2 | [facility] | | | | | | [facility] - | | | | | | [facility]ATORY | | + +---------+ + + + | Calcium | 7.8 (L) | 8.3 - 10.5 | [facility] | | | | | mg/dL | [facility] | | | | | | [facility] | | | | | | [facility] - | | | | | | LABORATORY | | + +---------+ + + + | BUN/Creatin | 10.7 | | [facility] | | | ine [...] [address] | [place] | [phone] | | [facility] | | [address] | | | - LABORATORY | | | | + + + + + CBC with Differential (10/17/2015 4:55 AM PST) + + + + + + | Component | Value | Ref Range | Performed | Pathologist | | | | | At | Signature | + + + + + + | WBC | 6.6 | 4.0 - 11.0 K/uL | [facility] | | | | | | [facility] | [facility] | | | [facility] - | | | | | | [facility]ATORY | | + + + + + + | RBC | 3.54 (L) | 4.30 - 5.70 | [facility] | | | | | M/uL | [facility] | | | | | [facility] - | | | | | | [facility]ATORY | | + + + + + + | Hemoglobin | 9.9 (L) | 13.5 - 18.0 | [facility] | | | | | g/dL | [facility] | | | | | | [facility] | | | | | | [facility] - | | | | | | LAB[facility]ATORY | | + + + + + + | Hematocrit | 30.0 (L) | 40.0 - 51.0 % | [facility] | | | | | | [facility] | | | | | | [facility] | | | | | | [facility] - | | | | | | LABORATORY | | + + + + + + | MCV | 84.9 | 83.0 - 101.0 fL | [facility] [...] + + | MCHC | 32.9 | 32.0 - 36.0 | [facility] | | | | | g/dL | [facility] | | | | | | [facility] | | | | | | [facility] - | | | | | | LAB[facility]ATORY | | + + + + + + | RDW-CV | 13.8 | <15.0 % | [facility] | | | | | | [facility] | | | | | [facility] | | | | | | [facility] - | | | | | | LAB[facility]ATORY | | + + + + + + | Platelet | 514 (H) | 140 - 440 K/uL | [facility] | | | Count | | | [facility] | | | | | [facility] | | | | | | [facility] - | | | | | | LAB[facility]ATORY | | + + + + + + | MPV | 6.8 | fL | [facility] | | | | | | [facility] | | | | | [facility] | | | | | | [facility] - | | | | | | LAB[facility]ATORY | | + + + + + + | % | 61.2 | 45.0 - 82.0 % | [facility] | | | Neutrophils | | | [facility] | | | | | | [facility] | | | | | | [facility] - | | | | | | LAB[facility]ATORY | | + + + + + + | % | 22.8 | 20.0 - 45.0 % | [facility] | | | Lymphocytes | | | [facility] | | | | | | [facility] | | | | | | [facility] - | | | | | | LAB[facility]ATORY | | + + + + + + | % Monocytes | 12.3 (H) | 4.0 - 12.0 % | [facility] | | | | | | [facility] | | | | | | [facility] | | | | | | [facility] - | | | | | | LAB[facility]ATORY | | + + + + + + | % | 2.5 | 0.0 - 5.0 % | [facility] | | | Eosinophils | | | [facility] | | | | | | [facility] | | | | | | [facility] - | | | | | | LAB[facility]ATORY | | + + + + + + | % Basophils | 1.2 (H) | 0.0 - 1.0 % | [facility] | | | | | | [facility] | | | | | | [facility] | | | | | | [facility] - | | | | | | LAB[facility]ATORY | | + + + + + + | Absolute | 4.00 | 1.80 - 8.50 | [facility] | | | Neutrophils | | K/uL | [facility] | | | | | | [facility] | | | | | | [facility] - | | | | | | LABORATORY | | + + + + + + | Absolute | 1.50 | 0.60 - 3.20 | [facility] | | | Lymphocytes | | K/uL | [facility] | | | | | | [facility] | | | | | | [facility] - | | | | | | LABORATORY | | + + + + + + | Absolute | 0.80 | 0.00 - 1.00 | [facility] | | | Monocytes | | K/uL | [facility] | | | | | | [facility] | | | | | | [facility] - | | | | | | LABORATORY | | + + + + + + | Absolute | 0.20 | 0.00 - 0.40 | [facility] | | | Eosinophils | | K/uL | [facility] | | | | | | [facility] | | | | | | C[facility] - | | | | | | LABORATORY | | + + + + + + | Absolute | 0.10 | 0.00 - 0.10 | [facility] | [...] ST. | [address] | [place] | [phone] | | [facility] | | [address] | | | - LABORATORY | | | | + + + + + XR Chest AP Portable (10/16/2015 5:17 PM PST) + + | Specimen | + + | | + + + + + | Narrative | Performed At | + + + | XR CHEST AP PORTABLE 10/16/2015 5:17 PM HISTORY: picc placement | [facility] | | verification. COMPARISON: CT scan of the abdomen and pelvis | | | 10/14/2015. Findings: There has been interval placement of a left | | | PICC line with tip at the cavoatrial junction. Heart size is normal. | | | Aorta is normal. Mediastinum is unremarkable. Central pulmonary | | | vasculature is normal. There is a small nodule in the right lower | | | lung that is better characterized on the prior CT scan of the abdomen | | | and pelvis. The lungs are clear otherwise with no evidence for | | | pleural effusion or pneumothorax. Mild S-shaped scoliosis is present | | | of the thoracic spine along with mild spondylosis. 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 IMPRESSION - Left PICC line with tip at cavoatrial | | | junction. Stable nodule of right lower lung. These findings | | | were discussed with the PICC line nurse. Dictated and Signed by: | | | Michele Barba MD Electronically signed: 10/16/2015 5:23 PM | | + + + + + | Procedure Note | + + | Bob, Rad Results In - 10/16/2015 5:26 PM PST XR CHEST AP PORTABLE 10/16/2015 5:17 PM | | | | HISTORY: picc placement verification. | | | | COMPARISON: CT scan of the abdomen and pelvis 10/14/2015. | | | | Findings: | | There has been interval placement of a left PICC line with tip at the cavoatrial | | junction. Heart size is normal. Aorta is normal. Mediastinum is unremarkable. | | Central pulmonary vasculature is normal. There is a small nodule in the right | | lower lung that is better characterized on the prior CT scan of the abdomen and | | pelvis. The lungs are clear otherwise with no evidence for pleural effusion or | | pneumothorax. Mild S-shaped scoliosis is present of the thoracic spine along | | with mild spondylosis. Shortening of the right clavicle is observed with | | fragmentation, likely related to prior surgery. | | | | IMPRESSION - | | Left PICC line with tip at cavoatrial junction. | | | | Stable nodule of right lower lung. | | | | These findings were discussed with the PICC line nurse. | | | | Dictated and Signed by: Michele Barba MD | | Electronically signed: 10/16/2015 5:23 PM | + + + +---------+ + + | Performing | Address | City/State/Zipcode | Phone Number | | Organization | | | | + +---------+ + + | [facility] | | | | + +---------+ + + Basic Metabolic Panel (10/16/2015 5:45 AM PST) + +---------+ + + + | Component | Value | Ref Range | Performed | Pathologist | | | | | At | Signature | + +---------+ + + + | Na | 141 | 136 - 149 | [facility] | | | | | mmol/L | [facility] | | | | | [facility] | | | | | [facility] - | | | | | | LAB[facility]ATORY | | + +---------+ + + + | K | 3.8 | 3.5 - 5.1 | [facility] | | | | | mmol/L | [facility] | | | | | [facility] | | | | | | [facility] - | | | | | | LAB[facility]ATORY | | + +---------+ + + + | Cl | 112 (H) | 98 - 109 mmol/L | [facility] | | | | | | [facility] | | | [facility] | [facility] | | | | [facility] - | | | | | | LAB[facility]ATORY | | + +---------+ + + + | CO2 | 24 | 24 - 31 mmol/L | [facility] | | | | | | [facility] | | | | | [facility] | | | | | [facility] - | | | | | | LAB[facility]ATORY | | + +---------+ + + + | Anion Gap | 5 | 3 - 16 mmol/L | [facility] | | | | | | [facility] | | | | | | [facility] | | | | | | [facility] - | | | | | | LAB[facility]ATORY | | + +---------+ + + + | Glucose | 98 | 70 - 109 mg/dL | [facility] | | | | | | [facility] | | | | | | [facility] | | | | | | [facility] - | | | | | | LAB[facility]ATORY | | + +---------+ + + + | BUN | 14 | 7 - 18 mg/dL | [facility] | | | | | | [facility] | | | | | | [facility] | | | | | | [facility] - | | | | | | LAB[facility]ATORY | | + +---------+ + + + | Creatinine | 0.99 | 0.60 - 1.30 | [facility] | | | | | mg/dL | [facility] | | | | | | [facility] | | | | | | C[facility] - | | | | | | LABORATORY | | + +---------+ + + + | eGFR if not | >60 | >=60 | [facility] | | | | | mL/min/1.73m2 | [facility] | | | [facility] | | [facility] | | | | | | [facility] - | | | | | | LABORATORY | | + +---------+ + + + | Calcium | 8.2 (L) | 8.3 - 10.5 | [facility] | | | | | mg/dL | [facility] | | | | | | [facility] | | | | | | [facility] - | | | | | | LABORATORY | | + +---------+ + + + | BUN/Creatin | 14.1 | | [facility] | | | ine Ratio | | | [facility] | | | | | | [...] [address] | [place] | [phone] | | [facility] | | [address] | | | - LABORATORY | | | | + + + + + CBC with Differential (10/16/2015 5:45 AM PST) + + + + + + | Component | Value | Ref Range | Performed | Pathologist | | | | | At | Signature | + + + + + + | WBC | 9.7 | 4.0 - 11.0 K/uL | [facility] | | | | | | [facility] | [facility] | | [facility] | | | [facility] - | | | | | | LAB[facility]ATORY | | + + + + + + | RBC | 3.48 (L) | 4.30 - 5.70 | [facility] | | | | | M/uL | [facility] | | | | | | [facility] | | | | | | [facility] - | | | | | | LAB[facility]ATORY | | + + + + + + | Hemoglobin | 9.9 (L) | 13.5 - 18.0 | [facility] | | | | | g/dL | [facility] | | | | | | [facility] | | | | | | [facility] - | | | | | | LAB[facility]ATORY | | + + + + + + | Hematocrit | 29.6 (L) | 40.0 - 51.0 % | [facility] | | | | | | [facility] | | [facility] | | [facility] | | | | | | [facility] - | | | | | | LAB[facility]ATORY | | + + + + + + | MCV | 85.2 | 83.0 - 101.0 fL | [facility] [...] + + + + | RDW-CV | 14.1 | <15.0 % | [facility] | | | | | | [facility] | [facility] | [facility] | | | | | | [facility] - | | | | | | LAB[facility]ATORY | | + + + + + + | Platelet | 513 (H) | 140 - 440 K/uL | [facility] | | | Count | | | [facility] | | | | | [facility] | | | | | | [facility] - | | | | | | LAB[facility]ATORY | | + + + + + + | MPV | 7.3 | fL | [facility] | | | | | | [facility] | | | | | [facility] | | | | [facility] - | | | | | | LAB[facility]ATORY | | + + + + + + | % | 78.9 | 45.0 - 82.0 % | [facility] | | | Neutrophils | | | [facility] | | | | | | [facility] | | | | | | [facility] - | | | | | | LAB[facility]ATORY | | + + + + + + | % | 10.1 (L) | 20.0 - 45.0 % | [facility] | | | Lymphocytes | | | [facility] | | | | | | MEDICAL | | | | | | CENTER - | | | | | | LABORATORY | | + + + + + + | % Monocytes | 9.3 | 4.0 - 12.0 % | [facility] | | | | | | [facility] | | | | | | [facility]ICAL | | | | | | CENTER - | | | | | | LABORATORY | | + + + + + + | % | 1.4 | 0.0 - 5.0 % | [facility] [...] + + + + | Absolute | 7.60 | 1.80 - 8.50 | [facility] | | | Neutrophils | | K/uL | [facility] | | | | | | MEDICAL | | | | | | CENTER - | | | | | | LABORATORY | | + + + + + + | Absolute | 1.00 | 0.60 - 3.20 | [facility] | | | Lymphocytes | | K/uL | [facility] | | | | | | MEDICAL | | | | | | CENTER - | | | | | | LABORATORY | | + + + + + + | Absolute | 0.90 | 0.00 - 1.00 | [facility] | | | Monocytes | | K/uL | [facility] | | | | | | MEDICAL | | | | | | CENTER - | | | | | | LABORATORY | | + + + + + + | Absolute | 0.10 | 0.00 - 0.40 | [facility] | | | Eosinophils | | K/uL | [facility] | | | | | | MEDICAL | | | | | | CENTER - | | | | | | LABORATORY | | + + + + + + | Absolute | 0.00 | 0.00 - 0.10 | [facility] | [...] + + | [facility] | [address] | [place] | [phone] | | [facility] | | [address] | | | - LABORATORY | | | | + + + + + Procalcitonin (10/16/2015 5:45 AM PST) + + + + + + | Component | Value | Ref Range | Performed | Pathologist | | | | | At | Signature | + + + + + + | Procalciton | 0.49 | 0.05 - 0.50 | [facility] | | | in | | ng/mL | [facility] | | | | [...] + | [facility] | [address] | [place] | [phone] | | [facility] | | [address] | | | - LABORATORY | | | | + + + + + C-Reactive Protein (10/16/2015 5:45 AM PST) + + + + + + | Component | Value | Ref Range | Performed | Pathologist | | | | | At | Signature | + + + + + + | CRP | 147.10 (H) | <8.00 mg/L | [facility] | | | | | [...] [address] | [place] | [phone] | | [facility] | | [address] | | | - LABORATORY | | | | + + + + + Procalcitonin (10/15/2015 11:35 AM PST) + + + + + + | Component | Value | Ref Range | Performed | Pathologist | | | | | At | Signature | + + + + + + | Procalciton | 0.51 (H) | 0.05 - 0.50 | [facility] | | | in | | ng/mL | [facility] | | | | [...] [address] | [place] | [phone] | | [facility] | | [address] | | | - LABORATORY | | | | + + + + + Magnesium (10/15/2015 6:03 AM PST) + +-------+ + + + | Component | Value | Ref Range | Performed | Pathologist | | | | | At | Signature | + +-------+ + + + | Magnesium | 2.1 | 1.8 - 2.5 mg/dL | [facility] | | | | [...] [address] | [place] | [phone] | | [facility] | | [address] | | | - LABORATORY | | | | + + + + + Basic Metabolic Panel (10/15/2015 6:03 AM PST) + + + + + + | Component | Value | Ref Range | Performed | Pathologist | | | | | At | Signature | + + + + + + | Na | 136Comment: This is a | 136 - 149 | [facility] | | | | corrected result. | mmol/L | [facility] | | | | Previous result was 134 | | MEDICAL | | | | mmol/L on 10/15/2015 at | | CENTER - | | | | 0705 PST | | LABORATORY | | + + + + + + | K | 4.1 | 3.5 - 5.1 | [facility] | | | | | mmol/L | [facility] | | | | | | MEDICAL | | | | | | CENTER - | | | | | | LABORATORY | | + + + + + + | Cl | 104Comment: This is a | 98 - 109 mmol/L | [facility] | | | | corrected result. | | [facility] | | | | Previous result was 108 | | MEDICAL | | | | mmol/L on 10/15/2015 at | | CENTER - | | | | 0705 PST | | LABORATORY | | + + + + + + | CO2 | 26 | 24 - 31 mmol/L | [facility] | | | | | | [facility] | | | | | | MEDICAL | | | | | | CENTER - | | | | | | LABORATORY | | + + + + + + | Anion Gap | 6Comment: This is a | 3 - 16 mmol/L | [facility] | | | | corrected result. | | [facility] | | | | Previous result was 0 | | MEDICAL | | | | mmol/L on 10/15/2015 at | | CENTER - | | | | 0705 PST | | LABORATORY | | + + + + + + | Glucose | 102 | 70 - 109 mg/dL | [facility] | | | | | | [facility] | | | | | | MEDICAL | | | | | | CENTER - | | | | | | LABORATORY | | + + + + + + | BUN | 17 | 7 - 18 mg/dL | [facility] | | | | | | [facility] | | | | | | MEDICAL | | | | | | CENTER - | | | | | | LABORATORY | | + + + + + + | Creatinine | 1.04 | 0.60 - 1.30 | [facility] | | | | | mg/dL | [facility] | | | | | | MEDICAL | | | | | | CENTER - | | | | | | LABORATORY | | + + + + + + | eGFR if not | >60 | >=60 | [facility] | | | | | mL/min/1.73m2 | [facility] | | | [facility] | | | MEDICAL | | | | | | CENTER - | | | | | | LABORATORY | | + + + + + + | Calcium | 8.4 | 8.3 - 10.5 | [facility] | | | | | mg/dL | [facility] | | | | | | MEDICAL | | | | | | CENTER - | | | | | | LABORATORY | | + + + + + + | BUN/Creatin | 16.3 | | [facility] | | | ine Ratio | | | [facility] | | | | | | [...] [address] | [place] | [phone] | | [facility] | | [address] | | | - LABORATORY | | | | + + + + + CBC with Differential (10/15/2015 6:03 AM PST) + + + + + + | Component | Value | Ref Range | Performed | Pathologist | | | | | At | Signature | + + + + + + | WBC | 19.7 (H) | 4.0 - 11.0 K/uL | [facility] | | | | | | [facility] | | | | | | MEDICAL | | | | | | CENTER - | | | | | | LABORATORY | | + + + + + + | RBC | 3.63 (L) | 4.30 - 5.70 | [facility] | | | | | M/uL | [facility] | | | | | | [facility] | | | | | | CENTER - | | | | | | LABORATORY | | + + + + + + | Hemoglobin | 9.9 (L) | 13.5 - 18.0 | [facility] | | | | | g/dL | [facility] | | | | | | MEDICAL | | | | | | CENTER - | | | | | | LABORATORY | | + + + + + + | Hematocrit | 31.1 (L) | 40.0 - 51.0 % | [facility] | | | | | | [facility] | | | | | | MEDICAL | | | | | | CENTER - | | | | | | LABORATORY | | + + + + + + | MCV | 85.8 | 83.0 - 101.0 fL | [facility] | | | | | | [facility] | | | | | | MEDICAL | | | | | | CENTER - | | | | | | LABORATORY | | + + + + + + | MCH | 27.3 (L) | 28.0 - 35.0 pg | [facility] | | | | | | [facility] | | | | | | MEDICAL | | | | | | CENTER - | | | | | | LABORATORY | | + + + + + + | MCHC | 31.9 (L) | 32.0 - 36.0 | [facility] | | | | | g/dL | [facility] | | | | | | MEDICAL | | | | | | CENTER - | | | | | | LABORATORY | | + + + + + + | RDW-CV | 13.9 | <15.0 % | [facility] | | | | | | [facility] | | | | | | MEDICAL | | | | | | CENTER - | | | | | | LABORATORY | | + + + + + + | Platelet | 496 (H) | 140 - 440 K/uL | [facility] | | | Count | | | [facility] | | | | | | MEDICAL | | | | | | CENTER - | | | | | | LABORATORY | | + + + + + + | MPV | 6.7 | fL | [facility] | | | | | | [facility] | | | | | | MEDICAL | | | | | | CENTER - | | | | | | LABORATORY | | + + + + + + | % | 80.0 | 45.0 - 82.0 % | [facility] | | | Neutrophils | | | [facility] | | | | | | MEDICAL | | | | | | CENTER - | | | | | | LABORATORY | | + + + + + + | % | 11.2 (L) | 20.0 - 45.0 % | [facility] | | | Lymphocytes | | | [facility] | | | | | | MEDICAL | | | | | | CENTER - | | | | | | LABORATORY | | + + + + + + | % Monocytes | 7.9 | 4.0 - 12.0 % | [facility] [...] + + + | % Basophils | 0.1 | 0.0 - 1.0 % | [facility] | | | | | | [facility] | | | | | | MEDICAL | | | | | | CENTER - | | | | | | LABORATORY | | + + + + + + | Absolute | 15.80 (H) | 1.80 - 8.50 | [facility] | | | Neutrophils | | K/uL | [facility] | | | | | | MEDICAL | | | | | | CENTER - | | | | | | LABORATORY | | + + + + + + | Absolute | 2.20 | 0.60 - 3.20 | [facility] | | | Lymphocytes | | K/uL | [facility] | | | | | | MEDICAL | | | | | | CENTER - | | | | | | LABORATORY | | + + + + + + | Absolute | 1.60 (H) | 0.00 - 1.00 | [facility] | | | Monocytes | | K/uL | [facility] | | | | | | MEDICAL | | | | | | CENTER - | | | | | | LABORATORY | | + + + + + + | Absolute | 0.20 | 0.00 - 0.40 | [facility] | | | Eosinophils | | K/uL | [facility] | | | | | | MEDICAL | | | | | | CENTER - | | | | | | LABORATORY | | + + + + + + | Absolute | 0.00 | 0.00 - 0.10 | [facility] | [...] + | [facility] | [address] | [place] | [phone] | | [facility] | | [address] | | | - LABORATORY | | | | + + + + + C-Reactive Protein (10/15/2015 6:03 AM PST) + + + + + + | Component | Value | Ref Range | Performed | Pathologist | | | | | At | Signature | + + + + + + | CRP | 252.40 (H) | <8.00 mg/L | [facility] | | | | | [...] [address] | [place] | [phone] | | [facility] | | [address] | | | - LABORATORY | | | | + + + + + Procalcitonin (10/15/2015 12:31 AM PST) + + + + + + | Component | Value | Ref Range | Performed | Pathologist | | | | | At | Signature | + + + + + + | Procalciton | 0.75 (H) | 0.05 - 0.50 | [facility] | | | in | | ng/mL | [facility] | | | | [...] + + + + + | [facility] | [address] | [place] | [phone] | | [facility] | | [address] | | | - LABORATORY | | | | + + + + + C-Reactive Protein (10/14/2015 11:57 AM PST) + + + + + + | Component | Value | Ref Range | Performed | Pathologist | | | | | At | Signature | + + + + + + | CRP | 186.40 (H) | <8.00 mg/L | [facility] | | | | | [...] + | [facility] | [address] | [place] | [phone] | | [facility] | | [address] | | | - LABORATORY | | | | + + + + + Procalcitonin (10/14/2015 11:57 AM PST) + + + + + + | Component | Value | Ref Range | Performed | Pathologist | | | | | At | Signature | + + + + + + | Procalciton | 0.61 (H) | 0.05 - 0.50 | [facility] | | | in | | ng/mL | [facility] | | | | [...] | + + + + + | [facility] | [address] | [place] | [phone] | | [facility] | | [address] | | | - LABORATORY | | | | + + + + + Culture, Blood (10/14/2015 9:54 AM PST) + + + + + + | Component | Value | Ref Range | Performed | Pathologist | | | | | At | Signature | + + + + + + | Culture | No Growth | | [facility] | | | | [...] + | [facility] | [address] | [place] | [phone] | | [facility] | | [address] | | | - LABORATORY | | | | + + + + + Culture, Blood (10/14/2015 9:54 AM PST) + + + + + + | Component | Value | Ref Range | Performed | Pathologist | | | | | At | Signature | + + + + + + | Culture | No Growth | | [facility] | | | | | | [facility] | | [...] + | [facility] | [address] | [place] | [phone] | | [facility] | | [address] | | | - LABORATORY | | | | + + + + + CT Abdomen Pelvis w Contrast (10/14/2015 9:35 AM PST) + + | Specimen | + + | | + + + + + | Narrative | Performed At | + + + | ENHANCED CT ABDOMEN AND PELVIS 10/14/2015 9:20 AM CLINICAL | [facility] | | HISTORY: Left groin pain, elevated WBC COMPARISON: | | | Preceding scrotal ultrasound TECHNIQUE: Axial images are | | | performed through the abdomen and pelvis following the uneventful | | | intravenous administration of 90 mL Omnipaque 350 contrast. | | | Coronal and sagittal reformations are also performed. ABDOMEN | | | FINDINGS: 3 mm left lower lobe lung nodule is present on image 3, | | | and adjacent nodules measuring approximately 3 mm are present | | | laterally in the left lower lobe on image 24. Few tiny nodules are | | | present in the imaged right lung base as well, some of which appear | | | decidedly calcified and consistent with granulomata. There is mild | | | elevation of the right hemidiaphragm. The imaged mediastinum is | | | unremarkable. The liver, spleen, pancreas, and adrenal glands are | | | unremarkable. There are two adjacent 2 mm calculi centrally in the | | | mid right kidney, without visible ureteral calculus or | | | hydronephrosis. Small, low-attenuation parapelvic cysts are | | | suspected inferiorly in the left kidney. No renal parenchymal | | | abnormality is evident. There is mild bilateral perinephric | | | stranding. The stomach, bowel and appendix are unremarkable. No | | | free air or ascites is evident. There are tiny fat-containing | | | periumbilical hernia. Mildly prominent para-aortic nodes are | | | present in the infrarenal region, measuring up to 9 mm short axis on | | | image 53. No overtly pathologic lymph node enlargement is visible | | | on the basis of size criteria. There is scattered aortoiliac | | | calcification. Abdominal vasculature is otherwise unremarkable. | | | There is leftward lumbar curvature with changes of decompressive | | | laminectomy at the lumbosacral junction and multilevel degenerative | | | disc disease, spondylosis and variable stenosis. PELVIS FINDINGS: | | | Evaluation of the pelvic contents is somewhat compromised by | | | artifact arising from right total hip arthroplasty hardware. The | | | bladder, prostate and seminal vesicles are grossly unremarkable. | | | Rounded calcifications in the right pelvic cavity are consistent | | | with phleboliths. No free air, ascites or pathologic lymph node | | | enlargement is evident. There is a moderate sized fat containing | | | left inguinal hernia extending toward the imaged scrotum, without | | | visible inflammation. Tiny sclerotic foci in the lower bony pelvis | | | and imaged proximal left femur are consistent with bone islands. | | | IMPRESSION - 1. MODERATE SIZED FAT-CONTAINING LEFT INGUINAL | | | HERNIA EXTENDING TOWARD THE SCROTUM AND CORRESPONDING WITH THAT | | | SUSPECTED ON PRECEDING ULTRASOUND, WITHOUT VISIBLE INFLAMMATION IN | | | THIS REGION. 2. SMALL RIGHT RENAL CALCULI WITHOUT VISIBLE | | | URETERAL CALCULUS OR HYDRONEPHROSIS. 3. MILDLY PROMINENT | | | PARA-AORTIC LYMPH NODES WITHOUT OVERTLY PATHOLOGIC LYMPH NODE | | | ENLARGEMENT ON THE BASIS OF SIZE CRITERIA. 4. FEW TINY, | | | NON-SPECIFIC NODULES IN THE IMAGED LUNG BASES. CONSIDER FOLLOW-UP | | | DEDICATED CHEST CT IN 3-6 MONTHS. 5. ATHEROSCLEROSIS, SCOLIOSIS | | | AND MULTILEVEL DEGENERATIVE DISC DISEASE AND SPONDYLOSIS. Images | | | were provided for interpretation on October 14, 2015 at 0935 hours. | | | Results were finalized at 1005 hours. Dictated and Signed by: | | | Andres Ewing MD Electronically signed: 10/14/2015 10:07 AM | | + + + + + | Procedure Note | + + | Bob, Rad Results In - 10/14/2015 10:[address] ABDOMEN AND PELVIS | | 10/14/2015 9:20 AM CLINICAL HISTORY: Left groin pain, elevated WBC COMPARISON: | | Preceding scrotal ultrasound TECHNIQUE: Axial images are performed through the abdomen | | and pelvis followingthe uneventful intravenous administration of 90 mL Omnipaque 350 | | contrast. Coronal and sagittal reformations are also performed. ABDOMEN FINDINGS: | | 3 mm left lower lobe lung nodule is present on image 3, andadjacent nodules measuring | | approximately 3 mm are present laterally in the leftlower lobe on image 24. Few tiny | | nodules are present in the imaged right lungbase as well, some of which appear decidedly | | calcified and consistent withgranulomata. There is mild elevation of the right | | hemidiaphragm. The imagedmediastinum is unremarkable. The liver, spleen, pancreas, and | | adrenal glandsare unremarkable. There are two adjacent 2 mm calculi centrally in the | | midright kidney, without visible ureteral calculus or hydronephrosis. | | Small,low-attenuation parapelvic cysts are suspected inferiorly in the left kidney. No | | renal parenchymal abnormality is evident. There is mild bilateralperinephric stranding. | | The stomach, bowel and appendix are unremarkable. Nofree air or ascites is evident. | | There are tiny fat-containing periumbilicalhernia. Mildly prominent para-aortic nodes | | are present in the infrarenalregion, measuring up to 9 mm short axis on image 53. No | | overtly pathologiclymph node enlargement is visible on the basis of size criteria. | | There isscattered aortoiliac calcification. Abdominal vasculature is | | otherwiseunremarkable. There is leftward lumbar curvature with changes of | | decompressivelaminectomy at the lumbosacral junction and multilevel degenerative | | discdisease, spondylosis and variable stenosis. PELVIS FINDINGS: Evaluation of the | | pelvic contents is somewhat compromised byartifact arising from right total hip | | arthroplasty hardware. The bladder,prostate and seminal vesicles are grossly | | unremarkable. Rounded calcificationsin the right pelvic cavity are consistent with | | phleboliths. No free air,ascites or pathologic lymph node enlargement is evident. | | There is a moderatesized fat containing left inguinal hernia extending toward the imaged | | scrotum,without visible inflammation. Tiny sclerotic foci in the lower bony pelvis | | andimaged proximal left femur are consistent with bone islands. IMPRESSION - 1. | | MODERATE SIZED FAT-CONTAINING LEFT INGUINAL HERNIA EXTENDING TOWARD THESCROTUM AND | | CORRESPONDING WITH THAT SUSPECTED ON PRECEDING ULTRASOUND, WITHOUTVISIBLE INFLAMMATION | | IN THIS REGION.2. SMALL RIGHT RENAL CALCULI WITHOUT VISIBLE URETERAL CALCULUS | | ORHYDRONEPHROSIS.3. MILDLY PROMINENT PARA-AORTIC LYMPH NODES WITHOUT OVERTLY PATHOLOGIC | | LYMPHNODE ENLARGEMENT ON THE BASIS OF SIZE CRITERIA.4. FEW TINY, NON-SPECIFIC NODULES | | IN THE IMAGED LUNG BASES. CONSIDER FOLLOW-UPDEDICATED CHEST CT IN 3-6 MONTHS.5. | | ATHEROSCLEROSIS, SCOLIOSIS AND MULTILEVEL DEGENERATIVE DISC DISEASE | | ANDSPONDYLOSIS.Images were provided for interpretation on October 14, 2015 at 0935 | | hours. Results were finalized at 1005 hours.Dictated and Signed by: Andres Ewing MD | | Electronically signed: 10/14/2015 10:07 AM | |IMPRESSION - | |1. MODERATE SIZED FAT-CONTAINING LEFT INGUINAL HERNIA EXTENDING TOWARD THE | |SCROTUM AND CORRESPONDING WITH THAT SUSPECTED ON PRECEDING ULTRASOUND, WITHOUT | |VISIBLE INFLAMMATION IN THIS REGION. | | | |2. SMALL RIGHT RENAL CALCULI WITHOUT VISIBLE URETERAL CALCULUS OR | |HYDRONEPHROSIS. | | | |3. MILDLY PROMINENT PARA-AORTIC LYMPH NODES WITHOUT OVERTLY PATHOLOGIC LYMPH | |NODE ENLARGEMENT ON THE BASIS OF SIZE CRITERIA. | | | |4. FEW TINY, NON-SPECIFIC NODULES IN THE IMAGED LUNG BASES. CONSIDER FOLLOW-UP | |DEDICATED CHEST CT IN 3-6 MONTHS. | | | |5. ATHEROSCLEROSIS, SCOLIOSIS AND MULTILEVEL DEGENERATIVE DISC DISEASE AND | |SPONDYLOSIS. | | | |Images were provided for interpretation on October 14, 2015 at 0935 hours. | |Results were finalized at 1005 hours. | | | |Dictated and Signed by: Andres Ewing MD | | Electronically signed: 10/14/2015 10:07 AM | + + + +---------+ + + | Performing | Address | City/State/Zipcode | Phone Number | | Organization | | | | + +---------+ + + | [facility] | | | | + +---------+ + + US Scrotum And Testicles (10/14/2015 8:00 AM PST) + + | Specimen | + + | | + + + + + | Narrative | Performed At | + + + | [facility] ULTRASOUND 10/14/2015 8:00 AM CLINICAL HISTORY: LEFT | [facility] | | GROIN SWELLING COMPARISON: None available FINDINGS: The right | | | testicle measures 4.8 x 2.4 x 3.2 cm and the left testicle measures | | | 4.5 x 3.0 x 3.8 cm. Testicular echotexture and vascularity is | | | symmetric and homogeneous. Normal stromal waveforms are present in | | | the testes on duplex interrogation. A 9 mm ovoid anechoic cyst is | | | present in the right epididymal head. The right epididymis is | | | otherwise unremarkable. There is a small anechoic to minimally | | | echogenic right hydrocele. A 3.5 mm ovoid hyperechoic structure | | | along the inferior, lateral margin of the left testicle favors a | | | scrotal cyrus. A small to moderate sized left hydrocele is present, | | | containing anechoic fluid and thin, echogenic septations with minimal | | | vascularity on Doppler interrogation. Along the medial aspect of | | | the left testicle, there is a 6 mm rounded, homogeneous, | | | solid-appearing nodule with echotexture similar to the adjacent | | | testis but no internal vascularity on Doppler interrogation. The | | | left epididymis is asymmetrically enlarged and diffusely hyperemic. | | | Along the lateral margin of the left testis, there is a | | | heterogeneous collection of echogenic material and serpiginous | | | internal vessels which extend superiorly toward the inguinal canal, | | | consistent with a hernia most likely containing fat. IMPRESSION - | | | 1. PROBABLE LEFT INGUINAL HERNIA. CONSIDER FOLLOW-UP CT IF | | | FURTHER CHARACTERIZATION IS DESIRED. 2. ENLARGED, HYPEREMIC | | | LEFT EPIDIDYMIS, FAVORING EPIDIDYMITIS. 3. SMALL, | | | SOLID-APPEARING NODULE ALONG THE MEDIAL ASPECT OF THE LEFT TESTIS, | | | POTENTIALLY REFLECTING AN APPENDIX TESTIS. 4. SMALL TO MODERATE | | | SIZED LEFT HYDROCELE DEMONSTRATING THIN, ECHOGENIC INTERNAL | | | SEPTATIONS. 5. SMALL RIGHT HYDROCELE AND A 9 MM RIGHT EPIDIDYMAL | | | HEAD CYST. Results of this study were discussed with Dr. Campbell | | | following the exam on October 14, 2015 at 0800 hours. Dictated | | | and Signed by: Andres Ewing MD Electronically signed: 10/14/2015 | | | 10:30 AM | | + + + + + | Procedure Note | + + | Bob, Rad Results In - 10/14/2015 10:33 AM PST [facility] ULTRASOUND 10/14/2015 8:00 AM | | | | CLINICAL HISTORY: LEFT GROIN SWELLING | | | | COMPARISON: None available | | | | FINDINGS: The right testicle measures 4.8 x 2.4 x 3.2 cm and the left testicle | | measures 4.5 x 3.0 x 3.8 cm. Testicular echotexture and vascularity is symmetric | | and homogeneous. Normal stromal waveforms are present in the testes on duplex | | interrogation. A 9 mm ovoid anechoic cyst is present in the right epididymal | | head. The right epididymis is otherwise unremarkable. There is a small | | anechoic to minimally echogenic right hydrocele. A 3.5 mm ovoid hyperechoic | | structure along the inferior, lateral margin of the left testicle favors a | | scrotal cyrus. A small to moderate sized left hydrocele is present, containing | | anechoic fluid and thin, echogenic septations with minimal vascularity on | | Doppler interrogation. Along the medial aspect of the left testicle, there is a | | 6 mm rounded, homogeneous, solid-appearing nodule with echotexture similar to | | the adjacent testis but no internal vascularity on Doppler interrogation. The | | left epididymis is asymmetrically enlarged and diffusely hyperemic. Along the | | lateral margin of the left testis, there is a heterogeneous collection of | | echogenic material and serpiginous internal vessels which extend superiorly | | toward the inguinal canal, consistent with a hernia most likely containing fat. | | | | IMPRESSION - | | 1. PROBABLE LEFT INGUINAL HERNIA. CONSIDER FOLLOW-UP CT IF FURTHER | | CHARACTERIZATION IS DESIRED. | | | | 2. ENLARGED, HYPEREMIC LEFT EPIDIDYMIS, FAVORING EPIDIDYMITIS. | | | | 3. SMALL, SOLID-APPEARING NODULE ALONG THE MEDIAL ASPECT OF THE LEFT TESTIS, | | POTENTIALLY REFLECTING AN APPENDIX TESTIS. | | | | 4. SMALL TO MODERATE SIZED LEFT HYDROCELE DEMONSTRATING THIN, ECHOGENIC | | INTERNAL SEPTATIONS. | | | | 5. SMALL RIGHT HYDROCELE AND A 9 MM RIGHT EPIDIDYMAL HEAD CYST. | | | | Results of this study were discussed with Dr. Campbell following the exam on | | October 14, 2015 at 0800 hours. | | | | Dictated and Signed by: Andres Ewing MD | | Electronically signed: 10/14/2015 10:30 AM | + + + +---------+ + + | Performing | Address | City/State/Zipcode | Phone Number | | Organization | | | | + +---------+ + + | [facility] | | | | + +---------+ + + Culture, Urine (10/14/2015 7:58 AM PST) + + + + + + | Component | Value | Ref Range | Performed | Pathologist | | | | | At | Signature | + + + + + + | Culture | >100,000 CFU/ml | | [facility] | | | | Escherichia coliComment: | | [facility] | | | | *INFECTION PREVENTION | | MEDICAL | | | | ALERT - ESBL* ESBLs | | CENTER - | | | | are enzymes that | | LABORATORY | | | | mediate resistance to | | | | | | extended-spectrum | | | | | | (third generation) | | | | | | cephalosporins | | | | | | (e.g.,ceftazidime, | | | | | | cefotaxime, | | | | | | (aztreonam) but do not | | | | | | affect | | | | | | cephamycins(cefoxitin | | | | | | and cefotetan) | | | | | | orcarbapenems | | | | | | (e.g.,meropenem or | | | | | | imipenem). Patients who | | | | | | are identified with | | | | | | these organisms should | | | | | | be placed into CONTACT | | | | | | PRECAUTIONS. | | | | + + + + + + + + | Specimen | + + | Urine - Urine | | specimen obtained by | | clean catch | | procedure (specimen) | + + + + +--------+ + | Organism | Antibiotic | Method | Susceptibility | + + +--------+ + | Escherichia coli | Amikacin | | 4: Sensitive | + + +--------+ + | Escherichia coli | Ampicillin | | >=32: Resistant | + + +--------+ + | Escherichia coli | Ampicillin + | | >=32: Resistant | | | Sulbactam | | | + + +--------+ + | Escherichia coli | Cefazolin | | >=64: Resistant | + + +--------+ + | Escherichia coli | Cefoxitin | | <=4: Sensitive | + + +--------+ + | Escherichia coli | Ceftazidime | | Resistant | + + +--------+ + | Escherichia coli | Ceftriaxone | | >=64: Resistant | + + +--------+ + | Escherichia coli | Ciprofloxacin | | >=4: Resistant | + + +--------+ + | Escherichia coli | Ertapenem | | <=0.5: Sensitive | + + +--------+ + | Escherichia coli | Gentamicin | | >=16: Resistant | + + +--------+ + | Escherichia coli | Meropenem | | <=0.25: Sensitive | + + +--------+ + | Escherichia coli | Nitrofurantoin | | <=16: Sensitive | + + +--------+ + | Escherichia coli | Piperacillin + | | 8: Sensitive | | | Tazobactam | | | + + +--------+ + | Escherichia coli | Tobramycin | | 8: Intermediate | + + +--------+ + | Escherichia coli | Trimethoprim + | | >=320: Resistant | | | Sulfamethoxazole | | | + + +--------+ + + + + + + | Performing | Address | City/State/Zipcode | Phone Number | | Organization | | | | + + + + + | [facility] | [address] | [place] | [phone] | | [facility] | | [address] | | | - LABORATORY | | | | + + + + + Urinalysis with Microscopic with Culture if Indicated (10/14/2015 7:58 AM PST) + + + + + + | Component | Value | Ref Range | Performed | Pathologist | | | | | At | Signature | + + + + + + | Color | Yellow | Light Yellow, | [facility] | | | | | Yellow | [facility] | | | | | | [facility] | | | | [facility] - | | | | | | LABORATORY | | + + + + + + | Clarity | Hazy (A) | Clear | [facility] | | | | | | [facility] | | | | | | [facility] | | | | | [facility] - | | | | | | LABORATORY | | + + + + + + | pH, Urine | 5.0 | 5.0 - 8.0 | [facility] | | | | | | [facility] | | | | | | [facility] | | | | | | [facility] - | | | | | | LABORATORY | | + + + + + + | Specific | >=1.030 | 1.001 - 1.030 | [facility] | | | [place] | | | [facility] | | | | | | [facility] | | | | | | [facility] - | | | | | | LABORATORY | | + + + + + + | Protein, | Negative | Negative | [facility] | | | Urine | | | [facility] | | | | | | [facility] | | | | | | [facility] - | | | | | | LABORATORY | | + + + + + + | Blood, | Trace (A) | Negative | [facility] | | | Urine | | | [facility] | | | | | | [facility] | | | | | | [facility] - | | | | | | LABORATORY | | + + + + + + | Glucose, | Negative | Negative | [facility] | | | Urine | | | [facility] | | | | | | [facility] | | | | | | [facility] - | | | | | | LABORATORY | | + + + + + + | Ketones, | Negative | Negative | [facility] | | | Urine | | | [facility] | | | | | | [facility] | | | | | | [facility] - | | | | | | LABORATORY | | + + + + + + | Bilirubin, | Negative | Negative | [facility] | | | Urine | | | [facility] | | | | | | [facility] | | | | | | [facility] - | | | | | | LABORATORY | | + + + + + + | Nitrite, | Positive (A) | Negative | [facility] | | | Urine | | | [facility] | | | | | | [facility] | | | | | | [facility] - | | | | | | LABORATORY | | + + + + + + | Leukocyte | Trace (A) | Negative | [facility] | | | Esterase, | | | [facility] | | | Urine | | | MEDICAL | | | | | | CENTER - | | | | | | LABORATORY | | + + + + + + | Urobilinoge | 1.0 E.U./dL | 0.2 E.U./dL, | [facility] | | | n, Urine | | 1.0 E.U./dL | [facility] | | | | | | [facility] | | | | | | [facility] - | | | | | | LABORATORY | | + + + + + + | WBC UA | 15-25 (A) | 0 - 2 /HPF | [facility] | | | | | | [facility] | | | | | | [facility] | | | | | | [facility] - | | | | | | LABORATORY | | + + + + + + | RBC UA | 5-10 (A) | 0 - 2 /HPF | [facility] | | | | | | [facility] | | | | | | [facility] | | | | | | [facility] - | | | | | | LABORATORY | | + + + + + + | SQUAMOUS | 10-15 (A) | 0 - 2 /LPF | [facility] | | | EPITHELIAL | | | [facility] | | | UA | | | MEDICAL | | | | | | CENTER - | | | | | | LABORATORY | | + + + + + + | BACTERIA UA | 3+ (A) | Negative /HPF | [facility] | | | | | [...] [address] | [place] | [phone] | | [facility] | | [address] | | | - LABORATORY | | | | + + + + + Slide Review, Peripheral Smear (10/14/2015 7:01 AM PST) + + + + + + | Component | Value | Ref Range | Performed | Pathologist | | | | | At | Signature | + + + + + + | RBC | Normal | | [facility] | | | Morphology | | | [facility] | | | | | | MEDICAL | | | | | | CENTER - | | | | | | LABORATORY | | + + + + + + | WBC | Normal | | [facility] | | | Morphology | | | [facility] | | | | | | [facility] | | | | | | CENTER - | | | | | | LABORATORY | | + + + + + + | Platelet | Increased (A) | Adequate | [facility] | | | Estimate | | | [facility] | | | | | | [facility] | | | | | | CENTER - | | | | | | LABORATORY | | + + + + + + + + | Specimen | + + | Blood | + + + + + | Narrative | Performed At | + + + | No blast seen Less than 10% bands seen | [facility] | | | [facility] | [facility] | | | - LABORATORY | + + + + + + + + | Performing | Address | City/State/Zipcode | Phone Number | | Organization | | | | + + + + + | [facility] | [address] | [place] | [phone] | | [facility] | | [address] | | | - LABORATORY | | | | + + + + + Basic Metabolic Panel (10/14/2015 7:01 AM PST) + +---------+ + + + | Component | Value | Ref Range | Performed | Pathologist | | | | | At | Signature | + +---------+ + + + | Na | 130 (L) | 136 - 149 | [facility] | | | | | mmol/L | [facility] | | | | | | [facility] | | | | | | CENTER - | | | | | | LABORATORY | | + +---------+ + + + | K | 4.2 | 3.5 - 5.1 | [facility] | | | | | mmol/L | [facility] | | | | | | [facility] | | | | | | [facility] - | | | | | | LABORATORY | | + +---------+ + + + | Cl | 97 (L) | 98 - 109 mmol/L | [facility] | | | | | | [facility] | | | | | | [facility] | | | | | | [facility] - | | | | | | LABORATORY | | + +---------+ + + + | CO2 | 24 | 24 - 31 mmol/L | [facility] | | | | | | [facility] | | | | | | [facility] | | | | | | [facility] - | | | | | | LABORATORY | | + +---------+ + + + | Anion Gap | 9 | 3 - 16 mmol/L | [facility] | | | | | | [facility] | | | | | | [facility] | | | | | | [facility] - | | | | | | LABORATORY | | + +---------+ + + + | Glucose | 163 (H) | 70 - 109 mg/dL | [facility] | | | | | | [facility] | | | | | | [facility] | | | | | | [facility] - | | | | | | LABORATORY | | + +---------+ + + + | BUN | 16 | 7 - 18 mg/dL | [facility] | | | | | | [facility] | | | | | | [facility] | | | | | | [facility] - | | | | | | LABORATORY | | + +---------+ + + + | Creatinine | 1.16 | 0.60 - 1.30 | [facility] | | | | | mg/dL | [facility] | | | | | | [facility] | | | | | | [facility] - | | | | | | LABORATORY | | + +---------+ + + + | eGFR if not | >60 | >=60 | [facility] | | | | | mL/min/1.73m2 | [facility] | | | [place] | | | [facility] | | | | | | C[facility] - | | | | | | LABORATORY | | + +---------+ + + + | Calcium | 8.5 | 8.3 - 10.5 | [facility] | | | | | mg/dL | [facility] | | | | | | [facility] | | | | | | CENTER - | | | | | | LABORATORY | | + +---------+ + + + | BUN/Creatin | 13.8 | | [facility] | | | ine [...] [address] | [place] | [phone] | | [facility] | | [address] | | | - LABORATORY | | | | + + + + + CBC w/ Auto Differential (10/14/2015 7:01 AM PST) + + + + + + | Component | Value | Ref Range | Performed | Pathologist | | | | | At | Signature | + + + + + + | WBC | 37.6 (H) | 4.0 - 11.0 K/uL | [facility] | | | | | | [facility] | | | | | | [facility] | | | | | | C[facility] - | | | | | | LABORATORY | | + + + + + + | RBC | 4.09 (L) | 4.30 - 5.70 | [facility] | | | | | M/uL | [facility] | | | | | | MEDICAL | | | | | | CENTER - | | | | | | LABORATORY | | + + + + + + | Hemoglobin | 11.3 (L) | 13.5 - 18.0 | [facility] | | | | | g/dL | [facility] | | | | | | MEDICAL | | | | | | CENTER - | | | | | | LABORATORY | | + + + + + + | Hematocrit | 34.7 (L) | 40.0 - 51.0 % | [...] + + + + | MCH | 27.6 (L) | 28.0 - 35.0 pg | [facility] | | | | | | [facility] | | [facility] | | | [facility] | | | | | | [facility] - | | | | | | LABORATORY | | + + + + + + | MCHC | 32.6 | 32.0 - 36.0 | [facility] | [...] + + + + | Platelet | 565 (H) | 140 - 440 K/uL | [facility] | | | Count | | | [facility] | | | | | | [facility] | | | | | | [facility] - | | | | | | LABORATORY | | + + + + + + | MPV | 6.7 | fL | [facility] | | | | | | [facility] | | | | | | [facility] | | | | | | [facility] - | | | | | | LABORATORY | | + + + + + + | % | 90.4 (H) | 45.0 - 82.0 % | [facility] | | | Neutrophils | | | [facility] | | | | | | [facility] | | | | | | CENTER - | | | | | | LABORATORY | | + + + + + + | % | 3.2 (L) | 20.0 - 45.0 % | [facility] | | | Lymphocytes | | | [facility] | | | | | | [facility] | | | | | | C[facility] - | | | | | | LABORATORY | | + + + + + + | % Monocytes | 6.0 | 4.0 - 12.0 % | [facility] | | | | | | [facility] | | | | | | [facility] | | | | | | [facility] - | | | | | | LABORATORY | | + + + + + + | % | 0.0 | 0.0 - 5.0 % | [facility] | | | Eosinophils | | | [facility] | | | | | | [facility] | | | | | | C[facility] - | | | | | | LABORATORY | | + + + + + + | % Basophils | 0.4 | 0.0 - 1.0 % | [facility] | | | | | | [facility] | | | | | | [facility] | | | | | | C[facility] - | | | | | | LABORATORY | | + + + + + + | Absolute | 33.90 (H) | 1.80 - 8.50 | [facility] | | | Neutrophils | | K/uL | [facility] | | | | | | [facility] | | | | | | [facility] - | | | | | | LABORATORY | | + + + + + + | Absolute | 1.20 | 0.60 - 3.20 | [facility] | | | Lymphocytes | | K/uL | [facility] | | | | | | [facility] | | | | | | [facility] - | | | | | | LABORATORY | | + + + + + + | Absolute | 2.30 (H) | 0.00 - 1.00 | [facility] | | | Monocytes | | K/uL | [facility] | | | | | | [facility] | | | | | | [facility] - | | | | | | LABORATORY | | + + + + + + | Absolute | 0.00 | 0.00 - 0.40 | [facility] | | | Eosinophils | | K/uL | [facility] | | | | | | [facility] | | | | | | C[facility] - | | | | | | LABORATORY | | + + + + + + | Absolute | 0.20 (H) | 0.00 - 0.10 | [facility] | [...] + + + + + | [facility] | [address] | [place] | [phone] | | [facility] | | [address] | | | - LABORATORY | | | | + + + + + documented in this encounter Visit Diagnoses + + | Diagnosis | + + | UTI due to ESBL-producing Escherichia coli - Primary Other and unspecified | | Escherichia coli (E. coli) | + + | Leukocytosis, unspecified elevated WBC count | + + | Urinary tract infection, site unspecified | + + | Epididymitis Orchitis and epididymitis, unspecified | + + | Dehydration, mild Dehydration | + + | Epididymitis, left Orchitis and epididymitis, unspecified | + + | Status post hip replacement, right | + + | Tobacco user Tobacco use disorder | + + | Left inguinal hernia Inguinal hernia without mention of obstruction or gangrene, | | unilateral or unspecified, (not specified as recurrent) | + + | Nephrolithiasis Calculus of kidney | + + | Peyronie's disease | + + | Acute cystitis without hematuria Acute cystitis | + + | Leukocytosis, unspecified elevated WBC count Leukocytosis, unspecified | + + documented in this encounter Administered Medications + +--------+ +--------+------+------+ | Medication Order | MAR | Action | Dose | Rate | Site | | | Action | Date | | | | + +--------+ +--------+------+------+ | artificial tears (CELLUVISC) | Given | 10/15/20 | 1 drop | | | | ophthalmic solution 1 drop 1 | | 15 2:05 | | | | | drop, Both Eyes, EVERY 1 HOUR | | PM PST | | | | | PRN, Dry Eyes, Starting Sun | | | | | | | 10/15/15 at 0935 | | | | | | + +--------+ +--------+------+------+ +---+---+ | | | +---+---+ + +-------+ +-------+---+---+ | bisacodyl (DULCOLAX) | Given | 10/15/20 | 10 mg | | | | suppository 10 mg 10 mg, Rectal, | | 15 3:28 | | | | | DAILY PRN, Constipation, | | PM PST | | | | | Starting 10/14/15 at 1620, If | | | | | | | all other bowel medications | | | | | | | ineffective x 24 hours or not | | | | | | | ordered., | | | | | | + +-------+ +-------+---+---+ +---+---+ | | | +---+---+ + +---------+ +-----+-------+---+ | cefTRIAXone (ROCEPHIN) 1 g in | New Bag | 10/14/20 | 1 g | 100 | | | sodium chloride 0.9% 50 mL IVPB | | 15 11:45 | | mL/hr | | | 1 g, Intravenous, Administer over | | AM PST | | | | | 30 Minutes, ONCE, 10/14/15 | | | | | | | at 1135, For 1 dose, Activate | | | | | | | system and mix before use., | | | | | | + +---------+ +-----+-------+---+ +---+---+ | | | +---+---+ + +---------+ +-----+-------+---+ | cefTRIAXone (ROCEPHIN) 1 g in | New Bag | 10/16/20 | 1 g | 100 | | | sodium chloride 0.9% 50 mL IVPB | | 15 8:41 | | mL/hr | | | 1 g, Intravenous, Administer over | | AM PST | | | | | 30 Minutes, EVERY 24 HOURS | | | | | | | (Daily), First dose on Sun | | | | | | | 10/15/15 at 0900, Pharmacist may | | | | | | | adjust Activate system and mix | | | | | | | before use., | | | | | | + +---------+ +-----+-------+---+ +---------+ +-----+-------+---+ | New Bag | 10/15/20 | 1 g | 100 | | | | 15 9:19 | | mL/hr | | | | AM PST | | | | +---------+ +-----+-------+---+ +---+---+ | | | +---+---+ + +-------+ +-------+---+ + | enoxaparin (LOVENOX) 40 mg/0.4 | Given | 10/17/20 | 40 mg | | Abdomen- | | mL injection 40 mg 40 mg, | | 15 10:19 | | | LLQ | | Subcutaneous, EVERY 24 HOURS | | AM PST | | | | | (Daily), First dose on Sat | | | | | | | 10/14/15 at 1645 | | | | | | + +-------+ +-------+---+ + +-------+ +-------+---+ + | Given | 10/16/20 | 40 mg | | Abdomen- | | | 15 8:41 | | | RUQ | | | AM PST | | | | +-------+ +-------+---+ + | Given | 10/15/20 | 40 mg | | Abdomen- | | | 15 8:24 | | | LLQ | | | AM PST | | | | +-------+ +-------+---+ + +---+---+ | | | +---+---+ + +---------+ +-----+-------+---+ | ertapenem (INVanz) 1 g in | New Bag | 10/17/20 | 1 g | 100 | | | sodium chloride 0.9% 50 mL IVPB | | 15 10:36 | | mL/hr | | | 1 g, Intravenous, Administer over | | AM PST | | | | | 30 Minutes, EVERY 24 HOURS | | | | | | | (Daily), First dose on Mon | | | | | | | 10/16/15 at 1500, Activate system | | | | | | | and mix before use., | | | | | | + +---------+ +-----+-------+---+ +---------+ +-----+-------+---+ | New Bag | 10/16/20 | 1 g | 100 | | | | 15 2:55 | | mL/hr | | | | PM PST | | | | +---------+ +-----+-------+---+ +---+---+ | | | +---+---+ + +-------+ +-------+---+---+ | famotidine (PEPCID) injection | Given | 10/17/20 | 20 mg | | | | 20 mg 20 mg, Intravenous, EVERY | | 15 10:19 | | | | | 12 HOURS (2 times per day), First | | AM PST | | | | | dose on 10/14/15 at 2100, | | | | | | | Prior to administration, prepare | | | | | | | a 20 mg dose by diluting 2 mL of | | | | | | | famotidine 10 mg/mL to 10 mL with | | | | | | | normal saline., | | | | | | + +-------+ +-------+---+---+ +-------+ +-------+---+---+ | Given | 10/16/20 | 20 mg | | | | | 15 10:51 | | | | | | PM PST | | | | +-------+ +-------+---+---+ | Given | 10/16/20 | 20 mg | | | | | 15 8:42 | | | | | | AM PST | | | | +-------+ +-------+---+---+ +---+---+ | | | +---+---+ + +-------+ +--------+---+---+ | ibuprofen (ADVIL, MOTRIN) | Given | 10/17/20 | 400 mg | | | | tablet 400 mg 400 mg, Oral, | | 15 6:41 | | | | | EVERY 8 HOURS (3 times per day), | | AM PST | | | | | First dose on 10/14/15 at | | | | | | | 1745, Give with food., | | | | | | + +-------+ +--------+---+---+ +-------+ +--------+---+---+ | Given | 10/16/20 | 400 mg | | | | | 15 10:51 | | | | | | PM PST | | | | +-------+ +--------+---+---+ | Given | 10/16/20 | 400 mg | | | | | 15 1:42 | | | | | | PM PST | | | | +-------+ +--------+---+---+ +---+---+ | | | +---+---+ + +-------+ +--------+---+---+ | iohexol (OMNIPAQUE 350) 350 | Given | 10/14/20 | 90 mLs | | | | mg/mL injection 90 mL 90 mL, | | 15 9:36 | | | | | Intravenous, ONCE PRN, Other, | | AM PST | | | | | Starting 10/14/15 at 0935, | | | | | | | For 1 dose, Cat Scanner | | | | | | + +-------+ +--------+---+---+ +---+---+ | | | +---+---+ + +---------+ +--------+-------+---+ | levofloxacin in dextrose | New Bag | 10/14/20 | 500 mg | 100 | | | (LEVAQUIN) IVPB 500 mg 500 mg, | | 15 10:45 | | mL/hr | | | Intravenous, Administer over 60 | | AM PST | | | | | Minutes, ONCE, 10/14/15 at | | | | | | | 1005, For 1 dose | | | | | | + +---------+ +--------+-------+---+ +---+---+ | | | +---+---+ + +-------+ +------+---+---+ | morphine injection 4 mg 4 mg, | Given | 10/14/20 | 4 mg | | | | Intravenous, ONCE, 10/14/15 | | 15 8:52 | | | | | at 0815, For 1 dose | | AM PST | | | | + +-------+ +------+---+---+ +---+---+ | | | +---+---+ + +-------+ +------+---+---+ | ondansetron (ZOFRAN) injection | Given | 10/14/20 | 4 mg | | | | 4 mg 4 mg, Intravenous, EVERY 6 | | 15 5:25 | | | | | HOURS PRN, Nausea, Vomiting, | | PM PST | | | | | Starting 10/14/15 at 1620, | | | | | | | First line agent, | | | | | | + +-------+ +------+---+---+ +---+---+ | | | +---+---+ + +-------+ +------+---+---+ | polyethylene glycol (MIRALAX) | Given | 10/17/20 | 17 g | | | | powder 17 g 17 g, Oral, DAILY, | | 15 10:19 | | | | | First dose on 10/14/15 at | | AM PST | | | | | 1645, If docusate and senna | | | | | | | ineffective or not ordered., | | | | | | + +-------+ +------+---+---+ +-------+ +------+---+---+ | Given | 10/15/20 | 17 g | | | | | 15 8:25 | | | | | | AM PST | | | | +-------+ +------+---+---+ | Given | 10/14/20 | 17 g | | | | | 15 5:47 | | | | | | PM PST | | | | +-------+ +------+---+---+ +---+---+ | | | +---+---+ + +-------+ +---------+---+---+ | senna (SENOKOT) tablet 17.2 mg | Given | 10/15/20 | 17.2 mg | | | | 17.2 mg, Oral, 2 TIMES DAILY, | | 15 8:25 | | | | | First dose on 10/14/15 at | | AM PST | | | | | 2100, If docusate ineffective or | | | | | | | not ordered., | | | | | | + +-------+ +---------+---+---+ +-------+ +---------+---+---+ | Given | 10/14/20 | 17.2 mg | | | | | 15 9:03 | | | | | | PM PST | | | | +-------+ +---------+---+---+ +---+---+ | | | +---+---+ + +---------+ +---+-------+---+ | sodium chloride 0.9% (NS) | New Bag | 10/17/20 | | 100 | | | infusion at 100 mL/hr, | | 15 2:10 | | mL/hr | | | Intravenous, CONTINUOUS, Starting | | AM PST | | | | | 10/14/15 at 1645 | | | | | | + +---------+ +---+-------+---+ +---------+ +---+-------+---+ | New Bag | 10/16/20 | | 100 | | | | 15 2:55 | | mL/hr | | | | PM PST | | | | +---------+ +---+-------+---+ | New Bag | 10/16/20 | | 100 | | | | 15 2:51 | | mL/hr | | | | AM PST | | | | +---------+ +---+-------+---+ +---+---+ | | | +---+---+ documented in this encounter
--- OUTSIDE RECORDS SUMMARY | ~2019-10-08 | XMS | Encounter Summary ---
Demographics + + + | Address | [address] | | | [place] [address] | + + + | Home Phone | | + + + | Preferred Language | Unknown | + + + | Marital Status | | + + + | Presybeterian Affiliation | NON | + + + | Race | White | + + + | Ethnic Group | Not or | + + + Author + + + | Author | [facility] | + + + | Organization | [facility] | + + + | Address [...] Team Providers + +------+ + | Care Reference Assistant Name | Role | Phone | + +------+ + | Judit Booth MD | PCP | | + +------+ + Reason for Visit + + + | Reason | Comments | + + + | Examination Of Skin | | + + + Encounter Details +--------+---------+ + + + | Date | Type | Department | Care Team | Description | +--------+---------+ + + + | 12/31/ | Office | Dermatology | Mian Vinaayk, | Basal cell carcinoma | | 2011 | Visit | Medical at [facility] | MD [address] | of skin of other | | | | Floor [address] | [place], [place] | and unspecified | | | | Ave Mailcode: [address] | [address] | parts of face | | | | [facility] | [phone] | (Primary Dx) | | | | and Healing, | | | | | | Building | | | | | | Floor [place], [place] | | | | | | [address] | | | | | | [phone] | | | +--------+---------+ + + + [...] this encounter Last Filed Vital Signs + +---------+ + + | Vital Sign | Reading | Time Taken | Comments | + +---------+ + + | Blood Pressure | 126/80 | 12/31/2011 1:24 PM | | | | | PST | | + +---------+ + + | Pulse | 80 | 12/31/2011 1:24 PM | | | | | PST | | + +---------+ + + | Temperature | - | - | | + +---------+ + + | Respiratory Rate | 14 | 12/31/2011 1:24 PM | | | | | PST | | + +---------+ + + | Oxygen Saturation | - | - | | + +---------+ + + | Inhaled Oxygen | - | - | | | Concentration | | | | + +---------+ + + | Weight | - | - | | + +---------+ + + | Height | - | - | | + +---------+ + + | Body Mass Index | - | - | | + +---------+ + + documented in this encounter Patient Instructions Patient Instructions Shweta Acevedo MA - 12/31/2011 1:26 PM [facility] Department of Dermatology [phone] Home Care After Skin Biopsy General Care Leave the bandage on overnight without getting it wet. The next day you may take it off and shower or bathe as you normally would. Clean the wound every day with soap and water. For crusts or scabs, use a cotton swab soak ed with hydrogen peroxide to gently clean away any scabs, crusts or pus. Spread a thin layer of white petrolatum ointment on the wound and then cover with a fresh b andage. Keep the area covered until it heals or until your stitches are removed. Your docto r will tell you when to return to have your stitches removed or when you may remove them you rself. Biopsy Results -You will get your biopsy results in one of the following ways: -When you return to have stitches taken out. -When your doctor gives you the results by phone if biopsy is abnormal. -It takes 7-10 days for biopsy results. Call the Doctor if: -If the bandage becomes soaked with blood take it off. Use a piece of gauze to press firml y on the wound for 15 minutes without peeking. This should stop the bleeding, and then you can put on a new bandage. If it continues to bleed, repeat the process for 15 minutes. If t he wound continues to bleed call. -You are having a great deal of pain from the wound. This is rare but possible. You may t ry plain Tylenol, two tablets very four to six hours to help relieve the pain. Call if Tylen ol does not relieve the pain. -Expect the area to become more red and tender during the first 48 hours after the procedur e. Call if the wound becomes increasingly red, swollen and tender instead of slowly improvin g. -Wound develops drainage (pus). How to Reach Us You may reach the Dermatology Clinic at [phone] weekdays. After hours, call the hospital polymerization kettle operator at [phone] and ask for the dermatology residen t stone decorator. It takes 7-10 days for biopsy results. Please note in addition to you office visit charges, you or your insurance company will be billed: For any additional physician fees, such as the biopsy procedure. ([facility]) Devon Mccabe MD, Dermatopathology billed through [facility] A fee from an outside Laboratory where tissue is processed onto microscope slides. 10/07 Prevent Winter Itch The winter time usually means forced dry heat in the home and hot showers- two major causes of dry skin. Here are some tips that can prevent you from developing dry and itchy skin ov er the winter time. Do not use hot water. Hot water removes your natural skin oils more quickly. Warm water is best for bathing. Use a gentle cleanser. Soaps can strip oils from the skin. Stop using deodorant bars, antib acterial soaps, perfumed soaps, and skin care products containing alcohol, like hand sanitiz ers. Look for either a mild, fragrance-free soap or a soap substitute that moisturizes. Limit time in the bathtub or shower. A 5- to 10-minute bath or shower adds moisture to the skin. Spending more time in the water often leaves your skin less hydrated than before you s tarted unless you use a thick moisturizer on your skin after bathing. Do not bathe more ofte n than once a day. Moisturize right after baths and showers. To lock in moisture from a bath or shower, apply a moisturizer while the skin is still damp. The thicker the moisturizer, the better. Before you shave, soften skin. It is best to shave right after bathing, when hairs are soft . To lessen the irritating effects of shaving your face or legs, use a shaving cream or gel. Leave the product on your skin about 3 minutes before starting to shave. Shave in the direc tion that the hair grows. Change razor blades after 5 to 7 shaves. A dull blade bothers dry skin. Use a humidifier. Keep the air in your home moist with a humidifier. Soothe chapped lips. At bedtime, apply a lip balm that contains petrolatum. Other names for this ingredient are petroleum jelly and mineral oil. Cover up outdoors in the winter. In the cold, wear a scarf to help prevent chapped lips and gloves to protect hands and help prevent chapped hands. Be good to your face. If you have very dry skin, cleanse your face just once a day, at nigh t. In the morning, rinse your face with cool water. THE "ABCDE" RULE AND MELANOMA DETECTION Asymmetry - compare one half of the growth to the other half to determine if the halves are equal in size. Border - If the mole's border is irregular, notched, scalloped, or indistinct, it should be checked by a doctor. Color - Variation of color (e.g., more than one color or shade) within a mole is a suspicio us finding. Diameter - Any mole that has a diameter larger than a pencil's eraser should be checked by a doctor. Evolving - If a mole is changing in size, shape, color, elevation, surface texture or becom es itchy or painful, it should be checked by a doctor. Additional sunscreen and melanoma information is available at the following websites: http://www.[facility]/xd/health/services/dermatology/for-patients/health_info.cfm - [facility] Derm atology http://www.aad.org/public/sun/smart.html - [facility]AD Website documented in this encounter Progress Notes Vinayak Pappas MD - 01/02/2012 2:09 PM PSTC&D BCC R cheek . Call pt to Burke perrin signed by Vinayak Pappas MD at 01/02/2012 2:11 PM Song Maria MD - 2011 1:43 PM PST DERMATOLOGY NEW PATIENT VISIT, HISTORY AND PHYSICAL CHIEF COMPLAINT: spot on R cheek PRIMARY CARE PROVIDER: Judit Booth MD HISTORY OF PRESENT ILLNESS: Kobi Loera is a 71 y.o. male who presents for evaluation of a spot on R cheek, p resent for about 3 years, tender not painful, bleeds when traumatized, otherwise not symptom atic, growing slowly. Otherwise, he denies rapidly changing, bleeding, painful, itchy moles and lesions today. The patient has no personal history of skin cancer. No fam hx of melanoma. ROS: No f/c/ns/unintended weight loss. No other skin concerns. The patient's dermatology intake form was reviewed, signed, and dated. His relevant PMH, F H, and includes: PAST MEDICAL HISTORY: No past medical history on file. FAMILY HISTORY: No history of melanoma, no other family history of other dermatologic conditions. SOCIAL HISTORY: and lives in [place] No tobacco. Minimal alcohol. MEDICATIONS: No current outpatient prescriptions on file prior to visit. ALLERGIES: Allergies Allergen Reactions Codeine REVIEW OF SYSTEMS: Please see HPI and PMH. In addition, he denies fever, chills, sweats, weight loss or loss of appetite, and has no further skin complaints. PHYSICAL EXAMINATION: BP 126/80, Pulse 80, RR 14. The patient is a well appearing male who is alert with normal mood and affect. Awake, joy rt and oriented. Pleasant and cooperative mood. A skin examination was performed including the scalp, face, eyelids, ears, lips, neck, ches t, back, abdomen, buttocks, R+L arms and hands, R+L legs and feet, and nails. Findings were within normal limits except for the following: --R lateral cheek with single pink pearly papule ASSESSMENT AND PLAN: 1. Neoplasm at R lateral cheek, r/o BCC -- Procedure Note - Shave Removal with C+D R lateral cheek First pass size: 1cm Prior to beginning the procedure the team paused to verify the patient's identity, as well as the procedure to be performed and the biopsy site. All equipment required was ready and a vailable. The patient was positioned appropriately. After PARQ addressed and scar factors di scussed, the area was prepped with an isopropyl alcohol pad. Anesthesia was obtained by subc utaneous infusion of buffered 1% lidocaine with 1:100,000 epinephrine. A shave biopsy was pe rformed and the lesion was curetted and desiccated 3 times each. Hemostasis obtained with e lectrocautery. Blood loss was minimal. The site was dressed with white petrolatum jelly and a bandage. Verbal and written wound care instructions were given to the patient. Patient re ports no pain after the procedure. 2. Benign skin exam RTC: PRN if lesions or symptoms worsen or fail to resolve SONG RIOS MD Resident, Department of Dermatology [facility] inayak Pappas MD - 12/28/2011 4:52 PM PSTPatient referred by No Referring Provider Per Patient NO REFERRING PROVIDER PER PT 71 YO man here to have skin exam & check rough patch on his face firm thick eroded lesion R lat cheek Prior to beginning the procedure, patient identity was verified, as well as the procedure to be performed and the site. All equipment required was ready and available. The patient w as positioned appropriately. PARQ addressed with patient. Patient's consent was obtained (after discussing risks of proc edure including bleeding, infection, scarring, and the possibility that additional surgery m ay be required) to remove the skin lesion located on rt cheek. The area was prepped with an isopropyl alcohol pad. 2 ml of 1% Lidocaine with Epinephrine was used for local anesthesia. The 0.6 cm lesion was excised (dermis only) and curetted and desiccated 3 separate times. T here were no complications and only a minimum amount of bleeding was encountered. Patient reports no pain after the procedure. See 1 year I performed a history and physical examination of the patient and discussed his management with the resident. I reviewed the resident's note and agree with the documented findings an d plan of care. I was present for the entire procedure as described in this note for this e ncounter. documented in this e ncounter Plan of Treatment Not on filedocumented as of this encounter Procedures + +--------+ + + + | Procedure Name | Priori | Date/Time | Associated Diagnosis | Comments | | | ty | | | | + +--------+ + + + | GEO KIM | Routin | 12/31/2011 | Basal cell | | | FACE,NOSE,LIP 0.6-1 | e | 2:14 PM | carcinoma of skin of | | | CM | | PST | other and | | | | | | unspecified parts of | | | | | | face | | + +--------+ + + + | DERMATOPATHOLOGY(WET | Routin | 12/31/2011 | | Results for this | | [facility]) | e | | | procedure are in the | | | | | | results section. | + +--------+ + + + documented in this encounter Results DERMATOPATHOLOGY([facility] [place]) (12/31/2011) + + + + + + | Component | Value | Ref Range | Performed | Pathologist | | | | | At | Signature | + + + + + + | DERMATOPATH | SOURCE OF SPECIMEN:A Rt. | | [facility] | | | OLOGY(WET | lateral cheek, shave | | DERMATOPATH | | | MNT) | biopsy CLINICAL | | OLOGY | | | | DESCRIPTION:Thick | | | | | | slightly eroded papule. | | | | | | GROSS | | | | | | DESCRIPTION:Received in | | | | | | formalin is a specimen | | | | | | labeled [place], | | | | | | Kobi:A: Specimen is | | | | | | labeled "Rt cheek" and | | | | | | consists of an oval | | | | | | shave of yellownodular | | | | | | skin [id number]. The | | | | | | surgical margin is inked | | | | | | green; the tissue | | | | | | istrisected, and | | | | | | entirely submitted in | | | | | | cassette A1. | | | | | | MICROSCOPIC | | | | | | DESCRIPTION:There are | | | | | | irregularly sized | | | | | | aggregates of basaloid | | | | | | epithelial cells, someof | | | | | | them with | | | | | | hyperchromatic nuclei | | | | | | and scant cytoplasm. | | | | | | In some areasthere is | | | | | | peripheral nuclear | | | | | | palisading and | | | | | | retraction artifact. | | | | | | DIAGNOSIS:BASAL CELL | | | | | | CARCINOMA. | | | | | | CRW:emr/11/14 My | | | | | | electronic signature | | | | | | indicates that I have | | | | | | personally reviewed | | | | | | alldiagnostic slides, | | | | | | the gross and/or | | | | | | microscopic portion of | | | | | | thisreport and | | | | | | formulated the final | | | | | | diagnosis. | | | | | | Rendering Diagnostician: | | | | | | Devon Mccabe Jr., | | | | | | | | | | | | MAlliPathologistElectroni | | | | | | alyx Signed 01/02/2012 | | | | | | 1:50PM | | | | + + + + + + + + | Specimen | + + | | + + + + + + + | Performing | Address | City/State/Zipcode | Phone Number | | Organization | | | | + + + + + | [facility] | [address] | [place] [address] | | | DERMATOPATHOLOGY | [address] | | | + + + + + documented in this encounter Visit Diagnoses + + | Diagnosis | + + | Basal cell carcinoma of skin of other and unspecified parts of face - Primary | + + documented in this encounter
--- OUTSIDE RECORDS SUMMARY | ~2019-10-08 | XMS | Encounter Summary ---
Demographics + + + | Address | [address] | | | [place] [address] | + + + | Home Phone | | + + + | Preferred Language | Unknown | + + + | Marital Status | | + + + | Scientology Affiliation | NON | + + + [...] Team Providers + +------+ + | Care Otc Clerk Name | Role | Phone | + +------+ + | Judit Booth MD | PCP | | + +------+ + Encounter Details +--------+ + + + + | Date | Type | Department | Care Team | Description | +--------+ + + + + | 03/24/ | Office | [facility] | Note, [...] as of this encounter Progress Notes Interface, Aluminum Welder In - 09/21/2006 8:53 AM PSTCLINIC DATE: 03/24/2000 REASON FOR VISIT: Establish primary care. HISTORY OF PRESENT ILLNESS: The patient is a 59-year-old white male who comes in today for a complete physical examination. The patient has not been seen by a doctor for several years. He also is complaining of a significant family history of abdominal aortic aneurysm, and he would "like to get his aorta checked." He is also complaining about some bumps in his penis area and states that he is concerned about cancer. PAST MEDICAL HISTORY 1. Pneumonia in 1966. He was hospitalized for two weeks, but he completely recovered. 2. Chronic back pain. He has been toldthat he had degenerative arthritis of the low back. He had an x-ray, and he had an MRI as well. 3. Some very mild arthritis symptoms in his shoulders. PAST SURGICAL HISTORY: No surgeries. FAMILY HISTORY: The father had an aortic aneurysm. He in his 70s. His mother at [id number]-rtf from myocardial infarction. His brother had an abdominal aortic aneurysm repair at age 55, and his uncle in his 50s from an abdominal aortic aneurysm. REVIEW OF SYSTEMS: The patient denies any bladder dysfunction, but has complained of increased bowel dysfunction. He has had a change in bowel habits. He is now having increased diarrhea. He has been feeling tired for the last six to eight months. He denies any headache. No blurred vision, no rash, no asthma, no allergies, no shortness of breath, no chest pain, and no abdominal pain. PREVENTIVE SERVICES: He has never had a cholesterol checked. He has never been scoped either flexible sigmoidoscopy or colonoscopy. He has had a PSA checked about five years ago. 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 He is for forty years. He denies smoking. He drinks approximately two beers a day. He has one daughter who is healthy. MEDICATIONS: None. ALLERGIES: CODEINE MAKES HIM DIZZY. PHYSICAL EXAMINATION: VITAL SIGNS: Blood pressure 122/78, pulse 68, weight 183, and respirations 14. GENERAL: This is a healthy-appearing white male in no acute distress. HEENT:Pupils are equal, round, and reactive to light. Extraocular movements are intact. No throat exudate. No rhinorrhea. Tympanic membranes are clear bilaterally. NECK: Supple with full range of motion. No adenopathy and thyromegaly. HEART: Regular rate and rhythm without murmur, no S3, no S4, and no JVD. LUNGS: Clear to auscultation bilaterally. ABDOMEN: Soft, nontender, and nondistended. Positive bowel sounds, no hepatosplenomegaly, no palpable abdominal mass, and no CVA tenderness. GENITAL: No inguinal hernia is noted, no scrotal tenderness, no scrotal masses. Penis reveals no penile discharge. I do not feel the lumps and bumps on the penis area that he is talking about. RECTAL: Normal sphincter tone. Normal prostate, smooth, round, and nontender. No lesions. Guaiac is positive for blood. NEUROLOGIC: Cranial nerves 2-12 are intact. No gross sensoryor motor deficits. Deep tendon reflexes are +2 and symmetric bilaterally in the upper and lower extremities. SKIN: No melanoma, no lesions that are suspicious for malignancy. ASSESSMENT AND PLAN 1. Complete history and physical in a 59-year-old white male. Preventive services include checking a total cholesterol, HDL, LDL, and multi-chemistry. The patient will be scheduled for flexible sigmoidoscopy or colonoscopy. Due to the patient's rectal bleeding, I would say he needs to have a colonoscopy. Dr. Dennis Miramontes will be contacted. 2. Fatigue, maybe due to anemia. We will check a CBC; however, we also will a check TSH and testosterone level due to the patient's fatigue but also having some erectile dysfunction, he states that he is not able to sustain an erection. 3. Left lateral epicondylitis. The patient was given exercises. He is to ice the elbow three times a day. He is instructed not to take any nonsteroidal anti-inflammatories until we evaluate his rectal bleeding. 4. Positive Hemoccult. The patient will check CBC, ferritin level, and the patient will be scheduled in Gastroenterology for probable colonoscopy. Judit Booth M.D. RACHELLE / WAN [id number] / [id number] / [id number] / [id number] signed by Interface, Aluminum Welder In at 09/21/2006 8:53 AM PSTdocume nted in this encounter Plan of Treatment Not on filedocumented as of this encounter Visit Diagnoses Not on filedocumented in this encounter
--- OUTSIDE RECORDS SUMMARY | ~2019-10-08 | XMS | Encounter Summary ---
Demographics + + + | Address | [address] | | | [place] [address] | + + + | Home Phone | | + + + | Preferred Language | Unknown | + + + | Marital Status | | + + + | Muslim Affiliation | Unknown | + + + | Race | Unknown | + + + | Ethnic Group | Unknown | + + + Author + + + | Author | [facility] | | | and [place] | + + + | Organization | [facility] | | | and [place] | + + + | Address | Unknown | + + + | Phone | Unavailable | + + + Support + + + + + | Name | Relationship | Address | Phone | + + + + + | Silvia Baumann | ECON | [address] | | | | | [place] | | | | | [address] | | + + + + + Care Team Providers + +------+ + | Care Hide Tanner Name | Role | Phone | + +------+ + | Luis M Baptiste | PCP | | | MD | | | + +------+ + Reason for Visit +--------+ + | Reason | Comments | +--------+ + | Other | TESTS | +--------+ + Encounter Details +--------+ + + + + | Date | Type | Department | Care Team | Description | +--------+ + + + + | 11/29/ | Telephone | [facility] | Marshall Vivas, | Other (TESTS) | | 2016 | | [address] | MD [address] | | | | | [place] | [place] | | | | | [address] | [address] | | | | | [phone] | | | +--------+ + + + [...] [place] | | | | | | [place] [address] | | | | | | [phone] | | | | | | | | +--------+---------+ + + + documented as of this encounter Visit Diagnoses Not on filedocumented in this encounter
--- OUTSIDE RECORDS SUMMARY | ~2019-10-08 | XMS | Encounter Summary ---
Demographics + + + | Address | [address] | | | [place] [address] | + + + | Home Phone | | + + + | Preferred Language | Unknown | + + + | Marital Status | | + + + | Baptist Affiliation | NON | + + + | Race | White | + + + | Ethnic Group | Not or | + + + Author + + + | Author | [facility] | + + + | Organization | [facility] | + + + | Address | Unknown | + + + | Phone | Unavailable | + + + Support + + + + + | Name | Relationship | Address | Phone | + + + + + | Silvia Loera | FARZANA | [place] | | + + + + + Care Team Providers + +------+ + | Care Alarm Installer Name | Role | Phone | + [...] | | | | | [place], | | | | | | [place] [address] | | | | | | [phone] | | | +--------+ + + + [...]
--- OUTSIDE RECORDS SUMMARY | ~2019-10-08 | XMS | Encounter Summary ---
Demographics + + + | Address | [address] | | | [place] [address] | + + + | Home Phone | | + + + | Preferred Language | Unknown | + + + | Marital Status | | + + + | Confucianist Affiliation | NON | + + + | Race | White | + + + | Ethnic Group | Not or | + + + Author + + + | Author | [facility] | + + + | Organization | [facility] | + + + | Address [...] Team Providers + +------+ + | Care Roller Turner Name | Role | Phone | + +------+ + PCP | Unavailable | + +------+ + Encounter Details +--------+ + + + + | Date | Type | Department | Care Team | Description | +--------+ + + + + | 02/22/ | Results | Orthopaedics at | Dave Schwartz MD | | | 2001 | Only | [facility] [address] | [address] [place] | | | | | [address] | [address] [place], [place] | | | | | Mailcode: [id number] | [address] | | | | | Phys[facility] [place] | | | | | | [place], [place] | | | | | | [address] | | | | | | [phone] | | | +--------+ + + + [...] + +--------+ + + + | X-RAY FLUOROSCOPY | Routin | 03/08/2002 | | Results for this | | <=1 HOUR | e | 11:20 AM | | procedure are in the | | | | PDT | | results section. | + +--------+ + + + | X-RAY CHEST 2 VIEW | Priori | 03/05/2002 | | Results for this | | | ty | 2:39 PM | | procedure are in the | | | | PDT | | results section. | + +--------+ + + + | TYPE AND SCREEN | Routin | 03/05/2002 | | Results for this | | | e | 2:10 PM | | procedure are in the | | | | PDT | | results section. | + +--------+ + + + | X-RAY SPINE | Routin | 02/23/2002 | | Results for this | | LUMBOSACRAL 4 VIEWS | e | 10:36 AM | | procedure are in the | | | | PDT | | results section. | + +--------+ + + + | CT SPINE CERVICAL W | Routin | 02/22/2002 | | Results for this | | CONTRAST | e | 11:55 AM | | procedure are in the | | | | PDT | | results section. | + +--------+ + + + | X-RAY MYELOGRAM | Routin | 02/22/2002 | | Results for this | | LUMBOSACRAL | e | 11:23 AM | | procedure are in the | | | | PDT | | results section. | + +--------+ + + + documented in this encounter Results FLUOROSCOPY <=1 HOUR (03/08/2002 11:20 AM PDT) + + + + + + | Component | Value | Ref Range | Performed | Pathologist | | | | | At | Signature | + + + + + + | FLUOROSCOPY | Radiologist 1: EMILIANAR, | | | | | <=1 HOUR | Miguel Ángel EMERY IMPRESSION: | | | | | | FLUOROSCOPY SERVICES | | | | | | WERE PERFORMED UNDER THE | | | | | | DIRECTION OF | | | | | | THEORDERING PHYSICIAN. | | | | | | END OF IMPRESSION: | | | | | | | | | | | | | | | | | |END OF IMPRESSION: | | | | | [...] | | + +---------+ + + | [facility] | | | | | RADIOLOGY | | | | + +---------+ + + CHEST 2 VIEW (03/05/2002 2:39 PM PDT) + + + + + + | Component | Value | Ref Range | Performed | Pathologist | | | | | At | Signature | + + + + + + | CHEST, 2 | Radiologist 1: ULISSES, | | | | | VIEWS [place] | MAE Myles, | | | | | STEREO | M.D.-Radiologist 2: | | | | | | MAE GTZ, | | | | | | M.D.CHEST TWO VIEWS: | | | | | | Dated 03/05/2002 | | | | | | Dictated 03/05/2002 | | | | | | COMPARISON: None. | | | | | | FINDINGS: The lungs | | | | | | are clear. The | | | | | | cardiomediastinal | | | | | | silhouette,glenroy and | | | | | | pulmonary vasculature is | | | | | | unremarkable. No | | | | | | pneumothorax orpleural | | | | | | fluid is seen. There | | | | | | is mild degenerative | | | | | | changes of thethoracic | | | | | | spine with compression | | | | | | deformity of several mid | | | | | | thorcicvertebral | | | | | | bodies, probably | | | | | | chronic. The osseous | | | | | | structures areotherwise | | | | | | unremarkable. | | | | | | IMPRESSION: 1. Clear | | | | | | lungs. 2. Degenerative | | | | | | changes of the thoracic | | | | | | spine, with probable | | | | | | chroniccompression | | | | | | deformities. Recommend | | | | | | old film for | | | | | | comparison. END OF | | | | | | IMPRESSION: | | | | + + + + + + + + | Specimen | + + | | + + + +---------+ + + | Performing | Address | City/State/Zipcode | Phone Number | | Organization | | | | + +---------+ + + | [facility] DEPARTMENT OF | | | | | RADIOLOGY | | | | + +---------+ + + TYPE AND SCREEN (03/05/2002 2:10 PM PDT) + +-------+ + + + | Component | Value | Ref Range | Performed | Pathologist | | | | | At | Signature | + +-------+ + + + | ABO GROUP | O | | [facility] | | | | | | DEPARTMENT | | | | | | OF | | | | | | PATHOLOGY | | + +-------+ + + + | RH TYPE | POS | | [facility] | | | | | | DEPARTMENT | | | | | | OF | | | | | | PATHOLOGY | | + +-------+ + + + | ANTIBODY | NEG | | [facility] | | | SCREEN | | | DEPARTMENT | | | | | | OF | | | | | | PATHOLOGY | | + +-------+ + + + + + | Specimen | + + | | + + + + + | Narrative | Performed At | + + + | SPEC EXPIRES 03/10/02 @ 0700 | [facility] | | | DEPARTMENT OF | | | PATHOLOGY | + + + + + + + + | Performing | Address | City/State/Zipcode | Phone Number | | Organization | | | | + + + + + | [facility] DE[facility]MENT OF | [address] | [place] [address] | | | PATHOLOGY | [address] | | | + + + + + | [facility] | [address] | [place] [address] | | | PATHOLOGY | [address] | | | + + + + + SPINE LUMBOSACRAL 4 VIEWS (02/23/2002 10:36 AM PDT) + + + + + + | Component | Value | Ref Range | Performed | Pathologist | | | | | At | Signature | + + + + + + | SPINE, | Radiologist 1: AARON, | | | | | LUMBOSACRAL | Miguel Ángel EMERY-Radiologist | | | | | , 4 VIEW | 2: YULY WALKER, | | | | | | Miguel ÁngelLUMBAR SPINE, FOUR | | | | | | VIEWS: 02/23/2002 | | | | | | Dictated: 02/23/2002 | | | | | | FINDINGS: There is | | | | | | straightening of the | | | | | | lumbar | | | | | | lordosis.Levoscoliosis | | | | | | is noted on the AP view. | | | | | | There is limited | | | | | | range ofmotion through | | | | | | the lumbar spine on | | | | | | flexion and extension | | | | | | withoutinstability. | | | | | | There are no fractures | | | | | | identified. There is | | | | | | L5-S1 intervertebral | | | | | | disc height loss with | | | | | | minimal | | | | | | endplatesclerosis. | | | | | | Minimal spurring is | | | | | | present throughout the | | | | | | lumbar spine.Facet | | | | | | degenerative changes are | | | | | | seen at L4-5, and | | | | | | L5-S1. IMPRESSION: 1. | | | | | | Straightening of the | | | | | | lumbar lordosis with | | | | | | levoscoliosis. 2. | | | | | | Degenerative disc | | | | | | changes of lumbar spine, | | | | | | most prominent at | | | | | | L5-S1. 3. Facet | | | | | | degenerative changes at | | | | | | L4-5 and L5-S1. END | | | | | | OF IMPRESSION: | | | | + + + + + + + + | Specimen | + + | | + + + +---------+ + + | Performing | Address | City/State/Zipcode | Phone Number | | Organization | | | | + +---------+ + + | [facility] DEPARTMENT OF | | | | | RADIOLOGY | | | | + +---------+ + + CT SPINE CERVICAL W CONTRAST (02/22/2002 11:55 AM PDT) + + + + + + | Component | Value | Ref Range | Performed | Pathologist | | | | | At | Signature | + + + + + + | CT CERVICAL | Radiologist 1: SAIDA | | | | | SPINE W | Gigi SHRESTHA | | | | CONTRAST | Miguel Ángel-Radiologist 2: | | | | | | JOHN CINTRON M.D.CT | | | | | | LUMBAR MYELOGRAM: | | | | | | 02/22/2002 Dictated | | | | | | 02/22/2002 HISTORY: | | | | | | 62-year-old male with | | | | | | left radiculopathy. | | | | | | Rule outstenosis. | | | | | | PROCEDURE: The patient | | | | | | was appropriately | | | | | | identified. The | | | | | | risks,benefits, and | | | | | | alternatives to the | | | | | | procedure were explained | | | | | | in detail.All questions | | | | | | were answered. The | | | | | | patient then signed | | | | | | informedconsent. He | | | | | | was layed prone on the | | | | | | fluoroscopy table, and | | | | | | the L2-3level was | | | | | | localized with | | | | | | fluoroscopic assistance. | | | | | | A job was made onthe | | | | | | skin with a felt tip | | | | | | marker to determine the | | | | | | needle entry | | | | | | point.Following this, | | | | | | the skin was prepped x 3 | | | | | | with Betadine and | | | | | | drapedin the usual | | | | | | sterile fashion. The | | | | | | skin and deeper | | | | | | subcutaneoustissues were | | | | | | anesthetized with | | | | | | lidocaine for a total | | | | | | volume of 4 cc.The | | | | | | 22-gauge spinal needle | | | | | | was then punctured | | | | | | through skin andadvanced | | | | | | under fluoroscopic | | | | | | guidance until clear CSF | | | | | | was obtained. 10cc of | | | | | | Omnipaque-180 was | | | | | | instilled into the | | | | | | lumbar cistern | | | | | | underfluoroscopic | | | | | | monitoring to ensure | | | | | | placement in the | | | | | | subarachnoid space.Once | | | | | | the entire volume of | | | | | | contrast was filled into | | | | | | the lumbar cistern,the | | | | | | patient had plain films | | | | | | taken in the AP, | | | | | | lateral, and | | | | | | bilateraloblique | | | | | | projections. Following | | | | | | this, he was taken to | | | | | | the CT scannerwhere 3-mm | | | | | | axial sections from L1 | | | | | | to the sacrum were | | | | | | obtained withoutfurther | | | | | | administration of | | | | | | intravenous contrast. | | | | | | FINDINGS: The plain | | | | | | film myelogram | | | | | | demonstrates a filling | | | | | | defect atthe L4-5 level | | | | | | without evidence of | | | | | | myelographic block. | | | | | | Vertebral body alignment | | | | | | is anatomic. At L1-2, | | | | | | there is no significant | | | | | | canal or foraminal | | | | | | stenosis. At L2-3, there | | | | | | is a minimal disc bulge | | | | | | without canal or | | | | | | foraminalstenosis. At | | | | | | L3-4, there is a small | | | | | | disc bulge slightly | | | | | | asymmetric to the | | | | | | leftwithout canal or | | | | | | foraminal stenosis. At | | | | | | L4-5, there is a | | | | | | left-sided disc | | | | | | extrusion with inferior | | | | | | migrationof the extruded | | | | | | disc to the left. The | | | | | | disc extends into the | | | | | | leftlateral recess and | | | | | | probably compromises the | | | | | | L5 nerve root. There | | | | | | isno significant | | | | | | foraminal stenosis. At | | | | | | L5-S1, there is minimal | | | | | | facet hypertrophy | | | | | | without canal | | | | | | orforaminal stenosis. | | | | | | IMPRESSION: Significant | | | | | | left-sided disc | | | | | | extrusion with inferior | | | | | | migration at L4-5that | | | | | | probably compromises the | | | | | | L5 nerve root within | | | | | | the lateral recess.There | | | | | | is mild degenerative | | | | | | disease at other levels, | | | | | | as described. END OF | | | | | | IMPRESSION: | | | | + + + + + + + + | Specimen | + + | | + + + +---------+ + + | Performing | Address | City/State/Zipcode | Phone Number | | Organization | | | | + +---------+ + + | [facility] DEPARTMENT OF | | | | | RADIOLOGY | | | | + +---------+ + + MYELOGRAPHY LUMBOSACRAL (02/22/2002 11:23 AM PDT) + + + + + + | Component | Value | Ref Range | Performed | Pathologist | | | | | At | Signature | + + + + + + | MYELOGRAPHY | Radiologist 1: SAIDA, | | | | | | JOHN CHI M.D. MYELO | | | | | LUMBOSACRAL | LUMBAR done on | | | | | | 22-Feb-2002 at 11:23 THE | | | | | | FINDINGS AND | | | | | | INTERPRETATION FOR THIS | | | | | | EXAM CAN BE FOUND WITH | | | | | | THEMD SPINE EXAM, | | | | | | ACCESSION NUMBER [id number] | | | | | | DONE ON 02-22-02. | | | | + + + [...]
--- OUTSIDE RECORDS SUMMARY | ~2019-10-08 | XMS | Encounter Summary ---
Demographics + + + | Address | [address] | | | [place] [address] | + + + | Home Phone | | + + + | Preferred Language | Unknown | + + + | Marital Status | | + + + | Confucianism Affiliation | NON | + + + | Race | White | + + + | Ethnic Group | Not or | + + + Author + + + | Author | [facility] | + + + | Organization | [facility] | + + + | Address [...] Team Providers + +------+ + | Care Corporate Vp Advertising & Online Name | Role | Phone | + [...] | | | | | [place], | | | | | | [place] [address] | | | +--------+ + + + [...] | | Patient: KASIE BROCK Med Rec: [id number] Sex M Bdate: 1940 | | Date/Time Data | | Entered Into [facility] | | Anesth PostOp | | Surgery Date [id number] 03/09/02 10:55 | | Anesthesiologist ENRIQUE ORTEGA 03/09/02 10:55 | | Resident Anesthesiolog DELIO GARCIA 03/09/02 10:55 | | | + + documented in this encounter Visit Diagnoses Not on filedocumented in this encounter"
--- OUTSIDE RECORDS SUMMARY | ~2019-10-08 | XMS | Encounter Summary ---
Demographics + + + | Address | [address] | | | [place] [address] | + + + | Home Phone | | + + + | Preferred Language | Unknown | + + + | Marital Status | | + + + | Orthodoxy Affiliation | Unknown | + + + | Race | Unknown | + + + | Ethnic Group | Unknown | + + + Author + + + | Author | [facility] | | | and [place] | + + + | Organization | [facility] | | | and [place] | + + + | Address | Unknown | + + + | Phone | Unavailable | + + + Support + + + + + | Name | Relationship | Address | Phone | + + + + + | Silvia Baumann | ECON | [address] | | | | | [place] | | | | | [address] | | + + + + + Care Team Providers + +------+ + | Care Instructional Interventionist Name | Role | Phone | + +------+ + | Luis M Baptiste | PCP | | | MD | | | + +------+ + Reason for Visit +--------+ + | Reason | Comments | +--------+ + | Other | IV PIC | +--------+ + Encounter Details +--------+ + + + + | Date | Type | Department | Care Team | Description | +--------+ + + + + | 01/04/ | Telephone | [facility] | Marshall Vivas, | Other ([facility]) | | 2016 | | [address] | [address] | | | | | [place] | [place] | | | | | [address] | [address] | | | | | [phone] | | | +--------+ + + + [...] | | | | | | [place] [address] | | | | | | [phone] | | | | | | | | +--------+---------+ + + + documented as of this encounter Visit Diagnoses Not on filedocumented in this encounter
--- OUTSIDE RECORDS SUMMARY | ~2019-10-08 | XMS | Encounter Summary ---
Demographics + + + | Address | [address] | | | [place] [address] | + + + | Home Phone | | + + + | Preferred Language | Unknown | + + + | Marital Status | | + + + | Tenriism Affiliation | NON | + + + [...] Team Providers + +------+ + | Care Gear Lapping Machine Operator Name | Role | Phone [...] 12/31/ | Office | Dermatology | Mian Vinayak, | Basal cell carcinoma | | 2011 | Visit | Medical at [facility] | MD [address] | of skin of other | | | | Floor [address] | [place], [place] | and unspecified | | | | Ave Mailcode: [address] | [address] | parts of face | | | | [facility] | [phone] | (Primary Dx) | | | | and Healing, | | | | | | Building | | | | | | Floor [place], [place] | | | | | | [address] | | | | | | [phone] | | | +--------+---------+ + + + [...] Shweta Acevedo MA - 12/31/2011 1:26 PM [facility] Department of Dermatology [phone] Home Care After Skin Biopsy General Care [...] You may reach the Dermatology Clinic at [phone] weekdays. After hours, call the hospital corner bead operator at [phone] and ask for the dermatology residen t economic geographer. It takes 7-10 days for biopsy results. Please note in addition to you office visit charges, you or your insurance company will be billed: For any additional physician fees, such as the biopsy procedure. ([facility]) Devon Mccabe MD, Dermatopathology billed through [facility] A fee from an outside [...] information is available at the following websites: [email or web address] - [facility] Derm atology [email or web address] - [facility] Website documented [...] dermatologic conditions. SOCIAL HISTORY: and lives in [place] No tobacco. Minimal alcohol. MEDICATIONS: No current [...] MD Resident, Department of Dermatology [facility] inayak Pappas MD - 12/28/2011 4:52 [...] | | Results for this | | [facility]) | e | | | [...] | | | | | | skin [id number]. The | | | | | | [...] [facility] | [address] | [place] [address] | | | DERMATOPATHOLOGY | [address] | | | + + + + + documented in this encounter Visit Diagnoses + + | Diagnosis | + + | Basal cell carcinoma of skin of other and unspecified parts of face - Primary | + + documented in this encounter
--- OUTSIDE RECORDS SUMMARY | ~2019-10-08 | XMS | Encounter Summary ---
Demographics + + + | Address | [address] | | | [place] [address] | + + + | Home Phone | | + + + | Preferred Language | Unknown | + + + | Marital Status | | + + + | Restorationism Affiliation | NON | + + + | Race | White | + + + | Ethnic Group | Not or | + + + Author + + + | Author | [facility] | + + + | Organization | [facility] | + + + | Address | Unknown | + + + | Phone | Unavailable | + + + Support + + + + + | Name | Relationship | Address | Phone | + + + + + | Silvia Loera | [place] | [place] | | + + + + + Care Team Providers + +------+ + | Care Security Rover Name | Role | Phone | + +------+ + | Judit Booth MD | PCP | | + +------+ + Encounter Details +--------+ + + + + | Date | Type | Department | Care Team | Description | +--------+ + + + + | 01/20/ | Office | [facility] | Note, [...] as of this encounter Progress Notes Interface, Pmp Certified Project Manager In - 07/13/2006 1:04 AM PDTCLINIC DATE: 01/20/2002 [facility] SUBJECTIVE: Mr. Loera is a 61-year-old male referred by Dr. Judit Booth for evaluation of his low back pain and left leg pain. A second year medical student also was present for history and physical. The entire dictated history and physical examination was done me. Mr. Loera is a 61-year-old gentleman who describes onset in July 2001 of a low back and leg pain. He notes the specific activity when he was working on a shed and feels this activity may have aggravated things. He describes the pain as 3 to 4 over 10 in intensity, and they are approximately 50% of the time. He notes left leg numbness and paraesthesias of the posterolateral leg and into the foot. He also feels some weakness of the leg both with endurance and with some dragging of the foot. He describes no bowel or bladder dysfunction. Rest seems to be helping the symptoms at this point and movement seems to be making it worse. They have worsened over the past several weeks as well. His workup includes an MRI of the lumbar spine. Films and report are reviewed today. He is known to have an L4-L5 disk protrusion with probable left-sided L5 nerve root compression. He also has some L5 and S1 degenerative changes. He has had trial of medications which is Celebrex and notes no significant relief with this. He has had no relief with chiropractics either. PAST MEDICAL HISTORY: He has had 1 episode of low back pain in 1970s, also notes a tooth abscess but otherwise his past medical history is unremarkable. SOCIAL HISTORY: The patient lives in [place]. His primary physician is Dr. Booth here in [place]. 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 The patient does not smoke, however, does use chewing tobacco. FAMILY HISTORY: Positive for cancer and heart disease. PAST SURGICAL HISTORY: He describes prior abdominal hernia surgery. ALLERGY: CODEINE. REVIEW OF SYSTEMS: He describes no recent fevers, chills, night sweats, unexplained weight loss, or other numbness or weakness other than that mentioned above. Review of systems from the patient information sheet is otherwise entirely unremarkable. OBJECTIVE: GENERAL: Pleasant gentleman sitting comfortably, alert, oriented, and cooperative to examination. He appears his stated age. VITAL SIGNS: Height of 67-1/2 inches, weight of 186 pounds, and heart rate is 78 beats per minute. MUSCULOSKELETAL: Inspection and palpation of skin and musculature of cervical, thoracic, lumbar spine, and bilateral lower extremities are unremarkable for muscle asymmetry, guarding, or atrophy. There is no paraspinal muscle tenderness to palpation. There is no spinous process tenderness to palpation, step-offs, or apparent instability. His posterior tibialis pulses are palpable. His active cervical spine range of motion is within normal limits. He has limitation with lumbar spine flexion and extension secondary to low back pain. Hip internal and external rotation range of motion is within normal limits and pain-free. There is no apparent instability with this. His straight leg raise is limited to approximately 50 degrees bilaterally secondary to back pain and on the left side secondary to some left leg pain. The patient has full 5/5 strength bilaterally in lower extremities, L2 through S1 myotomes with the exception of 4/5 strength of the left extensor hallucis longus. He describes intact sensation to light touch bilaterally throughout the lower extremities. With respect to pinprick sensation, he describes intact sensation throughout with the exception of left lateral calf and dorsum of the foot where pinprick is impaired but intact to some degree. He has no significant kyphosis or scoliosis of the spine. No clubbing of the nails. His gait is unremarkable. He is unable to walk well on the heels and describes some weakness with this on the left side. He is independently transferring to and from the exam table. He has normal coordination with this. There is no clubbing of his nails. IMPRESSION AND PLAN: Low back and left-sided leg pain with exam findings and imaging findings consistent with left L5 radiculopathy. I have discussed potential management options with the patient today. If this is worsening for him and he is approximately 6 to 7 months into this, we will set him up with an appointment to see the spine surgeon. He is scheduled to see Dr. Schwartz next Saturday, January 26, 2002. I have discussed with the patient options for his pain medications, and he would like to hold off on these right now as he feels he is doing fairly well. We have further reviewed with the patient warning signs of progressive radiculopathy and/or myelopathy and the need to seek immediate medical attention. I would be happy to follow up with Mr. Loera after he has seen Dr. Schwartz stating that he is a surgical candidate or desire conservative therapy. Robert Hawkins M.D. / [id number] / [id number] / [id number] / [id number] cc: Miguel Ángel Parisi M.D. 1:0 4 AM PDTdocumented in this encounter Plan of Treatment Not on filedocumented as of this encounter Visit Diagnoses Not on filedocumented in this encounter"
--- OUTSIDE RECORDS SUMMARY | ~2019-10-08 | XMS | Encounter Summary ---
Demographics + + + | Address | [address] | | | [place] [address] | + + + | Home Phone | | + + + | Preferred Language | Unknown | + + + | Marital Status | | + + + | Yazidism Affiliation | NON | + + + | Race | White | + + + | Ethnic Group | Not or | + + + Author + + + | Author | [facility] | + + + | Organization | [facility] | + + + | Address [...] Team Providers + +------+ + | Care Cardboard Cutter Name | Role | Phone | + +------+ + | Judit Booth MD | PCP | | + +------+ + Encounter Details +--------+ + + + + | Date | Type | Department | Care Team | Description | +--------+ + + + + | 02/22/ | Pharmacy | Outpatient Retail | | | | 2013 | Visit | [facility] | | | | | | [address] | | | | | | [place], | | | | | | [place] [address] | | | | | | [phone] | | | +--------+ + + + [...]
--- OUTSIDE RECORDS SUMMARY | ~2019-10-08 | XMS | Encounter Summary ---
Demographics + + + | Address | [address] | | | [place] [address] | + + + | Home Phone | | + + + | Preferred Language | Unknown | + + + | Marital Status | | + + + | Episcopalian Affiliation | NON | + + + | Race | White | + + + | Ethnic Group | Not or | + + + Author + + + | Author | [facility] | + + + | Organization | [facility] | + + + | Address [...] Team Providers + +------+ + | Care Sr. Director Name | Role | Phone | + +------+ + | Judit Booth MD | PCP | | + +------+ + Encounter Details +--------+ + + + + | Date | Type | Department | Care Team | Description | +--------+ + + + + | 05/18/ | Office | [facility] | Note, [...] documented as of this encounter Progress Notes Adrián, Motion Designer In - 06/26/2006 6:08 AM PDTCLINIC DATE: 05/18/2002 ORTHOPEDIC CLINIC SUBJECTIVE: Mr. Loera returns. He is doing extremely well. He states he is walking significantly straighter. His lower extremity pain is better. He is still having some backache. There are no wound problems. PHYSICAL EXAMINATION: A healed posterior lumbar incision. He is neurologically intact. X-rays demonstrate no spondylolisthesis. ASSESSMENT: Mr. Loera is doing very very well status post lumbar laminectomy. I will have him return in 9 months. On his return, we shall obtain repeat AP and lateral flexion-extension view of the lumbar spine. Dave Schwartz M.D. / WAN [id number] / [id number] / [id number] / cc: Referring Physician documented in this encounter Plan of Treatment Not on filedocumented as of this encounter Visit Diagnoses Not on filedocumented in this encounter"
--- OUTSIDE RECORDS SUMMARY | ~2019-10-08 | XMS | Encounter Summary ---
Demographics + + + | Address | [address] | | | [place] [address] | + + + | Home Phone | | + + + | Preferred Language | Unknown | + + + | Marital Status | | + + + | Yazdanism Affiliation | NON | + + + [...] Team Providers + +------+ + | Care Catalogue Compiler Name | Role | Phone | + [...] as of this encounter Progress Notes Interface, Telephone Interviewer In - 07/05/2006 1:07 AM PDTCLINIC DATE: 03/05/2002 ORTHOPEDIC CLINIC This is a patient of Dr. Dvae Schwartz. Mr. Loera presented today for preop [...] Dave Schwartz. Coty Mendez. ZARA / WAN [id number] / [id number] / [id number] / Tdocumented in this encounter Plan of Treatment Not on filedocumented as of this encounter Visit Diagnoses Not on filedocumented in this encounter"
--- OUTSIDE RECORDS SUMMARY | ~2019-10-08 | XMS | Encounter Summary ---
Demographics + + + | Address | [address] | | | [place] [address] | + + + | Home Phone | | + + + | Preferred Language | Unknown | + + + | Marital Status | | + + + | Rastafarian Affiliation | NON | + + + [...] Team Providers + +------+ + | Care Dictaphone Typist Name | Role | Phone | + +------+ + | Judit Booth MD | PCP | | + +------+ + Encounter Details +--------+ + + + + | Date | Type | Department | Care Team | Description | +--------+ + + + + | 11/14/ | Hospital | Radiology/Imaging | | | | 2015 | Encounter | Lab at [facility] [address] | | | | | | [address] Mailcode: | | | | | | [facility] | | | | | | Health and Healing, | | | | | | [facility] | | | | | | [place], [place] | | | | | | [address] | | | | | | [phone] | | | +--------+ + + + [...] + +--------+ + + + | X-RAY HIP 2 VIEWS | Routin | 11/14/2015 | Right hip pain | Results for this | | RIGHT W/ PELVIS 1 | e | 10:38 AM | | procedure are in the | | VIEW | | PST | | results section. | + +--------+ + + + documented in this encounter Results X-RAY HIP 2 VIEWS [...] | + + | Right hip pain Pain in joint, pelvic region and thigh | + + documented in this encounter"
--- OUTSIDE RECORDS SUMMARY | ~2019-10-08 | XMS | Clinical Summary ---
Demographics + + + | Address | [address] | | | [place] [address] | + + + | Home Phone | | + + + | Preferred Language | Unknown | + + + | Marital Status | | + + + | Pentecostal Affiliation | Unknown | + + + | Race | Unknown | + + + | Ethnic Group | Unknown | + + + Author + + + | Author | [facility] | | | and [place] | + + + | Organization | [facility] | | | and [place] | + + + | Address | Unknown | + + + | Phone | Unavailable | + + + Support + + + + + | Name | Relationship | Address | Phone | + + + + + | Silvia Baumann | ECON | [address] | | | | | [place] | | | | | [address] | | + + + + + Care Team Providers + +------+ + | Care Boom Stick Worker Name | Role | Phone | + [...] | | | | | rash see [facility] note | | | | | | [...] + + + | Overview: 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 | + + + + + | Tobacco user | 10/14/2015 | + + + | Status post hip replacement, right | 10/14/2015 | + + + + + | Overview: Had surgery at [facility] on 10/02/15 | + + + [...] | | 09/14/ | | | | ([facility]) (Primary Dx); | | 2019 | | | | Shortness of breath; | | | | | | Acute respiratory | | | | | | failure with hypoxia | | | | | | ([facility]); Weakness of | | | | | | right hand; Right | | | | | | leg weakness; | | | | | | Cervical spinal cord | | | | | | compression ([facility]); | | | | | | Cervical [...] Emergency | Emergency Medicine | Xu | Wnx-chmt-elhmflx | | 2018 | | | Dave [...] | | | | | [place] [address] | | | | | | [phone] | | | | | | | [...] | nRBC | | K/uL | [facility] | | | | | | MEDICAL [...] [address] | [place] | [phone] | | [facility] | | [address] | | | - LABORATORY | | [...] | 0.90 | 0.70 - 1.30 | [facility] | | | | | mg/dL | [facility] | | | | | | MEDICAL | | | | | | CENTER - | | | | | | LABORATORY | | + + + + + + | eGFR if not | >60Comment: GLOMERULAR | >=60 | [place] | | | | FILTRATION | mL/min/1.73m2 | [facility] | | | AL[place]IAN | RATE,ESTIMATED | | MEDICAL | | | | mL/min/1.22v7Blvj than | | CENTER - | | [...] + | [facility] | [address] | [place] | [phone] | | [facility] | | [address] | | | - LABORATORY | | [...] ST. | [address] | [place], [place] | [phone] | | [facility] | | [address] | | | - LABORATORY | | [...] [facility] | | | | | | [facility] | | | | | | MEDICAL | | | | | | CENTER - | | | | | | LABORATORY | | + + + + + + | RBC | 4.82 | 4.30 - 5.70 | [facility] | | | | | M/uL | [facility] | | | | | | MEDICAL [...] [address] | [place] | [phone] | | [facility] | | [address] | | | - LABORATORY | | | | + + + + + Magnesium (09/12/2019 4:37 AM [facility])Only the most recent of 2 results within [...] [address] | [place] | [phone] | | [facility] | | [address] | | | - LABORATORY | | [...] 20 | 9 - 23 mg/dL | [facility] | | | | | | [facility] | | | | | | MEDICAL | | | | | | CENTER - | | | | | | LABORATORY | | + + + + + + | Creatinine | 0.91 | 0.70 - 1.30 | [place] | | | | | mg/dL | [facility] | | | | | | MEDICAL | | | | | | CENTER - | | | | | | LABORATORY | | + + + + + + | eGFR if not | >60Comment: GLOMERULAR | >=60 | [facility] | | | | FILTRATION | mL/min/1.73m2 | [facility] | | | [place] | RATE,ESTIMATED | | MEDICAL | | | | mL/min/1.21t2Jpbr than | | CENTER - | | [...] ST. | [address] | [place], [place] | [phone] | | [facility] | | [address] | | | - LABORATORY | | [...] + | [facility] | [address] | [place] | [phone] | | [facility] | | [address] | | | - LABORATORY | | [...] + + | Performed at: 01 - [facility] [address], | REFERENCE LAB | | [place], [place] [id number] Design Intern: Nelson Mehta MD, Phone: | [facility] | | [phone] | | + + + + + + + + | Performing | Address | City/State/Zipcode | Phone Number | | Organization | | | | + + + + + | REFERENCE LAB | [address] | [place] [address] | [phone] | | [facility] | Drive [...] + + | Please note | CommentComment: [place] | | REFERENCE | | | | of [place] [employer] | | LAB [facility] | | | | standards require a | | - [facility] | | | | culture to beperformed | | | | | | on CSF specimens | | | | | | submitted for bacterial | | | | | | antigen testing.(CAP | | | | | | [id number]) Urine | | | | | | [...] David Sinclair, | REFERENCE LAB | | [place], [place] [id number] Design Intern: Marli Fortune MD, Phone: | [facility] | | [phone] | | + + + + + + + + | Performing | Address | City/State/Zipcode | Phone Number | | Organization | | | | + + + + + | REFERENCE LAB | [address] [facility] | [place] [address] | [phone] | | [facility] | [facility] | | | + + + + [...] | bilaterally. Moderate to severe right and qybz-dz-dsffooux left | | | neural foraminal narrowing. [...] Moderate to | | severe right and lsrf-vq-ggsxgsodnlzy neural foraminal narrowing.C6-C7: Posterior disc | | [...] changes bilaterally. Moderate to severe right and cqro-vp-qbtihgit | |left neural foraminal narrowing. | | [...] [address] | [place] | [phone] | | [facility] | | [address] | | | - LABORATORY | | [...] ST. | [address] | [place], [place] | [phone] | | [facility] | | [address] | | | - LABORATORY | | [...] | | | | | | [employer] [place] [employer] | | | | | [...] [address] | [place] | [phone] | | [facility] | | [address] | | | - LABORATORY | | [...] [address] | [place] | [phone] | | [facility] | | [address] | | | - LABORATORY | | [...] [address] | [place] | [phone] | | [facility] | | [address] | | | - LABORATORY | | [...] + | [facility] | [address] | [place] | [phone] | | [facility] | | [address] | | | - LABORATORY | | [...] [address] | [place] | [phone] | | [facility] | | [address] | | | - LABORATORY | | [...] + | [facility] | [address] | [place] | [phone] | | [facility] | | [address] | | | - LABORATORY | | [...] ST. | [address] | [place] | [phone] | | [facility] | | [address] | | | - LABORATORY | | [...] [address] | [place] | [phone] | | [facility] | | [address] | | | - LABORATORY | | [...] [address] | [place] | [phone] | | [facility] | | [address] | | | - LABORATORY | | [...] [facility] | | | | | | [facility] | | | | | | MEDICAL | | | | | | CENTER - | | | | | | LABORATORY | | + + + + + + | RBC | 5.05 | 4.30 - 5.70 | [facility] | | | | | M/uL | [facility] | | | | | | MEDICAL [...] ST. | [address] | [place] | [phone] | | [facility] | | [address] | | | - LABORATORY | | [...] + +--------+ | MEDICARE | MEDICA | [id number] | 06/03/20 | [phone] | | Medica | | | RE | | 03-Pre | 5 | | re | | | PART A | | sent | | | | | | AND B | | | | | | + +--------+ +--------+ + +--------+ | [employer] | [place] | [id number] | 04/06/20 | | | Indemn | | | CHOICE | | 18-Pre | | | ity | | | PC3 | | sent | | | | + +--------+ +--------+ + +--------+ | MODA | MODA | [id number] | 11/03/19 | [phone] | [address] | Indemn | | | HEALTH | | 14-Pre | 9 | [id number] | ity | | | MDCR | | sent | | [facility], | | | | [place] | | | | [place] [address] | | + +--------+ +--------+ + +--------+ + +--------+ +--------+ + + | Guarantor Name | Accoun | Relation to | Date | Phone | Billing Address | | | t Type | Patient | of | | | | | | | | | | + +--------+ +--------+ + + | Kobi Baumann | Person | Self | [birth year] | [address] | | [place] | al/Fam | | 1940 | [phone] | [place] | | | [place] | | | 6 (Home) | [address] | + +--------+ +--------+ + + Advance Directives + + + + + | Type | Date Recorded | Patient | Explanation | | | | Biofuels Product Manager | | + + + + + | Power of | | | | | Environmental Scientists | | | | + + + [...]
--- OUTSIDE RECORDS SUMMARY | ~2019-10-08 | XMS | Encounter Summary ---
Demographics + + + | Address | [address] | | | [place] [address] | + + + | Home Phone | | + + + | Preferred Language | Unknown | + + + | Marital Status | | + + + | Protestant Affiliation | Unknown | + + + | Race | Unknown | + + + | Ethnic Group | Unknown | + + + Author + + + | Author | [facility] | | | and [place] | + + + | Organization | [facility] | | | and [place] | + + + | Address | Unknown | + + + | Phone | Unavailable | + + + Support + + + + + | Name | Relationship | Address | Phone | + + + + + | Silvia Baumann | ECON | [address] | | | | | [place] | | | | | [address] | | + + + + + Care Team Providers + +------+ + | Care On Air Personality Name | Role | Phone | + [...] + | 03/13/ | Telephone | [facility] | Rex Manley, | Appointment | | 2017 | | MEDICINE [address] | MD [address] [facility] | | | | | [address] | [place], [place] | | | | | [place] [address] | [address] | | | | | [phone] | | | +--------+ + + + [...] | | | | | | [place] [address] | | | | | | [phone] | | | | | | | | +--------+---------+ + + + documented as of this encounter Visit Diagnoses Not on filedocumented in this encounter
--- OUTSIDE RECORDS SUMMARY | ~2019-10-08 | XMS | Encounter Summary ---
Demographics + + + | Address | [address] | | | [place] [address] | + + + | Home Phone | | + + + | Preferred Language | Unknown | + + + | Marital Status | | + + + | Episcopalian Affiliation | Unknown | + + + | Race | Unknown | + + + | Ethnic Group | Unknown | + + + Author + + + | Author | [facility] | | | and [place] | + + + | Organization | [facility] | | | and [place] | + + + | Address | Unknown | + + + | Phone | Unavailable | + + + Support + + + + + | Name | Relationship | Address | Phone | + + + + + | Silvia Baumann | ECON | [address] | | | | | [place] | | | | | [address] | | + + + + + Care Team Providers + +------+ + | Care Aesthetician Name | Role | Phone | + +------+ + | Luis M Baptiste | PCP | | | MD | | | + +------+ + Reason for Visit + + + | Reason | Comments | + + + | Cough | | + + + | Diaphoresis | | + + + Encounter Details +--------+ + + + + | Date | Type | Department | Care Team | Description | +--------+ + + + + | 09/07/ | Emergency | [facility] | Fuad Campbell MD | Respiratory | | 2019 | | [facility] | [address] | infection (Primary | | | | CENTER [address] | [place] | Dx); Pneumonia of | | | | [place] | [address] | right lung due to | | | | [address] | | infectious organism, | | | | [phone] | | unspecified part of | | | | | | lung | +--------+ + + + + Social [...] + + + | Blood Pressure | 138/86 | 09/07/2019 10:14 AM | | | | | PST | | + + + + + | Pulse | 71 | 09/07/2019 10:26 AM | | | | | PST | | + + + + + | Temperature | - | - | | + + + + + | Respiratory Rate | 22 | 09/07/2019 9:17 AM | | | | | PST | | + + + + + | Oxygen Saturation | 100% | 09/07/2019 10:26 AM | | | | | PST | | + + + + + | Inhaled Oxygen | - | - | | | Concentration | | | | + + + + + | Weight | 79.4 kg (175 lb) | 09/07/2019 9:17 AM | | | | | PST | | + + + + + | Height | 175.3 cm (5' 9") | 09/07/2019 9:17 AM | | | | | PST | | + + + + + | Body Mass Index | 25.84 | 09/07/2019 9:17 AM | | | | | PST | | + + + + + documented in this encounter Discharge Instructions Instructions Fuad Campbell MD - 09/07/2019Antibiotic as prescribed Inhaler to help with cough Cough medicine as prescribed Follow-up with primary care Return for worsening symptoms, other new complaints documented in this encounter Medications at Time of [...] + + + +---------+ + + | doxycycline | Take 1 capsule by | 14 | 0 | 09/07/20 | | | (MONODOX) 100 mg | mouth 2 times daily | capsule | | 19 | 9 | | capsule | for 7 days. [...] | | | | | [place] [address] | | | | | | [phone] | | | | | | | [...] + + documented in this encounter Results XR Chest PA and Lateral (09/07/2019 9:56 [...] | | + +---------+ + + Extra Gold Top Tube (09/07/2019 [...] + + | [facility] | [address] | [place] | [phone] | | [facility] | | [address] | | | - LABORATORY | | [...] [address] | [place] | [phone] | | [facility] | | [address] | | | - LABORATORY | | [...] | | Top Tube | | | [facility] | | | [...] ST. | [address] | [place], [place] | [phone] | | [facility] | | [address] | | | - LABORATORY | | | | + + + + + Extra Rojas Top Tube (09/07/2019 [...] [address] | [place] | [phone] | | [facility] | | [address] | | | - LABORATORY | | [...] | | Lavender | | | [facility] | | | Top Tube | | [...] + | [facility] | [address] | [place] | [phone] | | [facility] | | [address] | | | - LABORATORY | | | | + + + + + Comprehensive Metabolic Panel (09/07/2019 9:35 AM PST) + + + + + + | Component | Value | Ref Range | Performed | Pathologist | | | | | At | Signature | + + + + + + | Na | 139 | 136 - 145 | [facility] | | | | | mmol/L | [facility] | | | | | | MEDICAL | | | | | | CENTER - | | | | | | LABORATORY | | + + + + + + | K | 4.3 | 3.4 - 5.1 | [facility] | | | | | mmol/L | [facility] | | | | | | MEDICAL | | | | | | CENTER - | | | | | | LABORATORY | | + + + + + + | Cl | 105 | 98 - 107 mmol/L | [facility] | | | | | | [facility] | | | | | | MEDICAL | | | | | | CENTER - | | | | | | LABORATORY | | + + + + + + | CO2 | 27 | 20 - 31 mmol/L | [facility] | | | | | | [facility] | | | | | | MEDICAL | | | | | | CENTER - | | | | | | LABORATORY | | + + + + + + | Anion Gap | 7 | 3 - 16 mmol/L | [facility] | | | | | | [facility] | | | | | | MEDICAL | | | | | | CENTER - | | | | | | LABORATORY | | + + + + + + | Glucose | 107 (H) | 60 - 106 mg/dL | [facility] | | | | | | [facility] | | | | | | MEDICAL | | | | | | CENTER - | | | | | | LABORATORY | | + + + + + + | BUN | 12 | 9 - 23 mg/dL | [facility] | | | | | | [facility] | | | | | | MEDICAL | | | | | | CENTER - | | | | | | LABORATORY | | + + + + + + | Creatinine | 0.99 | 0.70 - 1.30 | [facility] | [...] mL/min/1.73m2 | [facility] | | | [place] | RATE,ESTIMATED | | MEDICAL | | | | mL/min/1.22f5Ylno than | | CENTER - | | [...] + + + + | Calcium | 9.4 | 8.7 - 10.4 | [facility] | | | | | mg/dL | [facility] | | | | | | MEDICAL | | | | | | CENTER - | | | | | | LABORATORY | | + + + + + + | Albumin | 4.3 | 3.2 - 4.8 g/dL | [facility] | | | | | | [facility] | | | | | | MEDICAL | | | | | | CENTER - | | | | | | LABORATORY | | + + + + + + | Bilirubin | 1.0 | 0.3 - 1.2 mg/dL | [facility] | | | Total | | | [facility] | | | | | | MEDICAL | | | | | | CENTER - | | | | | | LABORATORY | | + + + + + + | Total | 6.9 | 5.7 - 8.2 g/dL | [facility] | | | Protein | | | [facility] | | | | | | MEDICAL | | | | | | CENTER - | | | | | | LABORATORY | | + + + + + + | AST | 15 | 0 - 34 U/L | [facility] | | | | | | [facility] | | | | | | MEDICAL | | | | | | CENTER - | | | | | | LABORATORY | | + + + + + + | ALT | 13 | 10 - 49 U/L | [facility] | | | | | | [facility] | | | | | | MEDICAL | | | | | | CENTER - | | | | | | LABORATORY | | + + + + + + | Alkaline | 75 | 46 - 116 U/L | [facility] [...] + + + + | BUN/Creatin | 12.1 | | [facility] | | | ine Ratio | | | [facility] | | [...] [address] | [place] | [phone] | | [facility] | | [address] | | | - LABORATORY | | [...] | | | Granulocyte | | | [facility] | | | s | | | MEDICAL | | | | | | CENTER - | | | | | | LABORATORY | | + + + + + + | Absolute | 4.68 | 1.80 - 8.50 | [facility] | | | Neutrophils | | K/uL | [facility] | [...] + + | [facility] | [address] | [place] | [phone] | | [facility] | | [address] | | | - LABORATORY | | | | + + + + + documented in this encounter Visit Diagnoses + + | Diagnosis | + + | Respiratory infection - Primary Other diseases of respiratory system, not elsewhere | | classified | + + | Pneumonia of right lung due to infectious organism, unspecified part of lung | + + documented in this encounter Administered Medications + +--------+ +-------+------+------+ | Medication Order | MAR | Action | Dose | Rate | Site | | | Action | Date | | | | + +--------+ +-------+------+------+ | albuterol-ipratropium 2.5-0.5 | Given | 09/07/20 | 3 mLs | | | | mg/3 mL nebulizer solution 3 mL | | 19 10:21 | | | | | 3 mL, Nebulization, RT Once, Tue | | AM PST | | | | | 09/07/19 at 1015, For 1 dose | | | | | | + +--------+ +-------+------+------+ +---+---+ | | | +---+---+ + +-------+ +--------+---+---+ | doxycycline (VIBRAMYCIN) tablet | Given | 09/07/20 | 100 mg | | | | 100 mg 100 mg, Oral, ONCE, Tue | | 19 10:55 | | | | | 09/07/19 at 1045, For 1 dose, May | | AM PST | | | | | take with food to avoid GI upset. | | | | | | | Administer with at least 8 | | | | | | | ounces of water and have patient | | | | | | | sit up for at least 30 minutes., | | | | | | | Indications: Pneumonia | | | | | | + +-------+ +--------+---+---+ +---+---+ | | | +---+---+ documented in this encounter
--- OUTSIDE RECORDS SUMMARY | ~2019-10-08 | XMS | Encounter Summary ---
Demographics + + + | Address | [address] | | | [place] [address] | + + + | Home Phone [...] + + + | Author | [facility] | + + + | Organization | [facility] | + + + | Address | Unknown | + + + | Phone | Unavailable | + + + Support + + + + + | Name | Relationship | Address | Phone | + + + + + | Silvia Brock | F[place] | [place] | | + + + + + Care Team Providers + +------+ + | Care System Programmer Name | Role | Phone | + [...] | Visit | Therapy Services at | [facility] [place] | (Primary Dx) | | | | [facility] | [address] | | | | | [address] | | | | | | Mailcode: CH3P | | | | | | [facility] | | | | | | and Healing, | | | | | | [address] | | | | | | Floor [place], [place] | | | | | | [address] | | | | | | [phone] | | | +--------+---------+ + + + [...] Vazquez, PT - 09/26/2015 7:52 AM PST [id number] KASIE BROCK Date of : 1940 Start [...] therapist to achieve the following goals: G8978 CT MOBILITY CURRENT STATUS Impairment 60-79 % G8979 [...] | + + +--------+ + + | CT MOBILITY CURRENT | Procedures | Routin | [...] + +--------+ + + + | CT THERAPEUTIC | Routin | 09/26/2015 | Right hip pain | | | EXERCISES | e | 1:41 PM | | | | | | PST | | | + +--------+ + + + | CT PHYS THERAPY | Routin | 09/26/2015 | [...]
--- OUTSIDE RECORDS SUMMARY | ~2019-10-08 | XMS | Encounter Summary ---
Demographics + + + | Address | [address] | | | [place] [address] | + + + | Home Phone | | + + + | Preferred Language | Unknown | + + + | Marital Status | | + + + | Confucianism Affiliation | Unknown | + + + | Race | Unknown | + + + | Ethnic Group | Unknown | + + + Author + + + | Author | [facility] | | | and [place] | + + + | Organization | [facility] | | | and [place] | + + + | Address | Unknown | + + + | Phone | Unavailable | + + + Support + + + + + | Name | Relationship | Address | Phone | + + + + + | Silvia Baumann | ECON | [address] | | | | | [place] | | | | | [address] | | + + + + + Care Team Providers + +------+ + | Care Volleyball Assembler Name | Role | Phone | + [...] [place] | | | | | [address] | [address] | | | | | [phone] | | | +--------+ + + + [...] | | | | | [place] [address] | | | | | | [phone] | | | | | | | | +--------+---------+ + + + documented as of this encounter Visit Diagnoses Not on filedocumented in this encounter
--- OUTSIDE RECORDS SUMMARY | ~2019-10-08 | XMS | Encounter Summary ---
Demographics + + + | Address | [address] | | | [place] [address] | + + + | Home Phone | | + + + | Preferred Language | Unknown | + + + | Marital Status | | + + + | Adventist Affiliation | Unknown | + + + | Race | Unknown | + + + | Ethnic Group | Unknown | + + + Author + + + | Author | [facility] | | | and [place] | + + + | Organization | [facility] | | | and [place] | + + + | Address | Unknown | + + + | Phone | Unavailable | + + + Support + + + + + | Name | Relationship | Address | Phone | + + + + + | Silvia Baumann | ECON | [address] | | | | | [place] | | | | | [address] | | + + + + + Care Team Providers + +------+ + | Care Cuff Slitter Name | Role | Phone | + +------+ + | Luis M Baptiste | PCP | | | MD | | | + +------+ + Reason for Visit + + + | Reason | Comments | + + + | Neck Pain | | + + + Encounter Details +--------+ + + + + | Date | Type | Department | Care Team | Description | +--------+ + + + + | 12/04/ | Emergency | [facility] | Alok Martin MD | Neck pain (Primary | | 2019 | | [facility] | [address] | Dx) | | | | CENTER [address] | [place] | | | | | [place] | [address] | | | | | [address] | | | | | | [phone] | | | +--------+ + + + [...] + + + | Blood Pressure | 137/82 | 12/04/2018 1:28 PM | | | | | PST | | + + + + + | Pulse | 64 | 12/04/2018 1:28 PM | | | | | PST | | + + + + + | Temperature | 36.1 C (97 F) | 12/04/2018 11:07 AM | | | | | PST | | + + + + + | Respiratory Rate | 16 | 12/04/2018 12:17 PM | | | | | PST | | + + + + + | Oxygen Saturation | 94% | 12/04/2018 1:28 PM | | | | | PST | | + + + + + | Inhaled Oxygen | - | - | | | Concentration | | | | + + + + + | Weight | 81.6 kg (180 lb) | 12/04/2018 11:07 AM | | | | | PST | | + + + + + | Height | 175.3 cm (5' 9") | 12/04/2018 11:07 AM | | | | | PST | | + + + + + | Body Mass Index | 26.58 | 12/04/2018 11:07 AM | | | | | PST | | + + + + + documented in this encounter Discharge Instructions Instructions Alok Martin MD - 12/04/2018Use Tylenol for the pain. Consider using heat pa cks as well. Follow up with the primary care provider in next 2-3 days. Return for any wea kness, numbness, tingling. AttachmentsThe following attachments cannot be sent through Care Everywhere.Neck Problems, Understanding (Korean)documented in this encounter Plan of Treatment +--------+---------+ [...] | | | | | | [place] [address] | | | | | | [phone] | | | | | | | | +--------+---------+ + + + documented as of this encounter Procedures + +--------+ + + + | Procedure Name | Priori | Date/Time | Associated Diagnosis | Comments | | | ty | | | | + +--------+ + + + | CT CERVICAL SPINE WO | STAT | 12/04/2018 | | Results for this | | CONTRAST | | 11:35 AM | | procedure are in the | | | | PST | | results section. | + +--------+ + + + documented in this encounter Results CT Cervical Spine wo Contrast (12/04/2018 11:35 AM PST) + + | Specimen | + + | | + + + + + | Narrative | Performed At | + + + | CT CERVICAL SPINE WO CONTRAST 12/04/2018 11:30 AM HISTORY: | [facility] | | bilateral neck pain. COMPARISON: None. PROTOCOL: Thin section | | | axial images of the cervical spine were obtained along with coronal | | | and sagittal reformations. FINDINGS: Vertebral body height and | | | alignment is maintained. Multilevel moderate to severe disc space | | | narrowing and mild to moderate multilevel disc marginal | | | osteophytosis. Multilevel significant facet spondylosis. There is | | | partial fusion of C4-C5. Minimal grade 1 anterolisthesis of C7 over | | | T1. Facets are anatomically aligned. Posterior spinous processes are | | | intact. Mild degenerative changes are seen at the atlantoaxial | | | articulation. Prevertebral and paraspinal soft tissues show no acute | | | abnormality. Cervicomedullary junction and atlantoaxial articulations | | | demonstrate no acute abnormalities. Mild bilateral carotid bulb | | | calcifications are present. C2-3: Suspected moderate central | | | spinal stenosis at C2-C3, by a posterior disc osteophyte complex and | | | mild facet spondylosis. The central canal measures 8 mm in midline AP | | | dimension. No significant neural foraminal narrowing. C3-4: | | | Broad-based posterior disc complex, prominent left uncinate | | | spondylosis, and mild bilateral facet spondylosis is seen causing | | | severe left and mild right neural foraminal narrowing. Suspect mild | | | to moderate central spinal stenosis. C4-5: Broadbase posterior | | | disc osteophyte complex with partial fusion at this level. There is | | | moderate left neural foraminal narrowing. Suspect mild central spinal | | | stenosis. Moderate right facet spondylosis. C5-6: Cervical | | | vertebral disc osteophyte complex and moderate facet spondylosis | | | contributes to severe bilateral neuroforaminal narrowing and at least | | | moderate central spinal stenosis. C6-7: Broad-based posterior | | | disc complex with severe left uncovertebral spondylosis causes | | | moderate to severe left and moderate right-sided neural foraminal | | | narrowing. Likely at least mild central spinal stenosis. C7-T1: No | | | central canal or neural foramina canal stenosis. IMPRESSION - | | | 1. No acute cervical spine fracture or evidence of traumatic | | | malalignment. 2. Multilevel moderate to severe areas of degenerative | | | disc disease and facet spondylosis contributing to multilevel neural | | | foraminal narrowing which ranges from moderate to severe as detailed | | | above. 3. Multilevel central spinal stenosis which ranges from mild | | | to moderate as detailed above. This is thought to be most pronounced | | | at C2-C3 and C5-C6. Dictated and Signed by: Matt Wade MD | | | Electronically signed: 12/04/2018 12:04 PM | | + + + + + | Procedure Note | + + | Bob, Rad Results In - 12/04/2018 12:[address] CERVICAL SPINE WO CONTRAST 12/04/2018 | | 11:30 AMHISTORY: bilateral neck pain.COMPARISON: None.PROTOCOL: Thin section axial | | images of the cervical spine were obtained alongwith coronal and sagittal | | reformations.FINDINGS:Vertebral body height and alignment is maintained. Multilevel | | moderate to severedisc space narrowing and mild to moderate multilevel disc | | marginalosteophytosis. Multilevel significant facet spondylosis. There is partial | | fusionof C4-C5. Minimal grade 1 anterolisthesis of C7 over T1. Facets are | | anatomicallyaligned. Posterior spinous processes are intact. Mild degenerative changes | | areseen at the atlantoaxial articulation. Prevertebral and paraspinal soft tissuesshow | | no acute abnormality. Cervicomedullary junction and atlantoaxialarticulations | | demonstrate no acute abnormalities. Mild bilateral carotid bulbcalcifications are | | present.C2-3: Suspected moderate central spinal stenosis at C2-C3, by a posterior | | discosteophyte complex and mild facet spondylosis. The central canal measures 8 mmin | | midline AP dimension. No significant neural foraminal narrowing.C3-4: Broad-based | | posterior disc complex, prominent left uncinate spondylosis,and mild bilateral facet | | spondylosis is seen causing severe left and mild rightneural foraminal narrowing. | | Suspect mild to moderate central spinal stenosis.C4-5: Broadbase posterior disc | | osteophyte complex with partial fusion at thislevel. There is moderate left neural | | foraminal narrowing. Suspect mild centralspinal stenosis. Moderate right facet | | spondylosis.C5-6: Cervical vertebral disc osteophyte complex and moderate facet | | spondylosiscontributes to severe bilateral neuroforaminal narrowing and at least | | moderatecentral spinal stenosis.C6-7: Broad-based posterior disc complex with severe | | left uncovertebralspondylosis causes moderate to severe left and moderate right-sided | | neuralforaminal narrowing. Likely at least mild central spinal stenosis.C7-T1: No | | central canal or neural foramina canal stenosis.IMPRESSION -1. No acute cervical spine | | fracture or evidence of traumatic malalignment.2. Multilevel moderate to severe areas of | | degenerative disc disease and facetspondylosis contributing to multilevel neural | | foraminal narrowing which rangesfrom moderate to severe as detailed above.3. Multilevel | | central spinal stenosis which ranges from mild to moderate asdetailed above. This is | | thought to be most pronounced at C2-C3 and C5-C6.Dictated and Signed by: Matt Wade, | | Electronically signed: 12/04/2018 12:04 PM | | | |C5-6: Cervical vertebral disc osteophyte complex and moderate facet spondylosis | |contributes to severe bilateral neuroforaminal narrowing and at least moderate | |central spinal stenosis. | | | |C6-7: Broad-based posterior disc complex with severe left uncovertebral | |spondylosis causes moderate to severe left and moderate right-sided neural | |foraminal narrowing. Likely at least mild central spinal stenosis. | | | |C7-T1: No central canal or neural foramina canal stenosis. | | | | | |IMPRESSION - | |1. No acute cervical spine fracture or evidence of traumatic malalignment. | |2. Multilevel moderate to severe areas of degenerative disc disease and facet | |spondylosis contributing to multilevel neural foraminal narrowing which ranges | |from moderate to severe as detailed above. | |3. Multilevel central spinal stenosis which ranges from mild to moderate as | |detailed above. This is thought to be most pronounced at C2-C3 and C5-C6. | | | | | |Dictated and Signed by: Matt Wade MD | | Electronically signed: 12/04/2018 12:04 PM | + + + +---------+ + + | Performing | Address | City/State/Zipcode | Phone Number | | Organization | | | | + +---------+ + + | [facility] | | | | + +---------+ + + documented in this encounter Visit Diagnoses + + | Diagnosis | + + | Neck pain - Primary Cervicalgia | + + documented in this encounter Administered Medications + +--------+ +--------+------+------+ | Medication Order | MAR | Action | Dose | Rate | Site | | | Action | Date | | | | + +--------+ +--------+------+------+ | acetaminophen (TYLENOL) tablet | Given | 12/04/19 | 650 mg | | | | 650 mg 650 mg, Oral, ONCE, Fri | | 19 12:40 | | | | | 12/04/18 at 1225, For 1 dose | | PM PST | | | | + +--------+ +--------+------+------+ +---+---+ | | | +---+---+ + +-------+ +------+---+---+ | diazePAM (VALIUM) tablet 5 mg | Given | 12/04/19 | 5 mg | | | | 5 mg, Oral, ONCE, Fri12/04/18 at | | 19 11:10 | | | | | 1105, For 1 dose | | AM PST | | | | + +-------+ +------+---+---+ +---+---+ | | | +---+---+ + +-------+ +-------+---+ + | ketorolac (TORADOL) injection | Given | 12/04/19 | 30 mg | | Glut-Lef | | 30 mg 30 mg, Intramuscular, | | 19 12:41 | | | t | | ONCE, Fri12/04/18 at 1225, For 1 | | PM PST | | | | | dose | | | | | | + +-------+ +-------+---+ + +---+---+ | | | +---+---+ documented in this encounter
--- OUTSIDE RECORDS SUMMARY | ~2019-10-08 | XMS | Encounter Summary ---
Demographics + + + | Address | [address] | | | [place] [address] | + + + | Home Phone | | + + + | Preferred Language | Unknown | + + + | Marital Status | | + + + | Gnosticism Affiliation | NON | + + + | Race | White | + + + | Ethnic Group | Not or | + + + Author + + + | Author | [facility] | + + + | Organization | [facility] | + + + | Address | Unknown | + + + | Phone | Unavailable | + + + Support + + + + + | Name | Relationship | Address | Phone | + + + + + | Silvia Loera | [place] | [place] | | + + + + + Care Team Providers + +------+ + | Care Ethologist Name | Role | Phone | + +------+ + | Judit Booth MD | PCP | | + +------+ + Encounter Details +--------+ + + + + | Date | Type | Department | Care Team | Description | +--------+ + + + + | 01/26/ | Office | [facility] | Note, [...] as of this encounter Progress Notes Interface, Activities Officer In - 07/13/2006 1:04 AM PDTCLINIC DATE: 01/26/2002 ORTHOPEDIC CLINIC HISTORY OF PRESENT ILLNESS: Mr. Loera is a new patient. He is referred by Dr. Robert Hawkins. Mr. Loera comes to me secondary to low back and lower extremity pain. He states he has had these symptoms on and off for many years. Since July 2001, however, he has had severe pain following an incident while he was working rebuilding his shed and collecting firewood at his home. At this point, he is having primarily lower extremity pain in the left side. This also started around the time described in this past fall. The lower extremity pain is clearly worse in the back at this time. He finds he has difficulty walking secondary to his pain. His pain is also activity dependent and various on a day-to-day basis. Conservative treatment has included Physical Therapy and significant home exercises. He has also tried Celebrex. He denies lower extremity weakness or bowel or bladder symptoms. He has undergone an MRI. He currently lives in [place], [place]. PAST MEDICAL HISTORY: Otherwise significant for a hernia procedure 1 year ago. PAST SURGICAL HISTORY: Also significant for treatment of the hernia. Fractures are none. MEDICATIONS: Celebrex. ALLERGIES: CODEINE WHICH PRODUCES PSYCHOLOGICAL DISTURBANCE. SOCIAL HISTORY: He is retired. He denies smoking, alcohol, and nonmedical drug use. He denies depression or psychiatric illness. REVIEW OF SYSTEMS: Otherwise positive for numbness in the left leg as well as hearing and visual changes and color changes in his feet and hands. FAMILY HISTORY: Significant for heart and cancer difficulties. PHYSICAL EXAMINATION: GENERAL: He is a well-formed and well-nourished gentleman in no acute distress. He appears his stated age. VITAL SIGNS: Blood pressure is 114/76 with pulse of 68. BACK: Examination of the lumbar spine demonstrates no skin changes or areas of induration. There are no surgical incisions. His flexibility is completely normal, flexion, extension, lateral bend, and axial rotation. NEUROLOGIC: Neurologic exam demonstrates 5/5 muscle strength in all motor groups. Deep tendon reflexes are 1+ bilaterally at the knees and 0 at the ankles. The toes are downgoing. There is no clonus. There is a distinctly positive left-sided straight leg raise. ASSESSMENT: Review of his MRI from 2001 does demonstrate a large L4-L5 herniated disk. In addition, there is multiple level degenerative disk disease with possible stenosis. RECOMMENDATIONS: My recommendation would be for completion of his workup. We will obtain AP and lateral flexion-extension views of the lumbar spine in clinic today on his way out. I will then obtain a CT myelogram of the lumbar spine to compliment the MRI we currently have. Following this, we will discuss his treatment options. I suspect that he will be a surgical candidate. X-RAYS WERE NOT NOTED IN THE FAX SYSTEM AT THE END OF THE DAY. THIS NEEDS TO BE VERIFIED ON HIS NEXT VISIT, AND IF THESE HAVE NOT BEEN OBTAINED, HE NEEDS AN AP AND LATERAL FLEXION-EXTENSION VIEWS OF THE LUMBAR SPINE. Dave Schwartz M.D. [facility] / [id number] / [id number] / [id number] / [id number] cc: Robert Hawkins M.D. [facility] Orthopedics [facility] Rehabilitation documented in this encounter Plan of Treatment Not on filedocumented as of this encounter Visit Diagnoses Not on filedocumented in this encounter"
--- OUTSIDE RECORDS SUMMARY | ~2019-10-08 | XMS | Encounter Summary ---
Demographics + + + | Address | [address] | | | [place] [address] | + + + | Home Phone | | + + + | Preferred Language | Unknown | + + + | Marital Status | | + + + | Catholic Affiliation | Unknown | + + + | Race | Unknown | + + + | Ethnic Group | Unknown | + + + Author + + + | Author | [facility] | | | and [place] | + + + | Organization | [facility] | | | and [place] | + + + | Address | Unknown | + + + | Phone | Unavailable | + + + Support + + + + + | Name | Relationship | Address | Phone | + + + + + | Silvia Baumann | ECON | [address] | | | | | [place] | | | | | [address] | | + + + + + Care Team Providers + +------+ + | Care Sexual Abuse Counsellor Name | Role | Phone | + +------+ + | Luis M Baptiste | PCP | | | MD | | | + +------+ + Encounter Details +--------+ + + + + | Date | Type | Department | Care Team | Description | +--------+ + + + + | 11/29/ | Hospital | [facility] | Marshall Vivas, | Epididymoorchitis | | 2016 | Encounter | [facility] | [address] [facility] | | | | | [address] [place] | [place], [place] | | | | | [place], [place] | [address] | | | | | [address] | | | | | | [phone] | Freda, Onel Coughlin, | | | | | | Technologist | | +--------+ + + + + [...] + + documented as of this encounter Medications at Time of Discharge [...] [place] | | | | | | [place] [address] | | | | | | [phone] | | | | | | | | +--------+---------+ + + + documented as of this encounter Procedures + +--------+ + + + | Procedure Name | Priori | Date/Time | Associated Diagnosis | Comments | | | ty | | | | + +--------+ + + + | US SCROTUM AND | Routin | 11/29/2015 | Epididymoorchitis | Results for this | | TESTICLES | e | 2:35 PM | | procedure are in the | | | | PST | | results section. | + +--------+ + + + documented in this encounter Results US Scrotum And Testicles (11/29/2015 2:35 PM PST) + + | Specimen | + + | | + + + + + | Narrative | Performed At | + + + | US SCROTUM AND TESTICLES 11/29/2015 1:58 PM HISTORY: Left | [facility] | | scrotal swelling, evaluate for persistent epididymoorchitis. | [facility] | | COMPARISON: Scrotal ultrasound 10/14/2015. PROTOCOL: Rojas scale | [facility] | | and Doppler images of the scrotum. FINDINGS: Right testicle: The | - IMAGING | | parenchyma is normal with normal color flow. The testicle measures | | | 4.4 x 2.1 x 3.0 cm. A 9 mm cyst is in the head of the epididymis. | | | There is no hydrocele or varicocele. Left testicle: The | | | parenchyma is hyperemic and is concerning for orchitis. The testicle | | | measures 4.7 x 2.8 x 3.2 cm. The left epididymis is normal with normal | | | color flow. A large fluid collection with multiple septations is | | | observed primarily involving the medial aspect of the scrotum. The | | | size of this collection is 5.3 x 3.6 x 5.2 cm. This has the | | | appearance of a multiseptated cyst rather than a hydrocele. | | | IMPRESSION - Left-sided orchitis. Large multiseptated cyst | | | involving medial aspect of left scrotum. Small cyst of right | | | epididymal head. This report was called to the office of Dr. Olivares | | | Ortega. Dictated and Signed by: Michele Barba MD | | | Electronically signed: 11/29/2015 2:56 PM | | + + + + + | Procedure Note | + + | Bob, Rad Results In - 11/29/2015 2:59 PM PST US SCROTUM AND TESTICLES 11/29/2015 1:58 | | PM HISTORY: Left scrotal swelling, evaluate for persistent | | epididymoorchitis.COMPARISON: Scrotal ultrasound 10/14/2015.PROTOCOL: Rojas scale and | | Doppler images of the scrotum.FINDINGS:Right testicle: The parenchyma is normal with | | normal color flow. The testiclemeasures 4.4 x 2.1 x 3.0 cm. A 9 mm cyst is in the head | | of the epididymis. Thereis no hydrocele or varicocele.Left testicle: The parenchyma is | | hyperemic and is concerning for orchitis. Thetesticle measures 4.7 x 2.8 x 3.2 cm. The | | left epididymis is normal with normalcolor flow. A large fluid collection with multiple | | septations is observedprimarily involving the medial aspect of the scrotum. The size of | | thiscollection is 5.3 x 3.6 x 5.2 cm. This has the appearance of a multiseptatedcyst | | rather than a hydrocele.IMPRESSION -Left-sided orchitis.Large multiseptated cyst | | involving medial aspect of left scrotum.Small cyst of right epididymal head.This report | | was called to the office of Dr. Marshall Vivas.Dictated and Signed by: Michele Barba MD | | Electronically signed: 11/29/2015 2:56 PM | |testicle measures 4.7 x 2.8 x 3.2 cm. The left epididymis is normal with normal | |color flow. A large fluid collection with multiple septations is observed | |primarily involving the medial aspect of the scrotum. The size of this | |collection is 5.3 x 3.6 x 5.2 cm. This has the appearance of a multiseptated | |cyst rather than a hydrocele. | | | |IMPRESSION - | |Left-sided orchitis. | | | |Large multiseptated cyst involving medial aspect of left scrotum. | | | |Small cyst of right epididymal head. | | | |This report was called to the office of Dr. Marshall Vivas. | | | |Dictated and Signed by: Michele Barba MD | | Electronically signed: 11/29/2015 2:56 PM | + + + + + + + | Performing | Address | City/State/Zipcode | Phone Number | | Organization | | | | + + + + + | [facility] | [address] | [place] | [phone] | | [facility] | | [address] | | | - IMAGING | | | | + + + + + documented in this encounter Visit Diagnoses + + | Diagnosis | + + | Epididymoorchitis Orchitis and epididymitis, unspecified | + + documented in this encounter
--- OUTSIDE RECORDS SUMMARY | ~2019-10-08 | XMS | Encounter Summary ---
Demographics + + + | Address | [address] | | | [place] [address] | + + + | Home Phone | | + + + | Preferred Language | Unknown | + + + | Marital Status | | + + + | Advent Affiliation | Unknown | + + + | Race | Unknown | + + + | Ethnic Group | Unknown | + + + Author + + + | Author | [facility] | | | and [place] | + + + | Organization | [facility] | | | and [place] | + + + | Address | Unknown | + + + | Phone | Unavailable | + + + Support + + + + + | Name | Relationship | Address | Phone | + + + + + | Silvia Baumann | ECON | [address] | | | | | [place] | | | | | [address] | | + + + + + Care Team Providers + +------+ + | Care Ruby Rails Developer Name | Role | Phone | + [...] + + | 09/07/ | Emergency | [facility] | Fuad Campbell MD | Respiratory | | 2019 | | [facility] | [address] | infection (Primary | | | | CENTER [address] | [place] | Dx); Pneumonia of | | | | [place] | [address] | right lung due to | | | | [address] | | infectious organism, | | | | [phone] | | unspecified part of | | [...] | | | | | [place] [address] | | | | | | [phone] | | | | | | | [...] Dictated and Signed by: | | Matt aWde MD Electronically signed: 09/07/2019 10:22 AM | [...] + | [facility] | [address] | [place] | [phone] | | [facility] | | [address] | | | - LABORATORY | | [...] [address] | [place] | [phone] | | [facility] | | [address] | | | - LABORATORY | | [...] ST. | [address] | [place], [place] | [phone] | | [facility] | | [address] | | | - LABORATORY | | [...] [address] | [place] | [phone] | | [facility] | | [address] | | | - LABORATORY | | [...] + | [facility] | [address] | [place] | [phone] | | [facility] | | [address] | | | - LABORATORY | | [...] mL/min/1.73m2 | [facility] | | | [facility] | RATE,ESTIMATED | | MEDICAL | | | | mL/min/1.48m9Lpmz than | | CENTER - | | [...] [address] | [place] | [phone] | | [facility] | | [address] | | | - LABORATORY | | [...] [address] | [place] | [phone] | | [facility] | | [address] | | | - LABORATORY | | [...]
--- OUTSIDE RECORDS SUMMARY | ~2019-10-08 | XMS | Encounter Summary ---
Demographics + + + | Address | [address] | | | [place] [address] | + + + | Home Phone | | + + + | Preferred Language | Unknown | + + + | Marital Status | | + + + | Buddhism Affiliation | Unknown | + + + | Race | Unknown | + + + | Ethnic Group | Unknown | + + + Author + + + | Author | [facility] | | | and [place] | + + + | Organization | [facility] | | | and [place] | + + + | Address | Unknown | + + + | Phone | Unavailable | + + + Support + + + + + | Name | Relationship | Address | Phone | + + + + + | Silvia Baumann | ECON | [address] | | | | | [place] | | | | | [address] | | + + + + + Care Team Providers + +------+ + | Care Makeup Artistry Instructor Name | Role | Phone | + +------+ + | Luis M Baptiste | PCP | | | MD | | | + +------+ + Encounter Details +--------+ + + + + | Date | Type | Department | Care Team | Description | +--------+ + + + + | 11/29/ | Hospital | [facility] | Marshall Vivas, | Epididymoorchitis | | 2016 | Encounter | MED CTR ULTRASOUND | [address] [facility] | | | | | [address] [place] | [place], [place] | | | | | [place], [place] | [address] | | | | | [address] | | | | | | [phone] | Freda, Onel Coughlin, | | | [...] [place] | | | | | | [place] [address] | | | | | | [phone] | | | | | | | [...] scrotal swelling, evaluate for persistent epididymoorchitis. | [facility] | | COMPARISON: Scrotal ultrasound 10/14/2015. PROTOCOL: Rojas scale | [facility] | | and Doppler images [...] [address] | [place] | [phone] | | [facility] | | [address] | | | - IMAGING | | | | + + + + + documented in this encounter Visit Diagnoses + + | Diagnosis | + + | Epididymoorchitis Orchitis and epididymitis, unspecified | + + documented in this encounter
--- OUTSIDE RECORDS SUMMARY | ~2019-10-08 | XMS | Encounter Summary ---
Demographics + + + | Address | [address] | | | [place] [address] | + + + | Home Phone [...] + + + | Author | [facility] | + + + | Organization | [facility] | + + + | [...] Team Providers + +------+ + | Care Veterinary Virologist Name | Role | Phone | + [...] | | | | | Asya Prieto [place], | | | | | | [place] [address] | | | | | | [phone] | | | +--------+ + + + [...]
--- OUTSIDE RECORDS SUMMARY | ~2019-10-08 | XMS | Encounter Summary ---
Demographics + + + | Address | [address] | | | [place] [address] | + + + | Home Phone | | + + + | Preferred Language | Unknown | + + + | Marital Status | | + + + | Sabianist Affiliation | NON | + + + [...] Team Providers + +------+ + | Care Chain Mender Name | Role | Phone | + +------+ + | Judit Booth MD | PCP | | + +------+ + Encounter Details +--------+ + + + + | Date | Type | Department | Care Team | Description | +--------+ + + + + | 03/09/ | DELETED | Preoperative | Consult, | ANESTHESIA/SEDATION | | 2001 | TRANSCRIPTI | Medicine Clinic at | Anesthesia [address] | | | | ON | [facility] 4th Floor [address] | [facility] | | | | | [facility] | Road [place], [place] | | | | | Mailcode: [facility] | [id number] | | | | | [facility] | | | | | | and Healing, | | | | | | Building [address],4th Floor | | | | | | [place], [place] | | | | | | [address] | | | | | | [phone] | | | +--------+ + + + [...]
--- OUTSIDE RECORDS SUMMARY | ~2019-10-08 | XMS | Encounter Summary ---
Demographics + + + | Address | [address] | | | [place] [address] | + + + | Home Phone | | + + + | Preferred Language | Unknown | + + + | Marital Status | | + + + | Anabaptism Affiliation | Unknown | + + + | Race | Unknown | + + + | Ethnic Group | Unknown | + + + Author + + + | Author | [facility] | | | and [place] | + + + | Organization | [facility] | | | and [place] | + + + | Address | Unknown | + + + | Phone | Unavailable | + + + Support + + + + + | Name | Relationship | Address | Phone | + + + + + | Silvia Baumann | ECON | [address] | | | | | [place] | | | | | [address] | | + + + + + Care Team Providers + +------+ + | Care Plant Cytologist Name | Role | Phone | + +------+ + | Luis M Batpiste | PCP | | | MD | | | + +------+ + Reason for Visit +--------+ + | Reason | Comments | +--------+ + | Other | Left epididymo-orchitis | +--------+ + Encounter Details +--------+---------+ + + + | Date | Type | Department | Care Team | Description | +--------+---------+ + + + | 11/27/ | Office | [facility] | Marshall Vivas, | Epididymoorchitis | | 2016 | Visit | [address] | [address] | (Primary Dx) | | | | [place] | [place] | | | | | [address] | [address] | | | | | [phone] | | | +--------+---------+ + + + [...] + + + | Blood Pressure | 118/76 | 11/27/2015 7:56 AM | | | | | PST | | + + + + + | Pulse | 84 | 11/27/2015 7:56 AM | | | | | PST | | + + + + + | Temperature | - | - | | + + + + + | Respiratory Rate | 16 | 11/27/2015 7:56 AM | | | | | PST | | + + + + + | Oxygen Saturation | - | - | | + + + + + | Inhaled Oxygen | - | - | | | Concentration | | | | + + + + + | Weight | 82.7 kg (182 lb 4.8 | 11/27/2015 7:56 AM | | | | oz) | PST | | + + + + + | Height | 177.8 cm (5' 10") | 11/27/2015 7:56 AM | | | | | PST | | + + + + + | Body Mass Index | 26.16 | 11/27/2015 7:56 AM | | | | | PST | | + + + + + documented in this encounter Progress Marshall Amaya MD - 11/27/2015 8:13 AM PSTFormatting of this note might be different fro m the original. Kobi is a 75 y.o. male patient of Luis M Baptiste MD being seen today for foll ow up of left epididymo-orchitis. Kobi underwent a right total hip arthroplasty procedure in [place], [place], approximate ly 10/02/2015. He was readmitted on 10/14/2015 with cystitis and left epididymoorchitis. He was initially started on IV Rocephin, but was switched to ertapenem after his urine cult ure grew akjjv-wter-jpfktcgyt ESBL e.coli. He completed a nearly 3 week course of IV antibi otic therapy with ertapenem, on 11/02/2015. He states he feels much better. However, he still notes scrotal swelling, but he believes this is slowly improving. He denies having any testicular pain. He denies any difficulty with voiding. He denies any dysuria or hematuria or increased uri nary frequency. He denies any urinary incontinence. He denies any fever or chills or nausea or vomiting. He denies any dizziness or lightheade dness. He denies any cough or chest pain or shortness of breath or hemoptysis. Over 15 minute encounter with Kobi today, over 50% this time spent counseling regarding his scrotal swelling and epididymoorchitis. 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 ertapenem (INVanz) 1 g in sodium chloride 0.9% 50 mL IVPB Inject 1 g into the vein ever y 24 hours. 17 each 0 No facility-administered encounter medications on file as of 11/27/2015. PHYSICAL EXAM Vitals: BP 118/76 mmHg | Pulse 84 | Resp 16 | Ht 1.778 m (5' 10") | Wt 82.691 kg (182 lb 4. 8 oz) | BMI 26.16 kg/m2 General: Awake, alert, in no acute [...] erythematous rash. Groin: No lymphadenopathy. Genitalia: No visible lesion. Normal in appearance. Urethral meatus is normal in caliber. No penile drainage or discharge or bleeding Scrotum is supple and nonerythematous. No scr otal wall thickening or edema. Right testis and epididymis are normal to palpation without any mass or swelling or nodule or tenderness. The left testis has a normal orientation and lie, and is still swollen, but is nontender. Left epididymis is likewise still swollen, and nontender. Size of testis and epididymis is about 6-7 cm. There appears to be a modest am ount of hydrocele fluid present. DIAGNOSTIC DATA: Lab Results Component Value Date COLORPOC Yellow 11/27/2015 CLARITYU Clear 11/27/2015 GLUCOSEPOC Negative 11/27/2015 BILIPOC Negative 11/27/2015 SG 1.020 11/27/2015 RBCUR Negative 11/27/2015 PHUAPOC 5.0 11/27/2015 PROTEINPOC Negative 11/27/2015 UROBILINOGEN 0.2 mg/dL 11/27/2015 NITRITEPOC Negative 11/27/2015 LEUKOCYTESUR Negative 11/27/2015 Urine culture 10/14/2015: 10/16/2015 9:43 - Dick Sherman, PILING SETTER Culture >100,000 CFU/ml Escherichia coli *INFECTION PREVENTION [...] 10/17/2015 MCV 84.9 10/17/2015 PLT 514* 10/17/2015 IMPRESSION: 1. Left epididymoorchitis. He completed a nearly 3 week course of IV ertapenem on 015. He continues to remain pain-free, but still has significant, residual left scrotal swe lling. 2. Status post right total hip arthroplasty [place], [place] 10/02/2015. 3. Left inguinal hernia. 4. Two adjacent 2 mm right midrenal stones. Asymptomatic. 5. Pulmonary nodules. Followed by Dr. Baptiste. 6. Peripelvic left renal cysts. 7. Peyronie's disease. 8. Erectile dysfunction. PLAN: I discussed with Kobi that his persistent left scrotal swelling may represent residual i nflammation from his epididymal orchitis, or could represent persistent, untreated infection . Empiric treatment with oral antibiotics would not be warranted at this time, given his ESBL E. Coli. Therefore, at this time he'll have a follow-up CBC, ESR, CRP, and scrotal ultrasound to see if there are signs of residual infection. Further recommendations will depend upon the outcome of these tests. Kobi is instructed to resume his usual and customary care with his primary care provider . I asked Kobi to notify me if he should notice testicular pain or fever or increase in sw elling or if there are any difficulties voiding, or UTI symptoms, or flank pain, or for any questions or concerns whatsoever. This document was generated in part using voice recognition software. Although I have atte mpted to edit the content, I have not thoroughly proofread this note, and china decorator erro rs may occur. CC: Dr Baptiste [...] | | | | | [place] [address] | | | | | | [phone] | | | | | | | | +--------+---------+ + + + + +------+--------+ + + | Name | Type | Priori | Associated Diagnoses | Order Schedule | | | | ty | | | + +------+--------+ + + | C-Reactive Protein | Lab | Routin | Epididymoorchitis | Expected: 11/27/2015 | | | | e | | (Approximate), | | | | | | Expires: 11/27/2016 | + +------+--------+ + + | Sedimentation Rate | Lab | Routin | Epididymoorchitis | Expected: 11/27/2015 | | | | e | | (Approximate), | | | | | | Expires: 11/27/2016 | + +------+--------+ + + | CBC with | Lab | Routin | Epididymoorchitis | Expected: 11/27/2015 | | Differential | | e | | (Approximate), | | | | | | Expires: 11/27/2016 | + +------+--------+ + + documented as of this encounter Procedures + +--------+ + + + | Procedure Name | Priori | Date/Time | Associated Diagnosis | Comments | | | ty | | | | + +--------+ + + + | POCT URINALYSIS, | Routin | 11/27/2015 | Epididymoorchitis | Results for this | | AUTO WITH CONF | e | 7:59 AM | | procedure are in the [...] scrotal swelling, evaluate for persistent epididymoorchitis. | [facility] | | COMPARISON: Scrotal ultrasound 10/14/2015. PROTOCOL: Rojas scale | [facility] | | and Doppler images of [...] ST. | [address] | [place] | [phone] | | [facility] | | [address] | | | - IMAGING | | | | + + + + + POCT Urinalysis Dipstick Automated (11/27/2015 7:59 AM PST) + + + + + [...] + + + + | Specific | 1.020 | 1.001 - 1.030 | | | | [place], | | | | | | UA, [...] specimen | | (specimen) | + + documented in this encounter Visit Diagnoses + + | Diagnosis | + + | Epididymoorchitis - Primary Orchitis and epididymitis, unspecified | + + documented in this encounter
--- OUTSIDE RECORDS SUMMARY | ~2019-10-08 | XMS | Encounter Summary ---
Demographics + + + | Address | [address] | | | [place] [address] | + + + | Home Phone [...] Team Providers + +------+ + | Care Meteorology Instructor Name | Role | Phone | + +------+ + | Judit Booth MD | PCP | | + +------+ + Reason for Referral Physical Therapy (Routine) +--------+--------+ + + + + | Status | Reason | Specialty | Diagnoses / | Referred By | Referred To | | | | | Procedures | Contact | Contact | +--------+--------+ + + + + | Closed | | Physical | Diagnoses | Quilici, | Maryanne [facility] | | | | Therapy | Primary | Sandy Coughlin, | [address] | | | | | osteoarthrit | PA-C [address] | | | | | is of one | [address] | Mailcode: | | | | | hip | [facility] | [facility] | | | | | Procedures | Rd | for Health | | | | | PHYSICAL | [place], [place] | and Healing, | | | | | THERAPY | [address] | Building [address], | | | | | REFERRAL | Phone: | [address] | | | | | | [phone] | [place], [place] | | | | | | Fax: | [address] | | | | | | [phone] | Phone: | | | | | | | [phone] | | | | | | | Fax: | | | | | | | [phone] | +--------+--------+ + + + + Reason for Visit + + + | Reason | Comments | + + + | Pre-op evaluation | | + + + Encounter Details +--------+---------+ + + + | Date | Type | Department | Care Team | Description | +--------+---------+ + + + | 09/26/ | Office | Orthopaedics at | Sandy Salvador | Preop examination | | 2015 | Visit | [facility] [address] | SYL Coughlin [address] | (Primary Dx); | | | | Maida Mailcode: [facility] | [address] | Primary | | | | [facility] | [place], [place] | osteoarthritis of | | | | and Healing, | [address] | one hip | | | | Building | [phone] | | | | | Floor [place], [place] | | | | | | [address] | | | | | | [phone] | | | +--------+---------+ + + + [...] Weight | 81.6 kg (180 lb) | 09/26/2015 12:22 PM | | | | | PST | | + + + + + | Height | 177.8 cm (5' 10") | 09/26/2015 12:22 PM | | | | | PST | | + + + + + | Body Mass Index | 25.83 | 09/26/2015 12:22 PM | | | | | PST | | + + + + + documented in this encounter Patient Instructions Patient Instructions Asha Malik - 09/11/2015 12:31 PM PST Registration Locations (please check in at one of the following registration desks prior to surgery) For surgeries scheduled to take place on the [place] at the [facility]: Surgeries scheduled in the [facility] ([address] [place] [address]): registration is located on the 4th floor of [facility] (Day Surgery). Surgeries scheduled in the [facility]: registration is located on the 9th floor. Surgeries scheduled in [facility]: registration is located on the 6th floor. Surgeries scheduled in the [facility]: registration is located i n the [facility] on the first floor. For surgeries scheduled to take place at the [facility]: registration is l ocated on the 4th floor (Surgery Center). Important Information Due to the increased prevalence of pests in our community, we are asking patients to partne r with us to keep our hospital clean. If you have noticed bugs or other pests in your home, on your belongings or on your body, please contact your doctor's office prior to your admis melissa. For your safety and protection, please limit what you bring to the hospital. All valuables should be left at home. This includes pillows, blankets, clothing, purses, wallets, money an d jewelry. Patients may not bring personal electronics into the hospital, including hairdry ers, electric jose, radios and CD players. If you use specialized medical equipment at [facility], please check with your provider before bringing it with you into the hospital. Registration Process for all Admissions/Surgeries 1. Please bring your insurance card(s) with you and be prepared to pay any co-payment, co-i nsurance or deposit that may be required. 2. Once you arrive at the registration desk, you will be interviewed by a Patient Access Se rvice Specialist (DAWN). Demographics will be verified (example: name, date of , Social Security Number, address, insurance). 3. You will be asked to sign some paperwork: Terms and Conditions of Service, Notice of [facility] Practices Acknowledgement and Genetic Testing Opt Out. 4. You will be given some paperwork: copies of any forms signed by you, Patient Rights, Res ponsibilities and Safety, Understanding Advance Directives, and Smoking Cessation Brochure.E lectronically signed by Asha Malik at 09/11/2015 12:31 PM PST documented in this encounter Progress Notes Sandy Salvador PA-C - 09/26/2015 12:30 PM PSTFormatting of this note might be differe nt from the original. SUBJECTIVE: Kobi Loera is here today for pre-operative evaluation. He has not been taking narcotics preoperatively . Pertinent medical history includes none. (complete medical history below) He denies current anticoagulation therapy, h/o blood clots, FH of clotting disorders, HRT, history of CA, smoking Also denies recent fevers/illness, sleep apnea, previous complications with anesthesia, blo od transfusion within the last 90 days. JOINT PATIENT SCREENING: Is the patient a diabetic? no. Body mass index is 25.83 kg/(m^2). Is dentia okay? Yes Is there peripheral edema? no Is the skin on the extremity intact? Yes Is patient smoking? no Has patient had MRSA or VRE? no Does the patient have any allergies to antibiotics? no Allergies Allergen Reactions Codeine Otherwise the orthopaedic history is unchanged from previous visit. The past medical histo ry, medications, allergies, surgical history, and social history were reviewed and updated i monica Dempsey. ROS: - Respiratory: No cough, dyspnea, wheezing. - Cardiovascular: No chest pain, palpitations, syncope - Gastrointestinal: No abdominal pain, nausea or vomiting - Genitourinary: No dysuria, hematuria - Skin: No recent rashes, sores, ulcers, wounds or skin changes - Heme: No abnormal bruising, abnormal bleeding, blood clots - ID: No fevers, persistent infections, recent antibiotic usage OBJECTIVE: - Last Vitals: Ht 1.778 m (5' 10") | Wt 81.647 kg (180 lb) | BMI 25.83 kg/(m^2) - General: AAOx3, cooperative with exam - Cardiac: Regular rate and rhythm - Chest: No signs of respiratory distress. Regular respiratory rate and rhythm. - Skin: Intact over surgical site without erythema or lesions. Remainder of physical exam deferred to PAT clinic. PLAN: - JALIL of right side is scheduled for JALIL. - Perioperative antibiotic will be Ancef - DVT risk: average - D/C Plan: home with - A PARQ session was held, additional questions were answered. We specifically discussed the risks of infection, bleeding, DVT/PE, damage to surrounding structures, fracture, LLD, d eath, instability, failure of the prosthesis, need for further surgery, cardiac complicatio ns and the general recovery period. - He understands these risks and wishes to proceed with surgery. - After PARQ was held, the patient freely signed the consent form. - They will proceed to the PAT clinic for further testing and physical examination. - First follow up will be approximately 2 weeks post-operatively with the PA. - X-rays will not be required at the 2 week post-op visit. - He was encouraged to call our office with any questions or concerns prior to the next vis it. History reviewed. No pertinent past medical history. Patient Active Problem List Diagnosis Personal history of skin cancer Skin exam for malignant neoplasm Current Medication List Not on File Allergies Allergen Reactions Codeine Past Surgical History Procedure Laterality Date Back surgery 2002 Shoulder surgery Right 2005 Hernia surgery Mouth surgery History Social History Marital Status: Spouse Name: N/A Number of Children: N/A Years of Education: N/A Occupational History Not on file. Social History Main Topics Smoking status: Never Smoker Smokeless tobacco: Current User Types: Chew Comment: 1 can a week Alcohol Use: Not on file Drug Use: Not on file Sexual Activity: Not on file Other Topics Concern Not on file Social History Narrative documented in t his encounter Plan of Treatment Not on filedocumented as of this encounter Visit Diagnoses + + | Diagnosis | + + | Preop examination - Primary Preoperative examination, unspecified | + + | Primary osteoarthritis of one hip Primary localized osteoarthrosis, pelvic region and | | thigh | + + documented in this encounter
--- OUTSIDE RECORDS SUMMARY | ~2019-10-08 | XMS | Encounter Summary ---
Demographics + + + | Address | [address] | | | [place] [address] | + + + | Home Phone | | + + + | Preferred Language | Unknown | + + + | Marital Status | | + + + | Christian Affiliation | Unknown | + + + | Race | Unknown | + + + | Ethnic Group | Unknown | + + + Author + + + | Author | [facility] | | | and [place] | + + + | Organization | [facility] | | | and [place] | + + + | Address | Unknown | + + + | Phone | Unavailable | + + + Support + + + + + | Name | Relationship | Address | Phone | + + + + + | Silvia Baumann | ECON | [address] | | | | | [place] | | | | | [address] | | + + + + + Care Team Providers + +------+ + | Care Tan Room Supervisor Name | Role | Phone | + [...] UROLOGY | Marshall Vivas, | Other ([facility]) | | 2016 | | [address] | [address] | | | | | [place] | [place] | | | | | [address] | [address] | | | | | [phone] | | | +--------+ + + + [...] | | | | | | [place] [address] | | | | | | [phone] | | | | | | | | +--------+---------+ + + + documented as of this encounter Visit Diagnoses Not on filedocumented in this encounter
--- OUTSIDE RECORDS SUMMARY | ~2019-10-08 | XMS | Encounter Summary ---
Demographics + + + | Address | [address] | | | [place] [address] | + + + | Home Phone | | + + + | Preferred Language | Unknown | + + + | Marital Status | | + + + | Jew Affiliation | NON | + + + | Race | White | + + + | Ethnic Group | Not or | + + + Author + + + | Author | [facility] | + + + | Organization | [facility] | + + + | Address [...] Team Providers + +------+ + | Care Courtroom Deputy Or Calendar Clerk Name | Role | Phone | [...] as of this encounter Progress Notes Interface, Oncology Physician Assistant In - 07/13/2006 1:04 AM PDTCLINIC DATE: [...] unremarkable. SOCIAL HISTORY: The patient lives in [place]. His primary physician is Dr. Booth here in [place]. 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 The patient does not smoke, however, does [...] desire conservative therapy. Robert Hawkins M.D. / [id number] / [id number] / [id number] / [id number] cc: Miguel Ángel Parisi M.D. 1:0 4 AM PDTdocumented in this encounter Plan of Treatment Not on filedocumented as of this encounter Visit Diagnoses Not on filedocumented in this encounter"
--- OUTSIDE RECORDS SUMMARY | ~2019-10-08 | XMS | Encounter Summary ---
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 [facility] wipe packet and instructions on proper skin cleaning Please be sure [facility] instructions regarding proper skin preparation before surgery. [...] or walk. Surgery check-in location: Admitting - [facility], [facility] Surgery Check in Time: The Preoperative Medicine [...] it is after office hours, call the [facility] automation operator at [phone] and ask them to page him or h er. Preparing For Your Surgery Video - 7 minutes of instructions! Access this [facility] video site : [email or web address] --> Patient and Visitor Guide [...] dizziness, but this was evaluated at the [place] and the pt was Dx with vertigo [...] Alert and appropriate; nl affect. alert Findings: Project Manager nial nerves 2-12 intact, Motor 5/5 strength [...] to this patient's care. KANDICE Gtz FNP [facility] PREAD[facility] CLINIC [facility] PREOPERATIVE MEDICINE CLINIC AT [facility] 4TH FLOOR DAY STAY [address] [facility] [address] I spent time counseling the pt [...] + +--------+ + + | COMMUNICATION TO [facility] | Procedures | Routin | Primary | [...] | + +--------+ + + + | UT COLLECTION VENOUS | Routin | 09/26/2015 | [...] | + + + + + | [facility] | [address] | [place] [address] | | | SERVICES, CORE | PARK [...] [facility] | [address] | [place] [address] | | | SERVICES, | [address] [...] [facility] | [address] | [place] [address] | | | RONNIE | [address] PET[address] | | | | TRANSFUSION MEDICINE [...] | + + + + + | [facility] | [address] | [place] [address] | | | SERVICES, SPECIAL | PARK [...] | + + + + + | [facility] | [address] | [place] [address] | | | SERVICES, CORE | [address] [...] | + + + + + | [facility] - | [address] | [place] [address] | | | [place] | | | | + + + [...] | | | LABORATORY | | | FIJIAN | | | SERVICES, | | | [...] | + + + + + | [facility] | [address] | [place] [address] | | | SERVICES, CORE | PARK [...]
--- OUTSIDE RECORDS SUMMARY | ~2019-10-08 | XMS | Encounter Summary ---
Demographics + + + | Address | [address] | | | [place] [address] | + + + | Home Phone [...] + + + | Author | [facility] | + + + | Organization | [facility] | + + + | Address [...] Team Providers + +------+ + | Care Psychology Physician Name | Role | Phone | + [...] [address] | [address] [place], [place] | | | | | Mailcode: [id number] | [address] | | | | | Physician's Wiliam | | | | | | [place], [place] | | | | | | [address] | | | | | | [phone] | | | +--------+ + + + [...] | | + +---------+ + + | [facility] DEPARTMENT OF | | | | [...] | + + + + + | [facility] DEPARTMENT OF | [address] | [place] [address] | | | PATHOLOGY | [address] | | | + + + + + | [place] DEPARTMENT OF | [address] | [place] [address] | | | PATHOLOGY | [address] [...] | | + +---------+ + + | [facility] DEPARTMENT OF | | | | [...] | | + +---------+ + + | [facility] DEPARTMENT OF | | | | [...] WITH | | | | | | THEMA SPINE EXAM, | | | | | | ACCESSION NUMBER [id number] | | | | | | DONE [...]
--- OUTSIDE RECORDS SUMMARY | ~2019-10-08 | XMS | Encounter Summary ---
Demographics + + + | Address | [address] | | | [place] [address] | + + + | Home Phone [...] + + + | Author | [facility] | + + + | Organization | [facility] | + + + | Address [...] Team Providers + +------+ + | Care Home Support Worker Name | Role | Phone | [...] as of this encounter Progress Notes Adrián, Hearing Therapy Teacher In - 06/26/2006 6:08 AM PDTCLINIC DATE: [...] lumbar spine. Dave Schwartz M.D. / WAN [id number] / [id number] / [id number] / cc: Referring Physician documented in this encounter Plan of Treatment Not on filedocumented as of this encounter Visit Diagnoses Not on filedocumented in this encounter"
--- OUTSIDE RECORDS SUMMARY | ~2019-10-08 | XMS | Encounter Summary ---
Demographics + + + | Address | [address] | | | [place] [address] | + + + | Home Phone | | + + + | Preferred Language | Unknown | + + + | Marital Status | | + + + | Cheondoism Affiliation | NON | + + + | Race | White | + + + | Ethnic Group | Not or | + + + Author + + + | Author | [facility] | + + + | Organization | [facility] | + + + | Address [...] Team Providers + +------+ + | Care Clinical Geneticist Name | Role | Phone | + [...] | | | | | PHYSICAL | [place], [place] | and Healing, | | | | | THERAPY | [address] | Building [address], | | | | | REFERRAL | Phone: | [address] Floor | | | | | | [phone] | [place], [place] | | | | | | Fax: | [address] | | | | | | [phone] | Phone: | | | | | | | [phone] | | | | | | | Fax: | | | | | | | [phone] | +--------+--------+ + + + + Reason [...] examination | | 2015 | Visit | [facility] [address] | SYL Coughlin [address] | (Primary Dx); | | | | Maida Mailcode: CH12A | [address] | Primary | | | | [facility] | [place], [place] | osteoarthritis of | | | | and Healing, | [address] | one hip | | | | Building | [phone] | | | | | Floor [place], [place] | | | | | | [address] | | | | | | [phone] | | | +--------+---------+ + + + [...] surgeries scheduled to take place on the [place] at the [facility]: Surgeries scheduled in the [facility] ([address] [place] [address]): registration is located on the 4th floor of [facility] (Day Surgery). Surgeries scheduled in the [facility]: registration is located on the 9th floor. Surgeries scheduled in [facility]: registration is located on the 6th floor. Surgeries scheduled in the [facility]: registration is located i n the [facility] on the first floor. For surgeries scheduled to take place at the [facility]: registration is l [...] If you use specialized medical equipment at [facility], please check with your provider before bringing [...] and Conditions of Service, Notice of [facility] Practices Acknowledgement and Genetic Testing Opt Out. [...]
--- OUTSIDE RECORDS SUMMARY | ~2019-10-08 | XMS | Encounter Summary ---
Demographics + + + | Address | [address] | | | [place] [address] | + + + | Home Phone | | + + + | Preferred Language | Unknown | + + + | Marital Status | | + + + | Hoahaoism Affiliation | Unknown | + + + | Race | Unknown | + + + | Ethnic Group | Unknown | + + + Author + + + | Author | [facility] | | | and [place] | + + + | Organization | [facility] | | | and [place] | + + + | Address | Unknown | + + + | Phone | Unavailable | + + + Support + + + + + | Name | Relationship | Address | Phone | + + + + + | Silvia Baumann | ECON | [address] | | | | | [place] | | | | | [address] | | + + + + + Care Team Providers + +------+ + | Care Books Binder Name | Role | Phone | + +------+ + | Nahid Medeiros MD | PCP | | + +------+ + Reason for Visit + + + | Reason | Comments | + + + | Foot Pain | | + + + Encounter Details +--------+ + + + + | Date | Type | Department | Care Team | Description | +--------+ + + + + | 09/09/ | Emergency | [facility] | Xu | Pai-ipmg-lbotjyn | | 2019 | | MED CTR EMERGENCY | Dave Barrett MD [address] | adverse reaction to | | | | CENTER [address] [place] | [facility] | medication, initial | | | | [place] | [place] [address] | encounter (Primary | | | | [address] | [phone] | Dx) | | | | [phone] | | | +--------+ + + + [...] + + + | Blood Pressure | 145/89 | 09/09/2019 10:14 AM | | | | | PST | | + + + + + | Pulse | 73 | 09/09/2019 10:14 AM | | | | | PST | | + + + + + | Temperature | 35.8 C (96.5 F) | 09/09/2019 9:39 AM | | | | | PST | | + + + + + | Respiratory Rate | 19 | 09/09/2019 10:14 AM | | | | | PST | | + + + + + | Oxygen Saturation | 92% | 09/09/2019 10:14 AM | | | | | PST | | + + + + + | Inhaled Oxygen | - | - | | | Concentration | | | | + + + + + | Weight | 79.4 kg (175 lb 0.7 | 09/09/2019 9:39 AM | | | | oz) | PST | | + + + + + | Height | 175.3 cm (5' 9") | 09/09/2019 9:39 AM | | | | | PST | | + + + + + | Body Mass Index | 25.85 | 09/09/2019 9:39 AM | | | | | PST | | + + + + + documented in this encounter Discharge Instructions Instructions Dave Mcnair MD - 09/09/2019Stop taking the doxycycline. Start zithromax, next dose tomorrow morning Return for worsening symptoms or any other concerns documented in this encounter Medications at Time [...] tablet by | 4 | 0 | 09/09/20 | | | (ZITHROMAX Z-SARIKA) | mouth Daily for 4 | tablet | | 19 | 9 | | 250 mg tablet | days. | | | | [...] | | | | | [place] [address] | | | | | | [phone] | | | | | | | | +--------+---------+ + + + documented as of this encounter Visit Diagnoses + + | Diagnosis | + + | Gcw-vemq-vlwzeeh adverse reaction to medication, initial encounter - Primary | + + documented in this encounter Administered Medications + +--------+ +--------+------+------+ | Medication Order | MAR | Action | Dose | Rate | Site | | | Action | Date | | | | + +--------+ +--------+------+------+ | azithromycin (ZITHROMAX) tablet | Given | 09/09/20 | 500 mg | | | | 500 mg 500 mg, Oral, ONCE, [facility] | | 19 10:16 | | | | | 09/09/19 at 1010, For 1 dose, | | AM PST | | | | | Indications: Community Acquired | | | | | | | Pneumonia | | | | | | + +--------+ +--------+------+------+ +---+---+ | | | +---+---+ documented in this encounter
--- OUTSIDE RECORDS SUMMARY | ~2019-10-08 | XMS | Encounter Summary ---
Demographics + + + | Address | [address] | | | [place] [address] | + + + | Home Phone | | + + + | Preferred Language | Unknown | + + + | Marital Status | | + + + | Restoration Affiliation | NON | + + + | Race | White | + + + | Ethnic Group | Not or | + + + Author + + + | Author | [facility] | + + + | Organization | [facility] | + + + | Address [...] Team Providers + +------+ + | Care Cycle Manager Name | Role | Phone | + +------+ + PCP | Unavailable | + +------+ + Encounter Details +--------+ + + + + | Date | Type | Department | Care Team | Description | +--------+ + + + + | 03/24/ | Results | Health Promotion | Judit Booth MD | | | 1999 | Only | and Sports Medicine | [address] | | | | | [address] | [place], | | | | | [place] Mailcode: | [place] [address] | | | | | [address] Outpatient | [phone] | | | | | [place] [address] | | | | | | [place], [place] | | | | | | [address] | | | | | | [phone] | | | +--------+ + + + [...] | + +--------+ + + + | PSA, TOTAL | Routin | 03/24/2000 | | Results for this | | MONITORING | e | 4:18 PM | | procedure are in the | | | | PDT | | results section. | + +--------+ + + + | TESTOSTERONE | Routin | 03/24/2000 | | Results for this | | FREE,TOT,SHBG, SERUM | e | 4:18 PM | | procedure are in the | | | | PDT | | results section. | + +--------+ + + + | TSH | Routin | 03/24/2000 | | Results for this | | | e | 4:18 PM | | procedure are in the | | | | PDT | | results section. | + +--------+ + + + | TESTOSTERONE, SERUM | Routin | 03/24/2000 | | Results for this | | | e | 4:18 PM | | procedure are in the | | | | PDT | | results section. | + +--------+ + + + documented in this encounter Results TESTOSTERONE (03/24/2000 4:18 PM PDT) + +-------+ + + + | Component | Value | Ref Range | Performed | Pathologist | | | | | At | Signature | + +-------+ + + + | TESTOSTERON | 296 | 270 - 1070 | | | | E, SERUM | | ng/dl | | | + +-------+ + + + + + | Specimen | + + | | + + + + + + + | Performing | Address | City/State/Zipcode | Phone Number | | Organization | | | | + + + + + | [facility] | [address] | [place] [address] | | | LABORATORY | | | | + + + + + PSA, TOTAL, MONITORING (03/24/2000 4:18 PM PDT) + +-------+ + + + | Component | Value | Ref Range | Performed | Pathologist | | | | | At | Signature | + +-------+ + + + | PSA TOTAL | 0.3 | <4.1 ng/mL | | | | MONITORING | | | | | + +-------+ + + + + + | Specimen | + + | | + + + + + + + | Performing | Address | City/State/Zipcode | Phone Number | | Organization | | | | + + + + + | [facility] | [address] | [place] [address] | | | LABORATORY | | | | + + + + + TSH-THYROID STIM HORMONE (03/24/2000 4:18 PM PDT) + +-------+ + + + | Component | Value | Ref Range | Performed | Pathologist | | | | | At | Signature | + +-------+ + + + | TSH | 2.00 | 0.23 - 4.00 | | | | | | uIU/ml | | | + +-------+ + + + + + | Specimen | + + | | + + + + + + + | Performing | Address | City/State/Zipcode | Phone Number | | Organization | | | | + + + + + | [facility] | [address] | [place] [address] | | | LABORATORY | | | | + + + + + TESTOSTERONE FREE,TOT,+SHBG (03/24/2000 4:18 PM PDT) + +-------+ + + + | Component | Value | Ref Range | Performed | Pathologist | | | | | At | Signature | + +-------+ + + + | % FREE | 1.6 | 1.5 - 3.2 % | | | | TESTOSTERON | | | | | | E | | | | | + +-------+ + + + | TESTOSTERON | 54.0 | 52.0 - 280.0 | | | | E,FREE+TOTA | | pg/mL | | | | L - HEADER | | | | | + +-------+ + + + + + | Specimen | + + | | + + + + + + + | Performing | Address | City/State/Zipcode | Phone Number | | Organization | | | | + + + + + | [facility] | [address] | [place], [place] | | | | | [address] | | + + + + + documented in this encounter Visit Diagnoses Not on filedocumented in this encounter"
--- OUTSIDE RECORDS SUMMARY | ~2019-10-08 | XMS | Encounter Summary ---
Demographics + + + | Address | [address] | | | [place] [address] | + + + | Home Phone | | + + + | Preferred Language | Unknown | + + + | Marital Status | | + + + | Advent Affiliation | NON | + + + [...] Team Providers + +------+ + | Care Project Financial Analyst Name | Role | Phone | + [...] | [address] | [place], | | | | | [place] Mailcode: | [place] [address] | | | | | [address] Outpatient | [phone] | | | | | [place] [address] | | | | | | [place], [place] | | | | | | [address] | | | | | | [phone] | | | +--------+ + + + [...] | + + + + + | [facility] | [address] | [place] [address] | | | LABORATORY | | | [...] | + + + + + | [facility] | [address] | [place] [address] | | | LABORATORY | | | [...] | + + + + + | [facility] | [address] | [place] [address] | | | LABORATORY | | | [...] + + + | [facility] | [address] | [place], [place] | | | | | [address] | | + + + + + documented in this encounter Visit Diagnoses Not on filedocumented in this encounter"
--- OUTSIDE RECORDS SUMMARY | ~2019-10-08 | XMS | Encounter Summary ---
Demographics + + + | Address | [address] | | | [place] [address] | + + + | Home Phone [...] + + + | Author | [facility] | + + + | Organization | [facility] | + + + | [...] Team Providers + +------+ + | Care Forestry Worker Name | Role | Phone | + +------+ + | Judit Booth MD | PCP | | + +------+ + Reason for Visit + + + | Reason | Comments | + + + | Examination Of Skin | skin check | + + + Encounter Details +--------+---------+ + + + | Date | Type | Department | Care Team | Description | +--------+---------+ + + + | 05/01/ | Office | Dermatology | Vinayak Pappas, | Personal history of | | 2011 | Visit | Medical at [facility] | [address] | skin cancer; Skin | | | | Floor [address] | [place], [place] | exam for malignant | | | | Ave Mailcode: [facility] | [address] | neoplasm | | | | [facility] | [phone] | | | | | and Healing, | | | | | | Building | | | | | | Floor [place], [place] | | | | | | [address] | | | | | | [phone] | | | +--------+---------+ + + + [...] documented as of this encounter Progress Notes Vinayak Pappas MD - 04/30/2012 5:18 AM PDT71 YO man with PH BCC R cheek s/p C&D . No FH of skin cancer Last visit & here to have a skin exam & check new lesion on face Review of Systems: Other than stated in the HPI and PMHx, the patient denied any fever, chills, abdominal pain , diarrhea, NUNES, vision changes, swollen lymph nodes, dizziness, mouth lesions, genital lesio ns, weight change, psychiatric changes, arthalgias, chest pain, weakness, or respiratory com plaints. PE:Well developed, well nourished white man oriented in No distress. Healed scar on rt. cheek w/o sx cancer recurrence with small papule that looks like scar red patches on chest & abdomen- ? poison oak. Not bothering Pt Other than stated above, there were no pertinent findings on scalp, face, neck, eyelids, li ps, abdomen, chest, back, bilateral arms, bilateral legs, digits. A/P: see 6 months Kalani sparks in this encounter Plan of Treatment Not on filedocumented as of this encounter Visit Diagnoses + + | Diagnosis | + + | Personal history of skin cancer Personal history of other malignant neoplasm of skin | + + | Skin exam for malignant neoplasm Screening for malignant neoplasm of the skin | + + documented in this encounter"
--- OUTSIDE RECORDS SUMMARY | ~2019-10-08 | XMS | Encounter Summary ---
Demographics + + + | Address | [address] | | | [place] [address] | + + + | Home Phone | | + + + | Preferred Language | Unknown | + + + | Marital Status | | + + + | Zoroastrianism Affiliation | NON | + + + [...] Team Providers + +------+ + | Care B2B Sales Executive Name | Role | Phone | + [...] | hip | [address] | [address] [place], | | | | | Procedures | [place], [place] | [place] | | | | | [place]QUEST TO | [address] | [address] | | | | | SURGERY | Phone: | Phone: | | | | | [address] | [phone] | [phone] | | | | | [place] TOTAL HIP | Fax: | Fax: | | | | | | [phone] | [phone] | | | | | ARTHROPLASTY | | | +--------+--------+ + + + + Encounter Details +--------+---------+ + + + | Date | Type | Department | Care Team | Description | +--------+---------+ + + + | 11/14/ | Office | Orthopaedics at | Sina May, | Right hip pain | | 2016 | Visit | [facility] [address] | PA-C [address] | (Primary Dx); S/P | | | | Ave Mailcode: CH12A | Ave [address] | total hip | | | | [facility] | [place], [place] | arthroplasty | | | | and Healing, | [address] | | | | | [facility] | [phone] | | | | | Floor [place], [place] | | | | | | [address] | | | | | | [phone] | | | +--------+---------+ + + + [...] 11/14/2015 11:30 AM PST 1. OPERATION RECORD [[id number]] ordered by Jacky Borjas MD at 10/02/15 1200 Expand All Collapse All Date of Service: 10/02/2015 Attending Surgeon: Jacky Borjas MD Grey Stock Recorder(s): Steven Rawls MD. Preoperative Diagnosis: Right hip [...] for his JALIL surgery. He lives in [place], [place] and due to the distance and [...] | + +---------+ + + | [facility] DEPARTMENT OF | | | | | [...]
--- OUTSIDE RECORDS SUMMARY | ~2019-10-08 | XMS | Encounter Summary ---
Demographics + + + | Address | [address] | | | [place] [address] | + + + | Home Phone | | + + + | Preferred Language | Unknown | + + + | Marital Status | | + + + | Catholic Affiliation | NON | + + + | Race | White | + + + | Ethnic Group | Not or | + + + Author + + + | Author | [facility] | + + + | Organization | [facility] | + + + [...] Team Providers + +------+ + | Care Implementation Engineer Name | Role | Phone | [...] as of this encounter Progress Notes Interface, Truck Service Technician In - 09/01/2006 3:11 AM PSTCLINIC DATE: 01/26/2001 REASON FOR VISIT: Abdominal pain and feels a bulge in his umbilical area. SUBJECTIVE: The patient comes in today for complaint of abdominal pain. It has been there for 6 months. He states that the pain has become a little bit more, has not gone away. He is concerned that it is hernia. He denies any bowel or bladder dysfunction. He denies any rash. He denies any excruciating pain other than this dull ache that occasionally is there. OBJECTIVE: VITAL SIGNS: Blood pressure 122/82, pulse 68, and weight is 189. HEART: Regular rate and rhythm. LUNGS: Clear to auscultation. ABDOMEN: Soft and nontender and 2 cm above the umbilicus, he has a palpable moveable mass, approximately 3 x 3 cm that appears to be coming through the wall of the abdomen. There is no palpable abdominal mass. An aortic ultrasound was performed to rule out abdominal aortic aneurysm 3 months ago due to his father of a massive aneurysm of an AAA. There is no palpable abdominal mass. I do not hear any bruits. ASSESSMENT AND PLAN: Abdominal pain consistent with ventral hernia. The patient will be referred to Dr. Aries Soni for evaluation. An ultrasound is also scheduled. The patient will follow up with me in 1 month. Judit Booth M.D. RACHELLE / WAN [id number] / [id number] / [id number] / [id number] signed by Interface, Truck Service Technician In at 09/01/2006 3:11 AM PSTdocume nted in this encounter Plan of Treatment Not on filedocumented as of this encounter Visit Diagnoses Not on filedocumented in this encounter"
--- OUTSIDE RECORDS SUMMARY | ~2019-10-08 | XMS | Encounter Summary ---
Demographics + + + | Address | [address] | | | [place] [address] | + + + | Home Phone | | + + + | Preferred Language | Unknown | + + + | Marital Status | | + + + | Anglican Affiliation | Unknown | + + + | Race | Unknown | + + + | Ethnic Group | Unknown | + + + Author + + + | Author | [facility] | | | and [place] | + + + | Organization | [facility] | | | and [place] | + + + | Address | Unknown | + + + | Phone | Unavailable | + + + Support + + + + + | Name | Relationship | Address | Phone | + + + + + | Silvia Baumann | ECON | [address] | | | | | [place] | | | | | [address] | | + + + + + Care Team Providers + +------+ + | Care Supervisor Electrolytic Tinning Name | Role | Phone | + [...] | 11/27/ | Office | PM [facility] UROLOGY | Marshall Vivas, | Epididymoorchitis | | 2016 | Visit | [address] | [address] | (Primary Dx) | | | | [place] | [place] | | | | | [address] | [address] | | | | | [phone] | | | +--------+---------+ + + + [...] a right total hip arthroplasty procedure in [place], [place], approximate ly 10/02/2015. He was readmitted on 10/14/2015 with cystitis and left epididymoorchitis. He was initially started on IV Rocephin, but was switched to ertapenem after his urine cult ure grew kutkm-enjt-cgtdurjvg ESBL e.coli. 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 Status post right total hip arthroplasty [place], [place] 10/02/2015. 3. Left inguinal hernia. 4. Two [...] have not thoroughly proofread this note, and meter attendant erro rs may occur. CC: Dr Baptiste [...] | | | | | [place] [address] | | | | | | [phone] | | | | | | | [...] scrotal swelling, evaluate for persistent epididymoorchitis. | [facility] [place] | | COMPARISON: Scrotal ultrasound 10/14/2015. PROTOCOL: Rojas scale | [facility] | | and Doppler images of [...] [address] | [place] | [phone] | | [facility] | | [id number] | | | - IMAGING | | [...] 1.001 - 1.030 | | | | [place], | | | | | | UA, [...]
--- OUTSIDE RECORDS SUMMARY | ~2019-10-08 | XMS | Encounter Summary ---
Demographics + + + | Address | [address] | | | [place] [address] | + + + | Home Phone | | + + + | Preferred Language | Unknown | + + + | Marital Status | | + + + | Shinto Affiliation | NON | + + + [...] Team Providers + +------+ + | Care Jointer Machine Operator Name | Role | Phone [...] + + + + | 10/02/ | Anesthesia | 6A Intra Op [facility] | Daksha Galarza MD | | | 2014 | Event | [facility] | [address] | | | | | Admitting Desk | [address] | | | | | Located on the | [place], [place] | | | | | [facility] [address] [facility] | [address] | | | | | [facility] | [phone] | | | | | [facility] [place] | | | | | | [address] | Fredy Leyva, | | | | | | [address] [facility] | | | | | | [facility] | | | | | | [place], [place] | | | | | | [address] | | | | | | [phone] | | | | | | | | +--------+ + + + + Anesthesia Record + + + + + | Procedure Name | Responsible | Anesthesia Start | Anesthesia Stop Time | | | Anesthesiologist | Time | | + + + + + | RIGHT TOTAL HIP | Daksha Say Galarza MD | 10/02/15 1204 | 10/02/15 [...] | | | 1 | | reviewed, PARQ held, anesthetic plan made or approved by [...] | Meds | +------+ + + + | Name | Total | + + + | midazolam | 1 mg | + + + | propofol | 20 mg | + + + | propofol INF | 598,228 mcg | + + + | fentaNYL | 50 mcg | + + + | acetaminophen PO | 1,000 mg | + + + | gabapentin | 300 mg | + + + | bupivacaine 0.5% | 3 mL | + + + | ceFAZolin | 2,000 mg | + + + | ePHEDrine | 35 mg | + + + | PHENYLEPHrine | 800 mcg | + + + | lactated ringers IV | 1,200 mL | + + + + + | Name | + + | O2 FR Avance (Total Liters) | + + | O2 Flow Rate (Total Liters) | + + + + | No blood administrations on file. | + + +--------+ + + + | Type | Details | Placement | Removal | +--------+ + + + | Periph | 10/02/15; 1030; jw; Left; Wrist; | 10/02/15 1030 by | 10/05/15 09 by | | eral | 20 g; Topical; Positive; | Malachi Rubio, | Mirian Montenegro RN | | IV | 10/05/15; 0906; Discharge | RN | | +--------+ + + + | Urethr | 10/02/15; 1235; Noemy Mahan RN; | 10/02/15 1235 by | 10/03/15 0500 by | | mert | Guille; 16 Fr.; 10 mL; 10/03/15; | Katelyn [...] | Daksha Galarza MD | | | marina) | | | | Airway | | [...] Diagnoses Not on filedocumented in this encounter Administered Medications + +--------+ + +------+------+ | Medication Order | MAR | Action | Dose | Rate | Site | | | Action | Date | | | | + +--------+ + +------+------+ | acetaminophen (TYLENOL) tablet | Given | 10/02/20 | 1,000 mg | | | | INTRAPROCEDURE PRN, Starting Mon | | 15 11:56 | | | | | 10/02/15 at 1156, Until Mon | | AM PST | | | | | 10/02/15 at 1353 | | | | | | + +--------+ + +------+------+ +---+---+ | | | +---+---+ + +-------+ +------+---+---+ | bupivacaine (PF) | Given | 10/02/20 | 3 mL | | | | (MARCAINE,SENSORCAINE-MPF) | | 15 12:23 | | | | | injection INTRAPROCEDURE PRN, | | PM PST | | | | | Starting Fri10/02/15 at 1223, | | | | | | | Until Fri10/02/15 at 1353 | | | | | | + +-------+ +------+---+---+ +---+---+ | | | +---+---+ + +-------+ + +---+---+ | ceFAZolin (ANCEF) injection | Given | 10/02/20 | 2,000 mg | | | | intravenous, INTRAPROCEDURE PRN, | | 15 12:31 | | | | | Starting Fri10/02/15 at 1231, | | PM PST | | | | | Until Fri10/02/15 at 1353 | | | | | | + +-------+ + +---+---+ +---+---+ | | | +---+---+ + +-------+ +------+---+---+ | ePHEDrine injection | Given | 10/02/20 | 5 mg | | | | intravenous, INTRAPROCEDURE PRN, | | 15 1:39 | | | | | Starting Fri10/02/15 at 1238, | | PM PST | | | | | Until Fri10/02/15 at 1353 | | | | | | + +-------+ +------+---+---+ +-------+ +-------+---+---+ | Given | 10/02/20 | 10 mg | | | | | 15 1:05 | | | | | | PM PST | | | | +-------+ +-------+---+---+ | Given | 10/02/20 | 5 mg | | | | | 15 12:56 | | | | | | PM PST | | | | +-------+ +-------+---+---+ +---+---+ | | | +---+---+ + +-------+ +--------+---+---+ | fentaNYL citrate (PF) | Given | 10/02/20 | 25 mcg | | | | (SUBLIMAZE) injection | | 15 1:09 | | | | | INTRAPROCEDURE PRN, Starting Mon | | PM PST | | | | | 10/02/15 at 1210, Until Mon | | | | | | | 10/02/15 at 1353, sedation | | | | | | + +-------+ +--------+---+---+ +-------+ +--------+---+---+ | Given | 10/02/20 | 25 mcg | | | | | 15 12:10 | | | | | | PM PST | | | | +-------+ +--------+---+---+ +---+---+ | | | +---+---+ + +-------+ +--------+---+---+ | gabapentin (NEURONTIN) capsule | Given | 10/02/20 | 300 mg | | | | INTRAPROCEDURE PRN, Starting Mon | | 15 11:56 | | | | | 10/02/15 at 1156, Until Mon | | AM PST | | | | | 10/02/15 at 1353 | | | | | | + +-------+ +--------+---+---+ +---+---+ | | | +---+---+ + +---------+ +---+---+---+ | lactated ringers IV 10 mL/hr, | New Bag | 10/02/20 | | | | | intravenous, PROCEDURE | | 15 11:39 | | | | | CONTINUOUS, Starting 10/02/15 | | AM PST | | | [...] | | +---+---+ + +-------+ +------+---+---+ | midazolam (VERSED) injection | Given | 10/02/20 | 1 mg | | | | INTRAPROCEDURE PRN, Starting Mon | | 15 12:10 | | | | | 10/02/15 at 1210, Until Mon | | PM PST | | | | | 10/02/15 at 1353, sedation | | | | | | + +-------+ +------+---+---+ +---+---+ | | | +---+---+ + +-------+ +---------+---+---+ | PHENYLEPHrine 100 mcg/mL IV | Given | 10/02/20 | 100 mcg | | | | syringe INTRAPROCEDURE PRN, | | 15 1:43 | | | | | Starting 10/02/15 at 1254, | | PM PST | | | | | Until 10/02/15 at 1353 | | | | | | + +-------+ +---------+---+---+ +-------+ +---------+---+---+ | Given | 10/02/20 | 100 mcg | | | | | 15 1:32 | | | | | | PM PST | | | | +-------+ +---------+---+---+ | Given | 10/02/20 | 100 mcg | | | | | 15 1:26 | | | | | | PM PST | | | | +-------+ +---------+---+---+ +---+---+ | | | +---+---+ + + + + +-------+---+ | propofol (DIPRIVAN) injection | Rate/Dos | 10/02/20 | 70 | 36.2 | | | INTRAPROCEDURE CONTINUOUS PRN, | e Change | 15 1:39 | mcg/kg/m | mL/hr | | | Starting Fri10/02/15 at 1225, | | PM PST | in | | | | Until Fri10/02/15 at 1353 | | | | | | + + + + +-------+---+ + + + +--------+---+ | Rate/Dose Change | 10/02/20 | 85 | 43.96 | | | | 15 12:45 | mcg/kg/m | mL/hr | | | | PM PST | in | | | + + + +--------+---+ | New Bag | 10/02/20 | 100 | 51.72 | | | | 15 12:25 | mcg/kg/m | mL/hr | | | | PM PST | in | | | + + + +--------+---+ +---+---+ | | | +---+---+ + +-------+ +-------+---+---+ | propofol INTRAPROCEDURE PRN, | Given | 10/02/20 | 20 mg | | | | Starting Fri10/02/15 at 1225, | | 15 12:25 | | | | | Until 10/02/15 at 1353 | | PM PST | | | | + +-------+ +-------+---+---+ +---+---+ | | | +---+---+ documented in this encounter"
--- OUTSIDE RECORDS SUMMARY | ~2019-10-08 | XMS | Encounter Summary ---
Demographics + + + | Address | [address] | | | [place] [address] | + + + | Home Phone [...] Team Providers + +------+ + | Care Revenue Stamp Clerk Name | Role | Phone | + +------+ + | Judit Booth MD | PCP | | + +------+ + Encounter Details +--------+ + + + + | Date | Type | Department | Care Team | Description | +--------+ + + + + | 11/14/ | Hospital | Radiology/Imaging | | | | 2015 | Encounter | Lab at [facility] [address] | | | | | | [place] Mailcode: | | | | | | [facility] | | | | | | [facility], | | | | | | [facility] | | | | | | [place], [place] | | | | | | [address] | | | | | | [phone] | | | +--------+ + + + [...]
--- OUTSIDE RECORDS SUMMARY | ~2019-10-08 | XMS | Encounter Summary ---
Demographics + + + | Address | [address] | | | [place] [address] | + + + | Home Phone | | + + + | Preferred Language | Unknown | + + + | Marital Status | | + + + | Pentecostal Affiliation | NON | + + + | Race | White | + + + | Ethnic Group | Not or | + + + Author + + + | Author | [facility] | + + + | Organization | [facility] | + + + | Address | Unknown | + + + | Phone | Unavailable | + + + Support + + + + + | Name | Relationship | Address | Phone | + + + + + | Silvia Loera | FARZANA | [place] | | + + + + + Care Team Providers + +------+ + | Care Sales Administrator Name | Role | Phone | + [...] as of this encounter Progress Notes Interface, Local Bulk Driver In - 09/01/2006 3:11 AM PSTCLINIC DATE: [...] month. Judit Booth M.D. RACHELLE / WAN [id number] / [id number] / [id number] / [id number] signed by Interface, Local Bulk Driver In at 09/01/2006 3:11 AM PSTdocume nted in this encounter Plan of Treatment Not on filedocumented as of this encounter Visit Diagnoses Not on filedocumented in this encounter"
--- OUTSIDE RECORDS SUMMARY | ~2019-10-08 | XMS | Encounter Summary ---
Demographics + + + | Address | [address] | | | [place] [address] | + + + | Home Phone | | + + + | Preferred Language | Unknown | + + + | Marital Status | | + + + | Spiritism Affiliation | NON | + + + [...] Team Providers + +------+ + | Care Ward Nurse Name | Role | Phone | + [...] W | | | | ON | [facility] 4th Floor [address] | [facility] | | | | | [address] [facility] | Road [place], [place] | | | | | Mailcode: [facility] | [id number] | | | | | [facility] | | | | | | and Healing, | | | | | | Building 1,4th Floor | | | | | | [place], [place] | | | | | | [address] | | | | | | [phone] | | | +--------+ + + + [...]
--- OUTSIDE RECORDS SUMMARY | ~2019-10-08 | XMS | Encounter Summary ---
Demographics + + + | Address | [address] | | | [place] [address] | + + + | Home Phone | | + + + | Preferred Language | Unknown | + + + | Marital Status | | + + + | Bahai Affiliation | Unknown | + + + | Race | Unknown | + + + | Ethnic Group | Unknown | + + + Author + + + | Author | [facility] | | | and [place] | + + + | Organization | [facility] | | | and [place] | + + + | Address | Unknown | + + + | Phone | Unavailable | + + + Support + + + + + | Name | Relationship | Address | Phone | + + + + + | Silvia Baumann | ECON | [address] | | | | | [place] | | | | | [address] | | + + + + + Care Team Providers + +------+ + | Care Parts Processor Name | Role | Phone | + [...] + + | 09/09/ | Emergency | [facility] | Xu | Jll-sain-apradot | | 2019 | | [facility] | Dave Barrett MD [address] | adverse reaction to | | | | CENTER [address] | [address] [facility] | medication, initial | | | | [place] | [place] [address] | encounter (Primary | | | | [address] | [phone] | Dx) | | | | [phone] | | | +--------+ + + + [...] | | | | | [place] [address] | | | | | | [phone] | | | | | | | | +--------+---------+ + + + documented as of this encounter Visit Diagnoses + + | Diagnosis | + + | Gbo-qaul-bcyspvk adverse reaction to medication, initial encounter - [...] | 500 mg 500 mg, Oral, ONCE, [facility] | | 19 10:16 | | | | | 09/09/19 at 1010, For 1 dose, | | AM PST | | | | | Indications: Community Acquired | | | | | | | Pneumonia | | | | | | + +--------+ +--------+------+------+ +---+---+ | | | +---+---+ documented in this encounter
--- OUTSIDE RECORDS SUMMARY | ~2019-10-08 | XMS | Encounter Summary ---
Demographics + + + | Address | [address] | | | [place] [address] | + + + | Home Phone | | + + + | Preferred Language | Unknown | + + + | Marital Status | | + + + | Taoism Affiliation | Unknown | + + + | Race | Unknown | + + + | Ethnic Group | Unknown | + + + Author + + + | Author | [facility] | | | and [place] | + + + | Organization | [facility] | | | and [place] | + + + | Address | Unknown | + + + | Phone | Unavailable | + + + Support + + + + + | Name | Relationship | Address | Phone | + + + + + | Silvia Baumann | ECON | [address] | | | | | [place] | | | | | [address] | | + + + + + Care Team Providers + +------+ + | Care Corporate Treasury Analyst Name | Role | Phone | [...] [place] | | | | | [address] | [address] | | | | | [phone] | | | +--------+ + + + [...] | | | | | [place] [address] | | | | | | [phone] | | | | | | | [...] ST. | [address] | [place], [place] | [phone] | | [facility] | | [address] | | | - LABORATORY | | [...]
--- OUTSIDE RECORDS SUMMARY | ~2019-10-08 | XMS | Encounter Summary ---
Demographics + + + | Address | [address] | | | [place] [address] | + + + | Home Phone | | + + + | Preferred Language | Unknown | + + + | Marital Status | | + + + | Adventism Affiliation | NON | + + + | Race | White | + + + | Ethnic Group | Not or | + + + Author + + + | Organization | Unknown | + + + | Address | Unknown | + + + | Phone | Unavailable | + + + Support + + + + + | Name | Relationship | Address | Phone | + + + + + | Silvia Loera | ECON | [place], [place] | | + + + + + Care Team Providers + +------+ + | Care Online Marketer Name | Role | Phone | + +------+ + | Judit Booth MD | PCP | | + +------+ + Encounter Details +--------+ + + + + | Date | Type | Department | Care Team | Description | +--------+ + + + + | 03/08/ | Procedure - | | Record, Operation | Operative Report | | 2001 | | | | | | | Transcribed | | | | +--------+ + + [...] + + | OPERATION RECORD | | 03/08/2002 | | Results for this | | | | | | procedure are in the | | | | | | results section. | + +--------+ + + + documented in this encounter Results OPERATION RECORD (03/08/2002) + + | Transcriptions | + + | Interface, Systems Testing Laboratory Technician In - 07/05/2006 1:07 AM PDT | | [place] [address] | | [place], [place] [address] | | [facility] RECORDMed Rec No.: | | [id number] Date: 03/08/2002Name: Kobi Loera | | SURGEON:Dave Schwartz M.D.BOX COVERER HAND(S): Ashley Shirley | | MosesADDENDUM: Moses Mendez was our firstassistant | | on this procedure, due to lack of availability of residents.PREOPERATIVE | | DIAGNOSIS(ES):1. L4-L5, L5-S1 stenosis.2. L4-L5 left herniated disc.POSTOPERATIVE | | DIAGNOSIS(ES):Same.PROCEDURE(S) PERFORMED:1. L4-L5 laminectomies with partial | | facetectomies and foraminotomies.2. Left L4-5 | | discectomy.COMPLICATIONS:None.INDICATIONS:Mr. Moreira is a 61-year-old gentleman | | whom I have followed in clinicover the last several months. He was diagnosed with | | an L4-5 stenosis aswell as L5-S1 stenosis. He also had a large herniated disc at | | the L4-5level, obliterating the foramen and canal on the left side. He | | hadprimarily left-sided lower extremity pain with minimal backache and minimalright | | lower extremity symptoms. He was indicated for a completelaminectomy and | | bilateral partial facetectomies of L4-5 and L5-S1 in orderto fully and freely | | decompress the roots. In addition, he was indicatedfor a disc exploration at L4-5 | | with discectomy at L4-5 of any herniatedfragments. The nature of the operation was | | discussed, as well as therisks. He understood the nature of the operation and | | elected to proceed asdescribed. The risks described included the potential for | | neurologicinjury, dural tear, recurrent herniation, persistent symptoms, new | | onsetback pain, spinal instability requiring fusion, wound infection | | orhematoma, as well as anesthetic risks, up to the point of . Heelected to | | proceed as described. All questions were fully answered.Consent was freely | | signed.SPECIMEN(S):See below.PROCEDURE:The patient was brought to the operating room | | and placed on the table inthe supine position. General anesthesia was induced. He | | was then rotatedin the prone position on the Richard table. Pressure points were | | padded.The posterior aspect of the lumbosacral spine was prepped and draped in theusual | | sterile fashion.A posterior approach to the lumbosacral spine was then performed. A | | checklateral radiograph was obtained to determine level. Alfonzo clamps | | weredetermined to be on the L4 and L5 spinous processes.We then carried out the balance | | of the exposure. We then performed amidline discectomy of L4 and L5, starting | | from L5 distally and workingnorth. We used the high speed collins to thin the | | overlying bone to assistwith the laminectomy. The laminectomy was performed with 4-0 | | and3-0 Kerrison rongeurs.Following this, we performed a right-sided partial facetectomy | | of L4-5 andL5-S1. We then performed a foraminotomy on the right side, probing | | withthe dural elevator and using the 3-0 Kerrison and 3-0 Peyronie Kerrison tocomplete | | the foraminotomies.We then returned to our attention to the left side of the table. The | | duralsac was pulled medially and the L4-5 disc was isolated. It was enormouslybulging | | and tenting the L5 nerve root, particularly. This was gentlyretracted with the | | Love retractor and the disc space was then entered withthe 15 blade. Immediately, we | | were greeted with a large herniated fragmentof nucleus pulposus, which was removed with | | the pituitary rongeur. We thengradually entered the incision in the annulus and | | performed a completediscectomy in piecemeal fashion, again using the pituitary as | | well as theup-biting pituitary rongeurs. The hole in the disc was repeatedly probedin | | order to insure that the disc itself was fully emptied and there were noremaining | | nuclear fragments adjacent to the annular defect.At this point was copiously irrigated | | with normal saline and then went tothe right side of the table. From this side we | | performed a partialfacetectomy of L4-5 and L5-S1, as well as aggressive | | foraminotomies at L4-5and L5-S1. The L4 nerve root had also been tented and | | compressed by theherniated disc described, and a thorough foraminotomy was performed | | inorder to remove posterior pressure off the root. Similarly, at L5-S1, theL5 root | | was followed out to its nucleus, in order to insure completedecompression.At this | | point bipolar electrocautery was used to obtain hemostasis. Wethen copiously | | irrigated with normal saline. One package of FloSeal wasused to obtain further | | hemostasis and we then closed in layers over amedium Hemovac drain. No | | complications occurred.Pursuant to federal Medicare regulations, I was scrubbed | | and presentthroughout the procedure.Dave Schwartz | | Miguel ÁngelRH/X65D:03/08/2002T:03/09/[id number] | |usual sterile fashion. | | | |A posterior approach to the lumbosacral spine was then performed. A check | |lateral radiograph was obtained to determine level. Alfonzo clamps were | |determined to be on the L4 and L5 spinous processes. | | | |We then carried out the balance of the exposure. We then performed a | |midline discectomy of L4 and L5, starting from L5 distally and working | |north. We used the high speed collins to thin the overlying bone to assist | |with the laminectomy. The laminectomy was performed with 4-0 and | |3-0 Kerrison rongeurs. | | | |Following this, we performed a right-sided partial facetectomy of L4-5 and | |L5-S1. We then performed a foraminotomy on the right side, probing with | |the dural elevator and using the 3-0 Kerrison and 3-0 Peyronie Kerrison to | |complete the foraminotomies. | | | |We then returned to our attention to the left side of the table. The dural | |sac was pulled medially and the L4-5 disc was isolated. It was enormously | |bulging and tenting the L5 nerve root, particularly. This was gently | |retracted with the Love retractor and the disc space was then entered with | |the 15 blade. Immediately, we were greeted with a large herniated fragment | |of nucleus pulposus, which was removed with the pituitary rongeur. We then | |gradually entered the incision in the annulus and performed a complete | |discectomy in piecemeal fashion, again using the pituitary as well as the | |up-biting pituitary rongeurs. The hole in the disc was repeatedly probed | |in order to insure that the disc itself was fully emptied and there were no | |remaining nuclear fragments adjacent to the annular defect. | | | |At this point was copiously irrigated with normal saline and then went to | |the right side of the table. From this side we performed a partial | |facetectomy of L4-5 and L5-S1, as well as aggressive foraminotomies at L4-5 | |and L5-S1. The L4 nerve root had also been tented and compressed by the | |herniated disc described, and a thorough foraminotomy was performed in | |order to remove posterior pressure off the root. Similarly, at L5-S1, the | |L5 root was followed out to its nucleus, in order to insure complete | |decompression. | | | |At this point bipolar electrocautery was used to obtain hemostasis. We | |then copiously irrigated with normal saline. One package of FloSeal was | |used to obtain further hemostasis and we then closed in layers over a | |medium Hemovac drain. No complications occurred. | | | |Pursuant to federal Medicare regulations, I was scrubbed and present | |throughout the procedure. | | | | | | | |Dave Schwartz M.D. | | | |[id number] | | | | | | | | | |[phone] | + + documented in this encounter Visit Diagnoses Not on filedocumented in this encounter"
--- OUTSIDE RECORDS SUMMARY | ~2019-10-08 | XMS | Encounter Summary ---
Demographics + + + | Address | [address] | | | [place] [address] | + + + | Home Phone | | + + + | Preferred Language | Unknown | + + + | Marital Status | | + + + | Judaism Affiliation | NON | + + + [...] + + + | Silvia Brock | ECON | [place], [place] | | + + + + + Care Team Providers + +------+ + | Care Survey Supervisor Name | Role | Phone | + +------+ + | Judit Booth MD | PCP | | + +------+ + Encounter Details +--------+ + + + + | Date | Type | Department | Care Team | Description | +--------+ + + + + | 02/18/ | Transcribed | | Dictation, Other | Transcribed | | 2001 | | | | | +--------+ + [...] as of this encounter Progress Notes Interface, Supervisor Farm Equipment Maintenance In - 08/30/2006 3:02 AM [facility] [place] [address] [place], [place] [address] or February 18, 2001 Judit Booth M.D. CR-[id number] RE: KASIE BROCK MR #: [id number] Booth: We had the pleasure of seeing the patient in General Surgery Clinic today. As you know, he is a very healthy 61-year-old gentleman who approximately 6 months ago noticed some pain in his periumbilical area after an episode of bronchitis. He states that it currently does not bother him. He denies any GI-related symptoms. He states that this hernia has not increased in size. Past medical history is none. Past surgical history is oral surgery. ALLERGY IS CODEINE. Medications are none. 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 On physical examination, he is a well-appearing male in no acute distress. His blood pressure today is 120/76. HEENT exam is normal. His neck is supple without adenopathy, and there are no bruits. His lungs are clear to auscultation. His cardiac exam reveals a regular rate and rhythm without murmurs. His abdomen is soft, nontender, and nondistended with no masses and no incisions. He has a very small, approximately 0.5 to 1 cm, supraumbilical defect which I feel I can adequately reduce here in clinic. He has no peripheral edema. The patient has a very small umbilical hernia. We advised him that the risk of this incarcerating is quite low, and we felt that it was safe to follow it. However, because of his symptoms of discomfort at the area, and in addition, he states he does a fair amount of heavy exertion, he wishes to have it repaired at this time. We have discussed the risks and benefits of this procedure including a risk for bleeding, wound infection and hernia recurrence at about 2% to 5%. He understands that and wishes to proceed. We have taken the liberty for scheduling a surgery for March 05, 2001. Thank you once again for allowing us to participate in the care of this very pleasant gentleman. Sincerely, Juanita Whitman M.D. Aries Soni M.D. / [id number] / [id number] / [id number] / [id number] signed by Interface, Supervisor Farm Equipment Maintenance In at 08/30/2006 3:02 AM PDTdocume nted in this encounter Plan of Treatment Not on filedocumented as of this encounter Visit Diagnoses Not on filedocumented in this encounter"
--- OUTSIDE RECORDS SUMMARY | ~2019-10-08 | XMS | Encounter Summary ---
Demographics + + + | Address | [address] | | | [place] [address] | + + + | Home Phone | | + + + | Preferred Language | Unknown | + + + | Marital Status | | + + + | Tenriism Affiliation | Unknown | + + + | Race | Unknown | + + + | Ethnic Group | Unknown | + + + Author + + + | Author | [facility] | | | and [place] | + + + | Organization | [facility] | | | and [place] | + + + | Address | Unknown | + + + | Phone | Unavailable | + + + Support + + + + + | Name | Relationship | Address | Phone | + + + + + | Silvia Baumann | ECON | [address] | | | | | [place] | | | | | [address] | | + + + + + Care Team Providers + +------+ + | Care Fine Grade Operator Name | Role | Phone | [...] | [address] | MD [address] [facility] | | | | | [place] | [place], [place] | | | | | [address] | [address] | | | | | [phone] | | | +--------+ + + + [...] | | | | | | [place] [address] | | | | | | [phone] | | | | | | | | +--------+---------+ + + + documented as of this encounter Visit Diagnoses Not on filedocumented in this encounter
--- OUTSIDE RECORDS SUMMARY | ~2019-10-08 | XMS | Encounter Summary ---
Demographics + + + | Address | [address] | | | [place] [address] | + + + | Home Phone | | + + + | Preferred Language | Unknown | + + + | Marital Status | | + + + | Church Affiliation | NON | + + + | Race | White | + + + | Ethnic Group | Not or | + + + Author + + + | Author | [facility] | + + + | Organization | [facility] | + + + | [...] Team Providers + +------+ + | Care Organic Preparation Analyst Name | Role | Phone | [...] | Visit | Medical at [facility] | MD [address] | skin cancer; Skin | | | | Floor [address] | [place], [place] | exam for malignant | | | | Ave Mailcode: [facility] | [address] | neoplasm | | | | [facility] | [phone] | | | | | and Healing, | | | | | | Building | | | | | | Floor [place], [place] | | | | | | [address] | | | | | | [phone] | | | +--------+---------+ + + + [...]
--- OUTSIDE RECORDS SUMMARY | ~2019-10-08 | XMS | Encounter Summary ---
Demographics + + + | Address | [address] | | | [place] [address] | + + + | Home Phone [...] + + + | Author | [facility] | + + + | Organization | [facility] | + + + | [...] Team Providers + +------+ + | Care Securities Supervisor Name | Role | Phone | + +------+ + | Judit Booth MD | PCP | | + +------+ + Encounter Details +--------+ + + + + | Date | Type | Department | Care Team | Description | +--------+ + + + + | 03/18/ | Document-Sc | UNKNOWN DEPARTMENT | Unknown . | | | 2016 | anned | [address] | | | | | | [address] | | | | | | [place] | | | | | | [address] | | | +--------+ + + + [...]
--- OUTSIDE RECORDS SUMMARY | ~2019-10-08 | XMS | Encounter Summary ---
Demographics + + + | Address | [address] | | | [place] [address] | + + + | Home Phone | | + + + | Preferred Language | Unknown | + + + | Marital Status | | + + + | Anabaptism Affiliation | NON | + + + [...] Team Providers + +------+ + | Care Parlor Maid Name | Role | Phone | + +------+ + | Judit Booth MD | PCP | | + +------+ + Encounter Details +--------+ + + + + | Date | Type | Department | Care Team | Description | +--------+ + + + + | 06/21/ | Hospital | Radiology/Imaging | | | | 2014 | Encounter | at [facility] | | | | | | [address] | | | | | | [address] | | | | | | [place] | | | | | | [address] | | | | | | [phone] | | | +--------+ + + + [...] X-RAY HIP 2 VIEWS | Routin | 06/21/2015 | Right hip pain | Results for this | | RIGHT W/ PELVIS 1 | e | 9:55 AM | | procedure are in the | | VIEW | | PDT | | results section. [...] | | + +---------+ + + | [facility] DEPARTMENT OF | | | | | RADIOLOGY | | | | + +---------+ + + documented in this encounter Visit Diagnoses + + | Diagnosis | + + | Right hip pain Pain in joint, pelvic region and thigh | + + documented in this encounter"
--- OUTSIDE RECORDS SUMMARY | ~2019-10-08 | XMS | Encounter Summary ---
Demographics + + + | Address | [address] | | | [place] [address] | + + + | Home Phone | | + + + | Preferred Language | Unknown | + + + | Marital Status | | + + + | Taoist Affiliation | NON | + + + [...] Team Providers + +------+ + | Care Medical Technologist Chemistry Name | Role | Phone | + +------+ + | Judit Booth MD | PCP | | + +------+ + Encounter Details +--------+ + + + + | Date | Type | Department | Care Team | Description | +--------+ + + + + | 06/21/ | Hospital | Radiology/Imaging | | | | 2014 | Encounter | at [facility] | | | | | | [address] | | | | | | [address] | | | | | | [place] | | | | | | [address] | | | | | | [phone] | | | +--------+ + + + [...] | | + +---------+ + + | [facility] DEPARTMENT OF | | | | | RADIOLOGY | | | | + +---------+ + + documented in this encounter Visit Diagnoses + + | Diagnosis | + + | Right hip pain Pain in joint, pelvic region and thigh | + + documented in this encounter"
--- OUTSIDE RECORDS SUMMARY | ~2019-10-08 | XMS | Encounter Summary ---
Demographics + + + | Address | [address] | | | [place] [address] | + + + | Home Phone | | + + + | Preferred Language | Unknown | + + + | Marital Status | | + + + | Rastafari Affiliation | NON | + + + [...] Team Providers + +------+ + | Care Electric Tripper Machine Operator Name | Role | Phone | + +------+ + | Judit Booth MD | PCP | | + +------+ + Encounter Details +--------+ + + + + | Date | Type | Department | Care Team | Description | +--------+ + + + + | 03/05/ | Procedure - | | Record, Operation | Operative Report | | 2000 | | | | | | | [...] + + | OPERATION RECORD | | 03/05/2001 | | Results for this | | | | | | procedure are in the | | | | | | results section. | + +--------+ + + + documented in this encounter Results OPERATION RECORD (03/05/2001) + + | Transcriptions | + + | Interface, Payroll Consultant In - 08/27/2006 3:08 AM PDT | | [place] [address] | | [place], [place] [address] | | [facility] Rec No.: | | [id number] Date: 03/05/2001Name: Kobi Loera SURGEON: | | Juanita Whitman M.D.PREOPERATIVE DIAGNOSIS:Epigastric | | hernia.POSTOPERATIVE DIAGNOSIS:Epigastric hernia.PRINCIPAL PROCEDURE | | PERFORMED:Epigastric hernia repair.PREPARATION:Betadine.ANESTHESIA:Mask with local | | anesthesia.SPECIMENS:None dictated.INDICATIONS:This is a 60-year-old gentleman with a | | tender epigastric mass. He was seenin clinic and found to have an epigastric hernia | | that was reducible. Hepresents for elective repair.DESCRIPTION OF PROCEDURE:The | | patient was brought to the operating room and placed on the operatingtable in supine | | position. Intravenous sedation was administered and theabdomen was prepped and | | draped in usual sterile fashion. Approximately 3cm supraumbilical midline incision | | was made. Subcutaneous tissues weredivided and the hernia sac was identified.A | | small amount of preperitoneal tissue protruding from the epigastrichernia. This | | was dissected down to the base of the hernia and the fascialedges were identified. | | The fascia was re-approximated with threeinterrupted 0 Vicryl sutures. Repair | | was inspected and felt to be intactand adequate. Subcutaneous tissues were irrigated | | and skin was closed witha running 4-0 Biosyn suture. The wound was cleaned and dried | | and Mastisoland Steri-Strips were applied. The patient was brought to the | | recoveryroom in stable condition. Juanita Whitman | | Miguel ÁngelMH:x63D: 03/[birth year]/2001T: 03/06/[id number]: | | | |PREPARATION: | |Betadine. | | | |ANESTHESIA: | |Mask with local anesthesia. | | | |SPECIMENS: | |None dictated. | | | |INDICATIONS: | |This is a 60-year-old gentleman with a tender epigastric mass. He was seen | |in clinic and found to have an epigastric hernia that was reducible. He | |presents for elective repair. | | | |DESCRIPTION OF PROCEDURE: | |The patient was brought to the operating room and placed on the operating | |table in supine position. Intravenous sedation was administered and the | |abdomen was prepped and draped in usual sterile fashion. Approximately 3 | |cm supraumbilical midline incision was made. Subcutaneous tissues were | |divided and the hernia sac was identified. | | | |A small amount of preperitoneal tissue protruding from the epigastric | |hernia. This was dissected down to the base of the hernia and the fascial | |edges were identified. The fascia was re-approximated with three | |interrupted 0 Vicryl sutures. Repair was inspected and felt to be intact | |and adequate. Subcutaneous tissues were irrigated and skin was closed with | |a running 4-0 Biosyn suture. The wound was cleaned and dried and Mastisol | |and Steri-Strips were applied. The patient was brought to the recovery | |room in stable condition. | | | | | | | | Juanita Whitman M.D. | | | |MH:x63 | | | | | | | | | | | |[id number] | | | |CC: | + + documented in this encounter Visit Diagnoses Not on filedocumented in this encounter"
--- OUTSIDE RECORDS SUMMARY | ~2019-10-08 | XMS | Encounter Summary ---
Demographics + + + | Address | [address] | | | [place] [address] | + + + | Home Phone | | + + + | Preferred Language | Unknown | + + + | Marital Status | | + + + | Yazidi Affiliation | NON | + + + | Race | White | + + + | Ethnic Group | Not or | + + + Author + + + | Author | [facility] | + + + | Organization | [facility] | + + + | [...] Team Providers + +------+ + | Care Ed Manager Name | Role | Phone | [...] Description | +--------+---------+ + + + | 10/02/ | Surgery | 6A Intra Op [facility] | Jacky Borjas MD | RIGHT TOTAL HIP | | 2015 | | [facility] | [address] | ARTHROPLASTY | | | | Admitting Desk | [address] | | | | | Located on the | [place], [place] | | | | | floor [address] | [address] | | | | | [facility] | [phone] | | | | | [place], [place] | | | | | | [address] | | | +--------+---------+ + + + [...] Mary NP - 10/16/2015 10:53 AM PST [facility] DEPARTMENT OF ORTHOPAEDICS & REHABILITATION INPATIENT HOSPITAL DISCHARGE SUMMARY & INTERDISCIPLINARY INSTRUCTIONS Patient: Kobi Baumann CSN: [id number] Admission Date: 10/02/2015 Discharge Date: 10/05/2015 Attending Physician: Jacky Borjas MD PCP: Judit Booth MD Service: [facility] Orthopaedics & Rehabilitation Diagnoses Principal Final Diagnosis: [...] no longer draining. 5. Call Orthopaedic Surgery [phone] for any signs of infection: increase in [...] wound is infected. Juan Luis li [facility] Orthopedics first at [phone]. Activity Weight bear as tolerated on both lower extremities. Restrictions: Posterior hip precautions on operative side (no hip flexion >90 degrees, no c rossing your legs, no turning your foot towards the middle of the body (internal rotation). Condition on Discharge Stable Follow-Up Appointments ORTHOPEDICS OUTPATIENT CLINIC: Future Appointments Provider Department Dept Phone Center 10/16/2015 12:00 PM Michael Velazco Rehabilitation Services at [facility] 1st Floor [phone] Rehabilita 10/19/2015 11:20 AM Dave May Orthopaedics at [facility] [phone] Orthopedics Follow up in 2 weeks (or as previously scheduled). Call [phone] to confirm or schedule this appointment. PCP: [...] ndications: CONSTIPATION, Disp-120 tablet, R-0, OTC [facility] Orthopaedic Service Pain Policy At the 6-week [...] administration instructions. - Call Orthopedic Clinic at [phone] if any persistent, localized swelling that does [...] and ask for the orthopaedic surgery resident anhydrous ammonia production supervisor. Additional Post-Op Instructions / What to Expect [...] for our clinic to mail you requested refil l. - On-call (after hours) MDs are [...] the opportunity to take care of Kobi Baumann during this inpatient stay, it has been our pleasure. Claribel Mary NP [facility] Department of Orthopaedics & Rehabilitation [address] [place] [address] Mail Code: OP31 [facility] [phone] documented in this enc ounter Medications at [...] Borjas MD - 10/05/2015 7:31 AM PST [facility] DEPARTMENT OF ORTHOPAEDICS & REHABILITATION Adult Reconstruction [...] plan of care. Jacky Borjas MD [facility] [address] [place], [place] [id number] Jacky Vigil MD - 1 12/05/2014 7:01 AM PST [facility] DEPARTMENT OF ORTHOPAEDICS & REHABILITATION Adult [...] May PA-C, in approximately 2 weeks. KIM ARWLS MD 10/04/2015, 7:02 AM I performed a history and physical examination of the patient and discussed his management with the resident. I reviewed the resident s note and agree with the documented findings and plan of care. Jacky Borjas MD [facility] [address] [place] [place] [address] Jacky Vigil MD - 1 12/04/2014 1:03 PM PST [facility] DEPARTMENT OF ORTHOPAEDICS & REHABILITATION Adult Reconstruction [...] plan of care. Jacky Borjas MD [facility] [address] [place] [address] damt, Steven Villarreal MD - 1 12/02/2014 2:42 PM PST [facility] DEPARTMENT OF ORTHOPAEDICS & REHABILITATION Adult [...] 75 y.o.M with the diagnoses/procedures listed above, experifrancisco doyle(an) At Expected Level postoperative course. POSTOPERATIVE PLAN: - Please refer to brief operative note for complete details of the post-operative plan. KIM RAWLS MD 10/02/2015, 2:43 PM [facility] Department of Orthopaedics & Rehabilitation [address] [place] [address] Mail Code: OP31 [facility] [phone] [email or web address] Pager: [phone] documented in this enc ounter Plan of [...] PST)PROCEDURE NOTE (12/07/2015 11:12 AM PST)OPERATION R [place] (10/05/2015 10:28 AM PST) + + | Transcriptions | + + | Jacky Borjas MD - 10/04/2015 11:28 AM PST Date of Service: 10/02/2015 Attending | | Surgeon:Jacky Borjas MD Insole Toe Snipping Machine Operator(s):Steven Rawls MD. | | Preoperative Diagnosis: Right [...] PACU. No intraoperative complications were | | appreciated.NAT Cutler/IMELDAD: 10/04/2015 10:43:25DT: 10/04/2015 11:28:11Job | | #: [id number] | |structures were repaired through drill holes [...] | | | |Jacky Borjas MD | |T[facility]/LUIS ANGELL | | | | | | /[id number] | + + CBC (HEMOGRAM) ONLY (10/03/2015 [...] [facility] | [address] | [place] [address] | | | RONNIE, CORE | [address] | | | [...] | | | LABORATORY | | | SYRIAN | | | SERVICES, | | | [...] | + + + + + | [facility] | [address] | [place] [address] | | | RONNIE, RODRIGUEZ | [address] | | | + [...] | + +---------+ + + | [facility] DEPARTMENT OF | | | | | RADIOLOGY | | | | + +---------+ + + X-RAY PORTABLE PELVIS 1 VIEW (10/02/2015 3:30 PM PST) + + + + + + | Component | Value | Ref Range | Performed | Pathologist | | | | | At | Signature | + + + + + + | X-RAY | STUDY: UT PELVIS 1 VIEW | | | | [...] the | | | | | | yenny Gatica nurse in | | | | | | [place] | | | | | | [place] at 4 PM on | | | [...] | + +---------+ + + | [facility] DEPARTMENT OF | | | | | RADIOLOGY | | | | + +---------+ + + documented in this encounter Visit Diagnoses Not on filedocumented in this encounter Administered Medications + +--------+ +-------+------+------+ | Medication Order | MAR | Action | Dose | Rate | Site | | | Action | Date | | | | + +--------+ +-------+------+------+ | bupivacaine 0.25% w/ EPINEHrine | Given | 10/02/20 | 50 mL | | | | 1:200K-ketorolac injection | | 15 1:35 | | | | | INTRAPROCEDURE PRN, Starting Mon | | PM PST | | | | | 10/02/15 at 1335, Until Mon | | | | | | | 10/02/15 at 1355 | | | | | | + +--------+ +-------+------+------+ +---+---+ | | | +---+---+ documented in this encounter
--- OUTSIDE RECORDS SUMMARY | ~2019-10-08 | XMS | Encounter Summary ---
Demographics + + + | Address | [address] | | | [place] [address] | + + + | Home Phone [...] Team Providers + +------+ + | Care Account Development Manager Name | Role | Phone | [...] | Transcriptions | + + | Interface, Real Estate Loan Officer In - 08/27/2006 3:08 AM PDT | | [place] [address] | | [place], [place] [address] | | [facility] | | [id number] Date: [...] Juanita Whitman | | Miguel ÁngelMH:x63D: 03/[birth year]/2001T: 03/06/[id number]: | | | |PREPARATION: | |Betadine. | [...] | | | | | | | |[id number] | | | |CC: | + + documented in this encounter Visit Diagnoses Not on filedocumented in this encounter"
--- OUTSIDE RECORDS SUMMARY | ~2019-10-08 | XMS | Encounter Summary ---
Demographics + + + | Address | [address] | | | [place] [address] | + + + | Home Phone | | + + + | Preferred Language | Unknown | + + + | Marital Status | | + + + | Yarsani Affiliation | NON | + + + | Race | White | + + + | Ethnic Group | Not or | + + + Author + + + | Author | [facility] | + + + | Organization | [facility] | + + + | Address [...] Team Providers + +------+ + | Care Driving Instructor Name | Role | Phone | [...] | | | | | [place], | | | | | | [place] [address] | | | | | | [phone] | | | +--------+ + + + [...]
--- OUTSIDE RECORDS SUMMARY | ~2019-10-08 | XMS | Encounter Summary ---
Demographics + + + | Address | [address] | | | [place] [address] | + + + | Home Phone | | + + + | Preferred Language | Unknown | + + + | Marital Status | | + + + | Quaker Affiliation | NON | + + + | Race | White | + + + | Ethnic Group | Not or | + + + Author + + + | Author | [facility] | + + + | Organization | [facility] | + + + | [...] Team Providers + +------+ + | Care Top Trimmer Name | Role | Phone | + [...] | [address] | [place] | | | | | [place] Mailcode: | [place] [address] | | | | | OP03 Outpatient | [phone] | | | | | [place] [address] | | | | | | [place], [place] | | | | | | [address] | | | | | | [phone] | | | +--------+ + + + [...]
--- OUTSIDE RECORDS SUMMARY | ~2019-10-08 | XMS | Encounter Summary ---
Demographics + + + | Address | [address] | | | [place] [address] | + + + | Home Phone | | + + + | Preferred Language | Unknown | + + + | Marital Status | | + + + | Worship Affiliation | NON | + + + | Race | White | + + + | Ethnic Group | Not or | + + + Author + + + | Author | [facility] | + + + | Organization | [facility] | + + + | Address | Unknown | + + + | Phone | Unavailable | + + + Support + + + + + | Name | Relationship | Address | Phone | + + + + + | Silvia Loera | FARZANA | [place] | | + + + + + Care Team Providers + +------+ + | Care Trouble Operator Name | Role | Phone | [...] | [address] | [place] | | | | | [place] Mailcode: | [place] [address] | | | | | OP03 Outpatient | [phone] | | | | | [place] [address] | | | | | | [place], [place] | | | | | | [address] | | | | | | [phone] | | | +--------+ + + + [...] + | MR LUMBAR | Radiologist 1: LAILA, | | | | | SPINE WO [...]
--- OUTSIDE RECORDS SUMMARY | ~2019-10-08 | XMS | Encounter Summary ---
Demographics + + + | Address | [address] | | | [place] [address] | + + + | Home Phone | | + + + | Preferred Language | Unknown | + + + | Marital Status | | + + + | Latter-Day Affiliation | NON | + + + [...] Team Providers + +------+ + | Care Ceramics Engineer Name | Role | Phone | [...] | Transcriptions | + + | Interface, Hotel Guest Service Agent In - 07/05/2006 1:07 AM PDT | | [place] [address] | | [place], [place] [address] | | [facility] RECORDMed Rec No.: | | [id number] Date: 03/08/2002Name: Kobi Loera | | SURGEON:Dave Schwartz M.D.PROFESSOR OF BIOCHEMISTRY(S): Ashley Shirley | | MosesADDENDUM: Moses Mendez [...] presentthroughout the procedure.Dave Schwartz | | Miguel ÁngelRH/X65D:03/08/2002T:03/09/[id number] | |usual sterile fashion. | | | [...] | | | | | | | |[phone] | + + documented in this encounter Visit Diagnoses Not on filedocumented in this encounter"
--- OUTSIDE RECORDS SUMMARY | ~2019-10-08 | XMS | Encounter Summary ---
Demographics + + + | Address | [address] | | | [place] [address] | + + + | Home Phone | | + + + | Preferred Language | Unknown | + + + | Marital Status | | + + + | Anglican Affiliation | NON | + + + | Race | White | + + + | Ethnic Group | Not or | + + + Author + + + | Author | [facility] | + + + | Organization | [facility] | + + + | [...] Team Providers + +------+ + | Care International Bank Manager Name | Role | Phone | [...] as of this encounter Progress Notes Interface, Director Of Student Financial Services In - 07/05/2006 1:07 AM PDTCLINIC DATE: [...] Dave Schwartz M.D. Chidi P C: 03/05/2002 [facility] [id number] signed by Interface, Director Of Student Financial Services In at 07/05/2006 1:07 AM PDTdoc umented in this encounter Plan of Treatment Not on filedocumented as of this encounter Visit Diagnoses Not on filedocumented in this encounter"
--- OUTSIDE RECORDS SUMMARY | ~2019-10-08 | XMS | Encounter Summary ---
Demographics + + + | Address | [address] | | | [place] [address] | + + + | Home Phone | | + + + | Preferred Language | Unknown | + + + | Marital Status | | + + + | Nondenominational Affiliation | NON | + + + | Race | White | + + + | Ethnic Group | Not or | + + + Author + + + | Author | [facility] | + + + | Organization | [facility] | + + + | [...] Team Providers + +------+ + | Care Computer Aided Design Drafter Name | Role | Phone | + [...] | | hip | Asya Prieto | [place], | | | | | Procedures | [place], [place] | [place] | | | | | [place]QUEST [place] | [address] | [address] | | | | | SURGERY | Phone: | Phone: | | | | | PULVERIZER TENDER | [phone] | [phone] | | | | | [place] TOTAL HIP | Fax: | Fax: | | | | | | [phone] | [phone] | | | | | ARTHROPLASTY | [...] | | | | REFERRING | Rd [place], | | | | | | PROVIDER PER | [place] | | | | | | [place] | [address] | | | | | | | Phone: | | | | | | | [phone] | | | | | | | Fax: | | | | | | | [phone] | +--------+--------+ + + + + Encounter Details +--------+---------+ + + + | Date | Type | Department | Care Team | Description | +--------+---------+ + + + | 09/05/ | Office | Orthopaedics at | Jacky Borjas MD | Primary | | 2015 | Visit | [facility] [address] | [address] [facility] | 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 Jacky Borjas MD ORTHOPAEDICS AT [facility] [address] Mailcode: Ch12a [place] [id number] Meir Rojo MD - 01/2015 12:01 PM [...]
--- OUTSIDE RECORDS SUMMARY | ~2019-10-08 | XMS | Clinical Summary ---
Demographics + + + | Address | [address] | | | [place] [address] | + + + | Home Phone [...] Team Providers + +------+ + | Care Wirer Helper Name | Role | Phone | + +------+ + PCP | Unavailable | + +------+ + Source Comments MIR is fully live on both [facility] and [facility] In[facility] Allergies + + + + + + [...] | VALERIA & | | 07/24/ | [id number] | | Qty: 1 on 10/02/2015 by Suad | | Ulysses | FRENCH | | 2024 | 56 / | | Jacky Valencia MD at [facility] | | | | | | /[id number] | | INPATIENT REV LOC | | | | | | 7274 | + +------+--------+ +--------+--------+--------+ | 58mm ShellImplanted: Qty: 1 | | Right: | VALERIA & | | 05/03/ | [id number] | | on 10/02/2015 by Jacky Borjas | | Hip | NEPHEW | | 2024 | 56 / | | MD Annie at [facility] INPATIENT REV | | | | | | /15 | | LOC | | | | | | 2327 | + +------+--------+ +--------+--------+--------+ | StemImplanted: Qty: 1 on | | Right: | VALERIA & | | 06/02/ | [id number] | | 10/02/2015 by Jacky Borjas, | | Hip | NEPHEW | | 2020 | 70 / | | at [facility] INPATIENT REV LOC | | | | | | /[id number] | | | | | | | | 723 | + +------+--------+ +--------+--------+--------+ + + | Description:Size 9 | + + + +---+--------+ +---+--------+--------+ | Femoral HeadImplanted: Qty: 1 | | Right: | VALERIA & | | 05/28/ | [id number] | | on 10/02/2015 by Suad | | Ulysses | NEPHSTANLEY | | 2024 | 00 / | | Jacky Valencia MD at [facility] | | | | | | /[id number] [...] | MEDICA | xxxxxxxxxx | 06/03/20 | [phone] | [address] | Medica | | | RE A & | | 03-Pre | 1 | [phone] | re | | | B | | sent | | [place] | | | | | | | | [phone] | | + +--------+ +--------+ + +--------+ | MODA MEDICARE | MODA | xxxxxxxxx | 10/23/ | [phone] | [address] | POS | | SUPPLEMENT | MEDICA | | 2015-P | 4 | [address] | | | | RE | | resent | | [place], | | | | SUPPLE | | | | [place] [address] | | | | MENT | | [...] Person | Self | [birth year] | [address] | | J | al/Fam | | 1940 | [phone] | [address] [place] | | | [place] | | | 6 (Home) | [address] | + +--------+ +--------+ + + Advance [...]
--- OUTSIDE RECORDS SUMMARY | ~2019-10-08 | XMS | Encounter Summary ---
Demographics + + + | Address | [address] | | | [place] [address] | + + + | Home Phone [...] Team Providers + +------+ + | Care Manager Play Name | Role | Phone | + [...] as of this encounter Progress Notes Interface, Government Contracts Manager In - 08/30/2006 3:[address] 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 On physical examination, he is a well-appearing [...] Juanita Whitman M.D. Aries Soni M.D. / [id number] / [id number] / [id number] / [id number] signed by Interface, Government Contracts Manager In at 08/30/2006 3:02 AM PDTdocume nted in this encounter Plan of Treatment Not on filedocumented as of this encounter Visit Diagnoses Not on filedocumented in this encounter"
--- OUTSIDE RECORDS SUMMARY | ~2019-10-08 | XMS | Encounter Summary ---
Demographics + + + | Address | [address] | | | [place] [address] | + + + | Home Phone | | + + + | Preferred Language | Unknown | + + + | Marital Status | | + + + | Cheondoism Affiliation | Unknown | + + + | Race | Unknown | + + + | Ethnic Group | Unknown | + + + Author + + + | Author | [facility] | | | and [place] | + + + | Organization | [facility] | | | and [place] | + + + | Address | Unknown | + + + | Phone | Unavailable | + + + Support + + + + + | Name | Relationship | Address | Phone | + + + + + | Silvia Baumann | ECON | [address] | | | | | [place] | | | | | [address] | | + + + + + Care Team Providers + +------+ + | Care Commercial Center Manager Name | Role | Phone | + +------+ + | Luis M Baptiste | PCP | | | MD | | | + +------+ + Reason for Visit +--------+ + | Reason | Comments | +--------+ + | Other | Questions about PIC Line | +--------+ + Encounter Details +--------+ + + + + | Date | Type | Department | Care Team | Description | +--------+ + + + + | 11/01/ | Telephone | [facility] | Marshall Vivas, | Other (Questions | | 2014 | | [address] | [address] | about PIC Line) | | | | [place] | [place] | | | | | [address] | [address] | | | | | [phone] | | | +--------+ + + + [...] [place] | | | | | | [place] [address] | | | | | | [phone] | | | | | | | | +--------+---------+ + + + documented as of this encounter Visit Diagnoses Not on filedocumented in this encounter
--- OUTSIDE RECORDS SUMMARY | ~2019-10-08 | XMS | Encounter Summary ---
Demographics + + + | Address | [address] | | | [place] [address] | + + + | Home Phone | | + + + | Preferred Language | Unknown | + + + | Marital Status | | + + + | Anglican Affiliation | Unknown | + + + | Race | Unknown | + + + | Ethnic Group | Unknown | + + + Author + + + | Author | [facility] | | | and [place] | + + + | Organization | [facility] | | | and [place] | + + + | Address | Unknown | + + + | Phone | Unavailable | + + + Support + + + + + | Name | Relationship | Address | Phone | + + + + + | Silvia Baumann | ECON | [address] | | | | | [place] | | | | | [address] | | + + + + + Care Team Providers + +------+ + | Care Installment Loan Collector Name | Role | Phone | + [...] | | | | CENTER [address] | [place] | | | | | [place] | [address] | | | | | [address] | | | | | | [phone] | | | +--------+ + + + [...] be sent through Care Everywhere.Neck Problems, Understanding (Wolof)documented in this encounter Plan of Treatment +--------+---------+ [...] | | | | | [place] [address] | | | | | | [phone] | | | | | | | [...]
--- OUTSIDE RECORDS SUMMARY | ~2019-10-08 | XMS | Encounter Summary ---
Demographics + + + | Address | [address] | | | [place] [address] | + + + | Home Phone | | + + + | Preferred Language | Unknown | + + + | Marital Status | | + + + | Zoroastrianism Affiliation | Unknown | + + + | Race | Unknown | + + + | Ethnic Group | Unknown | + + + Author + + + | Author | [facility] | | | and [place] | + + + | Organization | [facility] | | | and [place] | + + + | Address | Unknown | + + + | Phone | Unavailable | + + + Support + + + + + | Name | Relationship | Address | Phone | + + + + + | Silvia Baumann | ECON | [address] | | | | | [place] | | | | | [address] | | + + + + + Care Team Providers + +------+ + | Care Quantitative Strategy Analyst Name | Role | Phone | [...] [place] | | | | | [address] | [address] | | | | | [phone] | | | +--------+ + + + [...] [place] | | | | | | [place] [address] | | | | | | [phone] | | | | | | | | +--------+---------+ + + + documented as of this encounter Visit Diagnoses Not on filedocumented in this encounter
--- OUTSIDE RECORDS SUMMARY | ~2019-10-08 | XMS | Encounter Summary ---
Demographics + + + | Address | [address] | | | [place] [address] | + + + | Home Phone [...] Team Providers + +------+ + | Care Net Architect Name | Role | Phone | + +------+ + | Judit Booth MD | PCP | | + +------+ + Encounter Details +--------+ + + + + | Date | Type | Department | Care Team | Description | +--------+ + + + + | /03/ | Transcribed | | Dictation, Other | [...] as of this encounter Progress Notes Interface, Cripple Chaser In - 08/27/2006 3:08 AM PDT [place] [address] [place], [place] [address] or Division of General Surgery, L223A March 05, 2001 Judit Booth M.D. CR-110 RE:KASIE BROCK MR#:[id number] Dear Judit: Just a brief note to let you know that I accompanied the very pleasant Mr. Brock to the Operating Room today and primarily repaired a small umbilical hernia he had. His procedure was unremarkable. He had a small amount of omentum incarcerated within the hernia, which I suspect was causing his discomfort. I hope to see him back in approximately 2 weeks and will keep you posted as to his progress. Thank you again for the opportunity to care for this very nice gentleman. I wish you the best for the spring. Yours sincerely, Aries Soni M.D. [facility] / [id number] / [id number] / [id number] / [id number] signed by Interface, Cripple Chaser In at 08/27/2006 3:08 AM PDTdocume nted in this encounter Plan of Treatment Not on filedocumented as of this encounter Visit Diagnoses Not on filedocumented in this encounter"
--- OUTSIDE RECORDS SUMMARY | ~2019-10-08 | XMS | Encounter Summary ---
Demographics + + + | Address | [address] | | | [place] [address] | + + + | Home Phone [...] + + + | Author | [facility] | + + + | Organization | [facility] | + + + | Address [...] Providers + +------+ + | Care Medical Staff Physician Name | Role | Phone | [...] TOTAL HIP | | 2015 | | [facility] | [address] [facility] | ARTHROPLASTY | | | | Admitting Desk | [place] | | | | | Located on the | [place], [place] | | | | | floor [address] [facility] | [address] | | | | | [facility] | [phone] | | | | | [place], [place] | | | | | | [address] | | | +--------+---------+ + + + [...] Mary NP - 10/16/2015 10:53 AM PST [facility] DEPARTMENT OF ORTHOPAEDICS & REHABILITATION INPATIENT HOSPITAL DISCHARGE SUMMARY & INTERDISCIPLINARY INSTRUCTIONS Patient: Kobi Baumann CSN: [id number] Admission Date: 10/02/2015 Discharge Date: 10/05/2015 Attending Physician: Jacky Borjas MD PCP: Judit Booth MD Service: [facility] Orthopaedics & Rehabilitation Diagnoses Principal Final [...] no longer draining. 5. Call Orthopaedic Surgery [phone] for any signs of infection: increase [...] your wound is infected. Juan Luis li [facility] Orthopedics first at [phone]. Activity Weight bear as tolerated on both lower extremities. Restrictions: Posterior hip precautions on operative side (no hip flexion >90 degrees, no c rossing your legs, no turning your foot towards the middle of the body (internal rotation). Condition on Discharge Stable Follow-Up Appointments ORTHOPEDICS OUTPATIENT CLINIC: Future Appointments Provider Department Dept Phone Center 10/16/2015 12:00 PM Michael Velazco Rehabilitation Services at [facility] 1st Floor [phone] Rehabilita 10/19/2015 11:20 AM Dave May Orthopaedics at [facility] [phone] Orthopedics Follow up in 2 weeks (or as previously scheduled). Call [phone] to confirm or schedule this appointment. PCP: [...] I ndications: CONSTIPATION, Disp-120 tablet, R-0, OTC [facility] Orthopaedic Service Pain Policy At the 6-week post-operative ojb, pain management will be reassessed and pain [...] administration instructions. - Call Orthopedic Clinic at [phone] if any persistent, localized swelling that does [...] and ask for the orthopaedic surgery resident monorail car operator. Additional Post-Op Instructions / What to Expect [...] Summary Completion: 10/16/2015, 10:53 AM Discharging Provider: Clariebl Mary NP Discharging Attending: Jacky Borjas MD Thank you for the opportunity to take care of Kobi Baumann during this inpatient stay, it has been our pleasure. Claribel Mary NP [facility] Department of Orthopaedics & Rehabilitation [address] [place] [address] Mail Code: OP31 [facility] [id number] documented in this enc ounter Medications at [...] Borjas MD - 10/05/2015 7:31 AM PST [facility] DEPARTMENT OF ORTHOPAEDICS & REHABILITATION Adult Reconstruction [...] and plan of care. Jacky Borjas MD [facility] [address] [place], [place] [id number] Jacky Vigil MD - 1 12/05/2014 7:01 AM PST [facility] DEPARTMENT OF ORTHOPAEDICS & REHABILITATION Adult Reconstruction [...] and plan of care. Jacky Borjas MD [facility] [address] [place] [address] Jacky Vigil MD - 1 12/04/2014 1:03 PM PST [facility] DEPARTMENT OF ORTHOPAEDICS & REHABILITATION Adult Reconstruction [...] and plan of care. Jacky Borjas MD [facility] [address] [place] [address] dawa, Steven Villarreal MD - 1 12/02/2014 2:42 PM PST [facility] DEPARTMENT OF ORTHOPAEDICS & REHABILITATION Adult Reconstruction [...] plan. KIM RAWLS MD 10/02/2015, 2:43 PM [facility] Department of Orthopaedics & Rehabilitation [address] [place] [address] Mail Code: OP31 [facility] [address] [email or web address] Pager: [phone] documented in this enc ounter Plan of [...] 10/02/2015 Attending | | Surgeon:Jacky Borjas MD Lead Java Developer Architect(s):Steven Rawls MD. | | Preoperative Diagnosis: Right [...] 10/04/2015 10:43:25DT: 10/04/2015 11:28:11Job | | #: [id number] | |structures were repaired through drill holes [...] ANGELL | | | | | | /[id number] | + + CBC (HEMOGRAM) ONLY (10/03/2015 [...] [facility] | [address] | [place] [address] | | | RONNIE, CORE | [place] [...] | | | LABORATORY | | | [place] | | | SERVICES, | | | [...] | + + + + + | [facility] | [address] | [place] [address] | | | RONNIE, RODRIGUEZ | [place] [...] | | + +---------+ + + | [facility] DEPARTMENT OF | | | | | RADIOLOGY | | | | + +---------+ + + X-RAY PORTABLE PELVIS 1 VIEW (10/02/2015 3:30 PM PST) + + + + + + | Component | Value | Ref Range | Performed | Pathologist | | | | | At | Signature | + + + + + + | X-RAY | STUDY: ND PELVIS 1 VIEW | | | | [...] | | + +---------+ + + | [facility] DEPARTMENT OF | | | [...]
--- OUTSIDE RECORDS SUMMARY | ~2019-10-08 | XMS | Encounter Summary ---
Demographics + + + | Address | [address] | | | [place] [address] | + + + | Home Phone | | + + + | Preferred Language | Unknown | + + + | Marital Status | | + + + | Pentecostalism Affiliation | NON | + + + [...] Team Providers + +------+ + | Care Flower Stripper Name | Role | Phone | + [...] as of this encounter Progress Notes Interface, Retouching Operator In - 08/27/2006 3:08 AM PDT [place] [address] [place], [place] [address] or Division of General Surgery, [...] the spring. Yours sincerely, Aries Soni M.D. [facility] / [id number] / [id number] / [id number] / [id number] signed by Interface, Retouching Operator In at 08/27/2006 3:08 AM PDTdocume nted in this encounter Plan of Treatment Not on filedocumented as of this encounter Visit Diagnoses Not on filedocumented in this encounter"
--- OUTSIDE RECORDS SUMMARY | ~2019-10-08 | XMS | Encounter Summary ---
Demographics + + + | Address | [address] | | | [place] [address] | + + + | Home Phone [...] Team Providers + +------+ + | Care Senior Mechanical Technician Name | Role | Phone | [...] Rd | | | | | | [place] | | | | | | [address] | | | +--------+ + + + [...]
--- OUTSIDE RECORDS SUMMARY | ~2019-10-08 | XMS | Encounter Summary ---
Demographics + + + | Address | [address] | | | [place] [address] | + + + | Home Phone [...] Team Providers + +------+ + | Care Adjunct Professor Of Law Name | Role | Phone | + [...] | | | 2014 | Event | [facility] | [address] | | | | | Admitting Desk | [address] | | | | | Located on the | [place], [place] | | | | | [facility] [address] [facility] | [address] | | | | | [facility] | [phone] | | | | | [facility] [place] | | | | | | [address] | [address] [place], | | | | | | [address] [facility] | | | | | | [facility] [address] | | | | | | [place], [place] | | | | | | [address] | | | | | | [phone] | | | | | | | [...]
--- OUTSIDE RECORDS SUMMARY | ~2019-10-08 | XMS | Encounter Summary ---
Demographics + + + | Address | [address] | | | [place] [address] | + + + | Home Phone | | + + + | Preferred Language | Unknown | + + + | Marital Status | | + + + | Worship Affiliation | Unknown | + + + | Race | Unknown | + + + | Ethnic Group | Unknown | + + + Author + + + | Author | [facility] | | | and [place] | + + + | Organization | [facility] | | | and [place] | + + + | Address | Unknown | + + + | Phone | Unavailable | + + + Support + + + + + | Name | Relationship | Address | Phone | + + + + + | Silvia Baumann | ECON | [address] | | | | | [place] | | | | | [address] | | + + + + + Care Team Providers + +------+ + | Care Under Ground Miner Name | Role | Phone | + [...] + + | 10/14/ | Hospital | [facility] | Fuad Campbell MD | Leukocytosis, | | 2015 - | Encounter | [facility] | [address] | unspecified elevated | | | | [address] | [place], [place] | WBC count (Primary | | 10/17/ | | [place] [address] | [address] | Dx); Urinary tract | | 2014 | | [phone] | | infection, site | | | | | Adriano Pal, | unspecified; | | | | | DO [address] | Epididymitis; | | | | | [place] [address] [place], | Dehydration, mild; | | | | | [place] [address] | Epididymitis, left; | | | | | [phone] | Status post hip | | | [...] Physician Discharge Summary Patient ID: Kobi Baumann [id number] 75 y.o. 1940 Admit date: 10/14/2015 Discharge [...] recent right hip replacement surgery performed at [facility] on 10/02 presents to emergency room today [...] of urology and & Dr. Shahid of surgical specialty center. Dr. Shahid didn't think that patient's [...] for initiation of care yossi kwong. Signed: Hiedy Montano MD 10/17/2015 11:35 documented in this [...] Procedure Component Value Units Date/Time Culture, Blood [[id number]] Collected: 10/14/15953 Order Status: Completed Lab Status: Preliminary result Updated: 10/15/152300 Specimen Information: Blood / Peripheral Blood Culture Result: No growth: Monitored continually by instrument for 5 days Culture, Blood [[id number]] Collected: 10/14/15953 Order Status: Completed Lab Status: Preliminary result Updated: 12/12/15 2301 Specimen Information: Blood / Peripheral Blood Culture Result: No growth: Monitored continually by instrument for 5 days Culture, Urine [[id number]] (Susceptibility) Collected: 10/14/15 0758 Order Status: Completed Lab Status: Final result Updated: 10/16/15 0977 Specimen Information: Urine / Urine, clean catch [...] ESBL diagnosis. PICC being chitra sher for president abx therapy Adriano Addison DO - 10/16/2015 3:17 PM PSTFormatting of this note might be differ ent from the original. [facility]ESS [facility] Patient: Kobi Baumann : 1940: Age: 75 y.o. MedRec: [id number] PCP: Luis M Baptiste MD Admission date: [...] CKTOTAL No results for input(s): PHART, PO2ART, GTE1KOZ, UVL6IIU, BEART, N1EUMNAU in the last 168 h ours. No results for input(s): SPECSOURCE, PHPOCB, HCO3, TCO2, BEART, BE, CERL8HFB in the last 16 8 hours. Invalid input(s): KHJLV4YO, WSMH3DA Point of care glucose: No results for [...] - Continue with IV fluid hydration. - sofa cover inspector to IV Ertapenem (Day 1) from Rocephin as urine culture show ESBL Ecoli. Will need a total of 21 day course of Rx per Dr. Vivas 2/2 [address]idymitis. - place PICC line for president IV antibiotics. - Hydrate with NS @ [...] able to do ou tpatient infusion in [place]. Time spent with the patient and (of which more than 50% was in counseling and/or coord ination the patient's care as outlined above) was 25 minutes. Adriano Pal DO 10/16/2015 15:17 [facility] Portions of this chart may have been created with [employer] voice recognition software. Occasi onal wrong-word or [...] might be different from the o riginal. [facility]ESS [facility] Patient: Kobi Baumann : 1940: Age: 75 y.o. MedRec: [id number] PCP: Luis M Baptiste MD Admission date: [...] CKTOTAL No results for input(s): PHART, PO2ART, IHS9LBV, LVV5LDT, BEART, Z6BHQWCC in the last 168 h ours. No results for input(s): SPECSOURCE, PHPOCB, HCO3, TCO2, BEART, BE, KOVG4PHZ in the last 16 8 hours. Invalid input(s): IZVEF8IF, LERQ5DG Point of care glucose: No results for [...] 25 minutes. Adriano Pal DO 10/15/2015 21:21 [facility] Portions of this chart may have been created with [employer] voice recognition software. Occasi onal wrong-word or sound-alike substitutions may have occurred due to the inherent bateman itations of voice recognition software. Please read the chart carefully and recognize, using context, where these substitutions have occurred Marshall Wing MD - 10/15/2015 3:40 PM PST [facility] Progress Note Kobi Avila Osmanedwardo is [...] Procedure Component Value Units Date/Time Culture, Blood [[id number]] Collected: 10/14/15953 Order Status: Completed Lab Status: Preliminary result Updated: 10/15/152300 Specimen Information: Blood / Peripheral Blood Culture Result: No growth: Monitored continually by instrument for 5 days Culture, Blood [[id number]] Collected: 10/14/15953 Order Status: Completed Lab Status: Preliminary result Updated: 10/14/152300 Specimen Information: Blood / Peripheral Blood Culture Result: No growth: Monitored continually by instrument for 5 days Culture, Urine [[id number]] Collected: 10/14/15 0758 Order Status: Completed Lab [...] [place] | | | | | | [place] [address] | | | | | | [phone] | | | | | | | [...] + | [facility] | [address] | [place] | [phone] | | [facility] | | [address] | | | - LABORATORY | | [...] mL/min/1.73m2 | . [facility] | | | [place] | | | MEDICAL | | | [...] [address] | [place] | [phone] | | [facility] | | [address] | | | - LABORATORY | | [...] ST. | [address] | [place] | [phone] | | [facility] | | [address] | | | - LABORATORY | | [...] mL/min/1.73m2 | [facility] | | | [place] | | | MEDICAL | | | [...] | ine Ratio | | | [facility] | | | | | | [...] [address] | [place] | [phone] | | [facility] | | [address] | | | - LABORATORY | | [...] | Neutrophils | | K/uL | [facility] | | | | | | MEDICAL [...] [address] | [place] | [phone] | | [facility] | | [address] | | | - LABORATORY | | [...] + | [facility] | [address] | [place] | [phone] | | [facility] | | [address] | | | - LABORATORY | | [...] [address] | [place] | [phone] | | [facility] | | [address] | | | - LABORATORY | | [...] [address] | [place] | [phone] | | [facility] | | [address] | | | - LABORATORY | | [...] [address] | [place] | [phone] | | [facility] | | [address] | | | - LABORATORY | | [...] mL/min/1.73m2 | [facility] | | | [place] | | | MEDICAL | | | [...] | ine Ratio | | | [facility] | | | | | | [...] [address] | [place] | [phone] | | [facility] | | [address] | | | - LABORATORY | | [...] + | [facility] | [address] | [place] | [phone] | | [facility] | | [address] | | | - LABORATORY | | [...] [address] | [place] | [phone] | | [facility] | | [address] | | | - LABORATORY | | [...] [address] | [place] | [phone] | | [facility] | | [address] | | | - LABORATORY | | [...] + | [facility] | [address] | [place] | [phone] | | [facility] | | [address] | | | - LABORATORY | | [...] [address] | [place] | [phone] | | [facility] | | [address] | | | - LABORATORY | | [...] + | [facility] | [address] | [place] | [phone] | | [facility] | | [address] | | | - LABORATORY | | [...] + | [facility] | [address] | [place] | [phone] | | [facility] | | [address] | | | - LABORATORY | | [...] + | [facility] | [address] | [place] | [phone] | | [facility] | | [address] | | | - LABORATORY | | [...] - 1.030 | [facility] | | | [place] | | | [facility] | | [...] [address] | [place] | [phone] | | [facility] | | [address] | | | - LABORATORY | | [...] | [address] | [place] | [phone] | | [facility] | | [address] | | | - LABORATORY | | [...] mL/min/1.73m2 | [facility] | | | [place] | | | MEDICAL | | | [...] [address] | [place] | [phone] | | [facility] | | [address] | | | - LABORATORY | | [...] [place]. | [address] | [place] | [phone] | | [facility] | | [address] | | | - LABORATORY | | [...]
--- OUTSIDE RECORDS SUMMARY | ~2019-10-08 | XMS | Encounter Summary ---
Demographics + + + | Address | [address] | | | [place] [address] | + + + | Home Phone | | + + + | Preferred Language | Unknown | + + + | Marital Status | | + + + | Mandaen Affiliation | NON | + + + [...] Team Providers + +------+ + | Care Livestock Producer Name | Role | Phone | + [...] as of this encounter Progress Notes Interface, Combining Machine Operator In - 09/21/2006 8:53 AM PSTCLINIC DATE: [...] He in his 70s. His mother at 90-pocrd-esf from myocardial infarction. His brother had an [...] years ago. 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 He denies [...] colonoscopy. Judit Booth M.D. RACHELLE / WAN [id number] / [id number] / [id number] / [id number] signed by Interface, Combining Machine Operator In at 09/21/2006 8:53 AM PSTdocume nted in this encounter Plan of Treatment Not on filedocumented as of this encounter Visit Diagnoses Not on filedocumented in this encounter
--- OUTSIDE RECORDS SUMMARY | ~2019-10-08 | XMS | Encounter Summary ---
Demographics + + + | Address | [address] | | | [place] [address] | + + + | Home Phone | | + + + | Preferred Language | Unknown | + + + | Marital Status | | + + + | Alevism Affiliation | Unknown | + + + | Race | Unknown | + + + | Ethnic Group | Unknown | + + + Author + + + | Author | [facility] | | | and [place] | + + + | Organization | [facility] | | | and [place] | + + + | Address | Unknown | + + + | Phone | Unavailable | + + + Support + + + + + | Name | Relationship | Address | Phone | + + + + + | Silvia Baumann | ECON | [address] | | | | | [place] | | | | | [address] | | + + + + + Care Team Providers + +------+ + | Care Shooting Gallery Operator Name | Role | Phone | [...] [place] | | | | | | [address] | [address] Phone: | | | | | | Phone: | [phone] | | | | | | [phone] | Fax: | | | | | | Fax: | [phone] | | | | | | [phone] | | + + + + + [...] | | | | | | | ([facility]) Right | | | | | | [...] | | | | | | | ([facility]) | | | | | | | | | | +--------+--------+ + + + + Encounter Details +--------+ + + + + | Date | Type | Department | Care Team | Description | +--------+ + + + + | 09/11/ | Hospital | [facility] | Marshall Dickinson, | Pneumonia of right | | 2019 - | Encounter | [facility] | [address] | middle lobe due to | | | | [address] | [place] | infectious organism | | 09/14/ | | [place] [address] | [address] | (HCC) (Primary Dx); | | 2018 | | [phone] | | Shortness of breath; | | | | | Bartolo Warner MD | Acute respiratory | | | | | [address] | failure with hypoxia | | | | | F[address] [facility] | ([facility]); Weakness of | | | | | [id number] | right hand; Right | | | | | | leg weakness; | | | | | | Cervical spinal cord | | | | | | compression ([facility]); | | | | | [...] might be differen t from the original. [place] HOSPITALIST DISCHARGE SUMMARY Pt. Name/Age/: Kobi [...] pain? He says is much better than CREWMAN ARMOURED PERSONNEL CARRIER M113. Could the Doxycycline caused this (as others thought) [facility] Med[facility] Says NOT on Rx meds [place] (Bonduel E5 1960- [place]) ETOH 15 drinks whiskey [...] Echo . He has no murmur. called [facility] and we will push CT there and Dr Crandall to call back with when fo llowup is needed. Addendum (09/13/2019 7:31 PM) Dr Crandall says recheck Chest CT in one year for the ascending thoracic aneurysm and once i t gets to 4.5 vascular surgery should start to follow. Plan For going home: [facility] in [place] Zithromax 500 mg po daily X 2 [...] one week followup your pneumonia Contact information: [address] [facility] [address] Luis M Muir MD. Specialty: Neurosurgery Why: His office should call you with appt, if they don't within a couple of days then call them Contact information: [address] [facility] [address] Condition: Patient being discharged with condition improved Diet: Regular Greater than 30 minutes were spent on discharge and coordination of post-hospital care. Electronically signed by: Jaleesa Queen MD, 09/18/2019 6:22 AM [facility] Portions of this chart may have been created with Fitbit voice recognition software. Occasi onal wrong-word or sound-alike substitutions may have occurred due to the inherent bateman itations of voice recognition software. Please read the chart carefully and recognize, using context, where these substitutions have occurred documented in this encounter Discharge Instructions Instructions Tristen Natarajan MD - 09/13/2019Pick up Meds at [facility] in [place] You have an ascending aortic aneurysm at [...] be sent through Care Everywhere.Adult, Pneumoni a (Slovak)documented in this encounter Medications at Time of [...] might be different fro m the original. [facility] DIANE DIANE IN HOSPITALIST PROGRESS NOTE Patient: Kobi Baumann : 1940: Age: 79 y.o. MedRec: [id number] PCP: Javed Medeiros MD Admission date: 09/11/2019 [...] Motor Strong biceps and triceps and left joint yarner right joint yarner is 5- Strong psoas and quads and [...] pain? He says is much better than CREWMAN ARMOURED PERSONNEL CARRIER M113. Could the Doxycycline caused this (as others thought) Se[facility] Dr Medeiros [facility] Says NOT on Rx meds [place] (Bonduel E5 196- [place]) ETOH 15 drinks whiskey [...] Zithromax and Rocephin For going home: [facility] in [place] Zithromax 500 mg po daily X 2 days Cefdinir 300 mg po bid X 7 days DME for walker submitted Epic referral to Neurosurgery clinic made Med rec for going home done (he confirmed [facility]) Dr Pascal says the lung nodules small not need followup Need to see N/S in clinic after discharge He has had MRI C spine MRI Brain CT head CT C spine CT Chest Urine Legionella negative Tristen Natarajan MD 09/13/2019 3:20 PM [facility] (dot meyaddendum tdnorefesh nownorefresh) (dot [...] for input(s): IRON, TIBC, PCTSAT, FERRITIN, TSH, TXBCIDGK38, FOLATE in the last 168 hours. Inflammatory [...] ABG No results for input(s): PHART, PO2ART, XDR7IJX, VHT0PJE, BEART, I7EPZTZG in the last 168 h ours. No results for input(s): SPECSOURCE, PHPOCB, PCO2, PO2, HCO3, TCO2, BEART, CXCE2HOX in the last 168 hours. Drug of [...] Value Units Date/Time Culture, Respiratory, Lower, Smear [[id number]] Collected: 09/11/191746 Order Status: Completed Lab Status: Final result Updated: 09/13/19 1145 Specimen: Body Fluid from Sputum, Expectorated Culture No pathogens isolated 4+ Usual Respiratory Mary Gram Stain Result 3+ White Blood Cells 2+ Epithelial cells 4+ Gram positive cocci 2+ Gram positive bacilli 1+ Gram negative rods Legionella, Ag, EIA, Qual, Urine [[id number]] Collected: 09/11/19 174 Order Status: Completed Lab Status: Final result Updated: 09/13/19 1407 Specimen: Urine, Clean Catch L. pneumophila Serogp 1 Ur Ag Negative Comment: Presumptive negative for L. pneumophila serogroup 1 antigen in urine, suggesting no recent or current infection. Legionnaires' disease cannot be ruled out since other serogroups and species may also cause disease. Narrative: Performed at: 01 - [facility] [id number] Sole Cutter: Nelson Mehta MD, Phone: [phone] Culture, Blood [[id number]] Collected: 09/11/19 1024 Order Status: Completed Lab Status: Preliminary result Updated: 09/11/19 2231 Specimen: Peripheral Blood Culture No growth: Monitored continually by instrument for 5 days Culture, Blood [[id number]] Collected: 09/11/19 1001 Order Status: Completed Lab [...] this chart may have been created with Fitbit voice recognition software. Occasi onal wrong-word or sound-alike substitutions may have occurred due to the inherent bateman itations of voice recognition software. Please read the chart carefully and recognize, using context, where these substitutions have occurred. eyer, Tristen Leonardo MD - 09/12/2019 6:05 AM PST [place] HOSPITALIST PROGRESS NOTE Patient: Kobi Baumann : 1940: Age: 79 y.o. MedRec: [id number] PCP: Javed Medeiros MD Admission date: 09/11/2019 [...] Motor Strong biceps and triceps and left joint yarner right joint yarner is 5- Strong psoas and quads and [...] pain? He says is much better than CREWMAN ARMOURED PERSONNEL CARRIER M113. Could the Doxycycline caused this (as others thought) [facility] [place] (Bonduel E5 196- [place]) ETOH 15 drinks whiskey [...] Chest Tristen Natarajan MD 09/12/2019 4:37 PM [facility] (dot meyaddendum tdnorefesh nownorefresh) (dot [...] for input(s): IRON, TIBC, PCTSAT, FERRITIN, TSH, OCWVKVMC27, FOLATE in the last 168 hours. Inflammatory [...] ABG No results for input(s): PHART, PO2ART, OPH7AVI, MPO4TZF, BEART, A8CHIZML in the last 168 h ours. No results for input(s): SPECSOURCE, PHPOCB, PCO2, PO2, HCO3, TCO2, BEART, GABY3UBP in the last 168 hours. Drug of [...] Value Units Date/Time Culture, Respiratory, Lower, Smear [[id number]] Collected: 09/11/19 174 Order Status: Completed Lab Status: Preliminary result Updated: 09/12/19 1118 Specimen: Body Fluid from Sputum, Expectorated Culture Culture in progress... 4+ Usual Respiratory Mary Gram Stain Result 3+ White Blood Cells 2+ Epithelial cells 4+ Gram positive cocci 2+ Gram positive bacilli 1+ Gram negative rods Legionella, Ag, EIA, Qual, Urine [[id number]] Collected: 09/11/19 1742 Order Status: Sent Lab Status: In process Updated: 09/11/19 175 Specimen: Urine, Clean Catch Culture, Blood [[id number]] Collected: 09/11/19 1024 Order Status: Completed Lab Status: Preliminary result Updated: 09/11/19 2231 Specimen: Peripheral Blood Culture No growth: Monitored continually by instrument for 5 days Culture, Blood [[id number]] Collected: 09/11/19 1001 Order Status: Completed Lab [...] a post obstructive process. COMPARISON: Chest x-ray [facility] 09/07/2019 TECHNIQUE: Axial images are obtained from [...] bilaterally. Moderate to severe r ight and ztqy-wv-ucbbpcas left neural foraminal narrowing. C6-C7: Posterior disc [...] this chart may have been created with Fitbit voice recognition software. Occasi onal wrong-word or [...] | | | | | | [place] [address] | | | | | | [phone] | | | | | | | [...] Occurrences starting | | | | | ([facility]) Cervical | 09/13/2019 until | | | | | spinal stenosis | 09/13/2019 | | | | | Abnormal gait | | + +------+--------+ + + + + +--------+ + + | Name | Type | Priori | Associated Diagnoses | Order Schedule | | | | ty | | | + + +--------+ + + | AMB REFERRAL TO [facility] | Outpatient | Routin | Cervical spinal [...] | mL/min/1.73m2 | [facility] | | | [place] | RATE,ESTIMATED | | MEDICAL | | | | mL/min/1.05s1Hdws than | | CENTER - | | [...] [address] | [place] | [phone] | | [facility] | | [address] | | | - LABORATORY | | [...] + | [facility] | [address] | [place] | [phone] | | [facility] | | [address] | | | - LABORATORY | | [...] mL/min/1.73m2 | [facility] | | | [place] | RATE,ESTIMATED | | MEDICAL | | | | mL/min/1.29e8Gppk than | | CENTER - | | [...] ST. | [address] | [place], [place] | [phone] | | [facility] | | [address] | | | - LABORATORY | | [...] [address] | [place] | [phone] | | [facility] | | [address] | | | - LABORATORY | | [...] [address] | [place] | [phone] | | [facility] | | [address] | | | - LABORATORY | | [...] + | [facility] | [address] | [place] | [phone] | | [facility] | | [address] | | | - LABORATORY | | [...] mL/min/1.73m2 | [facility] | | | [place] | RATE,ESTIMATED | | MEDICAL | | | | mL/min/1.69f2Layo than | | CENTER - | | [...] [address] | [place] | [phone] | | [facility] | | [address] | | | - LABORATORY | | [...] | | Immature | | K/uL | [facility] | | | Granulocyte | | [...] + | [facility] | [address] | [place] | [phone] | | [facility] | | [address] | | | - LABORATORY | | [...] | | Result | | | [facility] | | | | | | [...] [address] | [place] | [phone] | | [facility] | | [address] | | | - LABORATORY | | [...] + + | Performed at: 01 - [facility] [address], | REFERENCE LAB | | [place], [place] [id number] Sole Cutter: Nelson Mehta MD, Phone: | [facility] [facility] | | [phone] | | + + + + + + + + | Performing | Address | City/State/Zipcode | Phone Number | | Organization | | | | + + + + + | REFERENCE LAB | [address] | [place] [address] | [phone] | | [facility] | Drive [...] | REFERENCE | | | | of [employer] | | LAB [facility] | | | | standards require a | | - [facility] | | | | culture to beperformed | | | | | | on CSF specimens | | | | | | submitted for bacterial | | | | | | antigen testing.(CAP | | | | | | [id number]) Urine | | | | | | [...] + + | Performed at: 01 - [facility] [id number], | REFERENCE LAB | | [place], [place] [id number] Sole Cutter: Marli Fortune MD, Phone: | [facility] | | [phone] | | + + + + + + + + | Performing | Address | City/State/Zipcode | Phone Number | | Organization | | | | + + + + + | REFERENCE LAB | [address] | [place] [address] | [phone] | | [facility] | Drive [facility] | | | + + + [...] | bilaterally. Moderate to severe right and ixtc-zx-djkerzax left | | | neural foraminal narrowing. [...] Moderate to | | severe right and uxrt-ga-hysefcnpuqar neural foraminal narrowing.C6-C7: Posterior disc | | [...] changes bilaterally. Moderate to severe right and wezq-tz-iouragdp | |left neural foraminal narrowing. | | [...] [address] | [place] | [phone] | | [facility] | | [address] | | | - LABORATORY | | [...] [address] | [place] | [phone] | | [facility] | | [address] | | | - LABORATORY | | [...] | | | | | | [employer] | | | | | [...] + | [facility] | [address] | [place] | [phone] | | [facility] | | [address] | | | - LABORATORY | | [...] [address] | [place] | [phone] | | [facility] | | [address] | | | - LABORATORY | | [...] ST. | [address] | [place], [place] | [phone] | | [facility] | | [address] | | | - LABORATORY | | [...] + | [facility] | [address] | [place] | [phone] | | [facility] | | [address] | | | - LABORATORY | | [...] + | [facility] | [address] | [place], [place] | [phone] | | [facility] | | [address] | | | - LABORATORY | | [...] + | [facility] | [address] | [place] | [phone] | | [facility] | | [address] | | | - LABORATORY | | [...] [address] | [place] | [phone] | | [facility] | | [address] | | | - LABORATORY | | [...] | 1.03 | 0.70 - 1.30 | [facility] | | | | | mg/dL | [facility] | | | | | | MEDICAL | | | | | | CENTER - | | | | | | LABORATORY | | + + + + + + | eGFR if not | >60Comment: GLOMERULAR | >=60 | [facility] | | | | FILTRATION | mL/min/1.73m2 | [facility] | | | [place] | RATE,ESTIMATED | | MEDICAL | | | | mL/min/1.12a9Jkym than | | CENTER - | | [...] [address] | [place] | [phone] | | [facility] | | [address] | | | - LABORATORY | | [...] [facility] | | | | | | [facility] | | | | | | MEDICAL [...] [address] | [place] | [phone] | | [facility] | | [address] | | | - LABORATORY | | [...]
--- OUTSIDE RECORDS SUMMARY | ~2019-10-08 | XMS | Encounter Summary ---
Demographics + + + | Address | [address] | | | [place] [address] | + + + | Home Phone | | + + + | Preferred Language | Unknown | + + + | Marital Status | | + + + | Faith Affiliation | NON | + + + [...] | + + + + + | Silvai Loera | F[place]ZA[place] | [place] | | + + + + + Care Team Providers + +------+ + | Care Assistant To The Vice President Name | Role | Phone | + [...] as of this encounter Progress Notes Interface, Plate And Frame Filter Operator In - 07/13/2006 1:04 AM PDTCLINIC DATE: [...] undergone an MRI. He currently lives in [place], [place]. PAST MEDICAL HISTORY: Otherwise significant for [...] Dave Schwartz M.D. [facility] / [id number] / [id number] / [id number] / [id number] cc: Robert Hawkins M.D. [facility] Orthopedics and Rehabilitation documented in this encounter Plan of Treatment Not on filedocumented as of this encounter Visit Diagnoses Not on filedocumented in this encounter"
--- OUTSIDE RECORDS SUMMARY | ~2019-10-08 | XMS | Encounter Summary ---
Demographics + + + | Address | [address] | | | [place] [address] | + + + | Home Phone | | + + + | Preferred Language | Unknown | + + + | Marital Status | | + + + | Temple Affiliation | NON | + + + | Race | White | + + + | Ethnic Group | Not or | + + + Author + + + | Author | [facility] | + + + | Organization | [facility] | + + + | Address [...] Team Providers + +------+ + | Care Marksmanship Instructor Name | Role | Phone | [...] | [address] | [place], | | | | | [place] Mailcode: | [place] [address] | | | | | OP03 Outpatient | [phone] | | | | | [place] [address] | | | | | | [place], [place] | | | | | | [address] | | | | | | [phone] | | | +--------+ + + + [...]
--- OUTSIDE RECORDS SUMMARY | ~2019-10-08 | XMS | Encounter Summary ---
Demographics + + + | Address | [address] | | | [place] [address] | + + + | Home Phone | | + + + | Preferred Language | Unknown | + + + | Marital Status | | + + + | Yarsanism Affiliation | Unknown | + + + | Race | Unknown | + + + | Ethnic Group | Unknown | + + + Author + + + | Author | [facility] | | | and [place] | + + + | Organization | [facility] | | | and [place] | + + + | Address | Unknown | + + + | Phone | Unavailable | + + + Support + + + + + | Name | Relationship | Address | Phone | + + + + + | Silvia Baumann | ECON | [address] | | | | | [place] | | | | | [address] | | + + + + + Care Team Providers + +------+ + | Care Mobile Sales Technician Name | Role | Phone | [...] | | [place] | [place] | | | | | [address] | [address] | | | | | [phone] | | | +--------+ + + + [...] | | | | | [place] [address] | | | | | | [phone] | | | | | | | | +--------+---------+ + + + documented as of this encounter Visit Diagnoses Not on filedocumented in this encounter
--- OUTSIDE RECORDS SUMMARY | ~2019-10-08 | XMS | Encounter Summary ---
Demographics + + + | Address | [address] | | | [place] [address] | + + + | Home Phone [...] + + + | Author | [facility] | + + + | Organization | [facility] | + + + | [...] Team Providers + +------+ + | Care Alterations Manager Name | Role | Phone | [...] as of this encounter Progress Notes Interface, Screw Machine Set Up Operator In - 08/27/2006 3:08 AM PDTCLINIC DATE: [...] on a p.r.n. basis. Juanita Whitman M.D. MYNR[facility] / WAN [id number] / [id number] / [id number] / [id number] signed by Interface, Screw Machine Set Up Operator In at 08/27/2006 3:08 AM PDTdocume nted in this encounter Plan of Treatment Not on filedocumented as of this encounter Visit Diagnoses Not on filedocumented in this encounter"
--- OUTSIDE RECORDS SUMMARY | ~2019-10-08 | XMS | Encounter Summary ---
Demographics + + + | Address | [address] | | | [place] [address] | + + + | Home Phone | | + + + | Preferred Language | Unknown | + + + | Marital Status | | + + + | Catholic Affiliation | Unknown | + + + | Race | Unknown | + + + | Ethnic Group | Unknown | + + + Author + + + | Author | [facility] | | | and [place] | + + + | Organization | [facility] | | | and [place] | + + + | Address | Unknown | + + + | Phone | Unavailable | + + + Support + + + + + | Name | Relationship | Address | Phone | + + + + + | Silvia Baumann | ECON | [address] | | | | | [place] | | | | | [address] | | + + + + + Care Team Providers + +------+ + | Care Black Top Spreader Machine Operator Name | Role | Phone [...] + + | 01/14/ | [facility] | [facility] | [place], | Epididymitis, left | | 2015 | Visit | [address] | MD [address] | (Primary Dx) | | | | [place] | [place] | | | | | [address] | [address] | | | | | [phone] | | | +--------+---------+ + + + [...] a right total hip arthroplasty procedure in [place], [place], on approxim ately 10/02/2015. He was readmitted on 10/14/2015 with cystitis and left epididymoorchitis. He was initially started on IV Rocephin, but was switched to ertapenem after his urine cult ure grew rspdg-bgpa-bbbvdhirx ESBL e.coli. He completed a nearly 3 [...] urgency; Benign paroxysmal positional vertigo; Toba account administrator use disorder, continuous; Tubular adenoma of colon; [...] 2. Status post right total hip arthroplasty [place], [place] 10/02/2015. 3. Left inguinal hernia. 4. [...] have not thoroughly proofread this note, and racing mechanic erro rs may occur. CC: Dr Baptiste [...] | | | | | [place] [address] | | | | | | [phone] | | | | | | | | +--------+---------+ + + + documented as of this encounter Visit Diagnoses + + | Diagnosis | + + | Epididymitis, left - Primary Orchitis and epididymitis, unspecified | + + documented in this encounter
--- OUTSIDE RECORDS SUMMARY | ~2019-10-08 | XMS | Encounter Summary ---
Demographics + + + | Address | [address] | | | [place] [address] | + + + | Home Phone [...] + + + | Author | [facility] | + + + | Organization | [facility] | + + + | [...] Team Providers + +------+ + | Care Cargo Router Name | Role | Phone | + +------+ + PCP | Unavailable | + +------+ + Encounter Details +--------+ + + + + | Date | Type | Department | Care Team | Description | +--------+ + + + + | 05/18/ | Results | Orthopaedics at | Daev Schwartz MD | | | 2001 | Only | [facility] [address] | [address] [place] | | | | | [facility] [address] | [address] [place], [place] | | | | | Mailcode: [id number] | [address] | | | | | Physician's [place] | | | | | | [place], [place] | | | | | | [address] | | | | | | [phone] | | | +--------+ + + + [...] the | | | | | | L1-G3mexxooohd bodies | | | | | | [...] | | + +---------+ + + | [facility] DEPARTMENT OF | | | | | RADIOLOGY | | | | + +---------+ + + documented in this encounter Visit Diagnoses Not on filedocumented in this encounter"
--- OUTSIDE RECORDS SUMMARY | 2019-10-08 08:04 | XMS ---
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 E.DLedy VISIT COUNT (12 MO.) [address] [place] [address] Juanita Sosa [address] [place] [address] TOTAL 5 NOTE: Visits indicate total known visits. ED/C VISIT TRACKING (12 MO.) 10/08/2019 08:01 [facility] [place] TYPE: Emergency COMPLAINT: - STROKE SYMPTOMS [facility] [place] DIAGNOSES: - Lobar pneumonia, unspecified organism - Weakness - Acute respiratory failure with hypoxia - Body aches - Hand Pain - Foot Pain - Shortness of breath - Oth symptoms and signs involving the musculoskeletal system - Unspecified cord compression [facility] DIAGNOSES: - Foot Pain - Leg Pain/Weakness - Unsp adverse effect of drug or medicament, init encntr 09/07/2019 08:47 [facility] Burton [place] TYPE: Emergency DIAGNOSES: - Cough - Other specified respiratory disorders - congestion - Pneumonia, unspecified organism - Diaphoresis 12/04/2018 10:[facility] [place] DIAGNOSES: - Cervicalgia - Neck Pain INPATIENT VISIT TRACKING (12 MO.) 09/11/2019 08:[facility] [place] TYPE: Medical Surgical DIAGNOSES: - Shortness of breath - Unspecified abnormalities of gait and mobility - Pneumonia, unspecified organism - Spinal stenosis, cervical region - Oth symptoms and signs involving the musculoskeletal system - Lobar pneumonia, unspecified organism - Acute respiratory failure with hypoxia - Unspecified cord compression [email or web address]
--- NOTE | 2019-10-08 16:05 | EKG ---
[facility] [address] [facility] [place] [address] Signed Marked sinus bradycardia Possible Anterior infarct , age undetermined Abnormal ECG When compared with ECG of 08-OCT-2019 08:12, (Unconfirmed) Vent. rate has decreased BY 24 BPM QT has shortened Confirmed by PAGE WELSH DO ([id number]) on 10/08/2019 4:05:48 PM Electronically Signed By: PAGE WELSH DO 10/08/19 1605 PATIENT NAME: KASIE BROCK TALHA Electrocardiogram DATE OF : 36 PHYSICIAN: PAGE WELSH DO REPORT #: [id number] REPORT IS CONFIDENTIAL AND NOT TO BE RELEASED WITHOUT AUTHORIZATION
--- NOTE | 2019-10-08 16:05 | EKG ---
[facility] [address] [facility] [place], [place] [address] Signed Sinus rhythm with 1st degree AV block Otherwise normal ECG No previous ECGs available Confirmed by PAGE WELSH DO ([id number]) on 10/08/2019 4:05:38 PM Electronically Signed By: PAGE WELSH DO 10/08/19 1605 PATIENT NAME: KASIE BROCK Electrocardiogram DATE OF : 36 PHYSICIAN: PAGE WELSH DO REPORT #: [id number] REPORT IS CONFIDENTIAL AND NOT TO BE RELEASED WITHOUT AUTHORIZATION
== END 2019-10-08 13:41 | disposition short-term general hospital (02) ==
LOC: ED 08:01
DX: I63.9 Cerebral infarction, unspecified (principal); F17.200 Nicotine dependence, unspecified, uncomplicated
CPT/HCPCS: 70450; 70496; 70498; 71045; 80053; 84484; 85025; 85610; 85730; 93005; 93010; 99285-25; Q9967